=== PATIENT | male | born 1950 | race Caucasian/White ===

== ENCOUNTER 2018-11-05 13:24 | Outpatient (CLI) | payer MEDICARE ==
[~2018-11-05] VITALS: Ht 162.6 cm; Wt 92.0 kg
[~2018-11-05 13:24] MED LIST: /WARF5TA OR; ACET500C OR; ADV100INH INH; ASPI81TA85 PO; COUM2.5T17 PO; DIPH2.5L OR; DIPH2.5T14 PO; GLIM1TAB OR; INSULANT SC; LANTINJ4 SC; MULTCAP PO; PERC5TAB12 PO; PERC7.5T8 OR; PRED5TA PO; PRED5TAB OR; PREG100CA PO; PRO AIR INH; RAMI1CAP26 PO; RAMI25CA OR; SYMB80AE IN; TRAM50TA2 PO; TYLE325T5 PO; VICO5TAB OR; proair
[2018-11-05 13:30] VITALS: BP 158/70
[2018-11-05] MEDS ORDERED: VEDOLIZUMAB 300 MG in NS 250 ML IV ONE (13:45)
[2018-11-05] MEDS ORDERED: diphenhydrAMINE 25 MG CAP PO ONE (13:45)
[2018-11-05] MEDS ORDERED: ACETAMINOPHEN TAB 650MG DOSE (2X325MG) PO ONE (13:45)
[2018-11-05] MEDS ORDERED: LIDO2JELLY TOP (15:41)
[2018-11-05 15:42] VITALS: BP 163/74
[2018-11-05] MEDS ORDERED: SYMB16INH INH (15:42)
[2018-11-05] MEDS ORDERED: AMLO10TA5 PO (15:42)
[2018-11-05] MEDS ORDERED: FLON1SPR NARES (15:43)
[2018-11-05 16:11] VITALS: BP 148/70
== END 2018-11-05 15:50 | disposition home or self-care (01) ==
LOC: M INFU 13:24
PROVIDERS: ATTEND Internal Medicine Gastroenterology
DX: K50.00 Crohn's disease of small intestine without complications (principal)
CPT/HCPCS: 96365; J3380

== ENCOUNTER → 2018-12-06 | Outpatient (CLI) | payer MEDICARE ==
[~2018-12-06] MED LIST changes: +AMLO10TA5 PO; +D31000CA4 PO; +FLON1SPR NARES; +INSUH10VL SC; +LIDO2JELLY TOP; +SYMB16INH INH
--- NOTE | 2018-12-06 11:54 | REP ---
MAXILLOFACIAL CT WITHOUT CONTRAST: HISTORY: Chronic pansinusitis. There is complete opacification of the left maxillary sinus. Calcifications are present. There is expansion of the medial wall of the left maxillary sinus with extension of soft tissue density into the left nasal passage. There is partial erosion of the medial wall of the left maxillary sinus and almost complete erosion of the left uncinate process and left middle nasal turbinate. Mucosal thickening is present in the left ethmoid and sphenoid sinuses. There is complete opacification of the left ethmoid and sphenoid sinuses. Mild mucosal thickening is present in the left frontal sinus. Minimal mucosal thickening is present in the right frontal, ethmoid and maxillary sinuses. The right sphenoid sinus is clear. The right ostiomeatal unit is patent. The inferior and right middle nasal turbinates are partially paradoxical. There is mild deviation of the nasal septum to the right. The cribriform plate, medial godwin of the orbits and optic canals are intact. The carotid canals form a segment of the posterolateral godwin of the sphenoid sinus. The sphenoid sinus septum inserts into the right internal carotid canal wall. IMPRESSION: 1. There is complete opacification of the left maxillary sinus with extension of soft tissue density into the left nasal passage. There is partial erosion of the medial wall of the left maxillary sinus, uncinate process and left middle nasal turbinate. This may represent a mucocele or antral choanal polyp. 2. Sinus mucosal thickening as described above. Electronically Signed by Nolan Zheng MD 12/06/2018 11:58 A
== END ==
LOC: M RAD 11:00
PROVIDERS: ATTEND Otolaryngology
DX: J32.4 Chronic pansinusitis (principal)

== ENCOUNTER 2018-12-07 05:51 | Day surgery (SDC) | payer MEDICARE ==
[~2018-12-07] VITALS: Ht 162.6 cm; Wt 92.5 kg
[2018-12-07] MEDS ORDERED: EPINEPHrine 1MG/ML INJ 30ML MD-VIAL As Ordered ONE (06:56)
[2018-12-07] MEDS ORDERED: LIDOCAINE W/EPINEPHRINE 1% 20ML VIAL As Ordered ONE ×2 (06:56→06:57)
[2018-12-07] MEDS ORDERED: METHYLENE BLUE 0.5% (5MG/ML) 10 ML AMP (PROVAYBLUE)(Q9968 PER 1MG) As Ordered ONE (06:56)
[2018-12-07] MEDS ORDERED: MIDAZOLAM INJ 2 MG/2 ML VIAL (J2250) As Ordered ONE (07:10)
[2018-12-07] MEDS ORDERED: PROPOFOL 200 MG/20 ML VIAL As Ordered ONE (07:10)
[2018-12-07] MEDS ORDERED: ROCURONIUM BROMIDE 50 MG/5 ML VIAL As Ordered ONE ×2 (07:10→08:28)
[2018-12-07] MEDS ORDERED: fentaNYL 250 MCG/5 ML INJECTION (J3010) As Ordered ONE (07:10)
[2018-12-07] MEDS ORDERED: LIDOCAINE 2% INJ 100 MG/5 ML SDV (FOR ANES.) As Ordered ONE (07:10)
[2018-12-07] MEDS ORDERED: ePHEDrine SULFATE 25 MG/5 ML(5MG/ML) SYRINGE As Ordered ONE (07:55)
[2018-12-07] MEDS ORDERED: PHENYLephrine HCL 500 MCG/5 ML (100MCG/ML) SYRINGE (J2370) As Ordered ONE (07:56)
[2018-12-07] MEDS ORDERED: dexameTHASONE 4 MG/ML 1ML VIAL (J1100) As Ordered ONE (07:56)
[2018-12-07] MEDS ORDERED: SUGAMMADEX SODIUM 500 MG/5 ML VIAL (BRIDION) As Ordered ONE (09:13)
[2018-12-07] MEDS ORDERED: ONDANSETRON 4MG/2ML VIAL (J2405) As Ordered ONE (09:13)
[2018-12-07] MEDS ORDERED: LR 1,000 ML IV SCH (09:45)
[2018-12-07] MEDS ORDERED: ACETAMINOPH W/CODEINE #3 TAB UD PO PRN (09:45)
[2018-12-07] MEDS ORDERED: fentaNYL 100 MCG/2 ML INJECTION (J3010) IV PRN (10:00)
[2018-12-07] MEDS ORDERED: ONDANSETRON 4MG/2ML VIAL (J2405) IV PRN (10:00)
[2018-12-07] MEDS ORDERED: PERCOCET 5MG/325MG TAB PO PRN (10:00)
[2018-12-07 12:00] VITALS: BP 150/69
--- NOTE | 2018-12-07 22:43 | RO ---
DATE OF PROCEDURE: 12/07/2018 PREPROCEDURE DIAGNOSIS: Chronic rhinosinusitis. POSTPROCEDURE DIAGNOSIS: Chronic rhinosinusitis. PROCEDURE: Left polypectomy, ethmoidectomy, sphenoidotomy, antrostomy, nasofrontal sinusotomy, and left maxillary sinus lavage. SURGEON: Anselmo Mathew MD YARN SALVAGER: ANESTHESIA: FINDINGS: There was fungus within the left maxillary sinus and ethmoid area. There was mucopus within the ethmoid and sphenoid sinus. There was thickened mucosa and polypoid mucosa. I took cultures from the maxillary sinus. I used the navigation system during the procedure. DESCRIPTION OF PROCEDURE: Under general anesthesia with the patient intubated, the patient was prepped and draped in the usual manner. I did billposting supervisor the navigation system and calibrated prior to initiation of the procedure. I used pledgets of adrenaline 1:1000 and infiltrated with lidocaine with epinephrine. I started first by entering in and removing a portion of the middle turbinate. I then opened up and removed polypoid tissue from the area. The above findings were seen. I opened first into the maxillary sinus and enlarged that opening. Then, I flushed the sinus many times until I was able to get rid of the large fungus ball that was within the sinus. Behind that, there was a little thickened mucosa. So, after this was done, then I opened up the ethmoid air cells and dissected that area and then I opened up into the sphenoid sinus. I enlarged that opening. I then opened up into the nasofrontal area. Navigation system was used during the procedure. The patient tolerated the procedure well. Approximately 50 mL estimated blood loss. I put a Propel implant in the osteomeatal complex area. The patient was extubated and then transferred to the recovery room in excellent condition.
== END 2018-12-07 12:16 | disposition home or self-care (01) ==
LOC: M SDC 05:51
PROVIDERS: ATTEND Otolaryngology
DX: J32.4 Chronic pansinusitis (principal); I10 Essential (primary) hypertension; E11.8 Type 2 diabetes mellitus with unspecified complications; K50.011 Crohn's disease of small intestine with rectal bleeding; K21.9 Gastro-esophageal reflux disease without esophagitis; I49.9 Cardiac arrhythmia, unspecified; M06.9 Rheumatoid arthritis, unspecified; J45.909 Unspecified asthma, uncomplicated; J44.9 Chronic obstructive pulmonary disease, unspecified; R94.31 Abnormal electrocardiogram [ECG] [EKG]; R29.898 Other symptoms and signs involving the musculoskeletal system; R60.0 Localized edema; Z90.49 Acquired absence of other specified parts of digestive tract; Z86.19 Personal history of other infectious and parasitic diseases; Z87.891 Personal history of nicotine dependence; Z96.653 Presence of artificial knee joint, bilateral; Z96.1 Presence of intraocular lens; Z98.41 Cataract extraction status, right eye; Z98.42 Cataract extraction status, left eye; Z79.899 Other long term (current) drug therapy; Z79.4 Long term (current) use of insulin
CPT/HCPCS: 31253; 31256; 31287; 87070; 87075; 87076; 87077; 87186; 88305; C2625; J1100; J2250; J2370; J2405; J3010; Q9968

== ENCOUNTER 2019-01-28 09:37 | Outpatient (CLI) | payer MEDICARE ==
[~2019-01-28] VITALS: Ht 162.6 cm; Wt 92.0 kg
[~2019-01-28 09:37] MED LIST changes: -/WARF5TA OR; +COUM1TAB17 OR
[2019-01-28 09:52] VITALS: BP 166/73
[2019-01-28] MEDS ORDERED: VEDOLIZUMAB 300 MG in NS 250 ML IV ONE (10:00)
[2019-01-28] MEDS ORDERED: ACETAMINOPHEN TAB 650MG DOSE (2X325MG) PO ONE (10:00)
[2019-01-28] MEDS ORDERED: diphenhydrAMINE 25 MG CAP PO ONE (10:00)
[2019-01-28 10:50] VITALS: BP 148/71
[2019-01-28 11:09] VITALS: BP 138/68
== END 2019-01-28 11:10 | disposition home or self-care (01) ==
LOC: M INFU 09:37
PROVIDERS: ATTEND Internal Medicine Gastroenterology
DX: K50.00 Crohn's disease of small intestine without complications (principal)
CPT/HCPCS: 96365; J3380

== ENCOUNTER 2019-02-11 09:50 | Outpatient (CLI) | payer MEDICARE ==
[~2019-02-11] VITALS: Ht 162.6 cm; Wt 94.3 kg
[2019-02-11 10:00] VITALS: BP 157/71
[2019-02-11] MEDS ORDERED: diphenhydrAMINE 25 MG CAP PO ONE (10:30)
[2019-02-11] MEDS ORDERED: ACETAMINOPHEN TAB 650MG DOSE (2X325MG) PO ONE (10:30)
[2019-02-11] MEDS ORDERED: VEDOLIZUMAB 300 MG in NS 250 ML IV ONE (11:00)
[2019-02-11 11:15] VITALS: BP 151/72
== END 2019-02-11 11:15 | disposition home or self-care (01) ==
LOC: M INFU 09:50
PROVIDERS: ATTEND Internal Medicine Gastroenterology
DX: K50.00 Crohn's disease of small intestine without complications (principal)
CPT/HCPCS: 96365; J3380

== ENCOUNTER → 2019-03-11 | Outpatient (CLI) | payer MEDICARE ==
[2019-03-11 13:41] LABS: BLOOD UREA NITROGEN 25 MG/DL (7-18); CREATININE FOR GFR 0.89 MG/DL (0.70-1.30); GLOMERULAR FILTRATION RATE > 60.0 (>49)
== END ==
LOC: M SMT 09:41
PROVIDERS: ATTEND Internal Medicine Pulmonary Disease
DX: J45.40 Moderate persistent asthma, uncomplicated (principal)

== ENCOUNTER → 2019-11-05 | Outpatient (CLI) | payer MEDICARE ==
--- NOTE | 2019-11-05 12:16 | REPPI ---
Clinical: Persistent asthma . Comparison: 10/09/2014 Technique: PA and lateral. Findings: The mediastinum and cardiac silhouette are normal. The lung cox demonstrate stable chronic changes at the bases without acute consolidation, effusion, or pneumothorax. The skeletal structures are intact and normal. Impression: 1. No acute cardiopulmonary process. Electronically Signed by Pardeep Pinto MD 11/05/2019 12:07 P
== END ==
LOC: M PLAIMG 11:47
PROVIDERS: ATTEND Internal Medicine Pulmonary Disease
DX: J45.40 Moderate persistent asthma, uncomplicated (principal)

== ENCOUNTER → 2019-11-27 | Outpatient (CLI) | payer MEDICARE ==
--- NOTE | 2019-11-27 12:51 | REPPI ---
CHEST, TWO VIEWS: COMPARISON: 11/05/2019. Mild scattered pleural thickening is present and there appears to be mild bibasilar fibrotic change. There also appears to be a prominent left cardiophrenic fat pad. No acute infiltrate is seen. The heart is upper limits of normal in size. There is mild calcification of the thoracic aorta. Mediastinal silhouette is unchanged. There are degenerative changes of the spine. IMPRESSION: Stable chronic findings without evidence of acute infiltrate. Electronically Signed by Khalif Gomez MD 11/27/2019 04:09 P
== END ==
LOC: M PLAIMG 10:56
PROVIDERS: ATTEND Internal Medicine Pulmonary Disease
DX: J45.40 Moderate persistent asthma, uncomplicated (principal)
CPT/HCPCS: 71046; G0463

== ENCOUNTER 2020-11-14 11:50 | Inpatient (IN) | payer MEDICARE ==
[~2020-11-14] VITALS: Ht 162.6 cm; Wt 91.4 kg
[2020-11-14] MEDS: METOPROLOL SUCC *XL* 25MG TAB (TopROL *XL*) PO SCH (09:00)
[~2020-11-14 11:50] MED LIST changes: -AMLO10TA5 PO; +AMLO1TAB25 PO; -ASPI81TA85 PO; +ASPI81TA86 PO
[2020-11-14 14:00] VITALS: BP 126/58
[2020-11-14] MEDS ORDERED: ACETAMINOPHEN TAB 650MG DOSE (2X325MG) PO PRN (15:00)
[2020-11-14] MEDS ORDERED: DEXTROSE 50% 50 ML SYRINGE IV PRN (15:00)
[2020-11-14] MEDS ORDERED: GLUCOSE 4GM CHEW TABLET PO PRN (15:00)
[2020-11-14] MEDS ORDERED: GLUCAGON INJ 1MG VIAL SC PRN (15:00)
--- OUTSIDE RECORDS SUMMARY | 2020-11-14 15:07 | CCD | Continuity of Care Document ---
Author Author [facility] Address [address] [place] [address] Phone Support Name Relationship Address Phone Hospital Lab, [facility] [address] [place] [address] [place] [address] Naw[facility] [place] [address] Allergies, Adverse Reactions, Alerts No known allergies. Medications Medication Status Dose Units Route Directions Qty Days Start Date End Date Instructions Ramipril Active 10 MG PO daily March 05, 2019 3:15pm tuberculin PPD Discontinued 0.1 ML ID 1 Time/Once 0.1 April 15, 2019 8:41am April 15, 2019 8:54am Adalimumab (Humira) 40 mg/0.8 mL syringe kit Discontinued 40 MG SQ every 2 weeks September 10, 2019 1:24pm November 21, 2019 10:52am Multivitamin Active 1 TAB PO Every Morning September 10, 2019 1:26pm Polysaccharide Iron Complex (Ferrex 150) 150 mg iron c apsule Discontinued 150 MG PO daily September 10, 2019 2:30pm November 21, 2019 10:54am avoid dairy/calcium-containing products and/or antacids for at least 2 hrs before and after dose Insulin Glargine (Lantus Solostar U-100 Insulin) 100 unit/mL (3 mL) insulin pen Active 18 UNIT SQ 2 Times Per Day November 21, 2019 10:53am Levofloxacin (Levaquin) 500 mg tablet Discontinued 500 MG PO Q24H 14 November 21, 2019 12:58pm December 04, 2019 10:38am Prednisone Discontinued 20 MG PO daily 100 November 21, 2019 12:58pm December 04, 2019 11:54am X7 days then 1 daily 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 Albuterol Sulfate Discontinued 2.5 MG NEB Q4HRS November 21, 2019 12:59pm November 21, 2019 1:00pm Albuterol Sulfate Discontinued 2.5 MG IH Q4HRS November 21, 2019 1:00pm November 21, 2019 1:01pm Albuterol Sulfate Active 2.5 MG IH Q4HRS November 21, 2019 1:00pm Umeclidinium (Incruse Ellipta) 62.5 mcg/ actuation blister with device Active IH Calvin h 2019 10:39am Prednisone Discontinued 5 MG PO every other day December 04, 2019 11:55am May 04, 2020 2:32pm Gabapentin Active 300 MG PO daily May 04, 2020 8:55am Amlodipine Discontinued 5 MG PO daily May 04, 2020 10:12am June 09, 2020 8:22am Triamterene-Hydrochlorothiazid (Dyazide) 37.5-25 mg ca psule Active 1 CAP PO Every Morning May 04, 2020 10:12am Zinc Oxide Active 3.8 % TOP Four Times a Day May 04, 2020 2:28pm apply the barrier cream up to QID to but [facility] area Prednisone Discontinued 5 MG PO daily May 04, 2020 2:31pm June 19, 2020 11:57am Diphenoxylate-Atropine Active 1 TAB PO Four Times a Day May 04, 2020 2:32pm Take up to 4 times daily to control Crohn's flare Metoprolol Succinate (Toprol Xl) 25 mg t ablet extended release 24 hr Discontinued 25 MG PO At Bedtime October 19, 2020 1:58pm October 192020 3:19pm Metoprolol Succinate (Toprol Xl) 25 mg t ablet extended release 24 hr Active 25 MG PO At Bedtime October 19, 2020 3:19pm Ramipril Discontinued 1 TAB PO Once Per Day February 02, 2011 11:04am February 02, 2011 11:09am Glimepiride (Amaryl) 4 mg tablet Dis continued 1 TAB PO 2 Times Per Day 180 February 02, 2011 11:07am February 02, 2011 11:09am Budesonide/Formoterol Fumarate (Symbicort 160/4.5 Inha ler) Discontinued 1 PUFFS IH 2 Times Per Day 3 February 02, 2011 11:07am February 02 1 11:09am Glimepiride (Amaryl) 4 mg tablet Dis continued 1 TAB PO 2 Times Per Day 180 February 02, 2011 11:09am October 14, 2011 4:22pm Ramipril Discontinued 1 TAB PO Once Per Day 90 February 02, 2011 11:09am November 25, 2011 1:55pm Budesonide/Formoterol Fumarate (Symbicort 160/4.5 Inha ler) Discontinued 1 PUFFS IH 2 Times Per Day 3 February 02, 2011 11:09am April 22 11 4:58pm Loperamide Discontinued 1 TAB PO Four Times a Day 120 February 09, 2011 4:49pm April 22, 2011 4:58pm Albuterol Sulfate (Proventil Hfa) 90 mcg /actuation HFA aerosol inhaler Discontinued 2 PUFFS IH Every 6 hours 0 February 09, 2011 4:49pm August 02, 2011 12:57pm Blood Sugar Diagnostic (Freestyle Test) strip Discontinued 1 STRIP IN 100 February 09, 2011 4:50pm March 02, 2012 1:47pm Insulin Glargine,Hum.rec.anlog (Lantus Solostar) Discontinued 37 UNIT SC At Bedtime 3 April 07, 2011 7:28am April 07, 2011 9:11am Insulin Glargine,Hum.rec.anlog (Lantus Solostar) Discontinued 37 UNIT SC At Bedtime 3 April 07, 2011 9:11am April 22, 2011 4:59pm Insulin Glargine,Hum.rec.anlog (Lantus Solostar) Discontinued 40 UNIT SC At Bedtime 3 April 22, 2011 4:59pm July 29, 2011 10:35am Diphenoxylate-Atropine (Lomotil) 2.5-0.025 mg tablet Discontinued 1 TAB PO Four Times a Day 360 April 22, 2011 5:02pm July 29, 2011 10:35am Insulin Syringe-Needle U-100 Discontinued 1 DIS.SYR MC Once Per Day 100 April 22, 2011 5: 02pm November 25, 2011 1:16pm Fluocinonide/Emollient (Lidex-E 0.05% Cream) Discontinued 1 GM TP 2 Times Per Day 60 April 22, 2011 5:03pm October 14, 2011 4:22pm INFLUENZA TV-S 11-12 VACCINE (FLUZONE ) Discontinued 0.5 MILLILITRE IM ONE TIME 1 June 14, 2011 3:55pm June 14, 2011 3:55pm Diphenoxylate-Atropine (Lomotil) 2.5-0.025 mg tablet Discontinued 1 TAB PO Four Times a Day 120 July 29, 2011 10:35am December 2:38pm Insulin Glargine,Hum.rec.anlog (Lantus Solostar) Discontinued 45 UNIT SC At Bedtime 3 July 29, 2011 10:35am October 14, 2011 4:22pm Levofloxacin (Levaquin) 500 mg tablet Discontinued 500 MG PO Once Per Day August 02, 2011 12:57pm October 14, 2011 4:22pm Albuterol Sulfate (Proair Hfa) 90 mcg/ac tuation HFA aerosol inhaler Discontinued 2 PUFFS IH Q4HRS 1 August 02, 2011 12:57pm August 09, 2011 2:34pm Nebulizers (Compact Compressor Nebulizer) misc Discontinued 1 EACH MC Q4HRS 1 August 09, 2011 2:06pm October 14, 2011 4:22pm Albuterol Sulfate Discontinued 2.5 MG NEB Q4HRS 100 August 09, 2011 2:06pm October 22, 2012 3:53pm Albuterol Sulfate (Proair Hfa) 90 mcg/ac tuation HFA aerosol inhaler Discontinued 2 PUFFS IH Q4HRS 3 August 09, 2011 2:34pm June 262011 2:22pm Budesonide-Formoterol (Symbicort) 160-4. 5 mcg/actuation HFA aerosol inhaler Discontinued 2 PUFFS IH 2 Times Per Day 3 August 09, 2011 2:34pm October 22, 2012 3:26pm Prednisone Discontinued 40 MG PO Once Per Day 0 August 09, 2011 2:35pm October 14, 2011 4:22pm Glimepiride (Amaryl) 4 mg tablet Dis continued 1 TAB PO 2 Times Per Day 180 October 14, 2011 4:22pm October 22, 2012 5:21pm Fluocinonide/Emollient (Lidex-E 0.05% Cream) Discontinued 1 GM TP 2 Times Per Day 60 October 14, 2011 4:22pm August 24, 2012 3:49pm Insulin Glargine,Hum.rec.anlog (Lantus Solostar) Discontinued 55 UNIT SC At Bedtime 3 October 14, 2011 4:22pm April 11, 2012 3:55pm Pen Needle, Diabetic (Pen Needle) 31 gauge x 1/4" need le Discontinued 1 DIS.NDL MC Once Per Day 100 November 25, 2011 1:16pm November 24 1:17pm Pen Needle, Diabetic (Pen Needle) 31 gauge x 1/4" need le Discontinued 1 DIS.NDL MC Once Per Day 100 November 25, 2011 1:17pm July 17, 2012 2:16pm Ramipril Discontinued 10 MG PO Once Per Day 90 November 25, 2011 1:55pm January 01, 2013 8:33am Blood Sugar Diagnostic (One Touch Test Strips) Discontinued 1 STRIP IN 2 Times Per Day 200 March 02, 2012 1:47pm March 02, 2012 1:48pm Blood Sugar Diagnostic (One Touch Test Strips) Discontinued 1 STRIP IN 2 Times Per Day 200 March 02, 2012 1:48pm March 11, 2013 3:50pm Loperamide Discontinued 1 CAP PO Four Times a Day 360 March 02, 2012 1:53pm March 02, 2012 2:05pm Loperamide Discontinued 1 CAP PO Four Times a Day 360 March 02, 2012 2:05pm April 26, 2013 9:02am Tiotropium Sharon (Spiriva With Handiha ler) 18 mcg capsule, w/inhalation device Discontinued 18 MCG IH Once Per Day 90 April 11, 2012 3:18pm March 06, 2013 4:57pm Insulin Glargine,Hum.rec.anlog (Lantus Solostar) Discontinued 60 UNIT SC At Bedtime 3 April 11, 2012 3:55pm April 11, 2012 4:05pm Insulin Glargine,Hum.rec.anlog (Lantus Solostar) Discontinued 60 UNIT SC At Bedtime 3 April 11, 2012 4:05pm October 22, 2012 5:21pm Metformin (Glucophage Xr) 500 mg tablet extended release 24 hr Discontinued 500 MG PO 2 Times Per Day 180 June 13, 2012 3:10pm July 11, 2012 9:59am Flu Vaccine (4 Yr+)(Pf) (Fluvirin (Pf)) 45 mcg (15 mcg x 3)/0.5 mL syringe Discontinued 0.5 MILLILITRE IM ONE TIME 1 June 13, 2012 5:25pm June 13, 2012 5:30pm Prednisone Discontinued 40 MG PO Once Per Day June 26, 2012 2:21pm July 12, 2012 11:19am Azithromycin (Zithromax) 250 mg tablet Discontinued 250 MG PO Once Per Day June 26, 2012 2:21pm July 12, 2012 11:58am Albuterol Sulfate (Proair Hfa) 90 mcg/ac tuation HFA aerosol inhaler Discontinued 2 PUFFS IH Q4HRS June 26, 2012 2:22pm June 2:26pm Albuterol Sulfate (Proair Hfa) 90 mcg/ac tuation HFA aerosol inhaler Discontinued 2 PUFFS IH Q4HRS June 26, 2012 2:26pm August 4:15pm Metformin (Glucophage Xr) 500 mg tablet extended release 24 hr Discontinued 500 MG PO 2 Times Per Day July 11, 2012 9:59am March 06, 2013 4:57pm Lancets (Freestyle Lancets) 28 gauge misc Discontinued 1 EACH MC 2 Times Per Day July 11, 2012 10:00am July 11, 2012 10:02am Lancets (Freestyle Lancets) 28 gauge misc Discontinued 1 EACH MC 2 Times Per Day July 11, 2012 10:02am October 22, 2012 5:21pm Prednisone Discontinued 40 MG PO Once Per Day July 12, 2012 9:04pm July 20, 2012 3:42pm Levofloxacin (Levaquin) 500 mg tablet Discontinued 500 MG PO Once Per Day July 12, 2012 9:04pm August 24, 2012 3:48pm Pen Needle, Diabetic (Pen Needle) 31 gauge x 1/4" need le Discontinued 1 DIS.NDL MC Once Per Day July 17, 2012 2:16pm October 222012 5:21pm Montelukast (Singulair) 10 mg tablet Discontinued 10 MG PO O nce Per Day July 20, 2012 4:30pm March 06, 2013 4:57pm Levofloxacin (Levaquin) 500 mg tablet Discontinued 500 MG PO Once Per Day August 24, 2012 4:24pm August 24, 2012 4:26pm Budesonide-Formoterol (Symbicort) 160-4. 5 mcg/actuation HFA aerosol inhaler Discontinued 2 PUFFS IH 2 Times Per Day 1 August 24, 2012 4:24pm October 22, 2012 3:26pm Levofloxacin (Levaquin) 500 mg tablet Discontinued 500 MG PO Once Per Day 10 August 24, 2012 4:26pm October 22, 2012 3:26pm Fluticasone Propion-Salmeterol (Advair H fa) 230-21 mcg/actuation HFA aerosol inhaler Discontinued 2 PUFFS IH 2 Times Per Day 0 October 22, 2012 3:26pm November 05, 2013 11:43am Albuterol Sulfate Discontinued 2.5 MG NEB Q4HRS October 22, 2012 3:53pm July 25, 2016 3:42pm Ciprofloxacin Hcl Discontinued 750 MG PO Every 12 Hours October 22, 2012 3:54pm January 18, 2013 8:40am Prednisone Discontinued 40 MG PO Once Per Day October 22, 2012 3:55pm January 18, 2013 8:40am Pen Needle, Diabetic (Pen Needle) 31 gauge x 1/4" need le Discontinued 1 DIS.NDL MC 2 Times Per Day 200 October 22, 2012 5:21pm October 262013 4:21pm Lancets (Freestyle Lancets) 28 gauge misc Discontinued 1 EACH MC Before Meals & at Bedtime October 22, 2012 5:21pm July 29, 2013 5:21pm Insulin Glargine,Hum.rec.anlog (Lantus Solostar) Discontinued 60 UNIT SC At Bedtime October 22, 2012 5:21pm October 29, 2012 8:56am Insulin Glargine,Hum.rec.anlog (Lantus Solostar) Discontinued 60 UNIT SC At Bedtime October 26, 2012 1:22pm January 18, 2013 8:41am Ramipril Discontinued 10 MG PO Once Per Day January 01, 2013 8:33am January 06, 2014 9:31pm Insulin Glargine,Hum.rec.anlog (Lantus Solostar) Discontinued 60 UNIT SC At Bedtime January 18, 2013 8:41am January 18, 2013 8:42am Insulin Glargine,Hum.rec.anlog (Lantus Solostar) Discontinued 60 UNIT SC At Bedtime 3 January 18, 2013 8:43am March 06, 2013 4:57pm Aspirin (Ecotrin Low Strength) 81 mg tab let,delayed release (DR/EC) Active 1 TAB PO Once Per Day 90 March 06, 2013 4:57pm Metformin (Glucophage Xr) 500 mg tablet extended release 24 hr Discontinued 500 MG PO Once Per Day 180 March 06, 2013 4:57pm March 06 5:08pm Insulin Glargine,Hum.rec.anlog (Lantus Solostar) Discontinued 60 UNIT SC At Bedtime 3 March 06, 2013 4:57pm March 06, 2013 5:08pm Metformin (Glucophage Xr) 500 mg tablet extended release 24 hr Discontinued 500 MG PO Once Per Day 90 March 06, 2013 5:08pm February 26 8:17am Insulin Glargine,Hum.rec.anlog (Lantus Solostar) Discontinued 60 UNIT SC At Bedtime 3 March 06, 2013 5:08pm April 03, 2013 4:58pm Blood Sugar Diagnostic (One Touch Test Strips) Discontinued 1 STRIP IN Three times a day 300 March 11, 2013 3:50pm March 11, 2013 4:46pm Blood Sugar Diagnostic (One Touch Test Strips) Discontinued 1 STRIP IN Three times a day 300 March 11, 2013 4:46pm July 29, 2013 5:21pm Insulin Glargine,Hum.rec.anlog (Lantus Solostar) Discontinued 60 UNIT SC At Bedtime 3 April 03, 2013 4:58pm May 15, 2013 4:43pm Loperamide Discontinued 1 CAP PO Four Times a Day 360 April 26, 2013 9:02am November 05, 2013 12:01pm Insulin Glargine,Hum.rec.anlog (Lantus Solostar) Discontinued 63 UNIT SC At Bedtime May 15, 2013 4:43pm July 29, 2013 5:20pm Pregabalin (Lyrica) 100 mg capsule D iscontinued 100 MG PO At Bedtime May 15, 2013 4 :48pm November 05, 2013 11:43am Insulin Glargine,Hum.rec.anlog (Lantus Solostar) Discontinued 68 UNIT SC At Bedtime July 29, 2013 5:20pm September 11, 2013 2:59pm Lancets (Freestyle Lancets) 28 gauge misc Discontinued 1 EACH MC Before Meals & at Bedtime 100 July 29, 2013 5:21pm September 02, 2014 4:11pm Blood Sugar Diagnostic (One Touch Test Strips) Active 1 STRIP IN Three times a day 300 July 29, 2013 5:21pm Insulin Glargine,Hum.rec.anlog (Lantus Solostar) Discontinued 68 UNIT SC At Bedtime 3 September 11, 2013 2:59pm September 11, 2013 3:20pm Insulin Glargine,Hum.rec.anlog (Lantus Solostar) Discontinued 65 UNIT SC At Bedtime 3 September 11, 2013 3:20pm November 05, 2013 11:43am Levofloxacin (Levaquin) 500 mg tablet Discontinued 500 MG PO Once Per Day 10 September 11, 2013 3:25pm November 05, 2013 11:43am Insulin Glargine,Hum.rec.anlog (Lantus Solostar) Discontinued 66 UNIT SC At Bedtime 3 November 05, 2013 11:43am November 05, 2013 12:05pm Insulin Glargine,Hum.rec.anlog (Lantus Solostar) Discontinued 66 UNIT SC At Bedtime 3 November 05, 2013 12:05pm December 24, 2013 3:29pm Pen Needle, Diabetic (Pen Needle) 31 gauge x 1/4" need le Discontinued 1 DIS.NDL MC 2 Times Per Day 200 November 08, 2013 4:21pm December 4:14pm Pregabalin (Lyrica) 100 mg capsule D iscontinued 100 MG PO At Bedtime 30 November 15, 2013 9:38am June 11, 2014 3:45pm Budesonide-Formoterol (Symbicort) 160-4. 5 mcg/actuation HFA aerosol inhaler Discontinued 2 PUFFS IH 2 Times Per Day 0 November 21, 2013 2:22pm July 23, 2014 1:32pm Insulin Glargine,Hum.rec.anlog (Lantus Solostar) Discontinued 66 UNIT SC At Bedtime 3 December 24, 2013 3:29pm December 24, 2013 4:02pm AND 30 U IN AM Insulin Glargine (Lantus Solostar) 100 UNIT/1 ML insul in pen Discontinued 60 UNIT SQ Once Per Day 10 December 24, 2013 4:05pm February 26 4 8:16am at breakfast and 33 units HS or as direc zandra Loperamide (Imodium A-D) 2 MG tablet Discontinued 2 MG PO Be fore Meals & at Bedtime 120 December 24, 2013 4:08pm April 30, 2014 3:51pm Pen Needle, Diabetic (Pen Needle) 1 EACH needle Discontinued 1 DIS.NDL MC 2 Times Per Day 60 December 24, 2013 4:14pm September 02, 2014 4:11pm Diphenoxylate-Atropine (Lomotil Tablet) 1 EACH tablet Discontinued 1 TAB PO Four Times a Day December 27, 2013 2:38pm May 6:53am TESTER ELECTRONIC SCALE [id number] Amoxicillin-Pot Clavulanate (Augmentin 8 75-125 Tablet) 1 EACH tablet Discontinued 875 MG PO Every 12 Hours December 30, 2013 1:59pm February 26 4 7:43am Ramipril Discontinued 10 MG PO Once Per Day January 06, 2014 9:31pm December 02, 2014 2:52pm Insulin Glargine (Lantus Solostar) 100 UNIT/1 ML insul in pen Discontinued 40 UNIT SQ Once Per Day 10 February 26, 2014 8:16am May 3:05pm at breakfast and 60 units HS or as direc zandra Metformin (Glucophage Xr) 500 MG tablet extended release 24 hr Discontinued 500 MG PO Once Per Day 90 February 26, 2014 8:17am March 10 5 1:17pm Tramadol Discontinued 1 TAB PO Four Times a day PRN February 26, 2014 8:3 1am March 10, 2015 1:17pm Loperamide (Imodium A-D) 2 MG tablet Discontinued 2 MG PO Be fore Meals & at Bedtime April 30, 2014 3:51pm June 11, 2014 3:26pm Amoxicillin-Pot Clavulanate (Augmentin 8 75-125 Tablet) 1 EACH tablet Discontinued 875 MG PO Every 12 Hours 20 April 30, 2014 3:51pm June 112013 3:05pm Nystatin-Triamcinolone Discontinued 1 SM.AMT TP Three times a day 60 April 30, 2014 4: 01pm June 11, 2014 3:05pm Insulin Glargine (Lantus Solostar) 100 UNIT/1 ML insul in pen Discontinued 60 UNIT IJ AM June 11, 2014 3:05pm June 11, 2014 3:30pm and 40 units HS or as directed Loperamide (Imodium A-D) 2 MG tablet Discontinued 2 MG PO Be fore Meals & at Bedtime 120 June 11, 2014 3:26pm July 23, 2014 12:59pm Insulin Glargine (Lantus Solostar) 100 UNIT/1 ML insul in pen Discontinued 65 UNIT SQ Once Per Day June 11, 2014 3:34pm September 02, 2014 4:10pm and 45 units at HS or as directed Flu Vacc [id number](4yr,Up)(Pf) (Fluvirin Syringe) 45 MCG/0.5 ML syringe Discontinued 0.5 ML IM ONE TIME June 11, 2014 3:37pm June 11, 2014 3:40pm Pregabalin (Lyrica) 100 MG capsule D iscontinued 100 MG PO At Bedtime 30 June 11 4 3:45pm September 02, 2014 4:13pm TESTER ELECTRONIC SCALE [id number] Budesonide (Pulmicort Flexhaler) 180 MCG aerosol powdr breath activated Discontinued 180 MCG IH 2 Times Per Day July 23, 2014 1:05pm July 232013 1:21pm Budesonide-Formoterol (Symbicort 160-4.5 Mcg Inhaler) 10.2 GM HFA aerosol inhaler Discontinued 2 PUFFS IH 2 Times Per Day July 23, 2014 1:32pm January 23, 2019 11:15am per Dr Roger after spirometry Budesonide-Formoterol (Symbicort 160-4.5 Mcg Inhaler) 10.2 GM HFA aerosol inhaler Active 2 PUFFS IH 2 Times Per Day July 23, 2014 1:32pm per Dr Roger after spirometry Insulin Glargine (Lantus Solostar) 100 UNIT/1 ML insul in pen Discontinued 70 UNIT SQ Once Per Day September 02, 2014 4:10pm September 022013 4:11pm and 45 units at HS or as directed Pen Needle, Diabetic (Pen Needle) 1 EACH needle Discontinued 1 DIS.NDL MC 2 Times Per Day September 02, 2014 4:11pm December 11, 2014 8:11am Insulin Glargine (Lantus Solostar) 100 UNIT/1 ML insul in pen Discontinued 70 UNIT SQ Once Per Day 10 September 02, 2014 4:11pm November 2:57pm and 45 units at HS or as directed Lancets (Freestyle Lancets) 1 EACH misc Discontinued 1 EACH MC Before Meals & at Bedtime 100 September 02, 2014 4:11pm January 23, 2019 11:18am Lancets (Freestyle Lancets) 1 EACH misc Active 1 EACH MC Before Meals & at Bedtime 100 September 02, 2014 4:11pm Pregabalin (Lyrica) 100 MG capsule D iscontinued 200 MG PO At Bedtime 60 September 02, 2014 4:13pm March 10, 2015 1:29pm TESTER ELECTRONIC SCALE Albuterol Sulfate (Proair Hfa) 8.5 GM HFA aerosol inha ler Discontinued 2 PUFFS IH Q4HRS 3 September 02, 2014 4:15pm October 27, 2014 2:56pm Albuterol Sulfate (Proair Hfa) 8.5 GM HFA aerosol inha ler Discontinued 2 PUFFS IH Q4HRS October 27, 2014 2:56pm December 21, 2015 3:09pm Amlodipine (Norvasc) 2.5 MG tablet D iscontinued 2.5 MG PO Once Per Day November 28, 2014 4:1 6pm December 02, 2014 2:52pm Amlodipine (Norvasc) 2.5 MG tablet D iscontinued 2.5 MG PO Once Per Day December 02, 2014 2:52pm June 22, 2015 6:25pm Ramipril Discontinued 10 MG PO Once Per Day December 02, 2014 2:52pm February 19, 2015 2:45pm Insulin Glargine (Lantus Solostar) 100 UNIT/1 ML insul in pen Discontinued 75 UNIT SQ Once Per Day December 02, 2014 2:57pm December 02, 2014 3:11pm and 45 units at HS or as directed Insulin Glargine (Lantus Solostar) 100 UNIT/1 ML insul in pen Discontinued 75 UNIT SQ Once Per Day December 02, 2014 3:11pm March 10, 015 1:19pm and 45 units at HS or as directed Pen Needle, Diabetic (Pen Needle) 1 EACH needle Discontinued 1 DIS.NDL MC 2 Times Per Day 60 December 11, 2014 8:11am June 22, 2015 8:52am Azithromycin (Zithromax) 250 MG tablet Discontinued 250 MG PO Once Per Day 6 January 07, 2015 5:15pm January 07, 2015 5:17pm TAKE TWO TAB S ON DAY ONE AND 1 TAB DAYS 2 THROUGH 5 Azithromycin (Zithromax) 250 MG tablet Discontinued 250 MG PO Once Per Day 6 January 07, 2015 5:17pm January 07, 2015 5:44pm TAKE TWO TAB S ON DAY ONE AND 1 TAB DAYS 2 THROUGH 5 Ramipril Discontinued 10 MG PO 2 Times Per Day 90 February 19, 2015 2:45pm February 23, 2015 3:15pm Ramipril Discontinued 10 MG PO 2 Times Per Day 90 February 23, 2015 3:15pm December 21, 2015 2:41pm Metformin (Glucophage Xr) 500 MG tablet extended release 24 hr Discontinued 500 MG PO Once Per Day March 10, 2015 1:17pm May 6:24pm Insulin Glargine (Lantus Solostar) 100 UNIT/1 ML insul in pen Discontinued 80 UNIT SQ Once Per Day 10 March 10, 2015 1:19pm December 20, 016 2:41pm and 50 units at HS or as directed Pen Needle, Diabetic (Pen Needle) 1 EACH needle Discontinued 1 DIS.NDL MC 2 Times Per Day 60 June 22, 2015 8:52am January 23, 2019 4:54am 8MM X 31 G DX:250.00 Pen Needle, Diabetic (Pen Needle) 1 EACH needle Active 1 DIS.NDL MC 2 Times Per Day 60 June 22, 2015 8:52am 8MM X 31 G DX:250.00 Amlodipine (Norvasc) 2.5 MG tablet D iscontinued 2.5 MG PO Once Per Day June 22 5 6:24pm March 21, 2016 5:13pm Metformin (Glucophage Xr) 500 MG tablet extended release 24 hr Discontinued 500 MG PO Once Per Day June 22, 2015 6:24pm October 01, 2015 12:37pm Diphenoxylate-Atropine (Lomotil 2.5-0.02 5 Mg Tablet) 1 EACH tablet Discontinued 1 TAB PO Four Times a Day June 23, 2015 6:53am February 2:44pm TESTER ELECTRONIC SCALE [id number] AFLURIA SYRINGE Discontinued 0.5 ML IM .ONCE July 21, 2015 9 :04am July 21, 2015 10:06am Dapagliflozin (Farxiga) 5 MG tablet Discontinued 5 MG PO On ce Per Day July 21, 2015 9:42am August 18, 2015 1:25pm Pneumoc 13-Ruthie Conj-Dip Cr(Pf) (Prevnar 13*) 0.5 ML sy ringe Discontinued 0.5 ML IM ONE TIME July 21, 2015 10:04am June 262014 10:06am Metformin (Glucophage Xr) 500 MG tablet extended release 24 hr Discontinued 500 MG PO Once Per Day October 01, 2015 12:37pm November 3:07pm Ramipril Discontinued 10 MG PO Once Per Day December 21, 2015 2:41pm September 09, 2016 7:13am Insulin Glargine (Lantus Solostar) 100 UNIT/1 ML insul in pen Discontinued 72 UNIT SQ Every Morning December 21, 2015 2:41pm March 21, 016 4:41pm and 50 units at HS or as directed Metformin (Glucophage Xr) 500 MG tablet extended release 24 hr Discontinued 500 MG PO Once Per Day 100 December 21, 2015 3:07pm July 7:50am Albuterol Sulfate (Proair Hfa) 8.5 GM HFA aerosol inha ler Discontinued 2 PUFFS IH Q4HRS 3 December 21, 2015 3:09pm January 23, 2019 5:07am Albuterol Sulfate (Proair Hfa) 8.5 GM HFA aerosol inha ler Active 2 PUFFS IH Q4HRS 3 December 21, 2015 3:09pm Azithromycin Discontinued 250 MG PO As Directed (Daily ) January 01, 2016 8:38 am February 24, 2016 4:44pm TAKE [address] AT AND THEN ONE DAILY Diphenoxylate-Atropine (Lomotil 2.5-0.02 5 Mg Tablet) 1 EACH tablet Discontinued 1 TAB PO Four Times a Day 120 February 24, 2016 2:44pm February 24, 2016 4:45pm Diphenoxylate-Atropine (Lomotil 2.5-0.02 5 Mg Tablet) 1 EACH tablet Discontinued 1 TAB PO Four Times a Day 120 February 24, 2016 4:45pm February 24, 2016 4:55pm Diphenoxylate-Atropine (Lomotil 2.5-0.02 5 Mg Tablet) 1 EACH tablet Discontinued 1 TAB PO Four Times a Day 120 February 24, 2016 4:56pm April 12 9:15am Insulin Glargine (Lantus Solostar) 100 UNIT/1 ML insul in pen Discontinued 66 UNIT SQ Every Morning March 21, 2016 4:41pm July 25, 2016 3:28pm and 54 units at HS or as directed Amlodipine (Norvasc) 2.5 MG tablet D iscontinued 5 MG PO On ce Per Day 180 March 21, 2016 5: 13pm November 15, 2016 5:33pm Diphenoxylate-Atropine (Lomotil 2.5-0.02 5 Mg Tablet) 1 EACH tablet Discontinued 1 TAB PO Four Times a Day 120 April 12, 2016 9:21am May 2:21pm Diphenoxylate-Atropine (Lomotil 2.5-0.02 5 Mg Tablet) 1 EACH tablet Discontinued 1 TAB PO Four Times a Day 120 June 17, 2016 2:22pm January 23, 2019 5:24am TESTER ELECTRONIC SCALE [id number] Diphenoxylate-Atropine (Lomotil 2.5-0.02 5 Mg Tablet) 1 EACH tablet Discontinued 1 TAB PO Four Times a Day 120 June 17, 2016 2:22pm April 252019 2:34pm TESTER ELECTRONIC SCALE [id number] Flu Vaccine [id number](5yrup)Pf (Afluria 2917-3018 Syringe) 45 MCG/0.5 ML syringe Discontinued 45 MCG IM ONE TIME July 07, 2016 10:23am June 252015 10:29am Insulin Glargine (Lantus Solostar) 100 UNIT/1 ML insul in pen Discontinued 60 UNIT SQ Every Morning July 25, 2016 3:28pm November 23, 2016 2:41pm and 60 units at HS or as directed Ipratropium Sharon (Atrovent Hfa) 12.9 GM HFA aerosol inhaler Discontinued 2 SPRAYS IH Once Per Day July 25, 2016 3:40pm July 292015 7:39am Azithromycin Discontinued 250 MG PO As Directed (Daily ) 6 July 25, 2016 3 :41pm July 25, 2016 3:41pm TAKE 2 TAB S STAT AND THEN ONE DAILY Azithromycin Discontinued 250 MG PO As Directed (Daily ) July 25, 2016 3 :41pm September 09, 2016 7:13am TAKE 2 TA BS STAT AND THEN ONE DAILY Albuterol Sulfate Discontinued 2.5 MG NEB Q4HRS 100 July 25, 2016 3:42pm January 08, 2018 3:46pm Metformin (Glucophage Xr) 500 MG tablet extended release 24 hr Discontinued 1000 MG PO Once Per Day 180 July 29, 2016 7:50am October 272016 5:32pm TAKE WITH SUPPER Glyburide Discontinued 5 MG PO 2 Times Per Day 60 July 29, 2016 7:52am November 15, 2016 5:32pm Ramipril Discontinued 10 MG PO Once Per Day 90 September 09, 2016 7:13am November 15, 2016 5:31pm Ramipril Discontinued 10 MG PO Once Per Day November 15, 2016 5:31pm November 06, 2018 9:08am take with small sip of water day of procedure Metformin (Glucophage Xr) 500 MG tablet extended release 24 hr Discontinued 1000 MG PO Once Per Day 180 November 15, 2016 5:32pm February 01, 2017 8:06am do not take the day of procedure Amlodipine (Norvasc) 2.5 MG tablet D iscontinued 5 MG PO On ce Per Day November 15 5:33pm March 30, 2017 10:31am take the am o f the prodecure Diphth,Pertus(Acell),Tetanus (Boostrix T dap) 0.5 ML suspension Discontinued 0.5 ML IM ONE TIME 1 November 15, 2016 5:53pm January 23, 2019 5:37am Diphth,Pertus(Acell),Tetanus (Boostrix T dap) 0.5 ML suspension Discontinued 0.5 ML IM ONE TIME 1 November 15, 2016 5:53pm February 3:13pm Alprazolam (Xanax) 0.25 MG tablet Di scontinued 0.25 MG PO ONE TIME 4 November 15, 2016 7:46pm November 16, 2016 8:56am take 1 30 min before procedure and night before procedure prn may repeat x1 Insulin Glargine (Lantus Solostar) 100 UNIT/1 ML insul in pen Discontinued 60 UNIT SQ Every Morning November 23, 2016 2:41pm February 01 8:06am and 45 units at HS or as directed Methyldopa Discontinued 250 MG PO At Bedtime February 01, 2017 8:06am November 28, 2018 3:49pm Metformin (Glucophage Xr) 500 MG tablet extended release 24 hr Discontinued 1 TAB PO Once Per Day 180 February 01, 2017 8:06am November 06, 2018 9:08am do not take the day of procedure Insulin Aspart U-100 (Novolog Flexpen) 1 00 UNIT/1 ML insulin pen Active 100 UNIT SQ Once Per Day February 01, 2017 8:06am PER SLIDING SCALE Insulin Glargine (Lantus Solostar) 100 UNIT/1 ML insul in pen Discontinued 37 UNIT SQ Every Morning February 01, 2017 8:06am August 21, 2017 11:19am and 37 units at HS or as directed Amlodipine (Norvasc) 2.5 MG tablet D iscontinued 5 MG PO On ce Per Day 180 March 30, 2017 10: 31am April 04, 2017 9:25am Amlodipine (Norvasc) 2.5 MG tablet D iscontinued 5 MG PO On ce Per Day 180 April 04, 2017 9: 25am May 24, 2017 8:40am Prednisone Discontinued 5 MG PO Once Per Day 30 May 24, 2017 8:03am October 25, 2017 11:16am Amlodipine Discontinued 10 MG PO Once Per Day 180 May 24, 2017 8:41am January 23, 2019 5:58am Amlodipine Discontinued 10 MG PO Once Per Day 180 May 24, 2017 8:41am May 04, 2020 10:12am Insulin Glargine (Lantus Solostar) 100 UNIT/1 ML insul in pen Discontinued 35 UNIT SQ Every Morning August 21, 2017 11:19am October 25, 2017 11:17am and 35 units at HS or as directed Azithromycin Discontinued 250 MG PO Once Per Day 6 5 October 16, 2017 2:37pm October 24, 2017 1:31pm Take 2 tablets (500mg) by mouth on day 1 Take 1 tablet(250 mg) days 2-5 Azithromycin Discontinued 250 MG PO Once Per Day 6 5 October 24, 2017 1:44pm December 08, 2017 1:18pm Take 2 tablets (500mg) by mouth on day 1 Take 1 tablet(250 mg) days 2-5 Prednisone Discontinued 20 MG PO Once Per Day October 25, 2017 11:16am January 24, 2018 8:51am Insulin Glargine (Lantus Solostar) 100 UNIT/1 ML insul in pen Discontinued 32 UNIT SQ Every Morning October 25, 2017 11:17am January 24, 2018 8:53am and 32 units at HS or as directed Cyclobenzaprine Discontinued 5 MG PO Three times a day PRN 21 December 08, 2017 1: 37pm January 08, 2018 1:28pm Levofloxacin Discontinued 500 MG PO Once Per Day 10 January 08, 2018 3:35pm January 24, 2018 7:51am Take with food, drink plenty of water. Prednisone Discontinued 10 MG PO Once Per Day 19 January 08, 2018 3:38pm January 24, 2018 7:51am Take 3 tabs days 1,2,3 Take 2 tabs days 4,5,6 Take 1 tab days 7,8,9,10 Albuterol Sulfate Discontinued 2.5 MG NEB Q4HRS 100 January 08, 2018 3:46pm January 23, 2019 6:39am Albuterol Sulfate Discontinued 2.5 MG NEB Q4HRS 100 January 08, 2018 3:46pm November 21, 2019 1:00pm Insulin Glargine (Lantus Solostar) 100 UNIT/1 ML insul in pen Discontinued 18 UNIT SQ Every Morning January 24, 2018 8:53am November 28, 2018 3:48pm and 18 units at HS or as directed Levofloxacin (Levaquin) 500 MG tablet Discontinued 500 MG PO Once Per Day January 24, 2018 9:01am May 02, 2018 8:12am Amoxicillin-Pot Clavulanate Discontinued 1 TAB PO 2 Times Per Day 14 June 14 8 11:59am November 06, 2018 9:08am Ledipasvir-Sofosbuvir (Harvoni 90-400 Mg Tablet) 1 EACH tablet Discontinued 1 EACH PO June 15, 2018 7:46am November 06, 2018 9:08am [facility] Vedolizumab (Entyvio) 300 MG recon soln Discontinued 300 MG IV November 06, 2018 9:08am November 06, 2018 9:42am Ramipril Discontinued 1 CAP PO Once Per Day November 06, 2018 9:08am March 05, 2019 3:14pm Vedolizumab (Entyvio) 300 MG recon soln Discontinued 300 MG IV every 2 weeks 0 November 06, 2018 9:42am January 23, 2019 9:33am first was 11-05-18 with plans to do every 2 weeks-Mary Vedolizumab (Entyvio) 300 MG recon soln Discontinued 300 MG IV every 2 weeks 0 November 06, 2018 9:42am September 10, 2019 1:24pm first was 11-05-18 with plans to do every 2 weeks-Ramóninstein Fluticasone Propionate Discontinued 2 SPRAYS EN Once Per Day November 06, 2018 9:46am January 23, 2019 9:33am Fluticasone Propionate Active 2 SPRAYS EN Once Per Day November 06, 2018 9:46am Amoxicillin-Pot Clavulanate (Augmentin 8 75-125 Tablet) 1 EACH tablet Discontinued 875 MG PO Every 12 Hours November 06, 2018 10:05am November 2:22pm Cholecalciferol (Vitamin D3) (Vitamin D3) 1000 UNIT ca psule Active 1000 UNIT PO Once Per Day November 28, 2018 2:25pm Insulin Glargine (Lantus Solostar) 100 UNIT/1 ML insul in pen Discontinued 15 UNIT SQ Every Morning November 28, 2018 3:48pm January 23, 2019 10:01am and 15 units at HS or as directed Insulin Glargine (Lantus Solostar) 100 UNIT/1 ML insul in pen Discontinued 15 UNIT SQ Every Morning November 28, 2018 3:48pm October 10:54am and 15 units at HS or as directed Metoprolol Tartrate Discontinued 25 MG PO .QHS June 09, 2020 8:26am June 09, 2020 12:35pm Metoprolol Succinate (Toprol Xl) 25 mg t ablet extended release 24 hr Discontinued 25 MG PO daily June 09, 2020 12:47pm Novembe r 2019 3:58pm Prednisone Active 0 .ROUTE .COMPLEX June 19, 2020 11:56am TAKE ONE TABLET BY MOUTH EVERY DAY Metoprolol Succinate (Toprol Xl) 25 mg t ablet extended release 24 hr Discontinued 25 MG PO daily July 29, 2020 3:55pm October 192020 1:58pm Hydrochlorothiazide Active 12.5 MG PO Every Morning July 29, 2020 3:56pm Problems Active Problems Medical Problem Onset Date Status Left ventricular diastolic dysfunction, NYHA class 2 2018 Active Status post bilateral knee replacements Active Mild mitral regurgitation Active Crohn's disease Active Uncontrolled type 2 diabetes mellitus Active Mixed hyperlipidemia A ctive Chronic obstructive asthma with acute exacerbation Active Rheumatoid arthritis involving multiple joints Active Rectal pouchitis Activ e Hypoxia Active Chronic venous insufficiency Active Pedal edema Active Inactive/Resolved Problems Medical Problem Onset Date Status Hepatitis C virus infection cured after antiviral drug therapy Resolved Atypical chest pain 2018 Resolved History of lumbar fusion Resolved Procedures Procedure Date Performed Status Xray Chest 2 view PA/LAT September 172019 10:13am completed Blood Culture November 10, 2019 completed Relevant Diagnostic Tests and/or Laboratory Data Laboratory Results Test Date/Time Result Interpretation Reference Range Result Comment Performing Site Blood Urea Nitrogen May 18 0 8:40am 26 mg/dL 9- [facility], [address] [place] [address] 26147 Sodium Level May 18, 2020 8:40am 143 mmol/L 132-146 [facility], [address] [place] [address] 93092 Potassium Level May 18, 2020 8:40am 3.6 mmol/L 3.5-5.5 [facility], [address] [place] [address] 18227 Chloride Level May 18, 2020 8:40am 113 mmol/l 99-109 [facility], [address] [place] [address] 71712 Carbon Dioxide Level May 18 8:40am 22 mmol/l 20-31 [facility], [address] [place] [address] 24314 Anion Gap May 18, 2020 8:40am 12 mmol/l 8-16 [facility], [address] [place] [address] 08062 Glucose Level May 18, 2020 8:40am 150 mg/dL 74-106 [facility], [address] [place] [address] 71904 Creatinine May 18, 2020 8:40am 1.2 mg/dL 0.5-1.1 [facility], [address] [place] [address] 52120 Glomerular Filtration Rate Calc Augu 2019 8:40am 60 ml/min ABOVE 60 [facility], [address] [place] [address] 69776 Alanine Aminotransferase (ALT/SGPT) May 18, 2020 8:40am 18 U/L 10-49 [facility], [address] [place], [place] [id number] Aspartate Amino Transf (AST/SGOT) Au 2019 8:40am 11 U/L 0-33 [facility], [address] [place], [place] [id number] Alkaline Phosphatase May 18 8:40am 63 U/L 45-129 [facility], [address] [place], [place] [id number] Calcium Level May 18, 2020 8:40am 8.6 mg/dL 8.5-10.1 [facility], [address] [place] [address] Total Bilirubin May 18, 2020 8:40am 0.2 mg/dL 0.3-1.2 [facility], [address] [place] [address] 72712 Albumin May 18, 2020 8:40am 3.0 g/dL 3.2-4.8 [facility], [address] [place], [place] [id number] Serum Total Protein May 18 0 8:40am 6.5 g/dL 5.7-8.2 [facility], [address] [place] [address] 61537 Microbiology Results Procedure Source Result Collection Date/Time Result Date/Time Result Comment Performing Site Blood Culture Venous blood No growth. November 10, 2019 12:54pm November 16, 2019 8:32am [facility], [address] [place] [address] 05796 Diagnostic Imaging Reports Report Dictated Date/Time Dictated By Status Radiology Report September 17, 2020 10:19am Heber Mobley MD completed [address] [place] [address] [phone] NAME SEX PT STATUS ACCOUNT NUMBER MARCIO JOHNSON REG REF [id number] ORDERING PHYSICIAN LOCATION MEDICAL RECORD NO. Nawaf DO [facility] [id number] ATTENDING PHYSICIAN DATE OF DATE OF EXAM/TIME Milena Gaxiola DO 1950 09/17/20 / 3 TYPE / EXAM Xray Chest 2 view PA/LAT REASON FOR EXAM CHRONIC OBSTRUCTIVE PULMONARY DISEASE, UNSPECIFIED COMPARISON: July 15, 2019 FINDINGS: There is been no appreciable change compared to the previous study from June 2019. Again noted is soft tissue density in the lateral left upper lobe. No active parenchymal disease is seen. The cardiac and mediastinal silhouettes are within normal limits. IMPRESSION: No acute cardiopulmonary disease. Reported By Heber Mobley MD on 09/17/20 1019 Signed By Heber Mobley MD on 09/17/20 1022 Date Time CC: Heber Mobley MD; Milena Gaxiola DO Techn: CARRC Trans Dt/Tm: Trans by: DT Prt Dt/Tm: 6042-1792: Total DLP = 0.00 mGy-cm Fluoroscopy Time (in secs): Health Concerns Health Concerns may be documented in an alternate section. Advance Directives Advance Directive Response Recorded Date/Time Advanced Directive No Sagastumeber 2018 2:39pm Does Patient have a DNR? No October 14, 2019 1:48pm Healthcare Proxy No Joe 2019 1:48pm Living Will No September 262019 1:48pm Chief Complaint and Reason for Visit Chief Complaint Hospital Discharge F ollow-up Shortness of breath follow-up COPD follow-up R60.0 J44.9 Telemed Visit Reason for Visit Hypoxia Chronic obstructive asthma with acute exacerbation Crohn's disease Rheumatoid arthritis involving multiple joints Hepatitis C virus infection cured after antiviral drug therapy Hypoxia Chronic obstructive asthma with acute exacerbation Crohn's disease Rheumatoid arthritis involving multiple joints Hepatitis C virus infection cured after antiviral drug therapy Pedal edema Rectal pouchitis Status post bilateral knee replacements Chronic obstructive asthma with acute exacerbation Chronic venous insufficiency Crohn's disease Rheumatoid arthritis involving multiple joints Pedal edema Rectal pouchitis Chronic obstructive asthma with acute exacerbation Left ventricular diastolic dysfunction, NYHA class 2 Mild mitral regurgitation Encounters Encounter Location(s) Ar rival/Admit Date Discharge/Depart Date Provider(s) Registered Referred [facility] November 10, 2019 12:42pm [facility] Departed Physician/Provider Office Visit [facility] November 21, 2019 10:44am November 21, 2019 12:05pm Milena Gaxiola Departed Physician/Provider Office Visit [facility] December 04, 2019 10:14am December 04, 2019 12:06pm Milena [place] Departed Physician/Provider Office Visit [facility] May 04, 2020 8:35am May 04, 2020 10:22am Milena Duran Registered Referred [facility] May 18, 2020 8:37am Milena Gaxiola Registered Referred [facility] September 17, 2020 10:01am Nawaf Roger DO Departed Physician/Provider Office Visit [facility] October 19, 2020 12:37pm October 19, 2020 4:23pm Milena Gaxiola Recent Diagnosis Onset Date Hypoxia Chronic obstructive asthma with acute exacerbation Crohn's disease Rheumatoid arthritis involving multiple joints Hepatitis C virus infection cured after antiviral drug therapy Hypoxia Chronic obstructive asthma with acute exacerbation Crohn's disease Rheumatoid arthritis involving multiple joints Hepatitis C virus infection cured after antiviral drug therapy Pedal edema Rectal pouchitis Status post bilateral knee replacements Chronic obstructive asthma with acute exacerbation Chronic venous insufficiency Crohn's disease Rheumatoid arthritis involving multiple joints Pedal edema Rectal pouchitis Chronic obstructive asthma with acute exacerbation Left ventricular diastolic dysfunction, NYHA class 2 2019 Mild mitral regurgitation Assessments Diagnosis Onset Date Res olution Status Hypoxia acute Chronic obstructive asthma with acute exacerbation chronic Crohn's disease chronic Rheumatoid arthritis involving multiple joints chronic Hepatitis C virus infection cured after antiviral drug therapy resolved Hypoxia acute Chronic obstructive asthma with acute exacerbation chronic Crohn's disease chronic Rheumatoid arthritis involving multiple joints chronic Hepatitis C virus infection cured after antiviral drug therapy resolved Pedal edema acute Rectal pouchitis acute Status post bilateral knee replacements acute Chronic obstructive asthma with acute exacerbation chronic Chronic venous insufficiency chronic Crohn's disease chronic Rheumatoid arthritis involving multiple joints chronic Pedal edema acute Rectal pouchitis acute Chronic obstructive asthma with acute exacerbation chronic Left ventricular diastolic dysfunction, NYHA class 2 2019 chronic Mild mitral regurgitation chronic Family History Relationship Condition A ge at Onset Recorded Date/Time Not Specified Rheumatoid arthritis Unknown Pancreatitis Unknown Hypertension Unknown Not Specified Dementia U nknown Functional Status No Functional Status information available Goals Goals may be documented in an alternate section. Immunizations Immunization Event Date Not Given Reason Dose Number Cotton Ball Machine Tender Lot Number Vaccine Information Statement (VIS) Deta il Boostrix Tdap 10-64y July 23, 2004 pneumococcal conjugate PCV 13 Octobe r 2014 pneumococcal conjugate PCV 13 Octobe r 2014 [id number] COVID-19 Moderna October 07, 2020 influenza vaccine, inactivated Septe mber 2010 influenza vaccine, inactivated Septe mber 2010 influenza vaccine, inactivated Septe mber , 2011 influenza vaccine, inactivated Septe mber 2011 influenza vaccine, inactivated Octob er 2012 influenza vaccine, inactivated Septe mber 2013 [id number] influenza vaccine, inactivated Octob er , 2014 [id number] influenza vaccine, inactivated Octob er 2015 [id number] pneumococcal polysaccharide PPV23 vaccine June 17, 2009 Mental Status No Mental Status Information Available Medical Equipment No Medical Equipment Information available Insurance Providers Guarantor MARCIO JOHNSON Address [address] [place] [address] Contact Info. Home Phone: Payer Policy Id Coverage Id Subscriber's Name Subscriber Id Effective Date Expiration Date [facility] [id number] MARCIO JOHNSON [id number] BC/BS [facility] [id number] MARCIO JOHNSON [id number] BC/BS [facility] [id number] MARCIO JOHNSON [id number] 2016 MEDICARE [employer] [id number] MARCIO JOHNSON [id number] 2015 MEDICARE [id number] MARCIO JOHNSON [id number] Self Pay Self N/A Plan of Treatment Resolved as soon as he had initial revision surgery last fall at [facility]. He still has colostomy but the pouchitis resolved almost immediately within days of his rever yohannes. He will have final J-pouch resection December 16. He is not sure if he needs preop or not so is going to try to clarify that. Otherwise he would like to make in person visit after his surgery sometime in December. He says he did just have diabetes care with Dr. Swift earlier this month at [facility]. He was taken off amlodipine due to pedal edema and switched to metoprolol. Osito a has resolved. My concern was if it might exacerbate his asthma. Even though it is cardioselectiv e it could exacerbate his moderately severe obstructive asthma. He has not had any nightti me symptoms. Using his baseline inhalers daily not needing his albuterol much at all infection is t he main thing that causes him to decompensate quickly. His spirometry in July was slightly low er. His sats have been fine. His oxygen was discontinued. [facility] Prior CTs of the chest have shown no aneurysm. Discussed his recent echo results encouraged him to monitor blood pressure readings at home. Discussed echo results mild mitral regurgitation is the same but his aortic usama urements are upper normal question whether to just repeat echo in 1 year which I did order as he do es not have a cardiology follow-up arranged or whether we should do CT of chest. He follows ana laura adair with Dr. Nawaf Roger but has not had any recent CT of chest last one I have on record w as 2015. No aneurysm at that time. Will discuss with Ana Laura PATTERSON when I come from [facility] tomorrow. He had stress test February 2020. PFTs continue to worsen. Dyspnea on exertion is stable. 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 But echo this past month does show upper borderline aortic measurements. Will mikie jaimes CT of chest with cardiology Patient's exacerbation has resolved no further acute symptoms ambulating sats aldrich ve returned to normal he is off home oxygen he is using his Symbicort daily rarely has to use h is albuterol. He got a Covid shot earlier this month. He is up-to-date on Prevnar and Pneumovax. He got a flu shot early in the fall. He is not sure if he is going to need clearance from pulmona ry cardiology or myself prior to his J-pouch resection. Symptoms are markedly improved he is isai herbert to touch base with the [facility] he will give me a call. Dr. Swift was managing his diabetes at this point. Had labs [facility] about 3 weeks ago Post knee replacement really having no joint complaints hands shoulders ankles n othing else is bothering him nonetheless he will follow-up with data integrity analyst this fall montrell sanchez getting his diabetes care at the [facility] also had his Medicare wellness at the [facility] back in November He has had colectomy for what was felt to be ulcerative colitis Dr. Watkins aldrich s the spring told him he feels all along he probably has had Crohn's having a very horrible flare of pouchitis on exam Patient is had no further acute exacerbations and no further hospitalizations. He has been off any immunosuppression for his Crohn's and unfortunately has a severe flare of rectal pouchitis extending out onto his buttocks. He has not been back to rheumatology or GI. He did have repeat PFTs with pulmonology last month and mid flows are back up to 50% which is about his basel ine. He uses nebulizer occasionally he is yazidism with his baseline Inhalers. He flushes mouth after use and has no thrush on exam respiratory status off immunosuppression has been stable w ith improvement in PFTs however without immunosuppression Crohn's is definitely flaring. Tentative plan is to see Dr. Nawaf Roger again in August. Rheumatoid has been stable with just Plaquenil his hepatitis C is in remission p ost Raul as far as his hepatitis C itself no contraindication to take immunologic the issue has been recurrent pneumonia severe hypoxia and more his severe asthma need to try to find somethin g that is tolerable in terms of his lung disease he really has no joint complaints today I did do re cently do a letter summarizing his very extensive past medical history to the data integrity analyst he rosy arently does not have an appointment to later this fall Respiratory status as discussed is stable but with no treatment for his Crohn's he is definitely having severe flare he has taken 10 mg of prednisone occasionally but is definit wicho having major flare he has not been back to Dr. Watkins he does not particularly want to go back there he prefers to reconsult his colorectal surgeon he feels she did a good job coming d own pouchitis in the past I have a call out to her if I recall right she had a barrier type cream michael t he used to the buttocks and then used steroid enema but will consult her and see what she advis es ultimately he is probably going to have to get back on something in terms of prevention Admits he is eating quite a bit of salt weather has been in the upper 80s sittin g with feet down all day all of these in addition to high-dose amlodipine likely factor of his leg ed lakisha getting worse He has chronic venous insufficiency but has marked edema today 2+ pitting which is new for him he has no calf tenderness says because of COVID he is not getting out and abou t he is staying home and sits with his feet down watching TV all day in a recliner. He is not wearin g his support hose he is going to decrease amlodipine which may be making it worse from 10-5 start wearing support hose elevate feet when he is in the recliner try mild dose of Dyazide 1 tablet daily see him back next month [facility] follow-up lab work nonfasting in 2 weeks to make sure renal and potass ium are stable His restaurant hospitality manager saw him back recheck his chest xray as well as ambulating oxim etry and gave him okay to come off the antibiotic as well as discontinued his home oxygen he has f ollow-up next month as planned he will continue prednisone 5 mg and he feels he can discontinue from a pulmonary point of view after a week or 2 ought to be able to. . I offered to do viral load testing as I typically used to do it once a year for him before he was in close follow-up with GI and has not seen his corporate tax manager in a couple madina hs but he tells me that the restaurant hospitality manager and data integrity analyst have ordered it and if his hepatitis C is still in remission be data integrity analyst is considering treating him with azathioprine or met hotrexate for his rheumatoid if his current Plaquenil does not seem to be giving him relief. Chris moses we had conversation that he does not seem to be making it clear to them that his main c oncern is not his rheumatoid his symptoms are minimal his main concern is actually his residual Cr ohn's so it does not seem that any of these medicines have helped his Crohn's he is been on fairly st [place] biologic agents without any improvement so it seems unlikely that these other immune suppressant s are going to help it has been proposed he consider revision of his J-pouch. He was only on Entyvio briefly and developed bilateral pneumonia and parainfluen za but became profoundly hypoxic and ended up in ICU February 2019 the Entyvio was discontinued he had gotten a few doses of Humira and similar illness developed with influenza B where he became p rofoundly ill with PO2 down to 29 severe hypoxia Humira has been discontinued it does not seem that he tolerates biologic agents but the bigger thing is he does not really think either 1 of the m helped his data integrity analyst is trying him on Plaquenil he is considering azathioprine or meth otrexate but I think it is unlikely these are going to help his Crohn's when the stronger agents did not he has a J-pouch as they previously thought he had ulcerative colitis when more likely the real d iagnosis so long has been Crohn's disease 1 option would be to reverse the J-pouch and have an ileost brent he is not sure if he wants to go back to that but it would relieve the incontinence it might im prove his quality of life some he is not sure about it. He will decide I think it is worth talking t o his colorectal surgeon if he ultimately decides to go that route even though she is no longer a ctively doing surgery she is followed him for the past 20 years and I think it would be worthw hile to go and talk to her .. 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 Swift in t he next month. We talked about [place] virus in the [place] and if there is a outbreak locally I woul d suggest just he self quarantine as best he can as he will be extremely high risk self He has history of hepatitis C I used to do annual viral loads but he tells me no w Dr. Watkins is taking care of this and as far as he knows it remains in remission status post H arvoni He has had difficulty tolerating biologic agents. Recommend since his colorecta l surgeon feels 1 option is reversing his J-pouch even though she herself feels it would be a big surgery and probably best done at the [facility] if this is an option he is willing to consider recommend he discuss with Dr. Koo if Dr. Nawaf Roger feels from a pulmonary point of vi ew it is reasonable then this is probably safer overall for him then to continue on these biologic a gents which she does not seem to be tolerating he is going to dialogue with his restaurant hospitality manager his col orectal surgeon and GI do not restart Humira unless cleared to do so by pulmonary. Restart prednisone 20 for a week-as long as improving taper to 10 next week-rest art Levaquin-restart nebulizer albuterol every 4 hours as needed-use oxygen as wuzqhq-bmrvic-ns with Dr. Nawaf Roger in the next 7 to 10 days. Patient reports he is monitoring blood sugars and has fo llow-up with his [facility] clerk analyst in the next month He has recently had extensive work-up with Dr. Zhu at [facility] rheumatology. We will forward this note to him along with Dr. Nawaf Roger and Dr. Watkins again would not recom mend any biologic or disease modifying agent until we get his pulmonary status situated. He was crit ically ill from the flu and community-acquired pneumonia. His situation was to the point he nearly was mechanically ventilated so until he has follow-up CAT scan and recheck with his restaurant hospitality manager do not recommend any new medications as far as rheumatoid or Crohn's disease he and his unde rsshirad Ambulating sat is 90%-borderline satisfactory-if he does much more than walk 100 feet he certainly should be wearing his oxygen-this brief walk here in the office he maintains a m inimal saturation of 90% but for instance when he goes to [facility] and is walking several minutes arou nd the store he should be wearing his oxygen. His hypoxia in the hospital was profound. He nee ds to follow-up with Dr. Nawaf Roger. He needs to have follow-up CT scan to make sure his influenz a based pneumonia is clear. He does feel he is some worse since stopping Levaquin so I am going to g payton him another 10-day supply. We will fax this note and his hospital records to Dr. Roger if for some reason he is away then he will need to follow-up with me instead in the next 7 to 10 days to ensure he is improving. Patient and his voiced understanding. I explained that influen za B which was not well covered by the flu shot was probably the initial offending agent. But his baseline lung disease is not good mid flows just the week he got ill at baseline are only in t he 40s then on top of it he is immune compromised with Humira. Big question is whether he should b e back on it when once again he has had severe illness this time with PO2 down to 29 and CO2 of 50 . I personally do not advise he restart Humira unless he gets the okay from his restaurant hospitality manager he balbir garg understanding he will stay off Humira unless Dr. Nawaf Roger feels it safe for him to resume he will need some imaging and follow-up with pulmonary before restarting Humira if at all.. Future Tests Future scheduled test information is unavailable Pending Tests Pending diagnostic test information is unavailable Future Visits Future appointment information is unavailable Referrals to Other Providers Referral information is unavailable Future Procedures Future procedure information is unavailable Future Medications Future medication information is unavailable Patient Instructions Patient instructions are unavailable Social History Smoking Status Status Date of Observation Former smoker September 11, 2019 5: 33pm Observation Status Observation Response Enrique e of Response Smoking Status Former smoker September 11, 2019 5:33pm When did patient quit smoking? 20 YRS AGO September 10, 2019 2:39pm Assigned Sex Male Vital Signs Vital Reading Result Ref erence Range Collection Date/Time Height 65 [in_i] November 21, 2019 10:49am Weight 209.00 [lb_av] November 21, 2019 10:49am Body Temperature 98.5 [degF] 97.6-99.5 November 21, 2019 10:49am Heart Rate 74 /min 60-100 November 21, 2019 10:49am Respiratory rate 18 /min 12-24 November 21, 2019 10:49am Oxygen saturation by Pulse oximetry 91 % 95- 100 November 21, 2019 10:49am BP Systolic 138 mm[Hg] November 21, 2019 10:49am BP Diastolic 84 mm[Hg] November 21, 2019 10:49am BMI (Body Mass Index) 34.7 kg/m2 November 21, 2019 10:49am Height 65 [in_i] December 04, 2019 11:36am Weight 213.00 [lb_av] December 04, 2019 11:36am Heart Rate 74 /min 60-100 December 04, 2019 11:36am Respiratory rate 16 /min 12-24 December 04, 2019 11:36am Oxygen saturation by Pulse oximetry 94 % 95- 100 December 04, 2019 11:36am BP Systolic 132 mm[Hg] December 04, 2019 11:36am BP Diastolic 78 mm[Hg] December 04, 2019 11:36am BMI (Body Mass Index) 35.4 kg/m2 December 04, 2019 11:36am Height 65 [in_i] May 04, 2020 9:44am Weight 211.00 [lb_av] May 04, 2020 9:44am Body Temperature 98.0 [degF] 97.6-99.5 May 04, 2020 9:44am Heart Rate 75 /min 60-100 May 04, 2020 9:44am Respiratory rate 16 /min 12-24 May 04, 2020 9:44am Oxygen saturation by Pulse oximetry 95 % 95- 100 May 04, 2020 9:44am BP Systolic 138 mm[Hg] May 04, 2020 9:44am BP Diastolic 68 mm[Hg] May 04, 2020 9:44am BMI (Body Mass Index) 35.1 kg/m2 May 04, 2020 9:44am
--- OUTSIDE RECORDS SUMMARY | 2020-11-14 15:08 | CCD | Continuity of Care Document ---
Author Cleveland Hardy DO Organization Unknown Address [address] [place] [address] Phone [phone] Care Team Providers Care Orthopedic Specialist Name Role Phone Milena Stevenson D.O. AUTM [phone] Problems Active Problems Provider Date Essential hypertension Anselmo Mathew MD Onset: 11/15/2018 Chronic pansinusitis Anselmo Mathew MD Onset: 12/21/2018 Abnormal findings on diagnostic imaging of lung Nawaf fong DO Onset: 03/11/2020 Uncomplicated moderate persistent asthma Koby Rangel Onset: 03/11/2020 Chronic obstructive lung disease Nawaf Roger DO Onset: 03/11/2020 Social History Type Date Description Comments Sex Unknown ETOH Use Denies alcohol use Recreational Drug Use Denies Drug Use Tobacco Use Start: 09/25/64 End: 09/25/79 Patient is a forme r smoker hx: 1-1.5 ppd x's 15 years Smoking Status Reviewed: 09/24/20 Patient is a former smoker hx : 1-1.5 ppd x's 15 years Allergies, Adverse Reactions, Alerts Description No Known Drug Allergies Medications Active Medications SIG Qnty Indications Ordering Provide r Date Incruse Ellipta 62.5mcg/Inh Aeroso l 1 puff every day 30units Nawaf Roger DO 11/18/2019 Tylenol With Codeine #3 300-30mg T ablets 1 tab by mouth every 4h as needed 30tabs Anselmo Mathew MD 12/07/2018 Proair HFA 108(90Base) mcg/Act Aer osol 2 puffs 4 times a day as needed 25.5units TRACEY Limon Symbicort 160-4.5mcg/Act Aerosol 2 puff twice a day 30.6units Nawaf Roger, DO 11/07/2013 Amlodipine Besylate 10mg Tablets 1 by mouth every day Unknown Ramipril 10mg Capsules 1 by mouth every day Unknown Multivitamin Adult Tablets 1 by mouth every day Unknown Aspirin Adult Low Dose 81mg Tablet s DR 1 by mouth every day Unknown Novolog 100Unit/ML Solution use as directed sliding scale Unknown 0 Lomotil 2.5-0.025mg Tablets 2 by mouth every day Unknown Albuterol Sulfate (2 .5mg/3ML) 0.083% Nebulizer 1 vial twice a day and as needed 360units J45.40 Nawaf Roger, DO Lantus Solostar 100Unit/ML Solutio n 12 units twice a day Unknown Metoprolol Succinate ER 25mg Tablets ER 24HR 1 tab by mouth every day Jessica Stevenson D.O. Hydrochlorothiazide 12.5mg Capsule s 1 cap by mouth every day Unknown Immunizations CPT Code Status Date Vaccine Lot # 61116 Given 06/05/2019 Afluria, Quadrivalent, 0.5ml , [facility][NOTE 3]# [id number] Given 06/11/2014 Influenza Virus Split 3 Yrs And Above For Intramuscular Use 64212 Given 08/01/2012 Influenza Virus Split 3 Yrs And Above For Intramuscular Use 59673 Given 06/30/2011 Influenza Virus Split 3 Yrs And Above For Intramuscular Use 06288 Given 07/04/2010 Pneumococcal PPSV23 09205 Given 07/04/2010 Influenza Virus Split 3 Yrs And Above For Intramuscular Use Vital Signs Date Vital Result Comment 09/24/2020 9:55am BP Systolic 142 mmHg BP Diastolic 78 mmHg Heart Rate 75 /min O2 % BldC Oximetry 98 % Body Temperature 97.9 F Height 64 inches 5'4" Weight 208.00 lb BMI (Body Mass Index) 35.7 kg/m2 [place] Body Weight 130 lb Weight 94.349 kg BSA (Body Surface Area) 1.99 m2 03/11/2020 8:36am BP Systolic 118 mmHg BP Diastolic 62 mmHg Heart Rate 76 /min O2 % BldC Oximetry 96 % Body Temperature 98.0 F Height 64 inches 5'4" Weight 211.00 lb BMI (Body Mass Index) 36.2 kg/m2 [facility] Body Weight 130 lb Weight 95.710 kg BSA (Body Surface Area) 2.00 m2 Results Test Acquired Date Facility Test Result H/L Range Note FVL/Gera 09/24/2020 [facility] SEE IMAGE FVC-Pred 3.42 L FVC-Pre 2.31 L FVC-%Pred-Pre 67 L FVC-LLN 2.64 L Fev1-Pred 2.49 L Fev1-Pre 1.41 L Fev1-%Pred-Pre 56 L Fev1-LLN 1.83 L Fev6-Pred 3.19 L Fev6-Pre 2.31 L Fev6-%Pred-Pre 72 L Fev6-LLN 2.44 L Vkv7oca-Ybfk 73 % Oxg3dtl-Owz 61 % Vra9kwc-%Pred-Pre 83 % Gls5kfo-YHA 64 % Ito4utv-Uhsi 93 % Xzm3kqg-Dzv 100 % Mjg7rxs-%Pred-Pre 107 % FEFMax-Pred 6.96 L/E/sec FEFMax-Pre 4.13 L/E/sec FEFMax-%Pred-Pre 59 L/E/sec FEFMax-LLN 5.02 L/E/sec Odo9789-Vfii 1.89 L/E/sec Gqo8699-Xtw 0.79 L/E/sec Jqa1349-%Pred-Pre 41 L/E/sec Whg9033-UXN 0.55 L/E/sec ExpTime-Pre 5.75 sec Ive9qky7-Varx 78 % Woe1ipz9-Kfu 61 % Fxq4pwe0-%Pred-Pre 79 % Fps5yyl8-QAC 69 % Procedures Description No Information Available Medical Devices Description No Information Available Encounters Description No Information Available Assessments Description No Information Available Plan of Treatment 03/11/2020 - Nawaf Roger DO* J44.9 Chronic obstructive pulmonary disease, unspecified * J45.40 Moderate persistent asthma, uncomplicated * R91.8 Other nonspecific abnormal finding of lung field * * Comments:* ~ Having reviewed the history, physical, and diagnostic findings with the patient, I have recommended continuing his current inhaled medication regimen. It appears to be optimally palliating his respiratory symptoms. ~ He is engaged for follow-up with both gastroenterology for his Crohn's disease and rheumatology, though the appointments have been delayed due to the pandemic. I have encouraged him to re-establish appointments with these specialties. I suspect that were he able to find an optimal anti-inflammatory regimen, his sputum production would likewise be affected favorably. ~ We will arrange for a follow-up visit in six months with spirometry flow volume loop testing, and update a chest x-ray at that visit as well. * Follow up:* Six months with spirometry/FVL and chest x-ray please. Functional Status Description No Information Available Mental Status Description No Information Available Referrals Description No Information Available
--- OUTSIDE RECORDS SUMMARY | 2020-11-14 15:08 | CCD | Continuity of Care Document ---
Author Author Cleveland PETERSON MD Organization Unknown Address [address] [place] [address] Phone [phone] Care Team Providers Care Twist Tester Name Role Phone Milena Stevenson DO AUTM Problems Active Problems Provider Date Essential hypertension Onset: 09/25/2019 Type 2 diabetes mellitus Onset: 00 Diabetic neuropathy Onset: Hyperlipidemia Onset: Obesity Onset: Asthma Onset: Carpal tunnel syndrome Onset: Chronic hepatitis C Onset: Chronic obstructive bronchitis Onset: Crohn's disease Onset: Nephrolithiasis Onset: Left bundle branch block Siva Cruz MD Onset: 03/29 Cardiomegaly Siva Cruz MD Onset: 03/29/2019 Type 2 diabetes mellitus with diabetic polyneuropathy Siva Cruz MD Onset: 03/29/2019 Mitral valve disorder Cleveland Caal MD Onset: 020 Electrocardiogram abnormal Cleveland Caal MD Onset: Dyspnea Cleveland Caal MD Onset: 0 Social History Type Date Description Comments Sex Unknown Tobacco Use Start: Unknown End: Unknown Quit Smoking Status Reviewed: 03/26/19 Quit ETOH Use Occasionally consumes alcohol Tobacco Use Start: Unknown End: Unknown Patient is a former smoker Quit 20 years ago Recreational Drug Use Former Drug User Experimen zandra w/ IV drugs in the 60's but has not used in decades Allergies, Adverse Reactions, Alerts Description No Known Drug Allergies Medications Active Medications SIG Qnty Indications Ordering Provide r Date Amlodipine Besylate 10mg Tablets 1 by mouth every day Unknown Aspirin 81mg Tablets DR 1 by mouth every day Unknown Symbicort 160-4.5mcg/Act Aerosol 2 puff twice a day Unknown Novolog 100Unit/ML Solution as directed Unknown Lantus 100Unit/ML Solution 15 unit every morning & every evening as directed Unknown Lomotil 2.5-0.025mg Tablets 2 tabs by mouth four times a day as needed Unknown Prednisone 10mg Tablets as di rected Unknown Proair HFA 108(90Base) mcg/Act Aer osol 1 inhalation every 4 hours as needed Unknown Ramipril 10mg Capsules 1 by mouth every day Unknown Vitamin D 1000Unit Tablets 1 by mouth before meals every morning Unknown Multi Vitamin And Minerals Tablet s 1 by mouth 2x day Unknown Ferrous Sulfate 324(65Fe) mg Table ts DR take 1 tablet by mouth twice daily. Unknown Immunizations Description No Information Available Vital Signs Date Vital Result Comment 02/27/2020 2:42pm BP Systolic 124 mmHg BP Diastolic 58 mmHg Heart Rate 80 /min Height 64 inches 5'4" Weight 215.00 lb BMI (Body Mass Index) 36.9 kg/m2 03/29/2019 3:38pm BP Systolic 138 mmHg BP Diastolic 60 mmHg Heart Rate 80 /min Height 64 inches 5'4" Weight 209.00 lb BMI (Body Mass Index) 35.9 kg/m2 Respiratory Rate 12 /min Results Test Acquired Date Facility Test Result H/L Range Note Order 10/08/2020 [facility] Echocardiogram <pending> Procedures Date Code Description Status 10/08/2020 37066 Echocardiography, Tranthoracic C omplete Image Documentation Completed Medical Devices Description No Information Available Encounters Description No Information Available Assessments Date Code Description Provider 10/08/2020 I34.0 Nonrheumatic mitral (valve) insu fficiency Cleveland Peterson MD 10/08/2020 I10 Essential (primary) hypertension Cleveland Peterson MD 10/08/2020 I51.7 Cardiomegaly Cleveland martinez MD Plan of Treatment Future Appointment(s):* 03/02/2021 2:45 pm - Omar ESPINOZA ([id number]) at [facility] 02/27/2020 - Cleveland Caal MD* I34.0 Nonrheumatic mitral (valve) insufficiency * I10 Essential (primary) hypertension * E11.42 Type 2 diabetes mellitus with diabetic polyneuropathy * I51.7 Cardiomegaly * R94.31 Abnormal electrocardiogram [ECG] [EKG] * R06.02 Shortness of breath * I44.7 Left bundle-branch block, unspecified * J44.9 Chronic obstructive pulmonary disease, unspecified* Recommendations:* The patient remains clinically stable. His last echocardiogram completed in August of 2019 shows good LV systolic function. We made no changes to his medication. He will return in one year for further clinical review, with an echo to be done prior to that visit. Functional Status Description No Information Available Mental Status Description No Information Available Referrals Description No Information Available
--- OUTSIDE RECORDS SUMMARY | 2020-11-14 15:09 | CCD ---
Author Author [facility] Organization [facility] Address Unknown Phone Unavailable Care Team Providers Care Acrobatic Dancer Name Role Phone Kirsten De La Torre MD Unavailable Unavailable Kirsten De La Torre MD Unavailable Unavailable Kirsten De La Torre MD Unavailable Unavailable Kirsten De La Torre MD Unavailable Unavailable Kirsten De La Torre MD Unavailable Unavailable Kirsten De La Torre MD Unavailable Unavailable Kirsten De La Torre MD Unavailable Unavailable Kirsten De La Torre MD Unavailable Unavailable Kirsten De La Torre MD Unavailable Unavailable Kirsten De La Torre MD Unavailable Unavailable Kirsten De La Torre MD Unavailable Unavailable Kirsten De La Torre MD Unavailable Unavailable Kirsten De La Torre MD Unavailable Unavailable Kirsten De La Torre MD Unavailable Unavailable Kirsten De La Torre MD Unavailable Unavailable Kirsten De La Torre MD Unavailable Unavailable Kirsten De La Torre MD Unavailable Unavailable Kirsten De La Torre MD Unavailable Unavailable Kirsten De La Torre MD Unavailable Unavailable Kirsten De La Torre MD Unavailable Unavailable Kirsten De La Torre MD Unavailable Unavailable Kirsten De La Torre MD Unavailable Unavailable Kirsten De La Torre MD Unavailable Unavailable PlKirsten lawler MD Unavailable Unavailable PlKirsten lawler MD Unavailable Unavailable PlKirsten lawler MD Unavailable Unavailable PlKirsten lawler MD Unavailable Unavailable PlKirsten lawler MD Unavailable Unavailable PlKirsten lawler MD Unavailable Unavailable PlKirsten lawler MD Unavailable Unavailable PlKirsten lawler MD Unavailable Unavailable PlKirsten lawler MD Unavailable Unavailable PlKirsten lawler MD Unavailable Unavailable PlKirsten lawler MD Unavailable Unavailable PlKirsten lawler MD Unavailable Unavailable Kirsten De La Torre MD Unavailable Unavailable PlKirsten lawler MD Unavailable Unavailable PlKirsten lawler MD Unavailable Unavailable Kirsten De La Torre MD Unavailable Unavailable Kirsten De La Torre MD Unavailable Unavailable Kirsten De La Torre MD Unavailable Unavailable Kirsten De La Torre MD Unavailable Unavailable Kirsten De La Torre MD Unavailable Unavailable Kirsten De La Torre MD Unavailable Unavailable Kirsten De La Torre MD Unavailable Unavailable Kirsten De La Torre MD Unavailable Unavailable Kirsten De La Torre MD Unavailable Unavailable Kirsten De La Torre MD Unavailable Unavailable Kirsten De La Torre MD Unavailable Unavailable Kirsten De La Torre MD Unavailable Unavailable Kirsten De La Torre MD Unavailable Unavailable Kirsten De La Torre MD Unavailable Unavailable Kirsten De La Torre MD Unavailable Unavailable Kirsten De La Torre MD Unavailable Unavailable Kirsten De La Torre MD Unavailable Unavailable Kirsten De La Torre MD Unavailable Unavailable Kirsten De La Torre MD Unavailable Unavailable Kirsten De La Torre MD Unavailable Unavailable Kirsten De La Torre MD Unavailable Unavailable Kirsten De La Torre MD Unavailable Unavailable Kirsten De La Torre MD Unavailable Unavailable Kirsten De La Torre MD Unavailable Unavailable Kirsten De La Torre MD Unavailable Unavailable Kirsten De La Torre MD Unavailable Unavailable Kirsten De La Torre MD Unavailable Unavailable Kirsten De La Torre MD Unavailable Unavailable Kirsten De La Torre MD Unavailable Unavailable Kirsten De La Torre MD Unavailable Unavailable Kirsten De La Torre MD Unavailable Unavailable Kirsten De La Torre MD Unavailable Unavailable Kirsten De La Torre MD Unavailable Unavailable Amara-Duran, Milena DO Unavailable Unavailable [place], Milena DO Unavailable Unavailable Amara-Duran, Milena DO Unavailable Unavailable Amara-Duran, Milena DO Unavailable Unavailable Amara-Duran, Milena DO Unavailable Unavailable [place], Milena DO Unavailable Unavailable Amara-Duran, Milena DO Unavailable Unavailable Amara-Duran, Milena DO Unavailable Unavailable Amara-Duran, Milena DO Unavailable Unavailable [place], Milena DO Unavailable Unavailable [place], Milena DO Unavailable Unavailable [place], Milena DO Unavailable Unavailable [place], Milena DO Unavailable Unavailable [place], Milena DO Unavailable Unavailable Amara-Duran, Milena DO Unavailable Unavailable [place], Milena DO Unavailable Unavailable Amara-Duran, Milena DO Unavailable Unavailable Amara-Duran, Milena DO Unavailable Unavailable Amara-Duran, Milena DO Unavailable Unavailable Am[place]uran, Milena DO Unavailable Unavailable [place], Milena DO Unavailable Unavailable [place], Milena DO Unavailable Unavailable Am[place]uran, Milena DO Unavailable Unavailable [place], Milena DO Unavailable Unavailable [place], Milena DO Unavailable Unavailable Am[place], Milena DO Unavailable Unavailable [place], Milena DO Unavailable Unavailable [place], Milena DO Unavailable Unavailable [place], Milena DO Unavailable Unavailable Amara-[place]uran, Milena DO Unavailable Unavailable Amara-[place]uran, Milena DO Unavailable Unavailable Amara-[place]uran, Milena DO Unavailable Unavailable Amara-[place]uran, Milena DO Unavailable Unavailable Amara-Duran, Milena DO Unavailable Unavailable Am[place]uran, Milena DO Unavailable Unavailable [place], Milena DO Unavailable Unavailable Amara-[place]uran, Milena DO Unavailable Unavailable [place], Milena DO Unavailable Unavailable [place], Milena DO Unavailable Unavailable [place], Milena DO Unavailable Unavailable Am[place]uran, Milena DO Unavailable Unavailable [place], Milena DO Unavailable Unavailable Amara-Duran, Milena DO Unavailable Unavailable Amara[place]uran, Milena DO Unavailable Unavailable [place], Milena DO Unavailable Unavailable Amara[place]uran, Milena DO Unavailable Unavailable [place], Milena DO Unavailable Unavailable [place]uran, Milena DO Unavailable Unavailable [place], Milena DO Unavailable Unavailable [place], Milena DO Unavailable Unavailable [place], Milena DO Unavailable Unavailable Amara-Duran, Milena DO Unavailable Unavailable [place]uran, Milena DO Unavailable Unavailable [place], Milena DO Unavailable Unavailable [place], Milena DO Unavailable Unavailable [place], Milena DO Unavailable Unavailable Amara-Duran, Milena DO Unavailable Unavailable [place]uran, Milena DO Unavailable Unavailable [place], Milena DO Unavailable Unavailable Am[place]uran, Milena DO Unavailable Unavailable [place], Milena DO Unavailable Unavailable Amara-Duran, Milena DO Unavailable Unavailable Am[place]uran, Milena DO Unavailable Unavailable [place], Milena DO Unavailable Unavailable [place], Milena DO Unavailable Unavailable Am[place]uran, Milena DO Unavailable Unavailable Am[place]uran, Milena DO Unavailable Unavailable [place], Milena DO Unavailable Unavailable Am[place]uran, Milena DO Unavailable Unavailable [place], Milena DO Unavailable Unavailable Sommer BARRERA MD Unavailable Unavailable Sommer BARRERA MD Unavailable Unavailable Sommer BARRERA MD Unavailable Unavailable Sommer BARRERA MD Unavailable Unavailable Sommer BARRERA MD Unavailable Unavailable Sommer BARRERA MD Unavailable Unavailable Sommer BARRERA MD Unavailable Unavailable Sommer BARRERA MD Unavailable Unavailable Sommer BARRERA MD Unavailable Unavailable Sommer BARRERA MD Unavailable Unavailable Sommer BARRERA MD Unavailable Unavailable Sommer BARRERA MD Unavailable Unavailable Sommer BARRERA MD Unavailable Unavailable Rechlin, P Nawaf DO Unavailable Unavailable Rechlin, P Nawaf DO Unavailable Unavailable Rechlin, P Nawaf DO Unavailable Unavailable Rechlin, P Nawaf DO Unavailable Unavailable Rechlin, P Nawaf DO Unavailable Unavailable Rechlin, P Nawaf DO Unavailable Unavailable Rechlin, P Nawaf DO Unavailable Unavailable Rechlin, P Nawaf DO Unavailable Unavailable Rechlin, P Nawaf DO Unavailable Unavailable Rechlin, P Nawaf DO Unavailable Unavailable Rechlin, P Nawaf DO Unavailable Unavailable Rechlin, P Nawaf DO Unavailable Unavailable Rechlin, P Nawaf DO Unavailable Unavailable Rechlin, P Nawaf DO Unavailable Unavailable Rechlin, P Nawaf DO Unavailable Unavailable Rechlin, P Nawaf DO Unavailable Unavailable Rechlin, P Nawaf DO Unavailable Unavailable Rechlin, P Nawaf DO Unavailable Unavailable Rechlin, P Nawaf DO Unavailable Unavailable Rechlin, P Nawaf DO Unavailable Unavailable Rechlin, P Nawaf DO Unavailable Unavailable Rechlin, P Nawaf DO Unavailable Unavailable Rechlin, P Nawaf DO Unavailable Unavailable Rechlin, P Nawaf DO Unavailable Unavailable Rechlin, P Nawaf DO Unavailable Unavailable Rechlin, P Nawaf DO Unavailable Unavailable Rechlin, P Nawaf DO Unavailable Unavailable Rechlin, P Nawaf DO Unavailable Unavailable Rechlin, P Nawaf DO Unavailable Unavailable Rechlin, P Nawaf DO Unavailable Unavailable Rechlin, P Nawaf DO Unavailable Unavailable Rechlin, P Nawaf DO Unavailable Unavailable Rechlin, P Nawaf DO Unavailable Unavailable Rechlin, P Nawaf DO Unavailable Unavailable Rechlin, P Nawaf DO Unavailable Unavailable Rechlin, P Nawaf DO Unavailable Unavailable Rechlin, P Nawaf DO Unavailable Unavailable Rechlin, P Nawaf DO Unavailable Unavailable Rechlin, P Nawaf DO Unavailable Unavailable Rechlin, P Nawaf DO Unavailable Unavailable Rechlin, P Nawaf DO Unavailable Unavailable Rechlin, P Nawaf DO Unavailable Unavailable Rechlin, P Nawaf DO Unavailable Unavailable Rechlin, P Nawaf DO Unavailable Unavailable Rechlin, P Nawaf DO Unavailable Unavailable Rechlin, P Nawaf DO Unavailable Unavailable Rechlin, P Nawaf DO Unavailable Unavailable Rechlin, P Nawaf DO Unavailable Unavailable Rechlin, P Nawaf DO Unavailable Unavailable Rechlin, P Nawaf DO Unavailable Unavailable Rechlin, P Nawaf DO Unavailable Unavailable Rechlin, P Nawaf DO Unavailable Unavailable Rechlin, P Nawaf DO Unavailable Unavailable Rechlin, P Nawaf DO Unavailable Unavailable Rechlin, P Nawaf DO Unavailable Unavailable Rechlin, P Nawaf DO Unavailable Unavailable Rechlin, P Nawaf DO Unavailable Unavailable Rechlin, P Nawaf DO Unavailable Unavailable Rechlin, P Nawaf DO Unavailable Unavailable Rechlin, P Nawaf DO Unavailable Unavailable Rechlin, P Nawaf DO Unavailable Unavailable Rechlin, P Nawaf DO Unavailable Unavailable Rechlin, P Nawaf DO Unavailable Unavailable Rechlin, P Nawaf DO Unavailable Unavailable Rechlin, P Nawaf DO Unavailable Unavailable Rechlin, P Nawaf DO Unavailable Unavailable Rechlin, P Nawaf DO Unavailable Unavailable Rechlin, P Nawaf DO Unavailable Unavailable Rechlin, P Nawaf DO Unavailable Unavailable Rechlin, P Nawaf DO Unavailable Unavailable Rechlin, P Nawaf DO Unavailable Unavailable Rechlin, P Nawaf DO Unavailable Unavailable Rechlin, P Nawaf DO Unavailable Unavailable Rechlin, P Nawaf DO Unavailable Unavailable Rechlin, P Nawaf DO Unavailable Unavailable Rechlin, P Nawaf DO Unavailable Unavailable Rechlin, P Nawaf DO Unavailable Unavailable Rechlin, P Nawaf DO Unavailable Unavailable Rechlin, P Nawaf DO Unavailable Unavailable Rechlin, P Nawaf DO Unavailable Unavailable Rechlin, P Nawaf DO Unavailable Unavailable Rechlin, P Nawaf DO Unavailable Unavailable Rechlin, P Nawaf DO Unavailable Unavailable Rechlin, P Nawaf DO Unavailable Unavailable Rechlin, P Nawaf DO Unavailable Unavailable Rechlin, P Nawaf DO Unavailable Unavailable Rechlin, P Nawaf DO Unavailable Unavailable Rechlin, P Nawaf DO Unavailable Unavailable Rechlin, P Nawaf DO Unavailable Unavailable Rechlin, P Nawaf DO Unavailable Unavailable Rechlin, P Nawaf DO Unavailable Unavailable Rechlin, P Nawaf DO Unavailable Unavailable Rechlin, P Nawaf DO Unavailable Unavailable Rechlin, P Nawaf DO Unavailable Unavailable Rechlin, P Nawaf DO Unavailable Unavailable Rechlin, P Nawaf DO Unavailable Unavailable KELBERMAN, Edson BUCKLEY MD Unavailable Unavailable KELBERMAN, Edson BUCKLEY MD Unavailable Unavailable KELBERMAN, Edson BUCKLEY MD Unavailable Unavailable KELBERMAN, Edson BUCKLEY MD Unavailable Unavailable KELBERMAN, Edson BUCKLEY MD Unavailable Unavailable KELBERMAN, Esdon BUCKLEY MD Unavailable Unavailable KELBERMAN, Edson BUCKLEY MD Unavailable Unavailable KELBERMAN, Edson BUCKLEY MD Unavailable Unavailable KELBERMAN, Edson BUCKLEY MD Unavailable Unavailable KELBERMAN, Edson BUCKLEY MD Unavailable Unavailable KELBERMAN, Edson BUCKLEY MD Unavailable Unavailable KELBERMAN, Edson BUCKLEY MD Unavailable Unavailable KELBERMAN, Edson BUCKLEY MD Unavailable Unavailable KELBERMAN, Edson BUCKLEY MD Unavailable Unavailable KELBERMAN, Edson BUCKLEY MD Unavailable Unavailable KELBERMAN, Edson BUCKLEY MD Unavailable Unavailable KELBERMAN, Edson BUCKLEY MD Unavailable Unavailable KELBERMAN, Edson BUCKLEY MD Unavailable Unavailable KELBERMAN, Edson BUCKLEY MD Unavailable Unavailable KELBERMAN, Edson BUCKLEY MD Unavailable Unavailable KELBERMAN, Edson BUCKLEY MD Unavailable Unavailable KELBERMAN, Edson BUCKLEY MD Unavailable Unavailable KELBERMAN, Edson BUCKLEY MD Unavailable Unavailable KELBERMAN, Edson BUCKLEY MD Unavailable Unavailable KELBERMAN, Edson BUCKLEY MD Unavailable Unavailable KELBERMAN, Edson BUCKLEY MD Unavailable Unavailable KELBERMAN, Edson BUCKLEY MD Unavailable Unavailable KELBERMAN, Edson BUCKLEY MD Unavailable Unavailable KELBERMAN, Edson BUCKLEY MD Unavailable Unavailable KELBERMAN, Edson BUCKLEY MD Unavailable Unavailable KELBERMAN, Edson BUCKLEY MD Unavailable Unavailable KELBERMAN, Edson BUCKLEY MD Unavailable Unavailable KELBERMAN, Edson BUCKLEY MD Unavailable Unavailable KELBERMAN, Edson BUCKLEY MD Unavailable Unavailable KELBERMAN, Edson BUCKLEY MD Unavailable Unavailable KELBERMAN, Edson BUCKLEY MD Unavailable Unavailable KELBERMAN, Edson BUCKLEY MD Unavailable Unavailable KELBERMAN, Edson BUCKLEY MD Unavailable Unavailable KELBERMAN, Edson BUCKLEY MD Unavailable Unavailable KELBERMAN, Edson BUCKLEY MD Unavailable Unavailable KELBERMAN, Edson BUCKLEY MD Unavailable Unavailable KELBERMAN, Edson BUCKLEY MD Unavailable Unavailable KELBERMAN, Edson BUCKLEY MD Unavailable Unavailable KELBERMAN, Edson BUCKLEY MD Unavailable Unavailable KELBERMAN, Edson BUCKLEY MD Unavailable Unavailable KELBERMAN, Edson BUCKLEY MD Unavailable Unavailable KELBERMAN, Edson BUCKLEY MD Unavailable Unavailable KELBERMAN, Edson BUCKLEY MD Unavailable Unavailable KELBERMAN, Edson BUCKLEY MD Unavailable Unavailable [place], Milena DO Unavailable Unavailable [place], Milena DO Unavailable Unavailable [place], Milena DO Unavailable Unavailable [place], Milena DO Unavailable Unavailable Amara-Duran, Milena DO Unavailable Unavailable Amara-Duran, Milena DO Unavailable Unavailable [place], Milena DO Unavailable Unavailable Amara-Duran, Milena DO Unavailable Unavailable Amara-Duran, Milena DO Unavailable Unavailable Amara-Duran, Milena DO Unavailable Unavailable Am[place]-Duran, Milena DO Unavailable Unavailable [place], Milena DO Unavailable Unavailable Am[place]uran, Milena DO Unavailable Unavailable Amara-Duran, Milena DO Unavailable Unavailable Amara-Duran, Milena DO Unavailable Unavailable Amara-Duran, Milena DO Unavailable Unavailable [place], Milena DO Unavailable Unavailable [place], Milena DO Unavailable Unavailable Amara-Duran, Milena DO Unavailable Unavailable Amara-[place], Milena DO Unavailable Unavailable [place], Milena DO Unavailable Unavailable [place], Milena DO Unavailable Unavailable [place], Milena DO Unavailable Unavailable [place], Milena DO Unavailable Unavailable [place], Milena DO Unavailable Unavailable [place], Milena DO Unavailable Unavailable [place], Milena DO Unavailable Unavailable [place], Milena DO Unavailable Unavailable Amara-[place]uran, Milena DO Unavailable Unavailable [place], Milena DO Unavailable Unavailable [place]uran, Milena DO Unavailable Unavailable [place], Milena DO Unavailable Unavailable Am[place], Milena DO Unavailable Unavailable [place], Milena DO Unavailable Unavailable Am[place], Milena DO Unavailable Unavailable [place], Milena DO Unavailable Unavailable [place], Milena DO Unavailable Unavailable [place], Milena DO Unavailable Unavailable [place], Milena DO Unavailable Unavailable [place], Milena DO Unavailable Unavailable Am[place], Milena DO Unavailable Unavailable [place], Milena DO Unavailable Unavailable Amara-Duran, Milena DO Unavailable Unavailable Amara-Duran, Milena DO Unavailable Unavailable [place], Milena DO Unavailable Unavailable [place], Milena DO Unavailable Unavailable Am[place], Milena DO Unavailable Unavailable Amara-Duran, Milena DO Unavailable Unavailable Amara-Duran, Milena DO Unavailable Unavailable [place], Milena DO Unavailable Unavailable [place], Milena DO Unavailable Unavailable Amara-[place], Milena DO Unavailable Unavailable Am[place]uran, Milena DO Unavailable Unavailable [place], Milena DO Unavailable Unavailable [place], Milena DO Unavailable Unavailable [place], Milena DO Unavailable Unavailable [place], Milena DO Unavailable Unavailable [place], Milena DO Unavailable Unavailable [place], Milena DO Unavailable Unavailable [place], Milena DO Unavailable Unavailable [place], Milena DO Unavailable Unavailable Amara-Duran, Milena DO Unavailable Unavailable Amara-Duran, Milena DO Unavailable Unavailable Amara-[place], Milena DO Unavailable Unavailable [place], Milena DO Unavailable Unavailable [place], Milena DO Unavailable Unavailable [place], Milena DO Unavailable Unavailable [place], Milena DO Unavailable Unavailable [place], Milena DO Unavailable Unavailable [place], Milena DO Unavailable Unavailable Law Ramírez MD Unavailable Unavailable Law Ramírez MD Unavailable Unavailable Law Ramírez MD Unavailable Unavailable Law Ramírez MD Unavailable Unavailable Law Ramírez MD Unavailable Unavailable Law Ramírez MD Unavailable Unavailable Law Ramírez MD Unavailable Unavailable Law Ramírez MD Unavailable Unavailable Law Ramírez MD Unavailable Unavailable Law Ramírez MD Unavailable Unavailable Law Ramírez MD Unavailable Unavailable Law Ramírez MD Unavailable Unavailable Law Ramírez MD Unavailable Unavailable Law Ramírez MD Unavailable Unavailable Law Ramírez MD Unavailable Unavailable Law Ramírez MD Unavailable Unavailable Law Ramírez MD Unavailable Unavailable Law Ramírez MD Unavailable Unavailable Law Ramírez MD Unavailable Unavailable Law Ramírez MD Unavailable Unavailable Law Ramírez MD Unavailable Unavailable Law Ramírez MD Unavailable Unavailable Law Ramírez MD Unavailable Unavailable Law Ramírez MD Unavailable Unavailable Law Ramírez MD Unavailable Unavailable [place] Falanga, A Angie HATCHERY SUPERVISOR Unavailable Unavailable Timothy Falanga, A Angie HATCHERY SUPERVISOR Unavailable Unavailable [place], A Angie HATCHERY SUPERVISOR Unavailable Unavailable [place], A Angie HATCHERY SUPERVISOR Unavailable Unavailable Timothy Falanga, A Angie HATCHERY SUPERVISOR Unavailable Unavailable [place], A Angie HATCHERY SUPERVISOR Unavailable Unavailable [place], A Angie HATCHERY SUPERVISOR Unavailable Unavailable [place], A Angie HATCHERY SUPERVISOR Unavailable Unavailable Timothy Falanga, A Angie HATCHERY SUPERVISOR Unavailable Unavailable [place], A Angie HATCHERY SUPERVISOR Unavailable Unavailable [place], A Angie HATCHERY SUPERVISOR Unavailable Unavailable Timothy Falanga, A Angie HATCHERY SUPERVISOR Unavailable Unavailable Timothy Falanga, A Angie HATCHERY SUPERVISOR Unavailable Unavailable [place], A Angie HATCHERY SUPERVISOR Unavailable Unavailable [place], A Angie HATCHERY SUPERVISOR Unavailable Unavailable [place], A Angie HATCHERY SUPERVISOR Unavailable Unavailable [place], A Angie HATCHERY SUPERVISOR Unavailable Unavailable [place], A Angie HATCHERY SUPERVISOR Unavailable Unavailable [place], A Angie HATCHERY SUPERVISOR Unavailable Unavailable [place], A Angie HATCHERY SUPERVISOR Unavailable Unavailable [place], A Angie HATCHERY SUPERVISOR Unavailable Unavailable [place], A Angie HATCHERY SUPERVISOR Unavailable Unavailable [place], A Angie HATCHERY SUPERVISOR Unavailable Unavailable Timothy Falanga, A Angie HATCHERY SUPERVISOR Unavailable Unavailable Timothy Falanga, A Angie HATCHERY SUPERVISOR Unavailable Unavailable Timothy Falanga, A Angie HATCHERY SUPERVISOR Unavailable Unavailable Timothy Falanga, A Angie HATCHERY SUPERVISOR Unavailable Unavailable Timothy Falanga, A Angie HATCHERY SUPERVISOR Unavailable Unavailable [place], A Angie HATCHERY SUPERVISOR Unavailable Unavailable Timothy Falanga, A Angie HATCHERY SUPERVISOR Unavailable Unavailable Sommer BARRERA MD Unavailable Unavailable Sommer BARRERA MD Unavailable Unavailable Sommer BARRERA MD Unavailable Unavailable Sommer BARRERA MD Unavailable Unavailable Sommer BARRERA MD Unavailable Unavailable Sommer BARRERA MD Unavailable Unavailable Sommer BARRERA MD Unavailable Unavailable Sommer BARRERA MD Unavailable Unavailable Sommer BARRERA MD Unavailable Unavailable Sommer BARRERA MD Unavailable Unavailable Sommer BARRERA MD Unavailable Unavailable Sommer BARRERA MD Unavailable Unavailable Sommer BARRERA MD Unavailable Unavailable Aditya, J Ethan PA-C Unavailable Unavailable Aditya, J Ethan PA-C Unavailable Unavailable Aditya, J Ethan PA-C Unavailable Unavailable Aditya, J Ethan PA-C Unavailable Unavailable Aditya, J Ethan PA-C Unavailable Unavailable Aditya, [place] Ethan PA-C Unavailable Unavailable Aditya, J Ethan PA-C Unavailable Unavailable Aditya, J Ethan PA-C Unavailable Unavailable Aditya, J Ethan PA-C Unavailable Unavailable Aditya, J Ethan PA-C Unavailable Unavailable Aditya, J Ethan PA-C Unavailable Unavailable Davon IBARRA MD Unavailable Unavailable Davon IBARRA MD Unavailable Unavailable Davon IBARRA MD Unavailable Unavailable Davon IBARRA MD Unavailable Unavailable Davon IBARRA MD Unavailable Unavailable Davon IBARRA MD Unavailable Unavailable Davon IBARRA MD Unavailable Unavailable Davon IBARRA MD Unavailable Unavailable Davon IBARRA MD Unavailable Unavailable Davon IBARRA MD Unavailable Unavailable Davon IBARRA MD Unavailable Unavailable Phoenix JOHNSON MD Unavailable Unavailable Phoenix JOHNSON MD Unavailable Unavailable Phoenix JOHNSON MD Unavailable Unavailable Phoenix JOHNSON MD Unavailable Unavailable Phoenix JOHNSON MD Unavailable Unavailable Phoenix JOHNSON MD Unavailable Unavailable Phoenix JOHNSON MD Unavailable Unavailable Phoenix JOHNSON MD Unavailable Unavailable Phoenix JOHNSON MD Unavailable Unavailable Phoenix JOHNSON MD Unavailable Unavailable Phoenix JOHNSON MD Unavailable Unavailable Phoenix JOHNSON MD Unavailable Unavailable Phoenix JOHNSON MD Unavailable Unavailable Phoenix JOHNSON MD Unavailable Unavailable Phoenix JOHNSON MD Unavailable Unavailable ALEX, L FITO MD Unavailable Unavailable ALEX, L FITO MD Unavailable Unavailable ALEX, L FITO MD Unavailable Unavailable ALEX, L FITO MD Unavailable Unavailable ALEX, L FITO MD Unavailable Unavailable ALEX, L FITO MD Unavailable Unavailable ALEX, L FITO MD Unavailable Unavailable ALEX, L FITO MD Unavailable Unavailable Re-disclosure Warning The records that you are about to access may contain information from federally-assisted alcohol or drug abuse programs. If such information is present, then the following federally mandated warning applies: This information has been disclosed to you from records protected by federal confidentiality rules (42 CFR part 2). The federal rules prohibit you from making any further disclosure of this information unless further disclosure is expressly permitted by the written consent of the person to whom it pertains or as otherwise permitted by 42 CFR part 2. A general authorization for the release of medical or other information is NOT sufficient for this purpose. The Federal rules restrict any use of the information to criminally investigate or prosecute any alcohol or drug abuse patient.The records that you are about to access may contain highly sensitive health information, the redisclosure of which is protected by Article 27-F of the [facility] Public Health law. If you continue you may have access to information: Regarding HIV / AIDS; Provided by facilities licensed or operated by the [facility] Office of Mental Health; or Provided by the [facility] Office for People With Developmental Disabilities. If such information is present, then the following [facility] mandated warning applies: This information has been disclosed to you from confidential records which are protected by state law. State law prohibits you from making any further disclosure of this information without the specific written consent of the person to whom it pertains, or as otherwise permitted by law. Any unauthorized further disclosure in violation of state law may result in a fine or care home sentence or both. A general authorization for the release of medical or other information is NOT sufficient authorization for further disc losure. Allergies and Adverse Reactions Type Description Substance Reaction Status Data Source(s ) No Known Drug Allergies No Known Drug Allergies [facility] Drug allergy No Known Drug Allergies No Known Drug Allergies [facility] Drug allergy Entyvio vedolizumab Breathing Problems Active eC W1 (Formerly [facility]) Drug allergy Humira adalimumab Breathing Problem Active eCW1 (Formerly [facility]) Family History Family Member Name Family Member Gender Family Member Status Date o f Status Description Data Source(s) Unknown Condition [facility] Unknown Condition [facility] Unknown Condition [facility] Unknown Condition [facility] Unknown Condition [facility] Unknown Condition [facility] Unknown Condition [facility] Unknown Condition [facility] Unknown Condition [facility] Unknown Condition [facility] Unknown Condition [facility] Unknown Condition [facility] Unknown Condition [facility] Unknown Condition [facility] Unknown Condition [facility] Unknown Male Problem [facility]) Unknown Unknown Problem [facility] ([facility], ) Unknown Male Problem [facility] ([facility]) Unknown Female Problem [facility] Unknown Female Problem [facility] Encounters Encounter Providers Location Date Indications Data Source(s ) Emergency Attender: FITO JOHNSON MDConsultant: Milena Houston DO 11/14/2020 09:13:00 AM EST - 11/14/2020 01:16:00 PM [facility] Patient discharged. Outpatient Attender: Milena Graves er: Milena Gaxiola DO 10/19/2020 12:37:00 PM [facility] Outpatient Attender: Nawaf Roger DO 09/17/2020 10:01:00 AM EST J44.9 [facility] J44.9 Office Visit, Est Pt., Level 2 [address] [place] [address] 08/05/2020 12:00:00 AM EST eCW1 ([facility]) (WND NP120) New Patient 120 Min [address] [place] [address] 07/15/2020 12:00:00 AM EDT eCW1 (Critical access hospital) Outpatient Attender: Kirsten De La Torre MD [place] 06/22/2020 04:00:0 0 PM EDT [facility] ([facility]) Outpatient Attender: CYRUS BARRERA MD Family Practice 06/17/2020 1 1:00:00 AM EDT MED[facility] ([facility]) Outpatient Attender: CYRUS BARRERA MDConsultant: Milena Houston DO 06/17/2020 10:52:00 AM EDT - 06/17/2020 10:52:00 AM EDT [facility] Office Visit Attender: Kirsten De La Torre MD [place] 05/25/2020 01:45 :00 PM EDT [facility] ([facility]) Outpatient Attender: Milena Gaxiola DO 2019 09:37:00 AM EDT R60.0 [facility] R60.0 Outpatient Attender: Milena Graves er: Milena Gaxiola DO 05/04/2020 09:35:00 AM EDT - 05/04/2020 11:22:00 AM EDT [facility] Outpatient Attender: MRACIO LOZANO MD [facility] 02/27/2020 02:45:00 PM EDT [facility] ([facility]) Outpatient Attender: CYRUS BARRERA MDConsultant: Milena Houston DO 02/26/2020 09:13:00 AM EDT - 02/26/2020 09:13:00 AM EDT [facility] Office Visit Attender: CYRUS BARRERA MD Family Practice 2019 09:00:00 AM EDT [facility] ([facility] [address] [place] [phone] 01/23/2020 12:00:00 AM EDT eCW1 (Critical access hospital) Outpatient Attender: Milena Graves er: Milena Gaxiola DO 12/04/2019 11:14:00 AM EDT - 12/04/2019 01:06:00 PM EDT [facility] Outpatient 12/02/2019 12:14:00 PM EDT [facility] Outpatient Attender: Nawaf Roger DO Main Office 12/02/2019 10:00:00 AM EDT [facility] ([facility] [address] [place] [phone] 11/28/2019 12:00:00 AM EST eCW1 (Critical access hospital) [facility] [address] [place] [phone] 11/27/2019 12:00:00 AM EST eCW1 (Critical access hospital) [facility] [address] [place] [phone] 11/27/2019 12:00:00 AM EST eCW1 (Critical access hospital) Outpatient Attender: Milena Graves er: Milena Gaxiola DO 11/21/2019 10:44:00 AM EST - 11/21/2019 12:05:00 PM [facility] Outpatient Attender: CYRUS BARRERA MDConsultant: Milena Houston DO 11/20/2019 10:04:00 AM EST - 11/20/2019 10:04:00 AM [facility] Outpatient 11/18/2019 04:28:00 PM EST [facility] Inpatient Attender: Angie fink FNPAttender: STARLA IBARRA MDAttender: Ethan BOB-CConsultant: iMlena Gaxiola DO 11/12/2019 08:43:00 AM EST - 11/13/2019 02:20:00 PM [facility] Patient discharged. Outpatient 11/10/2019 12:42:00 PM [facility] Outpatient Attender: STARLA IBARRA MD 10/26 11:16:00 AM EST - 11/12/2019 08:43:00 AM [facility] Outpatient Attender: Nawaf Roger DO Main Office 11/07/2019 08:30:00 AM EST [facility] ([facility] Rhe[facility] [address] [place] [phone] 11/04/2019 12:00:00 AM EST eCW1 (Critical access hospital) Outpatient Attender: CYRUS BARRERA MDConsultant: Milena Houston DO 11/01/2019 07:37:40 AM EST - 11/04/2019 12:52:00 PM [facility] Patient discharged. Outpatient Attender: CYRUS BARRERA MDConsultant: Milena Houston DO 10/18/2019 08:18:00 AM EST - 10/18/2019 08:18:00 AM EST [facility] Outpatient Attender: Balta Ramírez MD 10/14/2019 07:36:00 A M EST M06.9,K50.919 [facility] M06.9,K50.919 Outpatient Attender: Milena Gaxiola DO 2018 09:49:00 AM EST NEW HEART MURMUR [facility] NEW HEART MURMUR Immunizations Vaccine Date Status Description Data Source(s) COVID-19 Moderna 10/07/2020 12:00:00 AM EST completed COVID-19 oderna [facility] Medications Medication Brand Name Start Date Product Form Dose Route Admi nistrative Instructions Pharmacy Instructions Status Indications Reaction Description Data Source(s) 24 HR metoprolol succinate 25 MG Extende d Release Oral Tablet Metoprolol Succinate (Toprol Xl) 25 mg tablet extended release 24 hr Metoprolol Succinate (Toprol Xl) 25 mg tablet extended release 24 hr 10/19/2020 03:19:03 PM EST 25 MG active [facility] 24 HR metoprolol succinate 25 MG Extende d Release Oral Tablet Metoprolol Succinate (Toprol Xl) 25 mg tablet extended release 24 hr Metoprolol Succinate (Toprol Xl) 25 mg tablet extended release 24 hr 10/19/2020 01:58:14 PM EST 25 MG completed [facility] 25 mg 10/19/2020 12:00:00 AM EST tablet extended release 24 hr 90 TAKE ONE TABLET BY MOUTH EVERY DAY AT BEDTIME TAKE ONE TABLET BY MOUTH EVERY DAY AT BEDTIME SOLD: 10/19/2020 [facility] 250 mg 09/24/2020 12:00:00 AM EST tablet 14 TAKE ONE TABLET BY MOUTH TWICE A DAY FOR 7 DAYS TAKE ONE TABLET BY MOUTH TWICE A DAY FOR 7 DAYS SOLD: 2019 [facility] 25 mg 07/30/2020 12:00:00 AM EST tablet extended release 24 hr 30 TAKE ONE TABLET BY MOUTH EVERY DAY TAKE ONE TABLET BY MOUTH EVERY DAY SOLD: 09/02/2020 [facility] Hydrochlorothiazide 12.5 MG Oral Capsule Hydrochlorothiazide 07/29/2020 03:56:41 PM EST 12.5 MG active [facility] 24 HR metoprolol succinate 25 MG Extende d Release Oral Tablet Metoprolol Succinate (Toprol Xl) 25 mg tablet extended release 24 hr Metoprolol Succinate (Toprol Xl) 25 mg tablet extended release 24 hr 07/29/2020 03:55:05 PM EST 25 MG completed [facility] Prednisone 5 MG Oral Tablet Prednisone 06/19/2020 12:56:58 PM EDT 0 active [facility] 24 HR metoprolol succinate 25 MG Extende d Release Oral Tablet Metoprolol Succinate (Toprol Xl) 25 mg tablet extended release 24 hr Metoprolol Succinate (Toprol Xl) 25 mg tablet extended release 24 hr 06/09/2020 01:47:31 PM EDT 25 MG completed [facility] Metoprolol Tartrate 25 MG Oral Tablet Metoprolol Tartrate 09:26:57 AM EDT 25 MG completed [facility] 12.5 mg 06/03/2020 12:00:00 AM EDT capsule 30 TAKE ONE CAPSULE BY MOUTH EVERY DAY TAKE ONE CAPSULE BY MOUTH EVERY DAY SOLD: 07/01/2020 [facility] 25 mg 06/03/2020 12:00:00 AM EDT tablet extended release 24 hr 30 TAKE ONE TABLET BY MOUTH EVERY DAY TAKE ONE TABLET BY MOUTH EVERY DAY SOLD: 06/29/2020 [facility] 12.5 mg 06/03/2020 12:00:00 AM EDT capsule 30 TAKE ONE CAPSULE BY MOUTH EVERY DAY TAKE ONE CAPSULE BY MOUTH EVERY DAY SOLD: 06/03/2020 [facility] 25 mg 06/03/2020 12:00:00 AM EDT tablet extended release 24 hr 30 TAKE ONE TABLET BY MOUTH EVERY DAY TAKE ONE TABLET BY MOUTH EVERY DAY SOLD: 06/03/2020 [facility] Atropine Sulfate 0.025 MG / Diphenoxylat e Hydrochloride 2.5 MG Oral Tablet Diphenoxylate-Atropine Diphenoxylate-Atropine 05/04/2020 03:32:33 PM EDT 1 TAB active [facility] Prednisone 5 MG Oral Tablet Prednisone 05/04/2020 03:31:43 PM EDT 5 MG completed [facility] Zinc Oxide 0.038 MG/MG Topical Ointment Zinc Oxide 05/04/2020 03: 28:14 PM EDT 3.8 % active [facility] Hydrochlorothiazide 25 MG / Triamterene 37.5 MG Oral Capsule Triamterene- Hydrochlorothiazid (Dyazide) 37.5-25 mg capsule Triamterene-Hydrochlorothiazid (Dyazide) 37.5-25 mg capsule 05/04/2020 11:12:49 AM EDT [address] [facility] Hydrochlorothiazide 25 MG / Triamterene 37.5 MG Oral Capsule Triamterene- Hydrochlorothiazid (Dyazide) 37.5-25 mg capsule Triamterene-Hydrochlorothiazid (Dyazide) 37.5-25 mg capsule 05/04/2020 11:12:49 AM EDT [address] [facility] Amlodipine 5 MG Oral Tablet Amlodipine 05/04/2020 11:12:05 AM EDT 5 MG completed [facility] Amlodipine 5 MG Oral Tablet Amlodipine 05/04/2020 11:12:05 AM EDT 5 MG active [facility] gabapentin 300 MG Oral Capsule Gabapentin Gabapentin 2019 09:55:29 AM EDT 300 MG active [facility] gabapentin 300 MG Oral Capsule Gabapentin Gabapentin 2019 09:55:29 AM EDT 300 MG active [facility] 5 mg 05/04/2020 12:00:00 AM EDT tablet 30 TAKE ONE TABLET BY MOUTH EVERY DAY TAKE ONE TABLET BY MOUTH EVERY DAY SOLD: 06/03/2020 [facility] 5 mg 05/04/2020 12:00:00 AM EDT tablet 90 TAKE ONE TABLET BY MOUTH EVERY DAY TAKE ONE TABLET BY MOUTH EVERY DAY SOLD: 05/04/2020 [facility] 5 mg 05/04/2020 12:00:00 AM EDT tablet 30 TAKE ONE TABLET BY MOUTH EVERY DAY TAKE ONE TABLET BY MOUTH EVERY DAY SOLD: 05/04/2020 [facility] 37.5-25 mg 05/04/2020 12:00:00 AM EDT capsule 90 TAKE ONE CAPSULE BY MOUTH EVERY MORNING TAKE ONE CAPSULE BY MOUTH EVERY MORNING SOLD: 05/04/2020 [facility] Prednisone 5 MG Oral Tablet Prednisone 12/04/2019 12:55:04 PM EDT 5 MG active [facility] Prednisone 5 MG Oral Tablet Prednisone 12/04/2019 12:55:04 PM EDT 5 MG active [facility] Prednisone 5 MG Oral Tablet Prednisone 12/04/2019 12:55:04 PM EDT 5 MG completed [facility] 30 ACTUAT umeclidinium 0.0625 MG/ACTUAT Dry Powder Inhaler Umeclidinium (Incruse Ellipta) 62.5 mcg/actuation blister with device Umeclidinium (Incruse Ellipta) 62.5 mcg/actuation blister with device 12/04/2019 11:39:17 AM EDT active [facility] 30 ACTUAT umeclidinium 0.0625 MG/ACTUAT Dry Powder Inhaler Umeclidinium (Incruse Ellipta) 62.5 mcg/actuation blister with device Umeclidinium (Incruse Ellipta) 62.5 mcg/actuation blister with device 12/04/2019 11:39:17 AM EDT active [facility] 30 ACTUAT umeclidinium 0.0625 MG/ACTUAT Dry Powder Inh aler Umeclidinium Umeclidinium 12/04/2019 11:39:17 AM EDT completed [facility] Hydroxychloroquine Sulfate 200 MG Oral Tablet Hydroxychloroq uine 12/04/2019 11:37:40 AM EDT completed [facility] 5 mg 12/04/2019 12:00:00 AM EDT tablet 15 TAKE 1 TABLET BY MOUTH EVERY OTHER DAY TAKE 1 TABLET BY MOUTH EVERY OTHER DAY SOLD: 12/05/2019 [facility] 5 mg 12/04/2019 12:00:00 AM EDT tablet 15 TAKE 1 TABLET BY MOUTH EVERY OTHER DAY TAKE 1 TABLET BY MOUTH EVERY OTHER DAY SOLD: 12/30/2019 [facility] 5 mg 12/04/2019 12:00:00 AM EDT tablet 15 TAKE 1 TABLET BY MOUTH EVERY OTHER DAY TAKE 1 TABLET BY MOUTH EVERY OTHER DAY SOLD: 02/17/2020 [facility] 200 mg 11/28/2019 12:00:00 AM EST tablet 60 TAKE ONE TABLET BY MOUTH TWICE A DAY TAKE ONE TABLET BY MOUTH TWICE A DAY SOLD: 12/24/2019 [facility] 62.5 mcg/actuation 11/28/2019 12:00:00 AM EST blister with d evice 30 INHALE ONE PUFF BY MOUTH EVERY DAY INHALE ONE PUFF BY MOUTH EVERY DAY SOLD: 01/06/2020 [facility] 200 mg 11/28/2019 12:00:00 AM EST tablet 60 TAKE ONE TABLET BY MOUTH TWICE A DAY TAKE ONE TABLET BY MOUTH TWICE A DAY SOLD: 11/28/2019 [facility] 62.5 mcg/actuation 11/28/2019 12:00:00 AM EST blister with d evice 30 INHALE ONE PUFF BY MOUTH EVERY DAY INHALE ONE PUFF BY MOUTH EVERY DAY SOLD: 11/28/2019 [facility] Hydroxychloroquine Sulfate 200 MG Oral Tablet [Plaquen il] Plaquenil 200 MG Plaquenil 200 MG 11/27/2019 12:00:00 AM EST a ctive Plaquenil 200 MG eCW1 ([facility]) Hydroxychloroquine Sulfate 200 MG Oral Tablet [Plaquen il] Plaquenil 200 MG Plaquenil 200 MG 11/27/2019 12:00:00 AM EST a ctive Plaquenil 200 MG eCW1 ([facility]ly [facility]) Hydroxychloroquine Sulfate 200 MG Oral Tablet [Plaquen il] Plaquenil 200 MG Plaquenil 200 MG 11/27/2019 12:00:00 AM EST active 1 tab eCW1 ([facility]) Albuterol 1 MG/ML Inhalant Solution Albuterol Sulfate Albute rol Sulfate 11/21/2019 01:00:55 PM EST 2.5 MG active [facility] Albuterol 1 MG/ML Inhalant Solution Albuterol Sulfate Albute rol Sulfate 11/21/2019 01:00:55 PM EST 2.5 MG active [facility] Albuterol 1 MG/ML Inhalant Solution Albuterol Sulfate Albute rol Sulfate 11/21/2019 01:00:55 PM EST 2.5 MG active [facility] Albuterol 1 MG/ML Inhalant Solution Albuterol Sulfate Albute rol Sulfate 11/21/2019 01:00:29 PM EST 2.5 MG completed [facility] Albuterol 1 MG/ML Inhalant Solution Albuterol Sulfate Albute rol Sulfate 11/21/2019 01:00:29 PM EST 2.5 MG completed [facility] Albuterol 1 MG/ML Inhalant Solution Albuterol Sulfate Albute rol Sulfate 11/21/2019 01:00:29 PM EST 2.5 MG completed [facility] Albuterol 1 MG/ML Inhalant Solution Albuterol Sulfate Albute rol Sulfate 11/21/2019 12:59:48 PM EST 2.5 MG completed [facility] Albuterol 1 MG/ML Inhalant Solution Albuterol Sulfate Albute rol Sulfate 11/21/2019 12:59:48 PM EST 2.5 MG completed [facility] Albuterol 1 MG/ML Inhalant Solution Albuterol Sulfate Albute rol Sulfate 11/21/2019 12:59:48 PM EST 2.5 MG completed [facility] Prednisone 10 MG Oral Tablet Prednisone 11/21/2019 12:58:45 PM EST 20 MG completed [facility] Prednisone 10 MG Oral Tablet Prednisone 11/21/2019 12:58:45 PM EST 20 MG completed [facility] Prednisone 10 MG Oral Tablet Prednisone 11/21/2019 12:58:45 PM EST 20 MG completed [facility] Levofloxacin 500 MG Oral Tablet Levofloxacin 11/21/2019 12:58:08 PM EST 500 MG completed [facility] Levofloxacin 500 MG Oral Tablet Levofloxacin (Levaquin ) 500 mg tablet Levofloxacin (Levaquin) 500 mg tablet 11/21/2019 12:58:08 PM EST 500 M G completed [facility] Levofloxacin 500 MG Oral Tablet Levofloxacin (Levaquin ) 500 mg tablet Levofloxacin (Levaquin) 500 mg tablet 11/21/2019 12:58:08 PM EST 500 M G completed [facility] 3 ML Insulin Glargine 100 UNT/ML Pen Injector Insulin Glargi ne 11/21/2019 10:53:21 AM EST 18 UNIT active [facility] 3 ML Insulin Glargine 100 UNT/ML Pen Injector Insulin Glargi ne 11/21/2019 10:53:21 AM EST 18 UNIT active [facility] 3 ML Insulin Glargine 100 UNT/ML Pen Inj enedelia Insulin Glargine (Lantus Solostar U-100 Insulin) 100 unit/mL (3 mL) insulin pen Insulin Glargine (Lantus Solostar U-100 Insulin) 100 unit/mL (3 mL) insulin pen 11/21/2019 10:53:21 AM EST 18 UNIT active [facility] 3 ML Insulin Glargine 100 UNT/ML Pen Inj enedelia Insulin Glargine (Lantus Solostar U-100 Insulin) 100 unit/mL (3 mL) insulin pen Insulin Glargine (Lantus Solostar U-100 Insulin) 100 unit/mL (3 mL) insulin pen 11/21/2019 10:53:21 AM EST 18 UNIT active [facility] 500 mg 11/21/2019 12:00:00 AM EST tablet 14 TAKE ONE TABLET BY MOUTH EVERY DAY TAKE ONE TABLET BY MOUTH EVERY DAY SOLD: 11/21/2019 [facility] 10 mg 11/21/2019 12:00:00 AM EST tablet 97 TAKE TWO TABLETS BY MOUTH EVERY DAY FOR 7 DAYS THEN TAKE ONE TABLET BY MOUTH EVERY DAY TAKE TWO TABLETS BY MOUTH EVERY DAY FOR 7 DAYS THEN TAKE ONE TABLET BY MOUTH EVERY DAY SOLD: 11/21/2019 [facility] 7 ACTUAT umeclidinium 0.0625 MG/ACTUAT Dry Powder Inha ler [Incruse] Incruse Ellipta 11/18/2019 12:00:00 AM EST RESPIRATORY active [facility]ENT ([facility] ) 7 ACTUAT umeclidinium 0.0625 MG/ACTUAT Dry Powder Inha ler [Incruse] Incruse Ellipta 11/18/2019 12:00:00 AM EST RESPIRATORY active [facility] ([facility] 750 mg 11/13/2019 12:00:00 AM EST tablet 4 TAKE ONE TABLET BY MOUTH EVERY DAY TAKE ONE TABLET BY MOUTH EVERY DAY SOLD: 11/13/2019 [facility] 20 mg 11/13/2019 12:00:00 AM EST tablet 6 TAKE ONE TABLET BY MOUTH TWICE A DAY TAKE ONE TABLET BY MOUTH TWICE A DAY SOLD: 11/13/2019 [facility] Oseltamivir 75 MG Oral Capsule OSELTAMIVIR PHOSPHATE 11/13/2019 12:00:00 AM EST capsule 6 TAKE ONE CAPSULE BY MOUTH TWICE A DAY TAKE ONE CAPSULE BY MOUTH TWICE A DAY SOLD: 11/13/2019 [facility] 10 mg 11/07/2019 12:00:00 AM EST tablet 20 TAKE 2 TABLETS BY MOUTH ONCE DAILY FOR 5 DAYS, THEN 1 TABLET FOR 5 DAYS, THEN 1/2 TABLET FOR 5 DAYS, THEN STOP TAKE 2 TABLETS BY MOUTH ONCE DAILY FOR 5 DAYS, THEN 1 TABLET FOR 5 DAYS, THEN 1/2 TABLET FOR 5 DAYS, THEN STOP SOLD: 11/07/2019 [facility] 30 ACTUAT aclidinium bromide 0.4 MG/ACTUAT Dry Powder Inhaler [Tudorza] Katerinaraida Pressair 11/07/2019 12:00:00 AM EST RESPIRATORY complete d [facility] ([facility] Prednisone 10 MG Oral Tablet Prednisone 11/07/2019 12:00:00 AM EST ORAL completed [facility] Prednisone 10 MG Oral Tablet Prednisone 11/07/2019 12:00:00 AM EST ORAL completed [facility] ([facility], ) 2.5 mg /3 mL (0.083 %) 11/05/2019 12:00:00 AM EST solu tion for nebulization 150 INHALE THE CONTENTS OF ONE VIAL VIA NEBU LIZER TWICE A DAY NEEDED INHALE THE CONTENTS OF ONE VIAL VIA NEBULIZER TWICE A DAY NEEDED SOLD: 11/05/2019 [facility] Adalimumab 40 MG/0.4 ML 10/18/2019 12:00:00 AM EST active [facility] ([facility]) HCTZ 25/Triamterene 37.5 MG 10/18/2019 12:00:00 AM EST completed [facility] Polysaccharide iron complex 150 MG Oral Capsule Polysaccharide Iron Complex (Ferrex 150) 150 mg iron capsule Polysaccharide Iron Complex (Ferrex 150) 150 mg iron capsule 09/10/2019 02:30:38 PM EST 150 MG complete d [facility] Polysaccharide iron complex 150 MG Oral Capsule Polysa ccharide Iron Complex Polysaccharide Iron Complex 09/10/2019 02:30:38 PM EST 150 MG completed [facility] Polysaccharide iron complex 150 MG Oral Capsule Polysaccharide Iron Complex (Ferrex 150) 150 mg iron capsule Polysaccharide Iron Complex (Ferrex 150) 150 mg iron capsule 09/10/2019 02:30:38 PM EST 150 MG complete d [facility] Polysaccharide iron complex 150 MG Oral Capsule Polysa ccharide Iron Complex Polysaccharide Iron Complex 09/10/2019 02:30:38 PM EST 150 MG completed [facility] 0.8 ML adalimumab 50 MG/ML Prefilled Syringe Adalimumab Hansel imumab 09/10/2019 01:24:21 PM EST 40 MG completed [facility] 0.8 ML adalimumab 50 MG/ML Prefilled Syringe Adalimumab Hansel imumab 09/10/2019 01:24:21 PM EST 40 MG completed [facility] 0.8 ML adalimumab 50 MG/ML Prefilled Syr lee Adalimumab (Humira) 40 mg/0.8 mL syringe kit Adalimumab (Humira) 40 mg/0.8 mL syringe kit 9 01:24:21 PM EST 40 MG completed [facility] 0.8 ML adalimumab 50 MG/ML Prefilled Syr lee Adalimumab (Humira) 40 mg/0.8 mL syringe kit Adalimumab (Humira) 40 mg/0.8 mL syringe kit 9 01:24:21 PM EST 40 MG completed [facility] 2.5 mg /3 mL (0.083 %) 03/25/2019 12:00:00 AM EDT solu tion for nebulization 150 INHALE THE CONTENTS OF ONE VIAL VIA NEBU LIZER TWICE A DAY NEEDED INHALE THE CONTENTS OF ONE VIAL VIA NEBULIZER TWICE A DAY NEEDED SOLD: 12/17/2019 [facility] pantoprazole 40 MG Delayed Release Oral Tablet pantoprazole (PROTONIX) 40 MG tablet pantoprazole (PROTONIX) 40 MG tablet 03/05/2019 12:00:00 AM EDT 40 mg Oral active Take 1 tablet by jeannie th daily [facility] Furosemide 20 MG Oral Tablet furosemide (LASIX) 20 MG tablet furosemide (LASIX) 20 MG tablet 03/04/2019 12:00:00 AM EDT 20 mg Oral activ e Take 1 tablet by mouth daily [facility] 12 HR Guaifenesin 600 MG Extended Releas e Oral Tablet guaifenesin (MUCINEX) 600 MG 12 hr tablet guaifenesin (MUCINEX) 600 MG 12 hr tablet 03/04/2019 1 2:00:00 AM EDT 600 mg Oral active Take 1 tablet by mouth Two Times Daily [facility] 3 ML Insulin Glargine 100 UNT/ML Pen Inj enedelia Insulin Glargine (Lantus Solostar) 100 UNIT/1 ML insulin pen Insulin Glargine (Lantus Solostar) 100 U NIT/1 ML insulin pen 11/28/2018 03:48:00 PM EST 15 UNIT completed [facility] 3 ML Insulin Glargine 100 UNT/ML Pen Injector Insulin Glargi ne 11/28/2018 03:48:00 PM EST 15 UNIT completed [facility] 3 ML Insulin Glargine 100 UNT/ML Pen Inj enedelia Insulin Glargine (Lantus Solostar) 100 UNIT/1 ML insulin pen Insulin Glargine (Lantus Solostar) 100 U NIT/1 ML insulin pen 11/28/2018 03:48:00 PM EST 15 UNIT completed [facility] 3 ML Insulin Glargine 100 UNT/ML Pen Injector Insulin Glargi ne 11/28/2018 03:48:00 PM EST 15 UNIT completed [facility] Albuterol 1 MG/ML Inhalant Solution Albuterol Sulfate Albute rol Sulfate 01/08/2018 04:46:00 PM EDT 2.5 MG completed [facility] Albuterol 1 MG/ML Inhalant Solution Albuterol Sulfate Albute rol Sulfate 01/08/2018 04:46:00 PM EDT 2.5 MG completed [facility] Albuterol 1 MG/ML Inhalant Solution Albuterol Sulfate Albute rol Sulfate 01/08/2018 04:46:00 PM EDT 2.5 MG completed [facility] Amlodipine 5 MG Oral Tablet Amlodipine 05/24/2017 09:41:00 AM EDT 10 MG completed [facility] Amlodipine 5 MG Oral Tablet Amlodipine 05/24/2017 09:41:00 AM EDT 10 MG completed [facility] Atropine Sulfate 0.025 MG / Diphenoxylat e Hydrochloride 2.5 MG Oral Tablet Diphenoxylate-Atropine (Lomotil 2.5-0.025 Mg Tablet) 1 EACH tablet Diphenoxylate-Atropine (Lomotil 2.5-0.025 Mg Tablet) 1 EACH tablet 06/17/2016 03:22:00 PM EDT 1 TAB completed [facility] Insurance Providers Payer name Policy type / Coverage type Policy ID Covered alliance party ID Covered alliance party's relationship to cervantes Policy Cervantes Plan Information [facility] OPTIONS [id number] SP [id number] MEDICARE [id number] [facility] [place] [id number] 18 [id number] MEDICARE PART A -O/P [id number] 18 [id number] MEDICARE PART A [facility] [id number] 18 [id number] [facility] C[facility] OPTIONS -CLINIC [id number] 18 [id number] [employer] [id number] 18 [id number] AARP HE[facility] CARE OPTIONS [id number] SP [id number] AARP O [id number] S [id number] MEDICARE C [id number] S [id number] U89 [facility] OPTUM - CLINIC [id number] 18 [id number] [facility] OPTUM - FAC [id number] 18 [id number] MEDICARE PART A -O [id number] 18 [id number] AARP HEALTH CARE OPTIONS -O [id number] 18 [id number] MEDICARE PART A -I/P [id number] 18 [id number] AARP HEALTH CARE OPTIONS -O/P [id number] 18 [id number] Aarp Medigap Part B [id number] Self [id number] [place] Medicare Primary [id number] Self [id number] Aarp Health Care Options Medigap Part B [id number] Self [id number] [place] Primary [id number] Self [id number] Excellus [place] Commercial [id number] Self [id number] Aarp Commercial [id number] Self [id number] [place] Primary [id number] Self [id number] AARP U [id number] Self [id number] MEDICARE A [id number] Self [id number] Medicare Blue Ppo Commercial [id number] Self [id number] [place] Medigap Part B [id number] Self [id number] Excellus BCBS Medigap Part B [id number] Self [id number] BCBS Ppo Commercial [id number] Self [id number] Aarp/ Health Care Options Medigap Part B [id number] Self [id number] Medicare - [place] Medicare Primary [id number] Self [id number] MEDICARE PART A -O/P [id number] 18 [id number] Aarp Medigap Part B [id number] Self [id number] [place] Medicare Primary [id number] Self [id number] Aar Medigap Part B [id number] Self [id number] [place] Medicare Primary [id number] Self [id number] Aar Medigap Part B [id number] Self [id number] [place] Medicare Primary [id number] Self [id number] [place] Medicare Primary [id number] Self [id number] BCBS [place] PPO [id number] SP [id number] [facility] Options Medigap Part B [id number] Self [id number] [place] Primary [id number] Self [id number] Medicare Blue Ppo Commercial [id number] Self [id number] [place] Medigap Part B [id number] Self [id number] Excellus BCBS Medigap Part B [id number] Self [id number] BCBS Ppo Commercial [id number] Self [id number] Aarp/ Health Care Options Medigap Part B [id number] Self [id number] Medicare - [facility] Medicare Primary [id number] Self [id number] MEDICARE -RECURRING [id number] 18 [id number] Medicare Blue Ppo Commercial [id number] Self [id number] [place] Medigap Part B [id number] Self [id number] Excellus BCBS Medigap Part B [id number] Self [id number] BCBS Ppo Commercial [id number] Self [id number] Aarp/ Health Care Options Medigap Part B [id number] Self [id number] Medicare - NGS Medicare Primary [id number] Self [id number] [facility] [employer] Medigap Part B [id number] Self [id number] Medicare Medicare Primary [id number] Self [id number] A[place]/[facility] Claim Division Medigap Part B [id number] Self [id number] Medicare Medicare Primary [id number] Self [id number] Medicare Blue Ppo Commercial [id number] Self [id number] BC/[place] Medigap Part B [id number] Self [id number] Excellus BCBS Medigap Part B [id number] Self [id number] BCBS Ppo Commercial [id number] Self [id number] Aarp/ Health Care Options Medigap Part B [id number] Self [id number] Medicare - [place] Medicare Primary [id number] Self [id number] MEDICARE PI PI [facility] PI PI MEDICARE [id number] Sanna [id number] A [facility] [id number] Sanna [id number] EXCELLUS MEDICARE BLUE PPO G [id number] Self [id number] EXCELLUS MEDICARE BLUE PPO G [id number] Self [id number] Medicare Blue Ppo Commercial Self BC/[place] Medigap Part B Self Excellus BCBS Medigap Part B Self BCBS Ppo Commercial Self BLUE CROSS BLUE SHIELD -RECURRING [id number] 18 [id number] MEDICARE [id number] SP [id number] A BLUE CROSS BLUE SHIELD FEDERAL-RECURRING [id number] 18 [id number] BLUE CROSS BLUE SHIELD -O/P [id number] 18 [id number] BLUE CROSS -O/P UNAVAILABLE UNAVAILABLE EXCELLUS BCBS P [id number] S [id number] Problems, Conditions, and Diagnoses Code Display Name Description Problem Type Effective Dates Data Source(s) L30.9 543159598 Stoma dermatitis Problem 07/23/2020 12:00:00 AM EDT eCW1 ([facility]) 45268281 Chronic obstructive lung disease Chronic obstruc tive lung disease Problem 03/11/2020 12:00:00 AM EDT MEDENT ([facility], ) [id number] Uncomplicated moderate persistent asthma Uncomplicated moderate persistent asthma Problem 03/11/2020 12:00:00 AM EDT MED[facility] ([facility], ) [id number] Abnormal findings on diagnostic imaging of lung Abnormal findings on diagnostic imaging of lung Problem 03/11/2020 12:00:00 AM EDT [facility] ([facility], ) 710238241 Dyspnea Dyspnea Problem 02/27/2020 12:00:00 AM ED T MEDENT ([facility]) [id number] Electrocardiogram abnormal Electrocardiogram abnormal Problem 02/27/2020 12:00:00 AM EDT MED[facility] ([facility]) 16734525 Mitral valve disorder Mitral valve disorder Problem 02/27/2020 12:00:00 AM EDT MED[facility] ([facility]) M05.79 [id number] Rheumatoid arthritis involving multiple sites with positive rheumatoid factor Problem 11/27/2019 12:00:00 AM EST eCW1 ([facility]) J45.909 255965702 Persistent asthma wi thout complication, unspecified asthma severity Problem 11/27/2019 12:00:00 AM EST eCW1 ([facility]) M05.79 556281914 Rheumatoid arthritis involving multiple sites with positive rheumatoid factor Problem 11/27/2019 12:00:00 AM EST eCW1 ([facility]) J45.909 [id number] Persistent asthma wi thout complication, unspecified asthma severity Problem 11/27/2019 12:00:00 AM EST eCW1 ([facility]) 26999668 Essential hypertension Essential hypertension Problem 10/08/2019 12:00:00 AM EST MEDENT ([facility]) 12089666 Essential hypertension Essential hypertension Problem 09/25/2019 12:00:00 AM EST MED[facility] ([facility]) Y93338 Personal history of other malignant neop lasm of skin Personal history of other malignant neoplasm of skin Diagnosis 06/17/2020 10:52:00 AM EDT [facility] [id number] Encounter for surgical after care following surgery on the skin and subcutaneous tissue Encounter for surgical aftercare followi ng surgery on the skin and subcutaneous tissue Diagnosis 11/20/2019 10:04:00 AM [facility] K00015 Personal history of nicotine dependence Personal history of nicotine dependence Diagnosis 11/10/2019 11:16:00 AM [facility] K921 Melena Melena Diagnosis 11/10/2019 11:16:00 AM [facility] I10 Essential (primary) hypertension Essential (primary) h ypertension Diagnosis 11/10/2019 11:16:00 AM [facility] I447 Left bundle-branch block, unspecified Le ft bundle-branch block, unspecified Diagnosis 11/10/2019 11:16:00 AM [facility] K5090 Crohn's disease, unspecified, without co mplications Crohn's disease, unspecified, without complications Diagnosis 11/10/2019 11:16:00 AM [facility] M069 Rheumatoid arthritis, unspecified Rheumatoid art hritis, unspecified Diagnosis 11/10/2019 11:16:00 AM [facility] Z794 shelter (current) use of insulin shelter (cu rrent) use of insulin Diagnosis 11/10/2019 11:16:00 AM [facility] E119 Type 2 diabetes mellitus without complic ations Type 2 diabetes mellitus without complications Diagnosis 11/10/2019 11:16:[address] [facility] J9600 Acute respiratory failure, u nspecified whether with hypoxia or hypercapnia Acute respiratory failure, unspecified whether with hy poxia or hypercapnia Diagnosis 11/10/2019 11:16:00 AM [facility] J111 Influenza due to unidentifie d influenza virus with other respiratory manifestations Influenza due to unidentified influenza virus with other respiratory manifestations Diagnosis 11/10/2019 11:16:00 AM [facility] J441 Chronic obstructive pulmonary disease wi th (acute) exacerbation Chronic obstructive pulmonary disease with (acute) exacerbation Diagnosis 11/10/2019 11:16:00 AM [facility] D75781 Basal cell carcinoma of skin of other pa rt of trunk Basal cell carcinoma of skin of other part of trunk Diagnosis 10/18/2019 08:18:00 AM [facility] Surgeries/Procedures Procedure Description Date Indications Data Source(s) Echocardiography, Tranthoracic Complete Image Documentation 10/08/2020 12:00:00 AM [facility] ([facility]) Plain chest X-ray (procedure) 09/17/2020 10:13:00 AM [facility] FINE NEEDLE ASPIRATION W/O IMAGING GUIDANCE 08/05/2020 12:00:00 AM EST eCW1 ([facility]) FINE NEEDLE ASPIRATION W/O IMAGING GUIDANCE 07/15/2020 12:00:00 AM EDT eCW1 ([facility]) Office Visit, Est Pt., Level 5 PC 11/27/2019 12:00:00 AM EST eCW1 ([facility]) Office Visit, Est Pt., Level 2 FC 11/27/2019 12:00:00 AM EST eCW1 ([facility]) Introduction of Vasopressor into Peripheral Vein, Perc utaneous Approach Introduction of Vasopressor into Peripheral Vein, Percutaneous Approach 11/12/2019 12:00:00 AM [facility] Introduction of Electrolytic and Water B alance Substance into Peripheral Vein, Percutaneous Approach Introduction of Electrolytic and Water B alance Substance into Peripheral Vein, Percutaneous Approach 11/12/2019 12:00:00 AM [facility] Introduction of Anesthetic Agent into Re spiratory Tract, Via Natural or Artificial Opening Introduction of Anesthetic Agent into Re spiratory Tract, Via Natural or Artificial Openin 11/12/2019 12:00:00 AM [facility] Blood culture for bacteria, including anaerobic screen (proc edure) 11/10/2019 12:00:00 AM [facility] Blood culture for bacteria, including anaerobic screen (proc edure) 11/10/2019 12:00:00 AM [facility] Blood culture for bacteria, including anaerobic screen (proc edure) 11/10/2019 12:00:00 AM [facility] l Blood culture for bacteria, including anaerobic screen (proc edure) 11/10/2019 12:00:00 AM [facility] l Blood culture for bacteria, including anaerobic screen (proc edure) 11/10/2019 12:00:00 AM EST [facility] Blood culture for bacteria, including anaerobic screen (proc edure) 11/10/2019 12:00:00 AM [facility] Blood culture for bacteria, including anaerobic screen (proc edure) 11/10/2019 12:00:00 AM [facility] l DEMO&/EVAL OF PT UTILIZ AERSL GEN/NEB/INHLR/IPPB 11/07 12:00:00 AM EST [facility] ([facility] BRNCDILAT RSPSE SPMTRY PRE&POST-BRNCDILAT ADMN 020 12:00:00 AM EST [facility] ([facility] PLETHYSMOGRAPHY LUNG VOLUMES W/WO AIRWAY RESIST 2019 12:00:00 AM EST [facility] ([facility] DIFFUSING CAPACITY 11/05/2019 12:00:00 AM EST [facility] ([facility] Results ID Date Data Source [id number] 11/14/2020 12:18:00 PM [facility] NOT DETECTEDNOT DETECTED{ PROC EDURAL CONTROL VALID KIT LOT # _[id number] 11/14/20.8.MD . KIT EXP DATE _12.11.20 11/14/20.8. . NORMAL RANGE IS NOT DETECTEDNEGATIVE RESULTS SHOULD BE TREATED PRESUMPTIVE AND, IF INCONSISTENT WITHCLINICAL SIGNS AND SYMPTOMS OR NECESSARY FOR PATIENT MANAGEMENT, SHOULD BETESTED WITH DIFFERENT AUTHORIZED OR CLEARED MOLECULAR TESTS. NEGATIVE RESULTSDO NOT PRECLUDE SARS-CoV-2 INFECTION AND SHOULD NOT BE USED THE SOLE BASISFOR PATIENT MANAGEMENT DECISIONS. Name Value Range Interpretation Code Description Data Khalida rce(s) Supporting Document(s) ID Date Data Source [id number] 11/14/2020 01:11:00 PM [facility] Name Value Range Interpretation Code Description Data Khalida rce(s) Supporting Document(s) URINALYSIS [facility] URINALYSIS SOURCE R [facility] COLOR yellow NORMAL: Yellow [facility] CLARITY clear NORMAL: Clear [facility] Specific gravity of Urine by Test strip 1.025 1.001 - 1.030 [facility] pH 5 5 - 9 [facility] Glucose [Mass/volume] in Urine by Test strip NORM NORMAL: Negat payton [facility] Bilirubin.total [Presence] in Urine by Test strip NEG NORMAL: Negative [facility] Ketones [Presence] in Urine by Test strip NEG NORMAL: Negative [facility] Protein [Mass/volume] in Urine by Test strip 100 NORMAL: Negat payton [facility] Nitrite [Presence] in Urine by Test strip NEG NORMAL: Negative [facility] BLOOD 25 NORMAL: Negative [facility] Leukocyte esterase [Presence] in Urine by Test strip 500 FITO L: Negative [facility] Urobilinogen [Mass/volume] in Urine by Test strip NOR less michael n 1.0 mg/dL [facility] MICROSCOPIC See Below [facility] ital WBC TNTC NORMAL: NONE SEEN A [facility] Erythrocytes [#/volume] in Urine by Test strip 10 - 15 NORMAL: NON E SEEN A [facility] EPITHELIAL MODERATE NORMAL: NONE SEEN A [facility] Bacteria [Presence] in Urine sediment by Light microscopy 1+ SMALL NORMAL: NONE SEEN [facility] ID Date Data Source [id number] 11/14/2020 10:48:00 AM EST [facility] Name Value Range Interpretation Code Description Data Khalida rce(s) Supporting Document(s) COMPREHENSIVE METABOLIC PANEL [facility] COMPREHENSIVE METABOLIC PANEL Sodium [Moles/volume] in Serum or Plasma 127 mEq/L 134 - 153 L [facility] Potassium [Moles/volume] in Serum or Plasma 6.8 mEq/L 3.6 - 5.0 [facility] CALLED TO JoinTVAMCD2.20.21 @ 1050 Chloride [Moles/volume] in Serum or Plasma 97 mEq/L 98 - 107 L [facility] Carbon dioxide, total [Moles/volume] in Serum or Plasma 11 MEQ/L 22 - 30 L [facility] Glucose [Mass/volume] in Serum or Plasma 312 MG/DL 70 - 99 H [facility] BUN 109 MG/DL 7 - [facility] LISAMCD2.20.21 @ 1050 Creatinine [Mass/volume] in Serum or Plasma 3.9 MG/DL 0.7 - 1.5 H [facility] BUN/CREAT 28 8 - 27 H [facility] al Protein [Mass/volume] in Serum or Plasma 8.5 G/DL 6.3 - 8.2 H [facility] Albumin [Mass/volume] in Serum or Plasma 4.3 G/DL 3.9 - 5.0 [facility] Globulin [Mass/volume] in Serum by calculation 4.2 GM/DL 2.4 - 3.2 H [facility] A/G RATIO 1.0 0.8 - 2.0 [facility] Calcium [Mass/volume] in Serum or Plasma 9.3 MG/DL 8.4 - 10.2 [facility] Bilirubin.total [Mass/volume] in Serum or Plasma <0.7 MG/DL 0.2 - 1.3 [facility] Alkaline phosphatase [Enzymatic activity/volume] in Serum or Plasma 95 U/L 38 - 126 [facility] Aspartate aminotransferase [Enzymatic activity/volume] in Serum or Plasma 17 U/L 5 - 40 [facility] Alanine aminotransferase [Enzymatic activity/volume] in Seru m or Plasma 21 U/L 7 - 56 [facility] Anion gap 3 in Serum or Plasma 19.0 mmol/L 8.0 - 16.0 H [facility] AGE 70 yrs [facility] al NON-AA GFR 16 mL/min [facility] AFR AMER GFR 20 mL/min [facility] Male GFR In terprentation 20-49 yrs >60 mL/min Normal 50-59 yrs >56 mL/min Normal 60-69 yrs >49 mL/min Normal 70-79yrs >42 mL/min Normal 80 and above >35 mL/min Normal Female GFR Interpretation 20-39 yrs >60 mL/min Normal 40-49 yrs >58 mL/min Normal 50-59 yrs >51 mL/min Normal 60-69 yrs >45 mL/min Normal 70-79 yrs >39 mL/min Normal 80 and above >32 mL/min Normal ID Date Data Source [id number] 11/14/2020 10:39:00 AM EST [facility] Name Value Range Interpretation Code Description Data Khalida rce(s) Supporting Document(s) Magnesium [Mass/volume] in Serum or Plasma 2.4 MG/DL 1.7 - 2.2 H [facility] ID Date Data Source [id number] 11/14/2020 10:33:00 AM [facility] Name Value Range Interpretation Code Description Data Khalida rce(s) Supporting Document(s) Creatine kinase [Enzymatic activity/volume] in Serum or Plasma 1 10 U/L 30 - 170 [facility] ID Date Data Source [id number] 11/14/2020 10:29:00 AM [facility] Name Value Range Interpretation Code Description Data Khalida rce(s) Supporting Document(s) TROPONIN T 0.10 NG/ML 0.00 - 0.10 [facility] spital TROPONIN T0.1 ng/ml Recommended as the c linical threshold value forTroponin T. ID Date Data Source [id number] 11/14/2020 10:14:00 AM [facility] Name Value Range Interpretation Code Description [facility] Document(s) CBC W/AUTOMATED DIFF [facility] COMPLETE BLOOD COUNT Leukocytes [#/volume] in Blood by Automated count 15.7 10^3/uL 4.2 - 11.0 H [facility] Erythrocytes [#/volume] in Blood by Automated count 4.35 10^6/uL 4. 50 - 6.30 L [facility] Hemoglobin [Mass/volume] in Blood 12.7 g/dL 14.0 - 16.0 L [facility] Hematocrit [Volume Fraction] of Blood by Automated count 38.8 % 4 1.0 - 51.0 L [facility] Erythrocyte mean corpuscular volume [Entitic volume] by Auto mated count 89.2 fL 80.0 - 94.0 [facility] Erythrocyte mean corpuscular hemoglobin [Entitic mass] by Automated count 29.2 pg 27.0 - 34.0 [facility] Erythrocyte mean corpuscular hemoglobin concentration [Mass/volume] by Automated count 32.7 g/dL 31.0 - 36.0 [facility] Erythrocyte distribution width [Ratio] by Automated count 15.2 % 11.5 - 14.8 H [facility] Platelets [#/volume] in Blood by Automated count 408 10^3/uL 150 - 45 0 [facility] Platelet mean volume [Entitic volume] in Blood by Automated count 10.6 fL 7.4 - 10.4 H [facility] Neutrophils/100 leukocytes in Blood by Automated count 83.1 % 37. 0 - 80.0 H [facility] Lymphocytes/100 leukocytes in Blood by Manual count 9.3 % 25.0 - 40.0 L [facility] Monocytes/100 leukocytes in Blood by Automated count 5.9 % 3.0 - 8.0 [facility] Eosinophils/100 leukocytes in Blood by Automated count 0.4 % 0.0 - 7.0 [facility] Basophils/100 leukocytes in Blood by Automated count 0.6 % 0.0 - 2.0 [facility] %IG 0.7 % 0.0 - 0.0 H [facility] Hospit al %NRBC 0.0 % 0.0 - [facility] [#/volume] in Blood by Automated count 13.02 10^3/uL 2. 00 - 6.90 H [facility] Lymphocytes [#/volume] in Blood by Automated count 1.45 10^3/uL 0.60 - 3.40 [facility] Monocytes [#/volume] in Blood by Automated count 0.93 10^3/uL 0.00 - 0.90 H [facility] Eosinophils [#/volume] in Blood by Automated count 0.07 10^3/uL 0.00 - 0.70 [facility] Basophils [#/volume] in Blood by Automated count 0.09 10^3/uL 0.00 - 0.20 [facility] #IG 0.11 10^3/uL 0.00 - 0.10 H [facility] ospital #NRBC 0.00 10^3/uL 0.00 - 0.00 [facility] ospital MANUAL DIFF NOT INDICATED [facility] RBC MORPH NOT INDICATED [facility] spital ID Date Data Source [id number] 11/14/2020 10:14:00 AM EST [facility] Name Value Range Interpretation Code Description Data Khalida rce(s) Supporting Document(s) pH of Serum or Plasma 7.13 7.32 - 7.43 L [facility] pCO2 V 34.1 mm/HG 38.0 - 51.0 L [facility] pO2 V 34.2 mm/HG 30.0 - 55.0 [facility] Bicarbonate [Moles/volume] in Venous blood 11.0 meq/L 22.0 - 29.0 L [facility] TCO2 V 12.1 meq/L 22.0 - 29.0 L [facility] Base excess in Blood by calculation -17.1 -2.0 - 2.0 L [facility] O2 SAT V 42.1 % 40.0 - 85.0 [facility] Hosp ital ID Date Data Source [id number] 10/19/2020 01:47:00 PM [facility] Patient Name: MARCIO BUENROSTRO DO B: 1950 Sex: M Pt Unit #: [id number] Location:[facility] Provider: Visit Date/Time: 10/19/20 Primary Insurance: MEDICARE [place] Secondary Insurance: AARP Intake Intake Visit Reasons: Telemed Visit Nurse Note: patient doing a tele med visit today for COPD. patient has no concerns. patient had a 1st Covid shot 10/07/2020 [facility] at [facility] Clinic. Director Private Required: No Accompanied by: self Is patient in pain?: Yes (bliateral legs,feet, ankles) Pain scale (1-10): 4 Allergies No Known Drug Allergies Allergy (Unverified 05/04/20 11:11) Medications - Last Reconciled 10/19/20 by Milena Gaxiola DO albuterol sulfate 2.5 mg (0.5 mL) inhalation Q4HRS PRN MDD 6x albuterol sulfate 90 mcg/actuation (ProAir HFA) 2 puffs inhalation Q4HRS PRN aspirin (Ecotrin Low Strength) 1 tab PO DAILY [Blood Sugar Diagnostic (One Touch Test Strips) 1 strip IN TID] budesonide-formoterol 160-4.5 mcg/actuation (Symbicort) 2 puffs inhalation BID cholecalciferol (vitamin D3) (Vitamin D3) 1,000 units PO DAILY diphenoxylate- atropine 2.5-0.025 mg 1 tab PO QID MDD 4 fluticasone propionate 50 mcg/actuation 2 spry EN DAILY gabapentin 300 mg PO QDAY hydrochlorothiazide 12.5 mg PO QAM insulin aspart U-100 (Novolog Flexpen U-100 Insulin aspart) 100 units subcut DAILY insulin glargine (Lantus Solostar U-100 Insulin) 18 units subcut BID lancets (FreeStyle Lancets) metoprolol succinate ER (Toprol XL) 25 mg PO HS multivitamin 1 tab PO QAM pen needle, diabetic (Pen Needle) 8MM X 31 G DX:250.00 prednisone TAKE ONE TABLET BY MOUTH EVERY DAY ramipril 10 mg PO QDAY triamterene-hydrochlorothiazid 37.5-25 mg (Dyazide) 1 cap PO QAM umeclidinium 62.5 mcg/actuation inhalation zinc oxide 3.8% 3.8 % topical QID PHQ-2/9 Over the last 2 weeks, how often have you been bothered by any of the following problems? 1. Little interest or pleasure in doing things: not at all 2. Feeling down, depressed, or hopeless: not at all Total score: 0 HIV Testing Offer - ages 13-64 Requirement for HIV testing offer been met?: Declines today. Pretest education received and acknowledged SBIRT Annual Questionnaire Are you currently in recovery for alcohol or substance use?: No How many times in the past year have you had 5 or more drinks in a day?: None How many times in the past year have you used a recreational drug or used a prescription medication for nonmedical reasons?: None Do you need a note to return Do you need a note to return to daycare/school/sports/work: No Telephone visit Telephone/Virtual Visit Patient consented to consult via telephone or video: Yes Real-time synchronous services were performed via: Audio only (Phone) Names of people present:: pt and his Elzbieta 310pm -335pm Location of provider: Provider office Location of the Patient: Home Total time spent on medical discussion: 25 minutes Coronavirus Screening Screening Have you traveled outside of [facility] or [facility] in the last 14 days.: No Has patient experienced coronavirus symptoms: No [facility] Medical History Acute meniscal tear, medial Arthritis of knee Atypical chest pain ( 02/2019) Benign essential hypertension Carpal tunnel syndrome Chronic hepatitis C Chronic obstructive bronchitis Crohns disease Diabetic neuropathy Hypertension Hypoxia Microalbuminuria (01/24/18) Mixed hyperlipidemia 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) Nephrolithiasis Obesity Pedal edema Rectal pouchitis Renal cyst Rheumatoid arthritis Ulcerative colitis Ulnar nerve entrapment at elbow Surgical History History of - artificial joint History of - surgery (11/25/16) History of - surgery History of - surgery (10/22/14) History of colonoscopy History of lumbar fusion Incisional hernia Status post bilateral knee replacements Status post colectomy Status post ileostomy Umbilical hernia Family History Mother Rheumatoid arthritis Pancreatitis Hypertension Father Dementia Social History Does the Patient have a Healthcare Proxy: No Does Patient have a DNR?: No Does Patient have a Living Will?: No household members: spouse housing: house marital status: lives independently: Yes number of children: 2 highest education level completed: some college, no degree current occupational [employer]: retired pets and animals: Yes leisure activities: sports and hunting Hx Recent Travel (where): No current diet type/program: low carbohydrate well-balanced diet: other details: Salts everything including pizza caffeine: Yes high-fat food intake: 2 times daily daily servings fruits/ve-4 daily servings of milk/calcium: 2-4 eating out: 1-3 times/week reads food labels: sometimes during the past year weight has: increased > 10 lbs Smoking Status: Former smoker passive smoking exposure: No Smoking risk assessment performed?: Yes (Quit over 20 years ago) alcohol intake: current alcohol intake frequency: a few times a month substance use type: IV drugs counseling given: No (No IV drug use since back in the 1960s) counseling provided: other details: Experimented with IV drugs back in the 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 but has not used IV drugs in decades did get hepatitis Review of Systems Const All systems reviewed are unremarkable except as noted in HPI and below Reports as per HPI, Denies chills, Reports difficulty sleeping, Reports fatigue, Denies fever(s), Denies headache(s) and Denies poor appetite Eyes Reports as per HPI, Denies blurry vision, Denies change in vision, Denies irritation, Denies itchy eyes, Denies loss of vision and Reports requires corrective lenses Details: does eye exam at [facility] Reports as per HPI, Denies dysphagia, Denies vertigo, Denies dizziness, Reports dry mouth, Denies headache(s), Denies hoarseness, Denies epistaxis, Reports nasal congestion, Reports nasal discharge,Denies neck pain, Reports post nasal drip, Denies sinus pain, Denies sinus pressure and Denies sore throat Card Reports as per HPI, Denies chest pain, Denies chest pain at rest, Denies chest pain with activity, Denies pedal edema, Denies irregular heart rhythm, Denies claudication, Denies leg ulcers, Denies leg edema, Denies lightheadedness, Denies palpitations, Denies dyspnea, Reports dyspnea on exertion,Denies orthopnea and Denies paroxysmal nocturnal dyspnea Resp Reports as per HPI, Denies change in phlegm color, Denies chest congestion, Denies cough, Denies hemoptysis, Denies excessive phlegm production, Denies dyspnea, Reports dyspnea on exertion and Denies wheezing GI Reports as per HPI, Denies abdominal pain, Denies melena, Denies hematochezia, Reports change in bowel habits, Denies cramping, Denies dysphagia, Denies heartburn, Denies diarrhea, Denies loose stools, Denies nausea and Denies vomiting Reports as per HPI, Denies hematuria, Denies oliguria, Denies difficulty urinating, Reports nocturia, Reports urinary frequency, Denies urinary hesitancy, Denies urinary incontinence and Denies urinary urgency Musc Reports as per HPI, Denies neck pain, Reports numbness, Reports stiffness and Reports tingling Details: [facility] started on gabapentin and allopurinol 100mg BID Skin/Breast Reports as per HPI, Reports dry skin, Denies pruritus, Denies rash, Denies skin ulcer, Denies sores and Denies wounds Neuro Reports as per HPI, Denies vertigo, Denies dizziness, Denies headache(s), Denies loss of vision, Reports numbness, Denies radicular pain, Reports tingling, Reports paresthesias and Denies tremor(s) Psych Reports as per HPI, Reports abnormal sleep pattern, Reports anxiety, Denies depression, Denies difficulty concentrating, Denies mood swings, Denies panic attacks, Denies homicidal ideation and Denies suicidal ideation Endo Reports as per HPI, Denies cold intolerance, Reports fatigue, Reports heat intolerance, Denies polyphagia, Denies polydipsia, Denies polyuria and Denies palpitations Jordan/Lymph Reports as per HPI, Denies easy bleeding and Denies easy bruising Aller/Immun Reports as per HPI, Reports GI upset with certain foods, Denies itchy eyes, Reports seasonal rhinorrhea and Denies wheezing Assessment Plan Assessment Plan (1) Rectal pouchitis: Status: Acute Comment: [address] Kirsten Mantilla at [facility] in [place] Code(s): K62.89 - Other specified diseases of anus and rectum SNOMED Code(s): 5611357 Category: Medical Plan - Milena Gaxiola, DO: Resolved as soon as he had initial revision surgery last fall at [facility]. He still has colostomy but the pouchitis resolved almost immediately within days of his reversal. He will have final J- pouch resection December 16. He is not sure if he needs preop or not so is going to try to clarify that. Otherwise he would like to make in person visit after his surgery sometime in December. He says he did just have diabetes care with Dr. Swift earlier this month at the [facility]. (2) Pedal edema: Status: Acute Code(s): R60.0 - Localized edema SNOMED Code(s): 110714678 Category: Medical Plan - Milena Gaxiola, DO: He was taken off amlodipine due to pedal edema and switched to metoprolol. Edema has resolved. My concern was if it might exacerbate his asthma. Even though it is card ioselective it could exacerbate his moderately severe obstructive asthma. He has not had any nighttime symptoms. Using his baseline inhalers daily not needing his albuterol much at all infection is the main thing that causes him to decompensate quickly. His spirometry in July was slightly lower. His sats have been fine. His oxygen was discontinued. He will see Dr. Koo again in the spring. Prior CTs ofthe chest have shown no aneurysm. Discussed his recent echo results encouraged him to monitor bloodpressure readings at home. (3) Mild mitral regurgitation: Status: Chronic Code(s): I34.0 - Nonrheumatic mitral (valve) insufficiency SNOMED Code(s): 205187988 Category: Medical Plan - Milena Gaxiola, DO: Discussed echo results mild mitral regurgitation is the same but his aortic measurements are upper normal question whether to just repeat echo in 1 year which I did order as he does not have a cardiology follow-up arranged or whether we should do CT of chest. He follows closely with Dr. Nawaf Roger but has not had any recent CT of chest last one I have on record was 2015. No aneurysm at that time. Will discuss with Sommer PATTERSON when I come from [place] tomorrow. (4) Left ventricular diastolic dysfunction, NYHA class 2: Status: Chronic Onset Date: 02/2019 Comment: Patient denies chest pain. admitted to ICU with exacer bation of asthma-echo shows mild diastolic dysfunction with ejection fraction 50-55%-baseline left bundle branch block which was worked up with negative nuclear stress test 2016, [facility] felt reduced ejection fraction likely left bundle branch block related.Mild MR on echo stable.Repeat echo . He attributes his dyspnea on exertion due to his asthma-PFTs have worsened at recheck with Zoe illness in February ultimately ended up being due to parainfluenza 3 bacteria cultures negative. Patient had prolonged ICU admission and ultimately was likely due to immunosuppression from Entyvio for his Crohn's disease Code(s): I51.9 - Heart disease, unspecified SNOMED Code(s): 250003093 Category: Medical Plan - Milena Gaxiola, DO: He had stress test February 2020. PFTs continue to worsen. Dyspnea on exertion is stable. 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 But echo this past month does show upper borderline aortic measurements. Will discuss CT of chest with cardiology Orders: Orders: US Echo complete 11 Months (5) Chronic obstructive asthma with acute exacerbation: Status: Chronic Comment: Managed by Dr. Nawaf Roger-hospitalized in ICU February 2019 with hypoxia and sat down to is 62 CO2 35-ambulating discharge oxygen level of 90 continue Symbicort-PFTs 02-22-19 Dr. Nawaf Roger degsrzsfw-jwccgp-tcznjrkgb pneumonia bacterial sputum negative-ultimately positive for parainfluenza - October 2019 rehospitalized with exacerbation due to influenza B-PO2 down to 29 CO2 retention 50 O2sat 48% on Humira -hold Humira until cleared by pulmonary to restart Code(s): J44.1 - Chronic obstructive pulmonary disease with (acute) exacerbation; J45.901 - Unspecified asthma with (acute) exacerbation SNOMED Code(s): 1183511798522 Category: Medical Plan - Milena Gaxiola, DO: Patient's exacerbation has resolved no further acute symptoms ambulating sats have returned to normal he is off home oxygen he is using his Symbicort daily rarely has to use his albuterol. He got a Covid shot earlier this month. He is up-to-date on Prevnar and Pneumovax. He got a flu shot early in the fall. He is not sure if he is going to need clearance from pulmonary cardiology or myself prior to his J-pouch resection. Symptoms are markedly improved he is going to touch base with the [facility] he will give me a call. Dr. Swift was managing his diabetes at this point. Had labs at the [facility] about 3 weeks ago Orders Other Medications: New: metoprolol succinate ER (Toprol XL) 25 mg PO HS 90 tabs 1RF Time spent Total time spent on medical discussion: 25 minutes Coding Level of Care Code Telemed Visit (21-30 min) Diagnoses Rectal pouchitis K62.89 Pedal edema R60.0 Mild mitral regurgitation I34.0 Left ventricular diastolic dysfunction, NYHA class 2 I51.9 Chronic obstructive asthma with acute exacerbation J44.1; J45.901 <Electronically signed by Milena Gaxiola DO> 10/19/20 1546 Name Value Range Interpretation Code Description Data Khalida rce(s) Supporting Document(s) ID Date Data Source [id number] 10/08/2020 10:39:00 AM EST [facility] ([facility]) Name Value Range Interpretation Code Description Data Khalida rce(s) Supporting Document(s) Echocardiogram Laboratory test result [facility] ([facility]) ID Date Data Source [id number] 09/24/2020 09:55:00 AM EST [facility] ([facility], ) Name Value Range Interpretation Code Description Data Khalida rce(s) Supporting Document(s) PDFReport Laboratory test result [facility] ([facility], ) FVC-Pre 2.31 L [facility] ([facility], ) FVC-Pred 3.42 L [facility] ([facility], ) FVC-%Pred-Pre 67 L [facility] ([facility]) FVC-LLN 2.64 L [facility] ([facility], ) Fev1-Pred 2.49 L [facility] ([facility], ) Fev1-Pre 1.41 L [facility] ([facility]) Fev1-LLN 1.83 L [facility] ([facility]) Fev1-%Pred-Pre 56 L [facility] ([facility]) Fev6-Pred 3.19 L [facility] ([facility]) Fev6-Pre 2.31 L [facility] ([facility], ) Fev6-LLN 2.44 L [facility] ([facility]) Fev6-%Pred-Pre 72 L [facility] ([facility], ) Ntm3grr-%Pred-Pre 83 % [facility] ([facility]) Ddz8jdi-Abxk 73 % [facility] ([facility]) Yms4ifw-Ude 61 % [facility] ([facility]) Zqh1xid-Pdu 100 % [facility] ([facility]) Jkt1jad-Deww 93 % [facility] ([facility]) Amc4ydb-SKK 64 % [facility] ([facility]) FEFMax-Pred 6.96 L/E/sec [facility] ([facility], ) FEFMax-Pre 4.13 L/E/sec [facility] ([facility]) Apw9nsy-%Pred-Pre 107 % [facility] ([facility]) Mvb4528-Nide 1.89 L/E/sec [facility] ([facility]) FEFMax-%Pred-Pre 59 L/E/sec [facility] ([facility]) FEFMax-LLN 5.02 L/E/sec [facility] ([facility]) Hbl8113-Oyp 0.79 L/E/sec [facility] ([facility]) Hzk6896-%Pred-Pre 41 L/E/sec [facility] ([facility]) Fcy3796-EOI 0.55 L/E/sec [facility] ([facility], ) ExpTime-Pre 5.75 sec [facility] ([facility]) Koa7tas2-Osds 78 % [facility] ([facility], ) Uds1vsy2-Hfp 61 % [facility] ([facility]) Vuy4dtd8-WTU 69 % [facility] ([facility]) Cra0snx7-%Pred-Pre 79 % [facility] ([facility]) ID Date Data Source [id number] 09/17/2020 10:19:00 AM [facility] [address] [id number] [phone] NAME SEX PT STATUS ACCOUNT NUMBER MARCIO BUENROSTRO REG REF [id number] ORDERING PHYSICIAN LOCATION MEDICAL RECORD NO. Nawaf Roger DO [facility] [id number] ATTENDING PHYSICIAN DATE OF DATE OF EXAM/TIME MinorMilena DO 1950 09/17/20 / 1013 TYPE / EXAM Xray Chest 2 view [...] Trans Dt/Tm: Trans by: DT Prt Dt/Tm: [phone]: Total DLP = 0.00 mGy-cm Fluoroscopy Time (in secs): Name Value Range Interpretation Code Description Data Khalida rce(s) Supporting Document(s) ID Date Data Source [id number] 05/18/2020 10:58:00 AM EDT [facility] Name Value Range Interpretation Code Description Data Khalida rce(s) Supporting Document(s) Urea nitrogen [Mass/volume] in Serum or Plasma 26 mg/dL 9-23 Above high normal [facility] Sodium [Moles/volume] in Serum or Plasma 143 mmol/L 132-146 N [facility] Potassium [Moles/volume] in Serum or Plasma 3.6 mmol/L 3.5-5.5 N [facility] Chloride [Moles/volume] in Serum or Plasma 113 mmol/L 99-109 Above [facility] Carbon dioxide, total [Moles/volume] in Serum or Plasma 22 mmol/L 20 -31 N [facility] Anion gap in Serum or Plasma 12 mmol/L 8-16 N [facility] Glucose [Mass/volume] in Serum or Plasma 150 mg/dL 74-106 Above high normal [facility] Creatinine 1.2 mg/dL 0.5-1.1 Above high normal [facility] Glomerular filtration rate/1.73 sq M.pre dicted [Volume Rate/Area] in Serum or Plasma 60 ml/min ABOVE 60 [facility] ital Alanine aminotransferase [Enzymatic acti vity/volume] in Serum or Plasma by With P-5'-P 18 U/L 10-49 N [facility] ital Aspartate aminotransferase [Enzymatic ac tivity/volume] in Serum or Plasma by With P-5'-P 11 U/L 0-33 N [facility] pital Alkaline phosphatase [Enzymatic activity/volume] in Serum or Plasma 63 U/L 45-129 [facility] Calcium [Mass/volume] in Serum or Plasma 8.6 mg/dL 8.5-10.1 [facility] Bilirubin.total [Mass/volume] in Serum or Plasma 0.2 mg/dL 0.3-1.2 Below low normal [facility] Albumin [Mass/volume] in Serum or Plasma by Bromocresol purple (BCP) dye binding method 3.0 g/dL 3.2-4.8 Below low normal [facility] Protein [Mass/volume] in Serum or Plasma 6.5 g/dL 5.7-8.2 N [facility] ID Date Data Source [id number] 05/03/2020 07:11:00 PM EDT [facility] Patient Name: Marcio Buenrostro : 1950 Sex: M Pt Unit #: [id number] Location:[facility] Provider: Visit Date/Time: 05/04/20 Primary Insurance: MEDICARE [employer] Secondary Insurance: [facility] Colorectal surgeon who is cared for him for years called back and is going to call and talk to him. She feels it would be a wasted trip for him to come to [place] and talk to her. She feels his onlyoption is to have pouch reversed. It is a huge surgery she does not do them anymore. She recommends he go to the [facility]. She does not think he really has any other option. Acutely she would put him on 5 to 10 mg prednisone. Due to his suboptimal diabetes control we will start with 5 mg daily rather than just as needed. I sent him #30 and 1 refill. She will call me back but she will do the referral herself as she regularly refers people to the [facility] andknows the surgeon she would prefer as this is complicated surgery. She recommends a zinc oxide cream and there is a 3.8% barrier cream he can apply up to 4 times a day just to try to keep the area more dry. She also wants him to go back on Lomotil on a more regular basis at least 4 times a day to slow the diarrhea down once she has a chance to call and discuss things with him she will letme know whether he will take the referral out to [facility] or not but she really does not think he has much choice if he does not reverse pouch she does not think things will get any better. <Electronically signed by Milena Gaxiola DO> Addendum Signed By: Date/Time: 05/04/20 1537 Intake Vital Signs 05/04/20 09:44 Current Height 5 ft 5 in Current Weight 211 lb Weight Measurement Method Standing Scale BMI 35.1 BP 138/68 Blood Pressure Location Lt brachial Position Sitting Respiration 16 Pulse 75 Pulse Strength Normal Pulse Source Pulse Oximeter Temp 98.0 F Temp Source Oral Pulse Oximetry (%) 95 Oxygen Delivery Method room air Intake Visit Reasons: Asthma follow-up Nurse Note: patient is here today to follow up on asthma and history of recurrent pneumonia due to biologic agents prescribed by Dr. Watkins for his Crohn's disease; called for reports from rheumatology and Dr. Watkins about [facility] medical records had mall where attack and no records available patient gets his annual physical with Dr. Swift at the [facility]. patient did blood work at [facility] months ago. patient states that he has a a flare up on his buttock area due to his pouchitis from his Crohn's. Director Private Required: No Accompanied by: Is patient in pain?: Yes (buttock ) Pain scale (1-10): 4 Allergies No Known Drug Allergies Allergy (Unverified 05/04/20 11:11) Medications albuterol sulfate 2.5 mg (0.5 mL) inhalation Q4HRS PRN MDD 6x albuterol sulfate 90 mcg/actuation (ProAir HFA) 2 puffs inhalation Q4HRS PRN amlodipine 5 mg PO QDAY aspirin (Ecotrin Low Strength) 1 tab PO DAILY [Blood Sugar Diagnostic (One Touch Test Strips) 1 strip IN TID] budesonide-formoterol 160-4.5 mcg/actuation (Symbicort) 2 puffs inhalation BID cholecalciferol (vitamin D3) (Vitamin D3) 1,000 units PO DAILY diphenoxylate-atropine 2.5-0.025 mg (Lomotil) 1 tab PO QID PRN fluticasone propionate 50 mcg/actuation 2 spry EN DAILY gabapentin 300 mg PO QDAY insulin aspart U-100 (Novolog Flexpen U-100 Insulin aspart) 100 units subcut DAILY insulin glargine (Lantus Solostar U-100 Insulin) 18 units subcut BID lancets (FreeStyle Lancets) ACHS multivitamin 1 tab PO QAM pen needle, diabetic (Pen Needle) 8MM X 31 G DX:250.00 prednisone 5 mg PO Q OTHER DAY ramipril 10 mg PO QDAY triamterene-hydrochlorothiazid 37.5-25 mg (Dyazide) 1 cap PO QAM umeclidinium 62.5 mcg/actuation inhalation Fall Risk History of falls: No Ambulatory Aid:: None Gait/Transferring:: Normal PHQ-2/9 Over the last 2 weeks, how often have you been bothered by any of the following problems? 1. Little interest or pleasure in doing things: not at all 2. Feeling down, depressed, or hopeless: not at all Total score: 0 HIV Testing Offer - ages 13- 64 Requirement for HIV testing offer been met?: Declines today. Pretest education received and acknowledged SBIRT Annual Questionnaire Are you currently in recovery for alcohol or substance use?: No How many times in the past year have you had 5 or more drinks in a day?: None How many times in the p ast year have you used a recreational drug or used a prescription medication for nonmedical reasons?: None Do you need a note to return Do you need a note to return to daycare/school/sports/work: No Coronavirus Screening Screening Have you traveled outside of [facility] or [facility] in the last 14 days.: No Has patient experienced coronavirus symptoms: No [facility] Medical History (Updated 05/04/20 @ 11:36 by Milena Gaxiola DO) Acute meniscal tear, medial Arthritis of knee Atypical chest pain ( 02/2019) Benign essential hypertension Carpal tunnel syndrome Chronic hepatitis C Chronic obstructive bronchitis Crohns disease Diabetic neuropathy Hypertension Hypoxia Microalbuminuria (01/24/18) Mixed hyperlipidemia 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) Nephrolithiasis Obesity Pedal edema Rectal pouchitis Renal cyst Rheumatoid arthritis Ulcerative colitis Ulnar nerve entrapment at elbow Surgical History (Updated 05/04/20 @ 11:36 by Milena Hernadez DO) History of - artificial joint History of - surgery (11/25/16) History of - surgery History of - surgery (10/22/14) History of colonoscopy History of lumbar fusion Incisional hernia Status post bilateral knee replacements Status post colectomy Umbilical hernia Family History Mother Rheumatoid arthritis Pancreatitis Hypertension Father Dementia Social History Does the Patient have a Healthcare Proxy: No Does Patient have a DNR?: No Does Patient have a Living Will?: No household members: spouse housing: house lives independently: Yes number of children: 2 highest education level completed: some college, no degree current occupational status: retired pets and animals: Yes leisure activities: sports and hunting Hx Recent Travel (where): No current diet type/program: low carb ohydrate well-balanced diet: other details: Salts everything including pizza caffeine: Yes high-fat food intake: 2 times daily daily servings fruits/ve-4 daily servings of milk/calcium: 2-4 eating out: 1-3 times/week reads food labels: sometimes during the past year weight has: increased > 10 lbs passive smoking exposure: No Smoking risk assessment performed?: Yes (Quit over 20 years ago) alcohol intake: current alcohol intake frequency: a few times a month substance use type: IV drugs counseling given: No (No IV drug use since back in the 1960s) counseling provided: other details: Experimented with IV drugs back in the 60s but has not used IV drugs in decades did get hepatitis HPI Additional HPI HPI Details: Patient here for recheck of his obstructive asthma and new complaint of rash on his buttocks. He says he has never had quite this extensive bumpy rash on his buttocks before he has had some rash in the crease of his buttocks but never this extensive when he has had pouchitis in the past. He had severe flare of pouchitis back in 2013 he does not remember what colorectal surgeon in [place] gave him but it did calm things down he then started seeing Dr. Watkins [facility] and has been on and off various immunologic drugs for his Crohn's ever since however over the past year he has been hospitalized 3 times with very severe pneumonia hypoxic down to the 40s and because of that he is currently only on Plaquenil more for just his rheumatoid arthritis he has not been back to Dr. Watkins since shortly after his hospitalization in October. He has occasional cramping and diarrhea but he says this rash on his buttocks just sanchez like fire he has not been putting anything on it because he is not sure what to use he chronically has cough with clear to yellow sputum production but nothing more than usual at baseline he has to go up about flight and a half of stairs before any dyspnea never wakes up at night short winded never is short of breath at rest had PFTs last month and mid flows were up from 40% to 51% which is about his baseline Dr. Nawaf Roger had seen him several times since his pneumonia back in October but now that things are back to baseline he is going to space visit usual6 months. He had [facility] he had diabetes care and labs in February he [facility] not [facility] at [facility] 2 more months says he has been sitting with legs down and she thinks he has more swelling than usual he has been on a lot amlodipine for at least 3 years not sure how long it is been at the 10 mg dose not wearing his support hose long history of venous insufficiency. Had some LV dysfunction when he was in the hospital but follow-up echo did not confirm any LV dysfunction ejection fraction is normal patient does not feel he is having any joint issues he has had knee replacements not having any problems with his hands or back blood sugars havebeen up and down he does check them most days not having any indigestion or heartburn usually gets up once or twice at night to urinate Review of Systems Const All systems reviewed are unremarkable except as noted in HPI and below Denies chills, Denies daytime sleepiness, Denies difficulty sleeping, Reports fatigue, Denies fever(s), Denies frequent falls, Denies headache(s), Denies increased appetite, Reports lethargy, Denies night sweats and Denies weight gain Eyes Denies blurry vision, Denies diplopia, Denies dry eyes, Denies itchy eyes, Reports requires corrective lenses and Denies seeing flashes Details: Has his diabetic eye exam at the [facility] Denies dysphagia, Denies vertigo, Denies dizziness, Reports dry mouth, Denies ear discharge, Denies otalgia, Denies headache(s), Denies hoarseness, Denies mouth lesions, Denies mouth pain, Reports nasal congestion, Reports nasal discharge, Denies neck pain, Denies odynophagia, Reports post nasal drip, Denies sinus pain, Denies sinus pressure, Denies sore throat and Denies throat swelling Card Reports as per HPI, Denies chest pain, Denies chest pain at rest, Denies chest pain with activity, Denies syncope, Reports pedal edema, Denies irregular heart rhythm, Denies claudication, Denies leg ulcers, Reports leg edema, Denies lightheadedness, Denies palpitations, Denies dyspnea, Reports dyspnea on exertion, Denies orthopnea and Denies paroxysmal nocturnal dyspnea Resp Repor ts as per HPI, Denies change in phlegm color, Reports chest congestion, Reports cough, Denies hemoptysis, Denies excessive phlegm production, Denies pain on inspiration, Denies pain with cough, Denies dyspnea, Reports dyspnea on exertion and Denies wheezing GI Reports as per HPI, Denies abdominal pain, Denies belching, Denies melena, Denies hematochezia, Denies change in bowel habits, Denies change in stool character, Denies constipation, Reports cramping, Denies dysphagia, Denies heartburn, Reports fecal incontinence, Reports diarrhea, Reports loose stools, Denies nausea, Denies odynophagia, Denies vomiting and Denies hematemesis Details: Perirectal and buttock irritation getting worse since last visit Denies hematuria, Denies oliguria, Denies difficulty urinating, Denies dysuria, Reports nocturia, Denies scrotal swelling, Reports urinary frequency, Denies urinary hesitancy, Denies urinary incontinence and Denies urinary urgency Musc Reports as per HPI, Denies back pain, Denies myalgias, Denies arthralgias, Denies joint swelling, Denies neck pain, Denies numbness, Denies radiating pain into limb, Denies stiffness and Denies tingling Skin/Breast Reports as per HPI, Reports dry skin, Reports pruritus, Reports erythema, Reports rash, Reports skinpain and Reports sores Neuro Reports as per HPI, Denies vertigo, Denies dizziness, Denies syncope, Denies frequent falls, Denies headache(s), Denies numbness, Denies tingling and Denies paresthesias Psych Reports as per HPI, Reports abnormal sleep pattern, Reports anxiety, Denies depression, Denies difficulty concentrating, Denies irrit ability, Reports anhedonia, Denies mood swings, Denies panic attacks, Denies homicidal ideation and Denies suicidal ideation Endo Reports as per HPI, Reports fatigue, Denies flushing, Reports heat intolerance, Denies polyphagia, Denies polydipsia, Denies polyuria and Denies palpitations Jordan/Lymph Denies easy bleeding and Denies easy bruising Aller/Immun Denies GI upset with certain foods, Denies itchy eyes, Reports seasonal rhinorrhea, Denies throat swelling and Denies wheezing Exam Const General: cooperative, comfortable, no acute distress and well groomed Nutritional Appearance: obese Orientation: alert, awake and oriented x3 [facility] General nose exam: external nose normal, nares normal and no nasal polyps; no epistaxis Face and sinus: normal facial exam, sinuses nontender and face symmetric Mouth: tongue normal (With geographic tongue variant) and moist mucous membranes Throat: posterior oropharynx normal Neck Neck: no lymphadenopathy, trachea midline, supple, nontender and no JVD present Neck mass: No Thyroid: thyroid normal Carotids: normal carotid upstroke and no bruits Lymphatic: no lymphadenopathy noted Resp Effort Inspection: normal respiratory effort, able to speak in complete sentences, no audible wheezes, no cough, no use of accessory muscles, prolonged expiratory phase and symmetric chest movement Auscultation: clear to auscultation bilaterally (Anterior cox are clear posterior upper cox are clear posterior lower cox has some scattered rhonchi but no wheezing), no rales, rhonchi, no wheezes and no rubs Tactile Fremitus: tactile fremitus ab sent Cardio Rate: regular rate Rhythm: regular rhythm Heart Sounds: S1 normal, S2 normal and murmur Pulses: posterior tibial pulses present GI Inspection: Yes obesity Palpation: hernia and nontender Auscultation: normal bowel sounds Musc Thoracic/Lumbar Spine: kyphosis, no paraspinal tenderness, no thoraco-lumbar spasm, no thoracic spinal tenderness and no lumbar spinal tenderness Pelvis: no sciatic notch tenderness Skin Rashes: rashes noted (Pouchitis extending at least 4 inches onto each buttock cheek with nodular irritated appearance) Neuro General: tone normal, moves all extremities and no focal motor deficits Extrem General: no clubbing and no cyanosis Other: Bilateral knee replacement scars 2+ pitting edema bilaterally Psych Appearance: well kempt Mental Status: mental status grossly normal Speech and Movement: speech and movement normal Mood: anxious mood Affect: anxious affect Attitude: cooperative Thought Process: normal Thought Content: normal Insight: insight good Judgment: judgment good Assessment Plan Assessment Plan (1) Chronic obstructive asthma with acute exacerbation: Status: Chronic Comment: Managed by Dr. Nawaf Roger-hospitalized in ICU February 2019 with hypoxia and sat down to is 62 CO2 35-ambulating discharge oxygen level of 90 continue Symbicort-PFTs 02-22-19 Dr. Nawaf Roger [id number]-[id number] pneumonia bacterial sputum negative-ultimately positive for parainfluenza -October 2019 rehospitalized with exacerbation due to influenza B-PO2 down to 29 CO2 retention 50 O2sat 48% on Humira -hold Humira until cleared by pulmonary to restart Code(s): J44.1 - Chronic obstructive pulmonary disease with (acute) exacerbation; J45.901 - Unspecified asthma with (acute) exacerbation SNOMED Code(s): 3179969884124 Category: Medical Plan - Milena Gaxiola, DO: Patient is had no further acute exacerbations and no further hospitalizations. He has been off any immunosuppression for his Crohn's and unfortunately has a severe flare of rectal pouchitis extendingout onto his buttocks. He has not been back to rheumatology or GI. He did have repeat PFTs with pulmonology last month and mid flows are back up to 50% which is about his baseline. He uses nebulizer occasionally he is confucianism with his baseline Inhalers. He flushes mouth after use and has no thrush on exam respiratory status off immunosuppression has been stable with improvement in PFTs however without immunosuppression Crohn's is definitely flaring. Tentative plan is to see Dr. Nawaf Roger again in August. (2) Rectal pouchitis: Status: Acute Comment: [address] Kirsten Mantilla at [facility] in [place] Code(s): K62.89 - Other specified diseases of anus and rectum SNOMED Code(s): 1403080 Category: Medical Plan - Milena Gaxiola, DO: Respiratory status as discussed is stable but with no treatment for his Crohn's he is definitely having severe flare he has taken 10 mg of prednisone occasionally but is definitely having major flare he has not been back to Dr. Watkins he does not particularly want to go back there he prefers to reconsult his colorectal surgeon he feels she did a good job coming down pouchitis in thepast I have a call out to her if I recall right she had a barrier type cream that he used to the buttocks and then used steroid enema but will consult her and see what she advises ultimately he is probably going to have to get back on something in terms of prevention Orders: Referrals: 2 General Surgery Referral (3) Pedal edema: Status: Acute Code(s): R60.0 - Localized edema SNOMED Code(s): 932970121 Category: Medical Plan - Milena Gaxiola, DO: He has chronic venous insufficiency but has marked edema today 2+ pitting which is new for him he has no calf tenderness says because of COVID he is not getting out and about he is staying homeand sits with his feet down watching TV all day in a recliner. He is not wearing his support hose he is going to decrease amlodipine which may be making it worse from 10-5 start wearing support hoseelevate feet when he is in the recliner try mild dose of Dyazide 1 tablet daily see him back next month CMP follow-up lab work nonfasting in 2 weeks to make sure renal and potassium are stable Orders: Orders: CMP 2 Weeks (4) Chronic venous insufficiency: Status: Chronic Code(s): I87.2 - Venous insufficiency (chronic) (peripheral) SNOMED Code(s): 87168966 Category: Medical Plan - Milena Gaxiola, DO: Admits he is eating quite a bit of salt weather has been in the upper 80s sitting with feet down roxy all of these in addition to high-dose amlodipine likely factor of his leg edema getting worse (5) Rheumatoid arthritis involving multiple joints: Status: Chronic Comment: Originally treated with methotrexate developed increased liver function test back in the s-hepatitis C was diagnosed methotrexate was abandoned-generally symptoms were mild and treated with occasional week course of prednisone rarely needed more than 1 week at a time couple times a year, not treated with biologic agent because of chronic hepatitis C Code(s): M06.9 - Rheumatoid arthritis, unspecified SNOMED Code(s): 449223065 Category: Medical Plan - Milena Duran, DO: Rheumatoid has been stable with just Plaquenil his hepatitis C is in remission post Harvoni as far as his hepatitis C itself no contraindication to take immunologic the issue has been recurrent pneumonia severe hypoxia and more his severe asthma need to try to find something that is tolerable in terms of his lung disease he really has no joint complaints today I did do recently do a letter summarizing his very extensive past medical history to the child protective investigator he apparently does not have an appointment to later this fall (6) Crohn's disease: Status: Chronic Comment: Had history "ulcerative colitis "with high-grade dysplasia of the colon and had proctocolectomy 2002with colorectal specialist of [place] Dr. Annalee deluna eveloped pouchitis 2016 and ultimately biopsy showed "Crohn's disease"-Dr. Watkins managing-horrible bout of parainfluenza 3 requiring ICUhospitalization February 2019 after treatment with Entyvio now on Humira Code(s): K50.90 - Crohn's disease, unspecified, without complications SNOMED Code(s): 32599802 Category: Medical Plan - Milena Gaxiola, DO: He has had colectomy for what was felt to be ulcerative colitis Dr. Watkins has the spring told him he feels all along he probably has had Crohn's having a very horrible flare of pouchitis on exam Orders: Referrals: General Surgery Referral (7) Status post bilateral knee replacements: Status: Acute Code(s): Z96.653 - Presence of artificial knee joint, bilateral SNOMED Code(s): 850461799 Category: Surgical Plan - Milena Gaxiola, DO: Post knee replacement really having no joint complaints hands shoulders ankles nothing else is bothering him nonetheless he will follow-up with child protective investigator this fall currently [facility] also had [facility] the [facility] back in November Orders Other Medications: New: amlodipine 5 mg PO QDAY 90 tabs 3RF triamterene-hydrochlorothiazid 37.5-25 mg (Dyazide) 1 cap PO QAM 90 caps 0RF Discontinued: amlodipine Discontinued Reason: None 10 mg PO DAILY 180 tabs 0RF Electronically Signed By: <Electronically signed by Milena Gaxiola DO> Date/Time Signed: 05/04/20 1355 Name Value Range Interpretation Code Description Data Khalida rce(s) Supporting Document(s) ID Date Data Source [id number] 03/11/2020 08:36:00 AM EDT [facility] ([facility], ) Name Value Range Interpretation Code Description Data Khalida rce(s) Supporting Document(s) PDFReport Laboratory test result [facility] ([facility], ) FVC-Pre 2.60 L [facility] ([facility], ) FVC-Pred 3.46 L [facility] ([facility], ) FVC-%Pred-Pre 75 L [facility] ([facility], ) Fev1-Pre 1.71 L [facility] ([facility]) Fev1-%Pred-Pre 67 L [facility] ([facility], ) Fev1-Pred 2.52 L [facility] ([facility], ) FVC-LLN 2.68 L [facility] ([facility], ) Fev6-Pred 3.23 L [facility] ([facility], ) Fev6-Pre 2.60 L [facility] ([facility]) Fev1-LLN 1.86 L [facility] ([facility]) Fev6-LLN 2.48 L [facility] ([facility]) Fev6-%Pred-Pre 80 L [facility] ([facility], ) Bch7imq-Adks 74 % [facility] ([facility]) Miy3rgs-Ppt 66 % [facility] ([facility]) Tyv7npo-RYK 64 % [facility] ([facility]) Ytx4bup-%Pred-Pre 89 % [facility] ([facility]) Cav4rdc-%Pred-Pre 106 % [facility] ([facility]) Zng8jqn-Ozz 100 % [facility] ([facility]) Kvh5ytz-Joqc 93 % [facility] ([facility]) FEFMax-Pred 7.06 L/E/sec [facility] ([facility], ) FEFMax-Pre 5.10 L/E/sec [facility] ([facility]) FEFMax-%Pred-Pre 72 L/E/sec [facility] ([facility]) [id number]-Dhf 1.01 L/E/sec [facility] ([facility]) Kmg8594-Haoc 1.94 L/E/sec [facility] ([facility]) FEFMax-LLN 5.12 L/E/sec [facility] ([facility]) Ywi6492-%Pred-Pre 51 L/E/sec [facility] ([facility]) ExpTime-Pre 5.90 sec [facility] ([facility]) Foo5977-XTC 0.60 L/E/sec [facility] ([facility]) Njt3ity4-Dstk 78 % [facility] ([facility]) Eai9zvp0-%Pred-Pre 84 % [facility] ([facility]) Ckr4wre5-Psn 66 % [facility] ([facility]) Pwg2ons4-TZC 69 % [facility] ([facility]) ID Date Data Source [id number] 12/04/2019 11:33:00 AM EDT [facility] Patient Name: Marcio Buenrostro : 1950 Sex: M Pt Unit #: [id number] Location:[facility] Provider: Visit Date/Time: 12/04/19 Primary Insurance: MEDICARE [employer] Secondary Insurance: [employer] Intake Vital Signs 12/04/19 11:36 Current Height 5 ft 5 in Current Weight 213 lb Weight Measurement Method Standing Scale BMI 35.4 BP 132/78 Blood Pressure Location Lt brachial Position Sitting Respiration 16 Pulse 74 Pulse Strength Normal Pulse Source Palpation Pulse Oximetry (%) 94 L Oxygen Delivery Method room air Intake Visit Reasons: Shortness of breath follow-up Nurse Note: Patient presents for shortness of breath follow up. he saw Dr Roger on Monday, startedspiriva-d/c oxygen. He saw [facility] Rheum also and was started on plaquenil. He still has productive cough-has completed levaquin, on 10mg prednisone currently, 3 days left then?taper to 5mg daily. Director Private Required: No Accompanied by: Is patient in pain?: Yes (chronic joint pain) Pain scale (1-10): 3 Allergies No Known Drug Allergies Allergy (Unverified 05/02/18 08:25) Fall Risk History of falls: No Ambulatory Aid:: None Gait/Transferring:: Normal HIV Testing Offer - ages 13-64 HIV testing Offer: No Requirement for HIV testing offer been met?: Declines today. Pretest education received and acknowledged Hep C Testing Offered: No Hep C Requirement met: Patient reports testing done at PCP Office [facility] Social History Does the Patient have a Healthcare Proxy: No Does Patient have a DNR?: No Does Patient have a Living Will?: No rogers sehold members: spouse housing: house lives independently: Yes number of children: 2 highest education level completed: some college, no degree current occupational status: retired pets and animals: Yes leisure activities: sports and hunting Hx Recent Travel (where): No current diet type/program: low carbohydrate well-balanced diet: other details: Salts everything including pizza caffeine: Yes high-fat food intake: 2 times daily daily servings fruits/ve-4 daily servings of milk/calcium: 2-4 eating out: 1-3 times/week reads food labels: sometimes during the past year weight has: increased > 10 lbs passive smoking exposure: No Smoking risk assessment performed?: Yes (Quit over 20 years ago) alcohol intake: current alcohol intake frequency: a few times a month substance use type: IV drugs counseling given: No (No IV drug use since back in the 1960s) counseling provided: other details: Experimented with IV drugs back in the 60s but has not used IV drugs in decades did get hepatitis HPI Additional HPI HPI Details: Patient here for recheck of his recent severe pneumonia where her oxygen dropped down to PO2 of 29%. He finished his Levaquin I gave him last visit. He has tapered down to prednisone 10. He saw Dr. Koo and he did PFTs mid flows were back up in the 40s. He also did a chest x-ray Hayley do not have a copy but patient reports it did show clearing of his infiltrates. He tells me Dr. Nawaf Roger agreed with staying off Humira he has another recheck in about 2 months he did not geta follow-up visit with Dr. Watkins he really does not want to reverse his J-pouch some days his diarrhea is very bothersome and he is incontinent and is quite bit embarrassing. Other days he doesnot have diarrhea at all. He is wondering since his lungs are doing better if it is okay to go downto 5 mg he also saw a new child protective investigator I did get the report from the new child protective investigator they apparently did not have any of his old records even though they were forwarded and I did a letter toDr. Zhu. So I did another letter to this new physician summarizing his history he says he has scant yellow sputum but it is back to baseline Shortness of Breath F/U (pulm) Shortness of breath continues: Yes (But much better and back to baseline) Duration: 3-4 weeks Since last visit, condition: improved Patient was given: medications Patient found medications helped: Yes Nocturnal symptoms: none Exacerbated by: physical activity Improved by: inhalers, steroid use and antibiotics Associated symptoms: Reports dyspnea, chest congestion and other (Feeling back to baseline) Pulmonary Results: No Data to Display Review of Systems Card Reports dyspnea Resp Reports chest congestion and Reports dyspnea Exam Const General: well groomed, anxious and ill appearing chronically Nutritional Appearance: obese Orientation: alert, awake and orien zandra x3 Other: We discussed rheumatology consult in detail please refer to that and scanned images as well as pulmonary consult see scanned images HENMT Head: normocephalic and atraumatic Ears: TM's normal bilaterally General nose exam: external nose normal and nares normal Face and sinus: sinuses nontender and face symmetric Mouth: oral mucosae normal Throat: postnasal drainage (Clear geographic tongue noted) Neck Neck: supple, no lymphadenopathy noted and nontender Thyroid: thyroid normal Carotids: normal carotid upstroke Resp Effort Inspection: normal respiratory effort Auscultation: clear to auscultation bilaterally Cardio Rate: regular rate Rhythm: regular rhythm Heart Sounds: S1 normal and murmur systolic II/ and at the apex Bruits: no carotid bruits Pulses: posterior tibial pulses present GI Auscultation: normal bowel sounds Other: chronic hernia and scar from prior surgery but soft bowel sounds are present there is not anytenderness obese abdomen Musc Cervica l Spine: no cervical muscular tenderness Thoracic/Lumbar Spine: no paraspinal tenderness, no thoracic spinal tenderness and no lumbar spinal tenderness Skin Rashes: no rashes Trauma: no lacerations or abrasions Wounds: no wounds Neuro General: tone normal and moves all extremities Cognition: normal cognition Speech: speech normal Gait: normal gait Motor: muscle tone normal throughout Extrem General: no clubbing, cyanosis or edema Psych Appearance: grossly normal and well kempt Mental Status: mental status grossly normal Speech and Movement: speech and movement normal Mood: anxious mood Affect: anxious affect Attitude: cooperative Thought Process: normal Thought Content: normal Insight: insight good Judgment: judgment good Assessment Plan Assessment Plan (1) Hypoxia: Status: Acute Comment: Po2 23lts78% and Co2 50 Flu B positive-ambulating O2 sat 90% Code(s): R09.02 - Hypoxemia SNOMED Code(s): 755090795 Category: Medical Plan - Milena Gaxiola, DO: His tram operator saw him back recheck his chest xray as well as ambulating oximetry and gave him okay to come off the antibiotic as well as discontinued his home oxygen he has follow-up next month as planned he will continue prednisone 5 mg and he feels he can discontinue from a pulmonary point of view after a week or 2 ought to be able to. (2) Hepatitis C virus infection cured after antiviral drug therapy: Status: Resolved Code(s): Z86.19 - Personal history of other infectious and parasitic diseases SNOMED Code(s): 865239141 Category: Medical Plan - Milena Gaxiola, DO: . (3) Rheumatoid arthritis involving multiple joints: Status: Chronic Comment: Originally treated with methotrexate developed increased liver function test back in the -hepatitis C was diagnosed methotrexate was abandoned-generally symptoms were mild and treated with occasional week course of prednisone rarely needed more than 1 week at a time couple times a year, not treated with biologic agent because of chronic hepatitis C Code(s): M06.9 - Rheumatoid arthritis, unspecified SNOMED Code(s): 327318096 Category: Medical Plan - Milena Gaxiola, DO: I offered to do viral load testing as I typically used to do it once a year for him before he was inclose follow-up with GI and has not seen his chief information officer in a couple months but he tells me that the tram operator and child protective investigator have ordered it and if his hepatitis C is still in remission be child protective investigator is considering treating him with azathioprine or methotrexate for his rheumatoid if his current Plaquenil does not seem to be giving him relief. However we had conversation that he does not seem to be making it clear to them that his main concern is not his rheumatoid his symptoms are minimal his main concern is actually his residual Crohn's so it does notseem that any of these medicines have helped his Crohn's he is been on fairly strong biologic agentswithout any improvement so it seems unlikely that these other immune suppressants are going to help it has been proposed he consider revision of his J-pouch. (4) Crohn's disease: Status: Chronic Comment: Had history "ulcerative colitis "with high-grade dysplasia of the colon and had proctocolectomy 2002with colorectal specialist of [place] Dr. Mantilla but developed pouchitis 2016 and ultimately biopsy showed "Crohn's disease"-Dr. Watkins managing-horrible bout of parainfluenza 3 requiring ICU hospitalization February 2019 after treatment with Entyvio now on Humira Code(s): K50.90 - Crohn's disease, unspecified, without complications SNOMED Code(s): 38768523 Category: Medical Plan - Milena Maloney- Roger, DO: He was only on Entyvio briefly and developed bilateral pneumonia and parainfluenza but became profoundly hypoxic and ended up in ICU February 2019 the Entyvio was discontinued he had gotten a few doses of Humira and similar illness developed with influenza B where he became profoundly ill with PO2 down to 29 severe hypoxia Humira has been discontinued it does not seem that he tolerates biologic agents but the bigger thing is he does not really think either 1 of them helped his child protective investigator is trying him on Plaquenil he is considering azathioprine or methotrexate but I thinkit is unlikely these are going to help his Crohn's when the stronger agents did not he has a J-pouchas they previously thought he had ulcerative colitis when more likely the real diagnosis so long hasbeen Crohn's disease 1 option would be to reverse the J- pouch and have an ileostomy he is not sure if he wants to go back to that but it would relieve the incontinence it might improve his quality oflife some he is not sure about it. He will decide I think it is worth talking to his colorectal surgeon if he ultimately decides to go that route even though she is no longer actively doing surgery she is followed him for the past 20 years and I think it would be worthwhile to go and talk to her (5) Chronic obstructive asthma with acute exacerbation: Status: Chronic Comment: Managed by Dr. Thda Roger-hospitalized in ICU February 2019 with hypoxia and sat down to is 62 CO2 35-ambulating discharge oxygen level of 90 continue Symbicort-PFTs 5-31-19 Dr. Nawaf Roger ocquariam-htsomh-baogslazq pneumonia bacterial sputum negative- ultimately positive for parainfluenza October 2019 rehospitalized with exacerbation due to influenza B-PO2 down to 29 CO2 retention 50 O2sat 48% on Humira -hold Humira until cleared by pulmonary to restart Code(s): J44.1 - Chronic obstructive pulmonary disease with (acute) exacerbation; J45.901 - Unspecified asthma with (acute) exacerbation SNOMED Code(s): 8671370577097 Category: Medical Plan - Milena Gaxiola, DO: .. Continue baseline inhalers Taper off prednisone tram operator is okay tapering off but child protective investigator prefers he stays on 5 every other day I have diabetic blood work ordered but he says he has health maintenance physical and diabetic follow-up with Dr. Swift in the next month. We talked about [place] in the state and if there is a outbreak locally I would suggest just he self quarantine as best he can as he will be extremely high risk self Orders Other Medications: New: prednisone 5 mg PO Q OTHER DAY 15 tabs 2RF Discontinued: prednisone X7 days then 1 daily as directed by tram operator Discontinued Reason: Clinically Indicated 20 mg (2 x 10 mg) PO QDAY 100 tabs 0RF Electronically Signed By: <Electronically signed by Milena Gaxiola DO> Date/Time Signed: 12/07/191937 Name Value Range Interpretation Code Description Data Khalida rce(s) Supporting Document(s) ID Date Data Source [id number] 11/21/2019 10:49:00 AM [facility] Patient Name: Marcio Buenrostro : 1950 Sex: M Pt Unit #: [id number] Location:[facility] Provider: Visit Date/Time: 11/21/19 Primary Insurance: MEDICARE [employer] Secondary Insurance: [employer] Intake Vital Signs 11/21/19 10:49 Current Height 5 ft 5 in Current Weight 209 lb Weight Measurement Method Standing Scale BMI 34.7 BP 138/84 Blood Pressure Location Lt brachial Position Sitting Respiration 18 Pulse 74 Pulse Strength Normal Pulse Source Palpation Temp 98.5 F Temp Source Tympanic Pulse Oximetry (%) 91 L Oxygen Delivery Method room air Intake Visit Reasons: Hospital Discharge Follow- up Nurse Note: Patient presents for hospital discharge follow up. He is NOT wearing his oxygen continuosly, only when he feels he needs it. Medications reviewed with patient. He completed steroid taper. He last took humira 4 weeks ago. He complains of increased fatigue, still has a cough-productive of white sputum. No fevers, chills recently. Says the ferrex he was on gave him diarrhea so he stopped taking it. Does not have any follow up with Dr Watkins at this time. Director Private Required: No Accompanied by: Is lisbeth singh in pain?: Yes (knee pain) Pain scale (1-10): 4 Allergies No Known Drug Allergies Allergy (Unverified 05/02/18 08:25) Medications albuterol sulfate 2.5 mg (0.5 mL) inhalation Q4HRS PRN MDD 6x albuterol sulfate 90 mcg/actuation (ProAir HFA) 2 puffs inhalation Q4HRS PRN amlodipine 10 mg PO DAILY aspirin (Ecotrin Low Strength) 1 tab PO DAILY [Blood Sugar Diagnostic (One Touch Test Strips) 1 strip IN TID] budesonide-formoterol 160-4.5 mcg/actuation (Symbicort) 2 puffs inhalation BID cholecalciferol (vitamin D3) (Vitamin D3) 1,000 units PO DAILY diphenoxylate- atropine 2.5-0.025 mg (Lomotil) 1 tab PO QID PRN fluticasone propionate 50 mcg/actuation 2 spry EN DAILY insulin aspart U-100 (Novolog Flexpen U-100 Insulin aspart) 100 units subcut DAILY insulin glargine (Lantus Solostar U-100 Insulin) 18 units subcut BID lancets (FreeStyle Lancets) ACHS levofloxacin (Levaquin) 500 mg PO Q24H multivitamin 1 tab PO QAM pen needle, diabetic (Pen Needle) 8MM X 31 G DX:250.00 prednisone 20 mg (2 x 10 mg) PO QDAY ramipril 10 mg PO QDAY Fall Risk History of falls: No Ambulatory Aid:: None Gait/Transferring:: Normal Medications:: Antihypertensives HIV Testing Offer - ages 13-64 HIV testing Offer: No Requirement for HIV testing offer been met?: Declines today. Pretest education received and acknowledged Hep C Testing Offered: No Hep C Requirement met: Patient reports past refusal SBIRT Annual Questionnaire Are you currently in recovery for alcohol or substance use?: No How many times in the past year have you had 5 or more drinks in a day?: None How many times in the past year have you used a recreational drug or used a prescription medication for nonmedical reasons?: None Do you need a note to return Do you need a note to return to daycare/school/sports/work: No PFSH Medical History chronic obstructive asthma influenza knee replacement status on the right left upper lobe pleural fat deposit lingular infiltrate (01/24/18) negative workup for hepatitis C acute treatment pouchitis status post colectomy uncontrolled diabetes . 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) Nephrolithiasis Obesity Renal cyst Rheumatoid arthritis Ulcerative colitis Ulnar nerve entrapment at elbow Surgical History History of - artificial joint History of - surgery History of - surgery (11/25/16) History of - surgery History of - surgery (10/22/14) History of colonoscopy Incisional hernia Status post colectomy Umbilical hernia Family History Mother Rheumatoid arthritis Pancreatitis Hypertension Father Dementia Social History Does the Patient have a Heal thcare Proxy: No Does Patient have a DNR?: No Does Patient have a Living Will?: No household members: spouse housing: house lives independently: Yes number of children: 2 highest education level completed: some college, no degree current occupational status: retired pets and animals: Yes leisure activities: sports and hunting Hx Recent Travel (where): No current diet type/program: low carbohydrate well-balanced diet: other details: Salts everything including pizza caffeine: Yes high-fat food intake: 2 times daily daily servings fruits/ve-4 daily servings of milk/calcium: 2-4 eating out: 1-3 times/week reads food labels: sometimes during the past year weight has: increased > 10 lbs passive smoking exposure: No Smoking risk assessment performed?: Yes (Quit over 20 years ago) alcohol intake: current alcohol intake frequency: a few times a month substance use type: IV drugs counseling given: No (No IV drug use since back in the 1960s) counseling provided: other details: Experimented with IV drugs back in the 60s but has not used IV drugs in decades did get hepatitis HPI Additional HPI HPI Details: Patient is here for hospital follow-up with h is . 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 He had spirometry and baseline mid flows are 40%. He had started 20 of prednisone more for exacerbation of his Crohn's disease which continues to be problematic despite starting Humira. He abandoned prior biologic agent back in February after being hospitalized with acute respiratory failure and severe hypoxia due [facility] He was off any biologic for a while and then after consulting with Dr. aNwaf Watkins did start him on Humira. He took his last dose on October 30. He was due to his takeit on the but was starting to have some cough and did not take it. He had flu vaccine. He wasstarting to have some respiratory difficulties and wanted him to go to urgent care or the ER byFebruary 16 he was in acute distress blood gas showed PO2 of 29 and O2 sat of 48% he admits he was extremely short of breath. He was given nonrebreather. He did not end up ventilated. He was givenTamiflu and broad-spectrum antibiotic. He was given IV steroids. He improved. He reports difficulty even getting from bed to commode he was so short of breath he had to call the nurses and have nebulizer while sitting on the commode he is still bringing up sputum. He was flu be positive. He did not grow anything from sputum or blood cultures. He was empirically sent home on Le vaquin as well as prednisone he finished prednisone Levaquin and Tamiflu past 2 or 3 days since finishing prednisone and Levaquin he feels some worse he does not have any colored sputum but he does not feelas well as when he was on the antibiotic and prednisone. He is concerned about going back on Humira. Both he and his have concerns about being back on biologic because of getting so ill back in February and again this month. He does not have a scheduled appointment with Dr. Watkins who is who prescribes the Humira. Dr. Villavicencio has offered referral to [facility] to have his J-pouch reversed to colostomy. They are wondering if this is an better option than staying on a biologic agent like Humira. He was supposed to have a recheck with Dr. Nawaf Roger after CT scan sometime in November. CAT scan still has not been scheduled. We are going to contact Dr. Nawaf Roger and try to get that set up rather than a follow-up chest x-ray for his recent pneumonia. He was discharged home on oxygen. He did go to [facility] yesterday without it he did not feel particularly winded aslong as he was pushing a cart. I had him walk down to the end of the hallway here at the office about 50 feet and back down to the last exam room so about 100 feet in all and sats stayed 90%. He did not feel winded and saturation did not drop below 90. I was concerned that he came today without his oxygen. He says if he feels winded he uses it but did not come with it today [facility]. He is bringing up white sputum but nothing colored no fever chills he says he has some general malaise appetite is okay he feels tired his joints are not particularly achy he always has some diarrhea but does not think it is any worse than his baseline no nausea or vomiting no abdominal pain or cramping usually up once or twice at night to urinate but that is his baseline he has not had fever chills says that is what was thought about the flu he had no fever but I reminded her on immunosuppressant he really cannot mount much of an immune response Review of Systems Const Reports as per HPI, Denies chills, Denies difficulty sleeping, Reports fatigue, Denies fever(s), Reports headache(s), Reports lethargy, Reports malaise and Denies poor appetite Eyes Denies blurry vision, Denies irritation and Reports requires corrective lenses ENT Denies dysphagia, Denies dizziness, Reports dry mouth, Denies otalgia, Denies facial pain, Reports headache(s), Denies epistaxis, Reports nasal congestion, Reports nasal discharge, Reports post nasaldrip, Denies sinus pain, Denies sinus pressure and Denies sore throat Card Denies chest pain, Denies chest pain at rest, Denies chest pain with activity, Denies diaphoresis, Denies syncope, Denies irregular heart rhythm, Reports leg edema, Denies lighthe adedness, Denies palpitations, Reports dyspnea, Reports dyspnea on exertion, Reports orthopnea and Denies paroxysmal nocturnal dyspnea Resp Reports change in phlegm color, Reports chest congestion, Reports cough, Denies hemoptysis, Denies excessive phlegm production, Denies pain with cough, Reports dyspnea, Reports dyspnea on exertion and Reports wheezing GI Reports as per HPI, Denies abdominal pain, Denies melena, Denies hematochezia, Denies coffee ground emesis, Denies constipation, Denies cramping, Denies dysphagia, Denies heartburn, Reports diarrhea, Reports loose stools, Denies nausea, Denies vomiting and Denies hematemesis Denies hematuria, Denies dysuria, Denies flank pain, Reports nocturia, Reports urinary frequency, Denies urinary hesitancy, Denies urinary incontinence and Denies urinary urgency Musc Reports as per HPI, Reports abnormal gait, Reports back pain, Denies myalgias, Reports arthralgias, Reports numbness, Denies radiating pain into limb, Reports stiffness and Reports tingling Skin/Breast Reports dry skin, Denies pruritus, Denies rash, Denies skin ulcer and Denies sores Neuro Reports abnormal gait, Denies dizziness, Denies syncope, Reports headache(s), Reports numbness, Denies restless legs, Reports tingling and Reports paresthesias Psych Reports anxiety, Denies difficulty concentrating, Reports irritability, Reports anhedonia and Reports mood swings Details: feels Crohn's disease is making quality of life poor because of some incontinence and urgency of bowel patient admits that is true Endo Reports fatigue, Denies polyphagia, Denies polydipsia, Denies polyuria and Denies palpitations Details: [facility] his last A1c was blood sugars since discharge have been as low as 65 and over 200 he is checking several times a day Jordan/Lymph Denies easy bleeding, Reports easy bruising and Denies lymphadenopathy Aller/Immun Reports GI upset with certain foods, Denies urticaria, Reports seasonal rhinorrhea and Reports wheezing Details: Not using his nebulizer since discharge Exam Const General: comfortable, no acute distress and well groomed Nutritional Appearance: obese Orientation: alert, awake and oriented x3 HENMT Ears: TM's normal bilaterally General nose exam: external nose normal and nares normal; no nasal discharge noted Face and sinus: normal facial exam, sinuses nontender and face symmetric Mouth: oral mucosae normal Throat: posterior oropharynx normal Neck Neck: supple and nontender Thyroid: thyroid normal Carotids: normal carotid upstroke and no bruits Lymphatic: no lymphadenopathy noted Resp Effort Inspection: normal respiratory effort, no audible wheezes, no cough, no grunting, not labored, no nasal flaring, not tachypneic, prolonged expiratory phase and symmetric chest movement Auscultation: clear to auscultation bilaterally (anterior clear), rhonchi (posterior rhonchi at bases not using neb or o2 at home), no wheezes and no rubs Tactile Fremitus: tactile fremitus absent Cardio Rate: regular rate Rhythm: regular rhythm Heart Sounds: S1 normal, S2 normal and murmur systolic holo, II/ and at the apex GI Inspection: Yes obesity and Yes scar Palpation: soft, hernia and nontender Auscultation: normal bowel sounds Musc Other: b/l knee replacement Skin Rashes: no rashes Wounds: no wounds Neuro General: decrease sensation to monofilament Cranial Nerves: facial strength normal, tongue midline, able to rotate head bilaterally and able to elevate shoulders bilaterally Speech: speech normal Motor: muscle tone normal throughout Extrem General: no clubbing, no cyanosis and edema Laterality: bilateral Severity: pitting and 1+ Psych Appearance: well kempt Mental Status: mental status grossly normal Speech and Movement: speech clear Mood: anxious mood Affect: anxious affect Attitude: cooperative Thought Process: normal Thought Content: normal Insight: insight good Judgment: judgment good Assessment Plan Assess ment Plan (1) Hospital discharge follow-up: Code(s): Z09 - Encounter for follow-up examination after completed treatment for conditions other than malignant neoplasm (2) Hypoxia: Status: Acute Comment: Po2 25xgw40% and Co2 50 Flu B positive-ambulating O2 sat 90% Code(s): R09.02 - Hypoxemia SNOMED Code(s): 478877449 Category: Medical Plan - Milena Maloney-Duran, DO: Ambulating sat is 90%-borderline satisfactory-if he does much more than walk 100 feet he certainly should be wearing his oxygen-this brief walk here in the office he maintains a minimal saturation of90% but for instance when he goes to [facility] and is walking several minutes around the store he should be wearing his oxygen. His hypoxia in the hospital was profound. He needs to follow-up withDr. Nawaf Roger. He needs to have follow-up CT scan to make sure his influenza based pneumonia isclear. He does feel he is some worse since stopping Levaquin so I am going to give him another 10-day supply. We will fax this note and his hospital records to Dr. Roger if for some reason he is away then he will need to follow-up with me instead in the next 7 to 10 days to ensure he is improving. Patient and his voiced understanding. I explained that influenza B which was not well covered by the flu shot was probably the initial offending agent. But his baseline lung disease is not good mid flows just the week he got ill at baseline are only in the 40s then on top of it he is immune compromised with Humira. Big question is whether he should be back on it when once again he has had severe illness this time with PO2 down to 29 and CO2 of 50. I personally do not advisehe restart Humira unless he gets the okay from his tram operator he voices understanding he will stay off Humira unless Dr. Nawaf Roger feels it safe for him to resume he will need some imaging andfollow-up with pulmonary before restarting Humira if at all.. (3) Crohn's disease: Status: Chronic Comment: Had history "ulcerative colitis "with high-grade dysplasia of the colon and had proctocolectomy 2002with colorectal specialist of [place] Dr. Mantilla but developed pouchitis 2016 and ultimately biopsy showed "Crohn's disease"-Dr. Watkins managing-horrible bout of parainfluenza 3 requiring ICU hospitalization February 2019 after treatment with Entyvio now on Humira Code(s): K50.90 - Crohn's disease, unspecified, without complications SNOMED Code(s): 31170606 Category: Medical Plan - Milena Duran, DO: He has had difficulty tolerating biologic agents. Recommend since his colorectal surgeon feels 1 option is reversing his J-pouch even though she herself feels it would be a big surgery and probablybest done at the [facility] if this is an option he is willing to consider recommend he discuss with Dr. Koo if Dr. Nawaf Roger feels from a pulmonary point of view it is reasonable then this is probably safer overall for him then to continue on these biologic agents which she doesnot seem to be tolerating he is going to dialogue with his tram operator his colorectal surgeon and GI do not restart Humira unles s cleared to do so by pulmonary. (4) Hepatitis C virus infection cured after antiviral drug therapy: Status: Resolved Code(s): Z86.19 - Personal history of other infectious and parasitic diseases SNOMED Code(s): 901190756 Category: Medical Plan - Milena Gaxiola, DO: He has history of hepatitis C I used to do annual viral loads but he tells me now Dr. Watkins is taking care of this and as far as he knows it remains in remission status post Harvoni (5) Rheumatoid arthritis involving multiple joints: Status: Chronic Comment: Originally treated with methotrexate developed increased liver function test back in the s-hepatitis C was diagnosed methotrexate was abandoned-generally symptoms were mild and treated with occasional week course of prednisone rarely needed more than 1 week at a time couple times a year, not treated with biologic agent because of chronic hepatitis C Code(s): M06.9 - Rheumatoid arthritis, unspecified SNOMED Code(s): 512055816 Category: Medical Plan - Milena Gaxiola, DO: He has recently had extensive work-up with Dr. Zhu at [facility] rheumatology. We will forward thisnote to him along with Dr. Nawaf Roger and Dr. Watkins again would not recommend any biologic ordisease modifying agent until we get his pulmonary status situated. He was critically ill from the flu and community-acquired pneumonia. His situation was to the point he nearly was mechanically ventilated so until he has follow-up CAT scan and recheck with his tram operator do not recommend any new medications as far as rheumatoid or Crohn's disease he and his understand (6) Chronic obstructive asthma with acute exacerbation: Status: Chronic Comment: Managed by Dr. Nawaf Roger-hospitalized in ICU February 2019 with hypoxia and sat down to is 62 CO2 35-ambulating discharge oxygen level of 90 continue Symbicort-PFTs 02-22-19 Dr. Nawaf Roger zvezkuoxe-buspfg-qdqayqapr pneumonia bacterial sputum negative-ultimately positive for parainfluenza October 2019 rehospitalized with exacerbation due to influenza B-PO2 down to 29 CO2 retention 50 O2sat 48% on Humira -hold Humira until cleared by pulmonary to restart Code(s): J44.1 - Chronic obstructive pulmonary disease with (acute) exacerbation; J45.901 - Unspecified asthma with (acute) exacerbation SNOMED Code(s): 0749763837178 Category: Medical Plan - Milena Gaxiola, DO: Restart prednisone 20 for a week-as long as improving taper to 10 next week-restart Levaquin-restartnebulizer albuterol every 4 hours as needed-use oxygen as mkaiui-jgvudp-il with Dr. Nawaf Roger inthe next 7 to 10 days. Patient reports he is monitoring blood sugars and [facility] Orders Other Medications: New: levofloxacin (Levaquin) 500 mg PO Q24H 14 tabs 0RF prednisone X7 days then 1 daily as directed by tram operator 20 mg (2 x 10 mg) PO QDAY 100 tabs 0RF albuterol sulfate 2.5 mg (0.5 mL) inhalation Q4HRS PRN 100 vials 1RF shortness of breath or wheezing MDD 6x J44.9 Changed: From: insulin glargine (Lantus Solostar U-100 Insulin) and 15 units at HS or as directed 15 units (0.15 mL) subcut QAM 10 Box 5RF To: insulin glargine (Lantus Solostar U-100 Insulin) 18 units subcut BID Electron ically Signed By: <Electronically signed by Milena Gaxiola DO> Date/Time Signed: 11/21/19 1301 Name Value Range Interpretation Code Description Data Khalida rce(s) Supporting Document(s) ID Date Data Source [id number] 11/13/2019 06:59:00 AM EST [facility] Name Value Range Interpretation Code Description Data Khalida rce(s) Supporting Document(s) COMPREHENSIVE METABOLIC PANEL [facility] COMPREHENSIVE METABOLIC PANEL Sodium [Moles/volume] in Serum or Plasma 141 mEq/L 134 - 153 [facility] Potassium [Moles/volume] in Serum or Plasma 4.9 mEq/L 3.6 - 5.0 [facility] Chloride [Moles/volume] in Serum or Plasma 105 mEq/L 98 - 107 [facility] Carbon dioxide, total [Moles/volume] in Serum or Plasma 24 MEQ/L 22 - 30 [facility] Glucose [Mass/volume] in Serum or Plasma 211 MG/DL 65 - 110 H [facility] BUN 32 MG/DL 7 - 21 H [facility] Creatinine [Mass/volume] in Serum or Plasma 1.0 MG/DL 0.7 - 1.5 [facility] BUN/CREAT 32 8 - 27 H [facility] Protein [Mass/volume] in Serum or Plasma 6.8 G/DL 6.3 - 8.2 [facility] Albumin [Mass/volume] in Serum or Plasma 3.6 G/DL 3.9 - 5.0 L [facility] Globulin [Mass/volume] in Serum by calculation 3.2 GM/DL 2.4 - 3.2 [facility] A/G RATIO 1.1 0.8 - 2.0 [facility] Calcium [Mass/volume] in Serum or Plasma 9.1 MG/DL 8.4 - 10.2 [facility] Bilirubin.total [Mass/volume] in Serum or Plasma <0.7 MG/DL 0.2 - 1.3 [facility] Alkaline phosphatase [Enzymatic activity/volume] in Serum or Plasma 50 U/L 38 - 126 [facility] Aspartate aminotransferase [Enzymatic activity/volume] in Serum or Plasma 17 U/L 5 - 40 [facility] Alanine aminotransferase [Enzymatic activity/volume] in Seru m or Plasma 17 U/L 7 - 56 [facility] Anion gap 3 in Serum or Plasma 12.0 mmol/L 8.0 - 16.0 [facility] AGE 69 yrs [facility] NON-AA GFR >60 mL/min [facility] Hosp ital AFR AMER GFR >60 mL/min [facility] Ho spital Male GFR In terprentation 20-49 yrs >60 mL/min Normal 50-59 yrs >56 mL/min Normal 60-69 yrs >49 mL/min Normal 70-79yrs >42 mL/min Normal 80 and above >35 mL/min Normal Female GFR Interpretation 20-39 yrs >60 mL/min Normal 40-49 yrs >58 mL/min Normal 50-59 yrs >51 mL/min Normal 60-69 yrs >45 mL/min Normal 70-79 yrs >39 mL/min Normal 80 and above >32 mL/min Normal ID Date Data Source [id number] 11/13/2019 06:44:00 AM EST [facility] Name Value Range Interpretation Code Description Data Khalida rce(s) Supporting Document(s) CBC W/AUTOMATED DIFF [facility] COMPLETE BLOOD COUNT Leukocytes [#/volume] in Blood by Automated count 17.1 10^3/uL 4.2 - 11.0 H [facility] Erythrocytes [#/volume] in Blood by Automated count 4.68 10^6/uL 4. 50 - 6.30 [facility] Hemoglobin [Mass/volume] in Blood 11.3 g/dL 14.0 - 16.0 L [facility] Hematocrit [Volume Fraction] of Blood by Automated count 37.4 % 4 1.0 - 51.0 L [facility] Erythrocyte mean corpuscular volume [Entitic volume] by Auto mated count 79.9 fL 80.0 - 94.0 L [facility] Erythrocyte mean corpuscular hemoglobin [Entitic mass] by Automated count 24.1 pg 27.0 - 34.0 L [facility] Erythrocyte mean corpuscular hemoglobin concentration [Mass/volume] by Automated count 30.2 g/dL 31.0 - 36.0 L [facility] Erythrocyte distribution width [Ratio] by Automated count 16.3 % 11.5 - 14.8 H [facility] Platelets [#/volume] in Blood by Automated count 354 10^3/uL 150 - 45 0 [facility] Platelet mean volume [Entitic volume] in Blood by Automated count 11.3 fL 7.4 - 10.4 H [facility] Neutrophils/100 leukocytes in Blood by Automated count 88.1 % 37. 0 - 80.0 H [facility] Lymphocytes/100 leukocytes in Blood by Manual count 4.1 % 25.0 - 40.0 L [facility] Monocytes/100 leukocytes in Blood by Automated count 4.6 % 3.0 - 8.0 [facility] Eosinophils/100 leukocytes in Blood by Automated count 0.5 % 0.0 - 7.0 [facility] Basophils/100 leukocytes in Blood by Automated count 0.2 % 0.0 - 2.0 [facility] %IG 2.5 % 0.0 - 0.0 H [facility] Hospit al %NRBC 0.0 % 0.0 - 0.0 [facility] al Neutrophils [#/volume] in Blood by Automated count 15.04 10^3/uL 2. 00 - 6.90 H [facility] Lymphocytes [#/volume] in Blood by Automated count 0.70 10^3/uL 0.60 - 3.40 [facility] Monocytes [#/volume] in Blood by Automated count 0.78 10^3/uL 0.00 - 0.90 [facility] Eosinophils [#/volume] in Blood by Automated count 0.09 10^3/uL 0.00 - 0.70 [facility] Basophils [#/volume] in Blood by Automated count 0.04 10^3/uL 0.00 - 0.20 [facility] #IG 0.43 10^3/uL 0.00 - 0.10 H [facility] H ospital #NRBC 0.00 10^3/uL 0.00 - 0.00 [facility] ospital MANUAL DIFF NOT INDICATED [facility] RBC MORPH NOT INDICATED [facility] Ho spital ID Date Data Source [id number] 11/12/2019 08:01:00 AM EST [facility] Name Value Range Interpretation Code Description Data Khalida rce(s) Supporting Document(s) COMPREHENSIVE METABOLIC PANEL [facility] COMPREHENSIVE METABOLIC PANEL Sodium [Moles/volume] in Serum or Plasma 144 mEq/L 134 - 153 [facility] Potassium [Moles/volume] in Serum or Plasma 4.7 mEq/L 3.6 - 5.0 [facility] Chloride [Moles/volume] in Serum or Plasma 108 mEq/L 98 - 107 H [facility] Carbon dioxide, total [Moles/volume] in Serum or Plasma 23 MEQ/L 22 - 30 [facility] Glucose [Mass/volume] in Serum or Plasma 188 MG/DL 65 - 110 H [facility] BUN 27 MG/DL 7 - 21 H [facility] Creatinine [Mass/volume] in Serum or Plasma 1.0 MG/DL 0.7 - 1.5 [facility] BUN/CREAT 27 8 - 27 [facility] al Protein [Mass/volume] in Serum or Plasma 6.7 G/DL 6.3 - 8.2 [facility] Albumin [Mass/volume] in Serum or Plasma 3.5 G/DL 3.9 - 5.0 L [facility] Globulin [Mass/volume] in Serum by calculation 3.2 GM/DL 2.4 - 3.2 [facility] A/G RATIO 1.1 0.8 - 2.0 [facility] Calcium [Mass/volume] in Serum or Plasma 9.0 MG/DL 8.4 - 10.2 [facility] Bilirubin.total [Mass/volume] in Serum or Plasma <0.7 MG/DL 0.2 - 1.3 [facility] Alkaline phosphatase [Enzymatic activity/volume] in Serum or Plasma 48 U/L 38 - 126 [facility] Aspartate aminotransferase [Enzymatic activity/volume] in Serum or Plasma 16 U/L 5 - 40 [facility] Alanine aminotransferase [Enzymatic activity/volume] in Seru m or Plasma 15 U/L 7 - 56 [facility] Anion gap 3 in Serum or Plasma 13.0 mmol/L 8.0 - 16.0 [facility] AGE 69 yrs [facility] al NON-AA GFR >60 mL/min [facility] ital AFR AMER GFR >60 mL/min [facility] Ho spital Male GFR In terprentation 20-49 yrs >60 mL/min Normal 50-59 yrs >56 mL/min Normal 60-69 yrs >49 mL/min Normal 70-79yrs >42 mL/min Normal 80 and above >35 mL/min Normal Female GFR Interpretation 20-39 yrs >60 mL/min Normal 40-49 yrs >58 mL/min Normal 50-59 yrs >51 mL/min Normal 60-69 yrs >45 mL/min Normal 70-79 yrs >39 mL/min Normal 80 and above >32 mL/min Normal ID Date Data Source [id number] 11/12/2019 07:30:00 AM EST [facility] Name Value Range Interpretation Code Description Data Khalida rce(s) Supporting Document(s) CBC W/AUTOMATED DIFF [facility] COMPLETE BLOOD COUNT Leukocytes [#/volume] in Blood by Automated count 12.9 10^3/uL 4.2 - 11.0 H [facility] Erythrocytes [#/volume] in Blood by Automated count 4.38 10^6/uL 4. 50 - 6.30 L [facility] Hemoglobin [Mass/volume] in Blood 10.9 g/dL 14.0 - 16.0 L [facility] Hematocrit [Volume Fraction] of Blood by Automated count 34.9 % 4 1.0 - 51.0 L [facility] Erythrocyte mean corpuscular volume [Entitic volume] by Auto mated count 79.7 fL 80.0 - 94.0 L [facility] Erythrocyte mean corpuscular hemoglobin [Entitic mass] by Automated count 24.9 pg 27.0 - 34.0 L [facility] Erythrocyte mean corpuscular hemoglobin concentration [Mass/volume] by Automated count 31.2 g/dL 31.0 - 36.0 [facility] Erythrocyte distribution width [Ratio] by Automated count 16.1 % 11.5 - 14.8 H [facility] Platelets [#/volume] in Blood by Automated count 284 10^3/uL 150 - 45 0 [facility] Platelet mean volume [Entitic volume] in Blood by Automated count 11.2 fL 7.4 - 10.4 H [facility] Neutrophils/100 leukocytes in Blood by Automated count 90.1 % 37. 0 - 80.0 H [facility] Lymphocytes/100 leukocytes in Blood by Manual count 4.9 % 25.0 - 40.0 L [facility] Monocytes/100 leukocytes in Blood by Automated count 3.7 % 3.0 - 8.0 [facility] Eosinophils/100 leukocytes in Blood by Automated count 0.0 % 0.0 - 7.0 [facility] Basophils/100 leukocytes in Blood by Automated count 0.2 % 0.0 - 2.0 [facility] %IG 1.1 % 0.0 - 0.0 H [facility] Hospit al %NRBC 0.0 % 0.0 - 0.0 [facility] al Neutrophils [#/volume] in Blood by Automated count 11.61 10^3/uL 2. 00 - 6.90 H [facility] Lymphocytes [#/volume] in Blood by Automated count 0.63 10^3/uL 0.60 - 3.40 [facility] Monocytes [#/volume] in Blood by Automated count 0.48 10^3/uL 0.00 - 0.90 [facility] Eosinophils [#/volume] in Blood by Automated count 0.00 10^3/uL 0.00 - 0.70 [facility] Basophils [#/volume] in Blood by Automated count 0.02 10^3/uL 0.00 - 0.20 [facility] #IG 0.14 10^3/uL 0.00 - 0.10 H [facility] H ospital #NRBC 0.00 10^3/uL 0.00 - 0.00 [facility] H ospital MANUAL DIFF NOT INDICATED [facility] RBC MORPH NOT INDICATED [facility] spital ID Date Data Source [id number] 11/11/2019 02:34:00 [place] [address] RESPIRATORY CARE REPORT ==== ---------NAME------- NUMBER SEX AGE ADMIT DISC. XRAY# F/C TYPEBRAULIOWN MARCIO Nicola [id number] M 69 11/10/19 [id number] MB4 O/P DATE OF : 1950 M/R# [id number] #: [id number] LOCATION: EMERGENCY DEPT [facility] [address] COMP LETE:11/11/19 08:12 [facility] [id number] PHYSICIAN: NITHIN BURGESS CHRISTINE Name Value Range Interpretation Code Description Data Khalida rce(s) Supporting Document(s) ID Date Data Source [id number] 11/11/2019 12:45:00 PM EST [facility] [address] [place] [address] PHONE: [phone] FAX: [phone] Name .................. : ALEX Petersen Acct Number.................. : [id number] ROOM. ................. : TR-07 Number ................... : [id number] Stay type ............. : E/R Discharge Date......... ... : Admit Date ......... : 11/10/19 Admit Phys .................... : ADITYA CHRISTINE Date of ....... : 1950 Family Phys ................... : OLESYA Phone ..... ............. : [phone] Age ................................ : 69 Film# .................. .:[id number] Sex ................................. : M Unsigned t ranscriptions are preliminary reports and do not represent a medical or legal document CHEST PORTABLE [id number] COMPLETE:11/10/19 11:31 84359 Reason(s): Shortness of Breath PORTABLE CHEST X-RAY: INDICATION: Shortness of breath. COMPARISON: 02/28/19 FINDINGS: The cardiac and mediastinal silhouettes appear normal and the lungs are clear. The bones and soft tissues are normal. The upper abdomen is unremarkable. IMPRESSION: No acute disease identifiable. Electronically Reviewed and Signed By Montrell Lopes MD , 11/11/19 12:45, ED Transcribe Initials: DZ , Transcribe Date: 11/10/19 12:20, Dictation Date: Copy for: ADITYA Mccormack via fax Copy for: EMERGENCY DEPT via modem Copy for: [address] [place] [address] REC Page 1 of 1 Name Value Range Interpretation Code Description Data Khalida rce(s) Supporting Document(s) ID Date Data Source [id number] 11/11/2019 01:02:00 PM EST [facility] Name Value Range Interpretation Code Description Data Khalida rce(s) Supporting Document(s) CVE PANEL [facility] al LIPID PANEL Cholesterol [Mass/volume] in Serum or Plasma 130 MG/DL 131 - 200 L [facility] Deprecated Triglyceride [Mass/volume] in Serum or Plasma 68 MG/DL 3 5 - 160 [facility] HDL 56 MG/DL 29 - [facility] Cholesterol in LDL/Cholesterol in HDL [Mass Ratio] in Serum or Plasma 71 mg/dL 65 - 175 [facility] Cholesterol.total/Cholesterol in HDL [Mass Ratio] in Serum o r Plasma 2.3 3.4 - 4.9 L [facility] LDL/HDL 1.27 1.00 - 3.55 [facility] ital CVE RISK CHOL/HDL LDL/HDLMEN: 1/2 AVERAGE 3.43 1.00 AVERAGE 4.97 3.55 2X AVERAGE 9.55 6.25 3X AVERAGE 23.99 7.99WOMEN: 1/2 AVERAGE 3.27 1.47 AVERAGE 4.44 3.22 2X AVERAGE 7.05 5.03 3X AVERAGE 11.04 6.14 ID Date Data Source [id number] 11/11/2019 12:55:00 PM [facility] Name Value Range Interpretation Code Description Data Khalida rce(s) Supporting Document(s) Hemoglobin A1c/Hemoglobin.total in Blood 8.3 % 4.4 - 6.1 H [facility] {A1]{HB] ID Date Data Source [id number] 11/11/2019 07:54:00 AM [facility] Name Value Range Interpretation Code Description Data Khalida rce(s) Supporting Document(s) CBC W/AUTOMATED DIFF [facility] COMPLETE BLOOD COUNT Leukocytes [#/volume] in Blood by Automated count 7.5 10^3/uL 4.2 - 1 1.0 [facility] Erythrocytes [#/volume] in Blood by Automated count 4.44 10^6/uL 4. 50 - 6.30 L [facility] Hemoglobin [Mass/volume] in Blood 10.8 g/dL 14.0 - 16.0 L [facility] Hematocrit [Volume Fraction] of Blood by Automated count 35.6 % 4 1.0 - 51.0 L [facility] Erythrocyte mean corpuscular volume [Entitic volume] by Auto mated count 80.2 fL 80.0 - 94.0 [facility] Erythrocyte mean corpuscular hemoglobin [Entitic mass] by Automated count 24.3 pg 27.0 - 34.0 L [facility] Erythrocyte mean corpuscular hemoglobin concentration [Mass/volume] by Automated count 30.3 g/dL 31.0 - 36.0 L [facility] Erythrocyte distribution width [Ratio] by Automated count 15.9 % 11.5 - 14.8 H [facility] Platelets [#/volume] in Blood by Automated count 262 10^3/uL 150 - 45 0 [facility] Platelet mean volume [Entitic volume] in Blood by Automated count 11.1 fL 7.4 - 10.4 H [facility] Neutrophils/100 leukocytes in Blood by Automated count 85.3 % 37. 0 - 80.0 H [facility] Lymphocytes/100 leukocytes in Blood by Manual count 9.3 % 25.0 - 40.0 L [facility] Monocytes/100 leukocytes in Blood by Automated count 4.0 % 3.0 - 8.0 [facility] Eosinophils/100 leukocytes in Blood by Automated count 0.0 % 0.0 - 7.0 [facility] Basophils/100 leukocytes in Blood by Automated count 0.1 % 0.0 - 2.0 [facility] %IG 1.3 % 0.0 - 0.0 H [facility] Hospit al %NRBC 0.0 % 0.0 - 0.0 [facility] al Neutrophils [#/volume] in Blood by Automated count 6.39 10^3/uL 2.00 - 6.90 [facility] Lymphocytes [#/volume] in Blood by Automated count 0.70 10^3/uL 0.60 - 3.40 [facility] Monocytes [#/volume] in Blood by Automated count 0.30 10^3/uL 0.00 - 0.90 [facility] Eosinophils [#/volume] in Blood by Automated count 0.00 10^3/uL 0.00 - 0.70 [facility] Basophils [#/volume] in Blood by Automated count 0.01 10^3/uL 0.00 - 0.20 [facility] #IG 0.10 10^3/uL 0.00 - 0.10 [facility] H ospital #NRBC 0.00 10^3/uL 0.00 - 0.00 [facility] H ospital MANUAL DIFF SEE BELOW [facility] ital Segmented neutrophils/100 leukocytes in Blood by Manual count 91 % 37 - 80 H [facility] BAND 1 % 0 - 5 [facility] Hospit al %LYMPH 6 % 25 - [address] [facility] %MONO 2 % 3 - [address] [facility] RBC MORPH NOT INDICATED [facility] Ho spital ID Date Data Source [id number] 11/11/2019 07:36:00 AM EST [facility] Name Value Range Interpretation Code Description Data Khalida rce(s) Supporting Document(s) COMPREHENSIVE METABOLIC PANEL [facility] COMPREHENSIVE METABOLIC PANEL Sodium [Moles/volume] in Serum or Plasma 141 mEq/L 134 - 153 [facility] Potassium [Moles/volume] in Serum or Plasma 4.9 mEq/L 3.6 - 5.0 [facility] Chloride [Moles/volume] in Serum or Plasma 108 mEq/L 98 - 107 H [facility] Carbon dioxide, total [Moles/volume] in Serum or Plasma 23 MEQ/L 22 - 30 [facility] Glucose [Mass/volume] in Serum or Plasma 223 MG/DL 65 - 110 H [facility] BUN 25 MG/DL 7 - 21 H [facility] al Creatinine [Mass/volume] in Serum or Plasma 0.9 MG/DL 0.7 - 1.5 [facility] BUN/CREAT 28 8 - 27 H [facility] Protein [Mass/volume] in Serum or Plasma 6.7 G/DL 6.3 - 8.2 [facility] Albumin [Mass/volume] in Serum or Plasma 3.5 G/DL 3.9 - 5.0 L [facility] Globulin [Mass/volume] in Serum by calculation 3.2 GM/DL 2.4 - 3.2 [facility] A/G RATIO 1.1 0.8 - 2.0 [facility] Calcium [Mass/volume] in Serum or Plasma 8.8 MG/DL 8.4 - 10.2 [facility] Bilirubin.total [Mass/volume] in Serum or Plasma <0.7 MG/DL 0.2 - 1.3 [facility] Alkaline phosphatase [Enzymatic activity/volume] in Serum or Plasma 48 U/L 38 - 126 [facility] Aspartate aminotransferase [Enzymatic activity/volume] in Serum or Plasma 13 U/L 5 - 40 [facility] Alanine aminotransferase [Enzymatic activity/volume] in Seru m or Plasma 13 U/L 7 - 56 [facility] Anion gap 3 in Serum or Plasma 10.0 mmol/L 8.0 - 16.0 [facility] AGE 69 yrs [facility] al NON-AA GFR >60 mL/min [facility] ital AFR AMER GFR >60 mL/min [facility] Ho spital Male GFR In terprentation 20-49 yrs >60 mL/min Normal 50-59 yrs >56 mL/min Normal 60-69 yrs >49 mL/min Normal 70-79yrs >42 mL/min Normal 80 and above >35 mL/min Normal Female GFR Interpretation 20-39 yrs >60 mL/min Normal 40-49 yrs >58 mL/min Normal 50-59 yrs >51 mL/min Normal 60-69 yrs >45 mL/min Normal 70-79 yrs >39 mL/min Normal 80 and above >32 mL/min Normal ID Date Data Source [id number] 11/11/2019 10:12:00 AM [facility] Name Value Range Interpretation Code Description Data Khalida rce(s) Supporting Document(s) OCCULT BLOOD POSITIVE NORMAL: NEGATIVE A [facility] OCCULT BLOOD REENTER POSITIVE NORMAL: NEGATIVE A [facility] { HEMOCCULT LOT # [id number] ){ LOT EXP DATE 06/24/21 ){ PROCEDURAL CONTROL POS/NEG VALID ) ID Date Data Source [id number] 11/10/2019 09:20:00 PM [facility] Name Value Range Interpretation Code Description Data Khalida rce(s) Supporting Document(s) Glucose [Mass/volume] in Serum or Plasma 460 MG/DL 65 - 110 [facility] CALL/ READ BACK [facility] BY: NELI [facility] Hospit al DATE/TIME 11/10/19 2121 [facility] H ospital ID Date Data Source [id number] 11/10/2019 06:23:00 PM [facility] Value Range Interpretation Code Description Data Khalida rce(s) Supporting Document(s) Lactate [Moles/volume] in Serum or Plasma 1.8 MMOL/L 0.2 - 2.2 [facility] ID Date Data Source [id number] 11/10/2019 11:16:00 AM [facility] 1 OrderSheet [facility] Emergency Department [address] [place] [address] Phone #: ext- [phone] 11/10/2019 11:14 Patient: MARCIO BUENROSTRO Sex: M : 1950 Age: 69yWEIGHT:97.0 kg (S) HEIGHT:64 inches (S) BMI:36.7ALLERGIES: No Known Drug AllergyCHIEF COMPLAINT: dyspnea, asthma, COPDDIAGNOSIS: Chronic obstructive lung disease, Hypoxemia, InfluenzaLAB ORDERSOrder Description Priority Entered Acknowledged InitialedBNP STAT 11:11/10/2019 11:34 Lavon BOB; Jesu RNCBC w Diff STAT 11:11/10/2019 11:34 Lavon BOB; Jesu RNCMP STAT 11:11/10/2019 11:34 Lavon BOB; Jesu RNInfluenza Nasal A B STAT 11:11/10/2019 11:36 Lavon BOB; Jesu RNLactic Acid STAT 11:11/10/2019 11:34 Lavon BOB; Jesu RNPT/PTT STAT 11:11/10/2019 11:34 Lavon BOB; Jesu RNTroponin- T STAT 11:11/10/2019 11:34 Lavon BOB; Jesu RNUrinalysis (Clean STAT 11:31 11/10/2019 15:20 LavonCatch) Ethan BOB; Jesu RNVenous Blood Gas STAT 11:31 11/10/2019 11:34 Lavon BOB; Jesu RNBlood Culture STAT 12:35 11/10/2019 13:26 Cfmsjhft85l X2 (Selena BOB; foreman or supervisor and operatorM[facility]ich[facility] ER12:35 11/10/2019) Uvli5Uxbxa Culture STAT 12:35 11/10/2019 13:26 Votttcgc10j X2 (Selena BOB; foreman or supervisor and operatorDannemora [facility] ER12:45 11/10/2019) [id number] STUDY ORDERSOrder Description Priority Entered Acknowledged Initi aledChest Portable 1 STAT 11:11/10/2019 11:34 Khanh (Oxygen? Ethan BOB; Jesu RN(Yes)) Reason for Study: Shortness of Breath 2 OrderSheet [facility] Emergency Department [address] [place] [address] Phone #: ext- [phone] 11/10/2019 11:14 Patient: MARCIO BUENROSTRO Sex: M : 1950 Age: 69yMEDICATION/IV/DRIP/FLUID ORDERSOrder Description Priority Entered Acknowledged InitialedNS IV : 75 mL/hr 11:31 11/10/2019 11:42 Lavon(NOW x1) Ethan BOB; Jesu RNAlbuterol Neb Tx 11:36 11/10/2019 11:46 Peter2.5 mg (NOW x1) Ethan BOB; Jesu RNDuoNeb 3 mL X2 11:36 11/10/2019 11:47 PeterDoses: 6 mL (3 mL Ethan BOB; Jesu RNX2 Doses)Magnesium Sulfate 11:36 11/10/2019 11:51 Peter2 g IVPB X1 dose: 2 Ethan BOB; Jesu RNgm (HIGH ALERTMEDICATION, X1)SOLU-Medrol IVP 11:36 11/10/2019 11:48 [id number] mg Ethan BOB; Jesu RNTamiflu PO 75 mg 12:14 11/10/2019 12:18 Lavon BOB; Jesu RNRocephin 12:35 11/10/2019 12:50 Peter(1gm/50mL) IVPB Ethan BBO; Jesu [id number] mg withDextrose 50 mlspike bag (D5W)Azithromycin IVPB 12:35 11/10/2019 13:28 Gmtzz982 mg with Ethan BOB; Jesu RNDextroseIntravenous 250 mL(D5W)GENERAL ORDERSOrder Description Priority Entered Acknowledged InitialedCardiac Monitor 11:31 11/10/2019 11:34 Lavon(continuous) Ethan BOB; Jesu ALVABlood Pressure 11:31 11/10/2019 11:34 LavonMonitor Ethan BOB; Jesu RNEKG 11:31 11/10/2019 11:34 Lavon BOB; Jesu RNOxygen via NC 2-4 11:31 11/10/2019 11:34 Peterliters/min titrate Ethan BOB; Jesu RN>92%Pulse Oximetry 11:31 11/10/2019 11:34 PeterContinuous Ethan BOB; Jesu ALVAObtain Old EKG 11:31 11/10/2019 11:34 Lavon 3 OrderSheet [facility] Emergency Department [address] [place] [address] Phone #: ext- [phone] 11/10/2019 11:14 Patient: MARCIO BUENROSTRO Sex: M : 1950 Age: 69y Ethan BOB; Jesu RNVisual Acuity 11:31 11/10/2019 Cancelled: Other 11:31 Ethan BOB; NIAitals every 15 11:31 11/10/2019 11:34 Maria E BOB; Jesu RNWarm blanket 11:31 11/10/2019 11:34 Lavon BOB; Jesu RNConsult - 13:25 11/10/2019 13:26 BurnhamHospitalist Ethan BOB; foreman or supervisor and operatorRich ER Tech1[Electronically signed by Lavon Nails RN (15:44 11/10/2019)][Electronically signed by Ethan Burgess (16:17 11/10/2019)][Electronically locked by Lavon Nails RN (15:44 11/10/2019)] Name Value Range Interpretation Code Description Data Khalida rce(s) Supporting Document(s) ID Date Data Source [id number] 11/10/2019 11:16:00 AM EST [facility] 1 Medication Reconciliation Report [facility] Emergency Department [address] [place] [address] Phone #: ext- [phone] 11/10/2019 11:14 Patient: MARCIO BUENROSTRO Sex: M : 1950 Age: 69yWeight: 97.0 kgHeight/Length: 64 in.BMI: 36.7ALLERGIES: No Known Drug AllergyThe patient's Home Medications are listed below:THE FOLLOWING MEDICATIONS NEED TO BE RECONCILED: Albuterol Sulfate Inhalation ((2.5 MG/3ML) 0.083%) 1 unit dose, 2x a day, last dose: 11/10/2019 0430, prn amLODIPine Besylate Oral 10 mg, daily, last dose: 11/09/2019 Aspirin 81 Oral, daily, last dose: 11/09/2019, every AM ATROPINE DIPHENOXYLATE 1-2 tabs , 4x a day, prn Lantus SoloStar Subcutaneous 18 UNITS, 2x a day, last dose: 11/10/2019 THIS am Lomotil Oral (2.5-0.025 mg) 2 tablets, daily, last dose: 11/09/2019 Loperamide HCl Oral, prn Multi-Day Oral, daily NovoLOG Trejo bcutaneous (100 unit/mL) SLIDING SCALE, 2x a day, last dose: 11/09/2019 predniSONE Oral Tapered dose, last dose: 20 mg 11/10/2019 0530 ProAir HFA Inhalation 2 puffs, 4x a day, last dose: 0530 11/10/2019, prn Ramipril Oral 10 mg, daily, last dose: 11/09/2019, every AM Symbicort Inhalation (160-4.5 mcg/act) 2 puffs, 2x a day, last dose: 11/09/2019 HS Tudorza Pressair Inhalation (400 mcg/act) 1 puff, 2x a day, last dose: 11/10/2019 1100The source(s) of the original Home Medication information: 2 Medication Reconciliation Report [facility] Emergency Department [address] [place] [address] Phone #: ext- [phone] 11/10/2019 11:14 Patient: MARCIO BUENROSTRO Sex: M : 1950 Age: 69ypatientThe following Medications were given to the patient in the Emergency Department:NS [IV] IV Fluids bolus 0, then 75 mL/hr, administered: 11/10/2019 11:42:00 AMAlbuterol [Neb Tx] Neb TX 2.5 mg, administered: 11/10/2019 11:46:00 AMDuoneb [Neb Tx] Neb TX 2 unit dose, administered: 11/10/2019 11:46:00 AMSolu-Medrol [IVP] IVP 125 mg, administered: 11/10/2019 11:48:00 AMMagnesium Sulfate [IVPB] IVPB bolus 0, then 2 gm 50 mL/hr, administered: 11/10/2019 11:51:00 AMTamiflu [PO] PO 75 mg, administered: 11/10/2019 12:18:00 PMROCEPHIN (1GM/50ML) [IVPB] IVPB bolus 0, then 1 gm 100 mL/hr, administered: 11/10/2019 12:50:00 PMAzithromycin [IVPB] IVPB bolus 0, then 500 mg 250 mL/hr, administered: 11/10/2019 1:28:00 PMThe following Medications were prescribed to the patient:None. Name Value Range Interpretation Code Description Data Khalida rce(s) Supporting Document(s) ID Date Data Source [id number] 11/10/2019 11:16:00 AM EST [facility] 1 Medication Administration Record [facility] Emergency Department [address] [place] [address] Phone #: ext- [phone] 11/10/2019 11:14 Patient: MARCIO BUENROSTRO Sex: M : 1950 Age: 69yWeight: 97.0 kgHeight/Length: 64 inBMI: 36.7ALLERGIES: No Known Drug Allergy Date/Time Medication Administered Medication OrderedStart NS [IV] NS IV : 75 mL/hr (NOW x1)11:42 11/10/2019 Dose: IV FluidsLavon Nails RN Rate: 75 mL/hr over 8 hour(s)---- Dispensed: 500 mL bagStop Site: #1 left upper arm15:20 11/10/2019Davonte Vazquez ALBUTEROL [NEB TX] Albuterol Neb Tx 2.5 mg (NOW x1)11:46 11/10/2019 Dose: 2.5 mg Neb TXDavonte Vazquez DUONEB [NEB TX] DuoNeb 3 mL X2 Doses: 6 mL (311:46 11/10/2019 Dose: 2 unit dose Nebulizer Neb TX mL X2 Doses)Shirley Vazquez MAGNESIUM SULFATE [IVPB] Magnesium Sulfate 2 g IVPB X111:51 11/10/2019 Dose: 2 gm IVPB dose: 2 gm (HIGH ALERTLavon Nails RN Rate: 50 mL/hr over 1 hour(s) MEDICATION, X1)---- Dispensed: 50 mL bagStop Site: #1 left upper arm12:55 11/10/2019Davonte Vazquez SOLU-MEDROL [IVP] SOLU-Medrol IVP 125 mg11:48 11/10/2019 (METHYLPREDNISOLONE SODIUMLavon Nails RN SUCC) Dose: 125 mg IVP Site: #1 left upper armGiven TAMIFLU [PO] (OSELTAMIVIR Tamiflu PO 75 mg12:18 11/10/2019 PHOSPHATE)Lavon Nails RN Dose: 75 mg Capsules POStart ROCEPHIN (1GM/50ML) [IVPB] Rocephin (1gm/50mL) IVPB 345901:50 11/10/2019 (CEFTRIAXONE SODIUM) mg with Dextrose 50 ml spike Juan Carlos Nails RN Dose: 1 gm IVPB (D5W)---- Rate: 100 mL/hr over 30 minute(s)Stop Dispensed: 50 mL bag13:28 11/10/2019 Site: #1 left upper armShirley Vazquez AZITHROM YCIN [IVPB] Azithromycin IVPB 500 mg with13:28 11/10/2019 Dose: 500 mg IVPB Dextrose Intravenous 250 Raffaele Nails RN Rate: 250 mL/hr over 1 hour(s) (D5W)---- Dispensed: 250 mL bagStop Site: #1 left upper arm14:30 11/10/2019Lavon Nails RN Name Value Range Interpretation Code Description Data Khalida rce(s) Supporting Document(s) ID Date Data Source [id number] 11/10/2019 11:16:00 AM [facility] 1 General Instructions [facility] Emergency Department [address] [place] [address] Phone #: ext- [phone] 11/10/2019 11:14 Patient: MARCIO BUENROSTRO Sex: M : 1950 Age: 69yAcute exacerbation of COPD (emphysematous, asthmatic).Influenza type B with bronchitis.Hypoxia.(Electronically signed by LISBETH Marvin 11/10/2019 16:17) Name Value Range Interpretation Code Description Data [facility](s) Supporting Document(s) ID Date Data Source [id number] 11/10/2019 11:16:00 AM [facility] 1 Clinical Report - Nurses [facility] Emergency Department [address] [place] [address] Phone #: ext- [phone] 11/10/2019 11:14 Patient: MARCIO BUENROSTRO Sex: M : 1950 Age: 69yTRIAGE Arrived by private vehicle. Historian: patient. Accompanied by spouse. Triage time: 11:15 11/10/2019. Acuity: LEVEL 2. Chief Complaint: SHORTNESS OF BREATH and DIFFICULTY BREATHING. Alert. In distress. Onset. (2 WEEKS AGO). ( Pt spouse states pt has significant PMH of asthma, has had increased SOB over the past 2 weeks, went to Microbiology Director Dr. West in [facility] on Thursday who placed pt on Prednisone. Pt states SOB much worse since yesterday and today.). He has had a cough productive of green sputum. SEPSIS SCREEN: NEGATIVE heart rate greater than 90 (11:27 11/10/2019). --11:27 11/10/19 Sharmila Andres R.N. 11:15 11/10/19. BP: 221/85. MAP: 130. HR: 92. RR: 24. O2 saturation: 88%. Temp: 97.1 F (oral). Pain level now: 0/10. --11:27 11/10/19 Sharmila Andres R.N. Weight: 97 kg stated. Height/Length: 64 inches Per Patient. BMI: 36.7. --11:11/10/19 Sharmila Andres R.N. Medications Tudorza Pressair Inhalation (Aerosol Powder Breath Activated 400 mcg/act) 1 puff, 2x a day, last dose 11/10/2019 1100. --11:17 11/10/19 Sharmila Andres R.N. predniSONE Oral Tapered dose, last dose 20 mg 11/10/2019 0530. --11:18 11/10/19 Sharmila Andres R.N. Symbicort Inhalation (Aerosol 160-4.5 mcg/act) 2 puffs, 2x a day, last dose 11/09/2019 HS. --11:18 11/10/19 Sharmila Andres R.N. Albuterol Sulfate Inhalation (Nebulization Solution (2.5 MG/3ML) 0.083%) 1 unit dose, 2x a day as needed, last dose 11/10/2019 0430. --11:19 11/10/19 Sharmila Andres R.N. ProAir HFA Inhalation 2 puffs, 4x a day as needed, last dose 0530 11/10/2019. --11:19 11/10/19 Sharmila Andres R.N. Lantus SoloStar Subcutaneous 18 UNITS, 2x a day, last dose 11/10/2019 THIS am. --11:20 11/10/19 Sharmila Andres R.N. Ramipril Oral 10 mg, daily every AM, last dose 11/09/2019. --11:20 11/10/19 Sharmila Andres R.N. Loperamide HCl Oral, as needed. --11:20 11/10/19 Sharmila Andres R.N. Aspirin 81 Oral, daily every AM, last dose 11/09/2019. --11:20 11/10/19 Sharmila Andres R.N. amLODIPine Besylate Oral 10 mg, daily, last dose 11/09/2019. --11:21 11/10/19 Sharmila Andres R.N. Lomotil Oral (Tablet 2.5-0.025 mg) 2 tablets, daily, last dose 11/09/2019. --11:11/10/19 Sharmila Andres R.N. 2 Clinical Report - Nurses [facility] Emergency Department [address] [place] [address] Phone #: ext- [phone] 11/10/2019 11:14 Patient: MARCIO BUENROSTRO Sex: M : 1950 Age: 69yMulti -Day Oral, daily. --11:11/10/19 Sharmila Andres R.N.NovoLOG Subcutaneous (Solution 100 unit/mL) SLIDING SCALE, 2x a day, last dose 11/09/2019.--11:11/10/19 Sharmila Andres R.N.ATROPINE DIPHENOXYLATE 1-2 tabs , 4x a day as needed. --11:23 11/10/19 Sharmila Andres R.N.AllergiesNo Known Drug Allergy. --11:22 11/10/19 Sharmila Andres R.N.PROBLEMS:No colon, inside J pouch.Hypertension.Diabetes Mellitus Type 2.Rheumatoid Arthritis.Crohn's Disease.Asthma. --11:25 11/10/19 Sharmila Andres R.N.Medication/allergy information source: the patient. --11:27 11/10/19 Sharmila Andres R.N.ADDITIONAL SURGERIES:Back Surgery.Cataract Surgery (Bilateral).Colectomy (Total).Hernia Repair (Mulitple ).Inside j pouch.Knee Surgery (Bilateral).Skin biopsy . --11:25 11/10/19 Sharmila Andres R.N.HistoryPAST MEDICAL HX: Immunizations: up-to-date and has received seasonal influenza.SOCIAL HX: Former smoker. No alcohol use or drug use. He was offered HIV testing but declined.Patient education was provided. He was offered hepatitis C testing but declined. Patient education wasprovided. He has not traveled outside the [place]Infectious disease exposure: No infectious disease exposure. Patient is a known carrier of hepatitis. (Pthas a PMH of Hep C and finished treatment for this). Patient is not a known carrier of tuberculosis, HIV,MRSA, VRE or CRE.SELF HARM ASSESSMENT: Self harm assessment was performed. The patient answered "no" to thequestion(s) "Do you have thoughts of harming or killing yourself?" and "Do you have a plan for harming orkilling yourself?".ABUSE ASSESSMENT: Abuse ass essment. The patient had positive responses to the question(s) "Do youfeel safe in your home?". Abuse denied. No suspicion of abuse. No report of abuse.NUTRITIONAL RISK ASSESSMENT: The nutritional risk assessment revealed no deficiencies. 3 Clinical Report - Nurses [facility] Emergency Department [address] [place] [address] Phone #: ext- [phone] 11/10/2019 11:14 Patient: MARCIO BUENROSTRO [facility]#: [id number] Sex: M : 1950 Age: 69y FUNCTIONAL ASSESSMENT: Functional assessment: no impairments noted. LEARNING NEEDS ASSESSMENT: The learning needs assessment revealed no barriers. FALL RISK ASSESSMENT: Fall risk assessment completed. No risk factors identified. SKIN INTEGRITY ASSESSMENT: Skin integrity risk assessment completed. No skin integrity risk identified. --:11/10/19 Sharmila Andres R.N. Interventions Identification band on patient. --11/10/19 Sharmila Andres R.N.PHYSICAL ASSESSMENT Ambulatory to room. GENERAL / NEURO / PSYCH: Alert. Oriented X 4. Appears in distress. HEENT: Mucous membranes are pink. RESPIRATORY: Mild respiratory distress. The patient can speak in full sentences. Crackles present in the lower two-thirds of both lung cox; crackles in the right lung base anteriorly and mid-lung anteriorly; crackles in the left lung base anteriorly and mid-lung anteriorly. CVS: Normal sinus rhythm noted. Capillary refill less than 2 seconds. GI / : Abdomen soft and nontender. Bowel sounds within normal limits. SKIN: Skin is warm and dry. Normal skin turgor. --11:32 11/10/19 Lavon Nails RN.NURSING PROGRESS NOTES 11:11/10/19. BP: 156/75. MAP: 102. HR: 86. RR: 24. O2 saturation: 96% on nasal cannula at 2 liters/minute. --11:11/10/19 Sharmila Andres R.N. Oxygen increased to 2 liters by nasal cannula. vehicle monitor technician, pulse oximeter and NIBP monitor placed on patient; vehicle monitor technician- Lead II; monitor alarms on; monitor strip added to paper chart. Patient gowned. Head of bed elevated 75 degrees. Reassurance given. Three patient identifiers checked. Call light placed in reach. Side ra ils up x 2. Bed placed in lowest position. Brakes of bed on. --:11/10/19 Sharmila Andres R.N. 11:23 11/10/2019 Site #1 started via IV in the left upper arm with an 18g angiocath, with aseptic technique and good blood return; one attempt. Blood drawn: rainbow set and green tube(s). Labeled in the presence of the patient and sent to the lab. Saline lock flushed with 10 mL saline. --11:33 11/10/19 Lavon Nails RN EKG time: (11:30 11/10/2019). EKG was performed by a nurse and shown to the ED physician. --11:33 11/10/19 Lavon Nails RN Warming measures: blanket applied. Patient ID band checked for patient name and birthdate: patient confirmed. Flu swab obtained by RN via nasal swab. Labeled in the presence of the patient and sent to lab. 4 Clinical Report - Nurses [facility] Emergency Department [address] [place] [address] Phone #: ext- [phone] 11/10/2019 11:14 Patient: MARCIO BUENROSTRO Sex: M : 1950 Age: 69y--11:38 11/10/19 Lavon Nails RN11:42 11/10/2019 Started bag #1 500 mL IV Fluids NS; at 75 mL/hr over 8 hour(s) via site #1 via IV pump.Allergies verified and confirmed 5 rights. IV patency established. IV site checked: no pain, redness, orswelling. IV flushed thoroughly pre- and post-medication administration. Information reviewed with patientincluding reason for taking this medication. Verbalizes understanding. --11:42 11/10/19 Lavon Nails RN11:46 11/10/2019 Albuterol Neb TX 2.5 mg given. Given by the nurse. Allergies verified and confirmed 5rights. Information reviewed with patient including reason for taking this medication. Verbalizesunderstanding. --11:46 11/10/19 Lavon Nails RN11:46 11/10/2019 Duoneb Neb TX Nebulizer 2 unit dose given. Given by the nurse. Allergies verified andconfirmed 5 rights. Information reviewed with patient including reason for taking this medication. Verbalizesunderstanding. --11:47 11/10/19 Lavon Nails RN11:48 11/10/2019 Solu-Medrol (methylPREDNISolone Sodium Succ) IVP 125 mg given over 2 minute(s)via site #1. Allergies verified and confirmed 5 rights. IV patency established. IV site checked: no pain,red ness, or swelling. IV flushed thoroughly pre- and post-medication administration. IVP given by RN.Information reviewed with patient including reason for taking this medication. Verbalizes understanding.--11:48 11/10/19 Lavon Nails RN11:51 11/10/2019 Started 2 gm of Magnesium Sulfate IVPB in bag #1 50 mL; at 50 mL/hr over 1 hour(s) viasite #1. via IV pump. Allergies verified and confirmed 5 rights. IV patency established. IV site checked: nopain, redness, or swelling. IV flushed thoroughly pre- and post-medication administration. Informationreviewed with patient including reason for taking this medication. Verbalizes understanding. --11:512 Lavon Nails RN12:11 11/10/19. BP: 133/67. MAP: 89. HR: 83. RR: 20. O2 saturation: 99%. Pain level now: 0/10.--12:11 11/10/19 Lavon Nails RN( pt states his breathing is much better with oxygen, denies any pain). --12:11 11/10/19 Lavon Nails RN12:18 11/10/2019 Tamiflu (Oseltamivir Phosphate) PO Capsules 75 mg given. Allergies verified andconfirmed 5 rights. Information reviewed with patient including reason for taking this medication. Verbalizesunderstanding. --12:18 11/10/19 Lavon Nails RN12:50 11/10/2019 Started 1 gm of ROCEPHIN (1GM/50ML) (cefTRIAXone Sodium) IVPB in bag #1 50 mL;at 100 mL/hr over 30 minute(s) via site #1. via IV pump. Allergies verified and confirmed 5 rights. IVpatency established. IV site checked: no pain, redness, or swelling. IV flushed thoroughly pre- andpost- medication administration. Information reviewed with patient including reason for taking thismedication. Verbalizes understanding. --12:50 11/10/19 Lavon Nails RN12:55 11/10/2019 Magnesium Sulfate IVPB via IV site #1 Discontinued: infused. Total amount infused: 50mL. IV patency established. IV site checked: no pain, redness, or swelling. IV flushed thoroughly. --12:55 5 Clinical Report - Nurses [facility] Emergency Department [address] [place] [address] Phone #: [phone]- [phone] 11/10/2019 11:14 Patient: MARCIO BUENROSTRO Sex: M : 1950 Age: 69y 11/10/19 Lavon Nails RN 12:55 11/10/19. BP: 131/61. MAP: 84. HR: 84. RR: 20. O2 saturation: 96% on nasal cannula at 2 liters/minute. Pain level now: 0/10. --12:55 11/10/19 Lavon Nails RN 13:28 11/10/2019 Started 500 mg of Azithromycin IVPB in bag #1 250 mL; at 250 mL/hr over 1 hour(s) via site #1. via IV pump. Allergies verified and confirmed 5 rights. IV patency established. IV site checked: no pain, redness, or swelling. IV flushed thoroughly pre- and post-medication administration. Information reviewed with patient including reason for taking this medication. Verbalizes understanding. --13:28 11/10/19 Lavon Nails RN 13:28 11/10/2019 ROCEPHIN (1GM/50ML) IVPB via IV site #1 Discontinued: infused. Total amount infused: 50 mL. IV patency established. IV site checked: no pain, redness, or swelling. IV flushed thoroughly. --13:28 11/10/19 Lavon Nails RN 14:05 11/10/19. BP: 148/70. MAP: 96. HR: 83. RR: 20. O2 saturation: 96% on nasal cannula at 2 liters/minute. Pain level now: 0/10. --14:06 11/10/19 Lavon Nails RN ( Dr Ibarra in writing admission orders, pt continues to deny pain or distress). --14:11/10/19 Lavon Nails RN 14:30 11/10/2019 Azithromycin IVPB via IV site #1 Discontinued: infused. Total amount infused: 250 mL. IV patency established. IV site checked: no pain, redness, or swelling. IV flushed thoroughly. --14:30 11/10/19 Lavon Nails RN 14:35 11/10/19. BP: 136/67. MAP: 90. HR: 81. RR: 18. O2 saturation: 96% on nasal cannula at 2 liters/minute. Temp: 97.9 F (oral). Pain level now: 0/10. --14:36 11/10/19 Lavon Nails RN ( pt remains awake and alert, continues to deny discomfort, waiting to be admitted to [facility]U). --14:36 11/10/19 Lavon Nails RN 14:40 11/10/19. ( Bed assignment by [facility]U Charge Nurse Lila Hall RN 119). --14:44 11/10/19 Dolly Rubio RN 15:20 11/10/2019 IV Fluids NS via IV site #1 Discontinued: STOPPED upon admission. Total amount infused: 250 mL. IV patency established. IV site checked: no pain, redness, or swelling. IV flushed thoroughly. --15:20 11/10/19 Lavon Nails RN.DISPOSITION / DISCHARGE Disposition: observation for further evaluation, cardiac monitoring and antibiotics. Transported via stretcher by nurse with monitor and O2. Report was given to a nurse at bedside. Bed obtained and ready (RM 119). --15:21 11/10/19 Lavon Nails RN 15:20 11/10/19. BP: 126/89. MAP: 101. HR: 81. RR: 20. O2 saturation: 96% on nasal cannula at 2 6 Clinical Report - Nurses [facility] Emergency Department [address] [place] [address] Phone #: ext- [phone] 11/10/2019 11:14 Patient: MARCIO BUENROSTRO Sex: M : 1950 Age: 69y liters/minute. Temp: 97.9 F. Pain level now: 0/10. --15:21 11/10/19 Lavon Nails RN Departure time: 15:25 11/10/2019. --15:25 11/10/19 Lavon Nails RN ( registration is not yet done on pt, slight delay). --15:30 11/10/19 Lavon Nails RN Departure time: 15:31 11/10/2019. --15:31 11/10/19 Lavon Nails RN Report w as given to a nurse in person and at bedside. Report included information regarding patient's care, current vital signs and abnormal labs. Report included treatment information regarding medications given or pending; type and amount of IV fluids total volume infused. All questions were answered. Report was acknowledged and care was transferred. (Ceci ALVA). --15:44 11/10/19 Lavon Nails RN.Locked/Released at 11/10/2019 15:44 by Lavon Nails RN Name Value Range Interpretation Code Description Data Khalida rce(s) Supporting Document(s) ID Date Data Source [id number] 11/10/2019 11:16:00 AM EST [facility] 1 Clinical Report - Physicians/Mid Levels [facility] Emergency Department [address] [place] [address] Phone #: ext- [phone] 11/10/2019 11:14 [id number] Sex[facility] M : 1950 Age: 69y Time Seen: 11:29 11/10/2019. Arrived- By private vehicle. Historian- patient. Disposition decision: 12:20 11/10/2019.HISTORY OF PRESENT ILLNESS Chief Complaint: DYSPNEA and HISTORY OF ASTHMA and CHRONIC OBSTRUCTIVE PULMONARY DISEASE. This started about 2 weeks ago; Hx asthma/COPD. Worsening SOB x 2 weeks, increasing over past several days, seen by tram operator in [place] and placed on PO steroids and symptoms worse since. O2 sats 88% on RA upon arrival to ED. Denies chest pain or fever. The dyspnea is severe and is worsened by walking and exertion, is improved by rest and is improved with oxygen. The patient has had a cough, dyspnea on exertion and orthopnea. No sputum production, fever, sweating episodes, wheezing or chills. No chest pain or discomfort, calf pain, foot swelling or paroxysmal nocturnal dyspnea. No anxiety, dizziness, tingling, numbness or palpitations. Similar symptoms previously. Patient has had similar symptoms several times. Recent medical care: The patient was seen recently at another facility in the office.REVIEW OF SYSTEMSThe patient has not had weight loss. No muscle aches, eye irritation, sore throat, nasal discharge or sinusdrainage. No nausea, vomiting, abdominal pain, diarrhea or black stools. No bloody stools, headache,fainting episodes, blurred vision or difficulty with urination. No excessive urination, skin rash, enlargedlymph nodes or joint pain.PAST HISTORYSee nurses notes. Problems: Pneumonia. No colon, inside J pouch. Hypertension. Diabetes Mellitus Type 2. Rheumatoid Arthritis. Asthma. Crohn's Disease. Additional Surgeries: Back Surgery. Cataract Surgery. Colectomy. Hernia Repair. Inside j pouch. 2 Clinical Report - Physicians/Mid Levels [facility] Emergency Department [address] [place] [address] Phone #: [phone] 11/10/2019 11:14 Patient: MARCIO BUENROSTRO [facility]#: [id number] Sex: M : 1950 Age: 69y Knee Surgery. Skin biopsy . Medications: ATROPINE DIPHENOXYLATE 1-2 ta bs , 4x a day as needed. NovoLOG Subcutaneous (Solution 100 unit/mL) SLIDING SCALE, 2x a day, last dose 11/09/2019. Multi-Day Oral, daily. Lomotil Oral (Tablet 2.5-0.025 mg) 2 tablets, daily, last dose 11/09/2019. amLODIPine Besylate Oral 10 mg, daily, last dose 11/09/2019. Aspirin 81 Oral, daily every AM, last dose 11/09/2019. Loperamide HCl Oral, as needed. Ramipril Oral 10 mg, daily every AM, last dose 11/09/2019. Lantus SoloStar Subcutaneous 18 UNITS, 2x a day, last dose 11/10/2019 THIS am. ProAir HFA Inhalation 2 puffs, 4x a day as needed, last dose 0530 11/10/2019. Albuterol Sulfate Inhalation (Nebulization Solution (2.5 MG/3ML) 0.083%) 1 unit dose, 2x a day as needed, last dose 11/10/2019 0430. Symbicort Inhalation (Aerosol 160-4.5 mcg/act) 2 puffs, 2x a day, last dose 11/09/2019 HS. predniSONE Oral Tapered dose, last dose 20 mg 11/10/2019 0530. Tudorza Pressair Inhalation (Aerosol Powder Breath Activated 400 mcg/act) 1 puff, 2x a day, last dose 11/10/2019 1100. Allergies: No Known Drug Allergy.SOCIAL HISTORYFormer smoker. No alcohol use or drug use. No recent travel.ADDITIONAL NOTESThe nursing notes have been reviewed with agreement regarding the chief complaint, HPI, ROS, PMH andpatient medications and allergies.PHYSICAL EXAMVital Signs: 11/10/2019 11:15 BP: 221/85. MAP: 130. HR: 92. RR: 24. O2 saturation: 88%. Temp: 97.1 F.Pain level now: 0/10. Have been reviewed as abnormal and appear to be correct. Hypertensive. Meanarterial pressure- high. Heart rate normal. Tachypneic. Temperature normal. Oxygen saturation low.Appearance: Alert. Anxious. Patient in moderate distress. Distress appears respiratory and due toanxiety.Eyes: Pupils equal, round and reactive to light. Eyes normal inspection.ENT: Ears normal. Nose normal. Pharynx normal. Uvula midline.Neck: Normal inspection. No jugular venous distention. Neck supple.CVS: Normal heart rate and rhythm. Heart sounds normal. Pulses normal.Respiratory: Moderate respiratory distress with anxiety and tachypnea. Speaks short phrases. Severelydecreased air movement diffusely over both lungs. Painless inspiration.Abdomen: Soft and nontender. No organomegaly.Back: Normal inspection. 3 Clinical Report - Physicians/Mid Levels [facility] Emergency Department [address] [place] [address] Phone #: ext- [phone] 11/10/2019 11:14 Patient: MARCIO BUENROSTRO Sex: M : 1950 Age: 69y Skin: Skin warm and dry. Normal skin color. No rash. Normal skin turgor. Extremities: Extremities exhibit normal ROM. No lower extremity edema. Neuro: Oriented X 3. No motor deficit. No sensory deficit. Reflexes normal.LABS, X-RAYS, AND EKGEKG: EKG time: 11:37 11/10/2019. No acute process. No acute ischemia. Normal sinus rhythm.Normal P waves. Normal ALBERTO. LBBB. Normal axis. Normal ST and T waves, QT and QTc. EKGunchanged when compared with prior EKG. (28 February 2019). The study has been interpretedcontemporaneously by me. The study has been independently viewed by me. The EKG appears to be agood tracing. I agree with and confirm the computer reading of the EKG. Interpretation time: 11:.Chest X-ray: No acute disease. Views: AP (portable). Technique: good. The X-rays wereindependently viewed by me and interpreted by the radiologist and contemporaneously by me.Interpretation time: 12:12 11/10/2019.Laboratory Tests: Laboratory tests have been ordered, with results reviewed and considered in themedical decision making process. BNP: (SKYLER: 11/10/2019 11:21) ( MsgRcvd 11/10/2019 12:13) Final results Test Result Flag Units (Reference) BNP 729 H PG/ML (0 - 125) CBC w Diff: (SKYLER: 11/10/2019 11:21) ( MsgRcvd 11/10/2019 12:48) Final results Test Result Flag Units (Reference) CBC W/AUTOMATED DIFF COMPLETE BLOOD COUNT WBC 9.1 10/uL (4.2 - 11.0) RBC 5.14 10/uL (4.50 - 6.30) HEMOGLOBIN 12.6 L g/dL (14.0 - 16.0) HEMATOCRIT 41.9 % (41.0 - 51.0) MCV 81.5 fL (80.0 - 94.0) MCH 24.5 L pg (27.0 - 34.0) MCHC 30.1 L g/dL (31.0 - 36.0) RDW 16.0 H % (11.5 - 14.8) PLATELETS 317 10/uL (150 - 450) MPV 11.4 H fL (7.4 - 10.4) NEUT 81.8 H % (37.0 - 80.0) LYMPH 11.6 L % (25.0 - 40.0) MONO 4.9 % (3.0 - 8.0) EOS 0.0 % (0.0 - 7.0) BASO 0.3 % (0.0 - 2.0) %IG 1.4 H % (0.0 - 0.0) %NRBC 0.0 % (0.0 - 0.0) #NEUT 7.42 H 10/uL (2.00 - 6.90) #LYMPH 1.05 10/uL (0.60 - 3.40) #MONO 0.44 10/uL (0.00 - 0.90) #EOS 0.00 10/uL (0.00 - 0.70) #BASO 0.03 10/uL (0.00 - 0.20) #IG 0.13 H 10/uL (0.00 - 0.10) #NRBC 0.00 10/uL (0.00 - 0.00) MANUAL DIFF NOT INDICATED RBC MORPH NOT INDICATED CMP: (SKYLER: 11/10/2019 11:21) ( MsgRcvd 11/10/2019 12:13) Final results Test Result Flag Units (Reference) COMPREHENSIVE METABOLIC PANEL COMPREHENSIVE METABOLIC PANEL SODIUM 139 mEq/L (134 - 153) 4 Clinical Report - Physicians/Mid Levels [facility] Emergency Department [address] [place] [address] Phone #: ext- [phone] 11/10/2019 11:14 Patient: MARCIO BUENROSTRO Sex: M : 1950 Age: 69y POTASSIUM 4.9 mEq/L (3.6 - 5.0) CHLORIDE 105 mEq/L (98 - 107) CO2 24 MEQ/L (22 - 30) GLUCOSE 244 H MG/DL (65 - 110) BUN 23 H MG/DL (7 - 21) CREATININE 0.9 MG/DL (0.7 - 1.5) BUN/CREAT 26 (8 - 27) TOTAL PROTEIN 7.8 G/DL (6.3 - 8.2) ALBUMIN 4.0 G/DL (3.9 - 5.0) GLOBULIN 3.8 H GM/DL (2.4 - 3.2) A/G RATIO 1.1 (0.8 - 2.0) CALCIUM 9.7 MG/DL (8.4 - 10.2) TOTAL BILI <0.7 MG/DL (0.2 - 1.3) ALKALINE PHOS 59 U/L (38 - 126) SGOT/AST 20 U/L (5 - 40) SGPT/ALT 18 U/L (7 - 56) ANION GAP 10.0 mmol/L (8.0 - 16.0) AGE 69 yrs NON-AA GFR >60 mL/min AFR AMER GFR >60 mL/min Male GFR Interprentation 20-49 yrs >60 mL/min Jgajrc78-48 yrs >56 mL/min Normal 60-69 yrs >49 mL/min Normal 70-79yrs>42 mL/min Normal 80 and above >35 mL/min Normal Female GFRInterpretation 20-39 yrs >60 mL/min Normal 40-49 yrs >58 mL/minNormal 50-59 yrs >51 mL/min Normal 60-69 yrs >45 mL/min Ubnbnb97-72 yrs >39 mL/min Normal 80 and above >32 mL/min NormalInfluenza Nasal A B: (SKYLER: 11/10/2019 11:38) ( [facility] 11/10/2019 12:13) Final results Test Result Flag Units (Reference) INFLUENZA A NEGATIVE (NORMAL: NEGAT INFLUENZA B POSITIVE A (NORMAL: NEGAT INFLUENZA A REENTER NEGATIVE (NORMAL: NEGAT INFLUENZA B REENTER POSITIVE A (NORMAL: NEGAT PROCEDURAL CONTROL VALID KIT LOT # _[id number] 11/10/19.1212.DE . . . KIT EXP DATE _10/01/20 11/10/19.1212.DE . . .The Influenza A utilizing an isothermal nucleic acid amplification technologyfor thequalitative detection of influenza A and B viral RNA.Negative results do not preclude influenza virusinfection and should not beused as the sole basis for diagnosis, treatment or other patient managementdecisions.Lactic Acid: (SKYLER: 11/10/2019 11:21) ( [facility] 11/10/2019 11:40) Final results Test Result Flag Units (Reference) LACTIC ACID 2.7 H MMOL/L (0.2 - 2.2)PT/PTT: (SKYLER: 11/10/2019 11:21) ( [facility] 11/10/2019 11:48) Final results Test Result Flag Units (Reference) PROTIME 11.4 SECONDS (11.0 - 15.5) INR 0.82 L (0.93 - 1.23) PTT 29.0 SECONDS (24.8 - 36.7) \\BLDo\\INR INTERPRETATION\\BLDx\\ Therapeutic range for Coumadin andrelated oral anticoagulants. -International Normalized Ratio (INR): 2.0 - 3.0 for VenousThrombosis, Pulmonary Embolus, Tissue heart valves, Acute HI Atrial Fibrillation, Valvular heart diseaseand recurrent Systemic Embolism. -International Normalized Ratio (INR): 2.5 - 3.5 forMechanical Prosthetic valve. \\BLDo\\PTT INTERPRETATION\\BLDx\\Critical results for patients not on therapy: >50 seconds Critical results for patients on therapy:>119 seconds Therapeutic range for patients on therapy: 58 - 90 seconds Coag studies fromline draws may not be accurate due to Heparin and other interferences.Troponin-T: (SKYLER: 11/10/2019 11:21) ( [facility] 11/10/2019 12:10) Final results Test Result Flag Units (Reference) TROPONIN T 0.01 NG/ML (0.00 - 0.10) TROPONIN T0.1 ng/ml Recommended as the clinical threshold value Gail Eugene 5 Clinical Report - Physicians/Mid Levels [facility] Emergency Department [address] [place] [address] Phone #: ext- [phone] 11/10/2019 11:14 Patient: MARCIO BUENROSTRO Sex: M : 1950 Age: 69y Venous Blood Gas: (SKYLER: 11/10/2019 11:21) ( [facility] 11/10/2019 11:40) Final results Test Result Flag Units (Reference) pH V 7.30 L (7.32 - 7.43) pCO2 V 50.1 mm/HG (38.0 - 51.0) pO2 V 29.6 L mm/HG (30.0 - 55.0) HCO3 V 24.1 meq/L (22.0 - 29.0) TCO2 V 25.6 meq/L (22.0 - 29.0) BASE EXCESS -2.7 L (-2.0 - 2.0) O2 SAT V 48.0 % (40.0 - 85.0) Chest Portable 1 View: (SKYLER: 11/10/2019 11:31) ( [facility] 11/10/2019 12:21) In Progress [place] [address] PHONE: [phone] FAX: [phone] Name .................. : ALEX Petersen Acct Number.................. : [id number] ROOM. ................. : [facility] Number ................... : [id number] Stay type ............. : E/R Discharge Date......... ... : Admit Date ......... : 11/10/19 Admit Phys .................... : ADITYA CHRISTINE Date of ....... : 1950 Family Phys ................... : [employer] Phone .................. : [phone] Age ................................ : 69 Film# .................. .:[id number] Sex ................................. : M Unsigned transcriptions are preliminary reports and do not represent a medical or legal document CHEST PORTABLE [id number] COMPLETE:11/10/19 11:31 49960 Reason(s): Shortness of Breath PORTABLE CHEST X-RAY: INDICATION: Shortness of breath. COMPARISON: 02/28/19 FINDINGS: The cardiac and mediastinal silhouettes appear normal and the lungs are clear. The bones and soft tissues are normal. The upper abdomen is unremarkable. IMPRESSION: No acute disease identifiable. Electronically Reviewed and Signed By DCTNAME , SIGNDATE, ED Trans cribe Initials: DZ , Transcribe Date: 11/10/19 12:20, Dictation Date: <<REPDIST>> Page 1 of 1.PROGRESS AND PROCEDURESCourse of Care: 12:19 Nov 10 2019. s/s c/w acute COPD exacerbation secondary to influenza B, failure to 6 Clinical Report - Physici ans/Mid Levels [facility] Emergency Department [address] [place] [address] Phone #: ext- [phone] 11/10/2019 11:14 Patient: MARCIO BUENROSTRO Sex: M : 1950 Age: 69y improve on outpt therapy.will admit to observation to Dr Ibarra for further evaluation and treatment. Critical care performed (less than 30 minutes). Time is exclusive of separately billable procedures. Time includes: direct patient care, patient reassessment, coordination of patient care, interpretation of data (laboratory data, pulse oximetry, chest xrays and prior electrocardiograms), review of patient's medical records, medical consultation and documentation of patient care- see progress notes. Disposition: Observation in the Acute Inpatient Unit, Monitored. UTI (catheter associated) was not present prior to being placed in observation. Pressure ulcer was not present prior to being placed in observation. Vascular infection (catheter associated)n was not present prior to being placed in observation. Surgical site infection was not present prior to being placed in observation. An object left in surgery was not present prior to being placed in observation. Blood incompatibility was not present prior to being placed in observation. Air embolism was not present prior to being placed in observation. Observation decision based on lack of improvement, further evaluation, monitoring, further testing: labs, IV hydration and respiratory treatment.CLINICAL IMPRESSION Acute exacerbation of COPD (emphysematous, asthmatic). Influenza type B with bronchitis. Hypoxia.(Electronically signed by LISBETH Marvin 11/10/2019 16: 17) Name Value Range Interpretation Code Description Data Khalida rce(s) Supporting Document(s) ID Date Data Source [id number] 11/10/2019 03:59:00 PM EST [facility] ([facility]) Name Value Range Interpretation Code Description Data Khalida rce(s) Supporting Document(s) Urinalysis Laboratory test result [facility] ([facility]) SOURCE: Clean Catch Source Laboratory test result [facility] ([facility]) SOURCE: Clean Catch Clarity Laboratory test result [facility] ([facility]) SOURCE: Clean Catch Color Laboratory test result [facility] ([facility]) SOURCE: Clean Catch Spec [place] 1.020 1.001-1.030 [facility] ([facility]) SOURCE: Clean Catch pH 5 5-9 [facility] ([facility]) SOURCE: Clean Catch Bilirubin Laboratory test result [facility] ([facility]) SOURCE: Clean Catch Glucose 1000 Abnormal (applies to non-numeric res ults) [facility] ([facility]) SOURCE: Clean Catch Ketone 5 Abnormal (applies to non-numeric res ults) [facility] ([facility]) SOURCE: Clean Catch Protein 100 Abnormal (applies to non-numeric res ults) [facility] ([facility]) SOURCE: Clean Catch Nitrite Laboratory test result [facility] ([facility]) SOURCE: Clean Catch Leuk Est 25 [facility] ([facility]) SOURCE: Clean Catch Blood 25 Abnormal (applies to non-numeric res ults) [facility] ([facility]) SOURCE: Clean Catch Microscopic Laboratory test result M [facility] ([facility]) SOURCE: Clean Catch WBC Laboratory test result [facility] ([facility]) SOURCE: Clean Catch Urobilinogen Laboratory test result [facility] ([facility]) SOURCE: Clean Catch RBC Laboratory test result [facility] ([facility]) SOURCE: Clean Catch Epithelial Laboratory test result [facility] ([facility]) SOURCE: Clean Catch ID Date Data Source [id number] 11/10/2019 04:43:00 PM EST [facility] Name Value Range Interpretation Code Description Data Khalida rce(s) Supporting Document(s) URINALYSIS [facility] latosha URINALYSIS SOURCE R [facility] COLOR yellow NORMAL: Yellow [facility] CLARITY clear NORMAL: Clear [facility] spital Specific gravity of Urine by Test strip 1.020 1.001 - 1.030 [facility] pH 5 5 - 9 [facility] Glucose [Mass/volume] in Urine by Test strip 1000 NORMAL: Negat [place] [facility] Bilirubin.total [Presence] in Urine by Test strip NEG NORMAL: Negative [facility] Ketones [Presence] in Urine by Test strip 5 NORMAL: Negative [facility] Protein [Mass/volume] in Urine by Test strip 100 NORMAL: Negat [place] [facility] Nitrite [Presence] in Urine by Test strip NEG NORMAL: Negative [facility] BLOOD 25 NORMAL: Negative [facility] Leukocyte esterase [Presence] in Urine by Test strip 25 FITO L: Negative [facility] Urobilinogen [Mass/volume] in Urine by Test strip NOR less michael n 1.0 mg/dL [facility] MICROSCOPIC See Below [facility] ital WBC 3 - 5 NORMAL: NONE SEEN [facility] Erythrocytes [#/volume] in Urine by Test strip 0 - 1 NORMAL: NON E SEEN [facility] EPITHELIAL FEW NORMAL: NONE SEEN [facility] Hospital ID Date Data Source [id number] 11/10/2019 12:54:00 PM EST [facility] ([facility]) Name Value Range Interpretation Code Description Data Khalida rce(s) Supporting Document(s) Culture Blood Laboratory test result [facility] ([facility]) _CULTURE BLOOD_ { PRELIM TEST PERFORMED AT [address] [address] CLIA# [id number] SEE SCANNED REPORT ID Date Data Source [id number] 11/17/2019 09:54:00 PM [facility] Name Value Range Interpretation Code Description Data Khalida rce(s) Supporting Document(s) CULTURE BLOOD [facility] spital _CULTURE BLOOD_{ PRELIM TEST PERFORMED AT [address] [address] CLIA# [id number] SEE SCANNED REPORT ID Date Data Source [id number] 11/16/2019 08:34:00 AM EST [facility] [address] Name Value Range Interpretation Code Description Data Khalida rce(s) Supporting Document(s) Bacteria identified in Blood by Culture [facility] NO GROWTH AFTER 5 DAYS ID Date Data Source [id number] 11/10/2019 12:42:00 PM EST [facility] ([facility]) Name Value Range Interpretation Code Description Data Khalida rce(s) Supporting Document(s) Culture Blood Laboratory test result [facility] ([facility]) _CULTURE BLOOD_ { PRELIM TEST PERFORMED AT [address] [address] CLIA# [id number] SEE SCANNED REPORT ID Date Data Source [id number] 11/17/2019 09:54:00 PM EST [facility] Name Value Range Interpretation Code Description Data Khalida rce(s) Supporting Document(s) CULTURE BLOOD [facility] spital _CULTURE BLOOD_{ PRELIM TEST PERFORMED AT [address] [address] CLIA# [id number] SEE SCANNED REPORT ID Date Data Source [id number] 11/10/2019 11:38:00 AM EST [facility] ([facility]) Name Value Range Interpretation Code Description Data Khalida rce(s) Supporting Document(s) Influenza A Laboratory test result [facility] ([facility]) Influenza B Laboratory test result Abnormal (applies to non-numeric results) [facility] ([facility]) Influenza A Reenter Laboratory test result [facility] ([facility]) Influenza B Reenter Laboratory test result Abnor mal (applies to non-numeric results) [facility] <content>PROCEDURAL CONTROL VALID</con tent>
<content>KIT LOT # _[id number] 11/10/19.[facility].DE . . .</content>
<content>KIT EXP DATE _10/01/20 11/10/19.1212.DE . . .</content>
<content>The Influenza A & B assay is a rapid molecular in vitro diagnostic test </content>
<content>utilizing an isothermal nucleic acid amplification technology for the</content>
<content>qualitative detection of influenza A and B viral RNA.</content>
<content>Negative results do not preclude influenza virus infection and should not be</content>
<content>used as the sole basis for diagnosis, treatment or other patient management</content>
<content>decisions.</content>
<content></content> ID Date Data Source [id number] 11/10/2019 12:12:00 PM EST [facility] Name Value Range Interpretation Code Description Data Khalida rce(s) Supporting Document(s) Influenza virus A Ag [Presence] in Nasopharynx by Immunoassa y NEGATIVE NORMAL: NEGATIVE [facility] Influenza virus B Ag [Presence] in Nasopharynx by Immunoassa y POSITIVE NORMAL: NEGATIVE A [facility] NEGATIVEPOSITIVE PROCEDURAL CO NTROL VALID KIT LOT # _[id number] 11/10/19.[facility].DE . . . KIT EXP DATE _10/01/20 11/10/19.[facility].DE . . .The Influenza A & B assay is a rapid molecular in vitro diagnostic testutilizing an isothermal nucleic acid amplification technology for thequalitative detection of influenza A and B viral RNA.Negative results do not preclude influenza virus infection and should not beused as the sole basis for diagnosis, treatment or other patient managementdecisions. ID Date Data Source [id number] 11/10/2019 11:21:00 AM EST [facility] ([facility]) Name Value Range Interpretation Code Description Data Khalida rce(s) Supporting Document(s) CBC W/Automated Diff Laboratory test result [facility] ([facility]) COMPLETE BLOOD COUNT RBC 5.14 10^6/uL 4.50-6.30 [facility] ([facility]) WBC 9.1 10^3/uL 4.2-11.0 [facility] ([facility]) MCV 81.5 fL 80.0-94.0 [facility] ([facility]) Hemoglobin 12.6 g/dL 14.0-16.0 Below low normal [facility] ( [facility]) Hematocrit 41.9 % 41.0-51.0 [facility] ([facility]) MCH 24.5 pg 27.0-34.0 Below low normal [facility] ( [facility]) RDW 16.0 % 11.5-14.8 Above high normal [facility] ([facility]) MCHC 30.1 g/dL 31.0-36.0 Below low normal [facility] ( [facility]) Neut 81.8 % 37.0-80.0 Above high normal [facility] ([facility]) Platelets 317 10^3/uL 150-450 [facility] ([facility]) MPV 11.4 fL 7.4-10.4 Above high normal [facility] ([facility]) Eos 0.0 % 0.0-7.0 [facility] ([facility]) Lymph 11.6 % 25.0-40.0 Below low normal [facility] ( [facility]) Yo[place]um 4.9 % 3.0-8.0 [facility] ([facility]) %NRBC 0.0 % 0.0-0.0 [facility] ([facility]) %Ig 1.4 % 0.0-0.0 Above high normal [facility] ([facility]) Baso 0.3 % 0.0-2.0 [facility] ([facility]) #Yo[place]um 0.44 10^3/uL 0.00-0.90 [facility] ([facility]) #Neut 7.42 10^3/uL 2.00-6.90 Above high normal [facility] ([facility]) #Lymph 1.05 10^3/uL 0.60-3.40 [facility] ([facility]) #Ig 0.13 10^3/uL 0.00-0.10 Above high normal [facility] ([facility]) #Eos 0.00 10^3/uL 0.00-0.70 [facility] ([facility]) #Baso 0.03 10^3/uL 0.00-0.20 [facility] ([facility]) RBC Morph Laboratory test result [facility] ([facility]) #NRBC 0.00 10^3/uL 0.00-0.00 [facility] ([facility]) Manual Diff Laboratory test result M [facility] ([facility]) ID Date Data Source [id number] 11/10/2019 11:21:00 AM EST [facility] ([facility]) Name Value Range Interpretation Code Description Data Khalida rce(s) Supporting Document(s) Comprehensive Metabo Laboratory test result [facility] ([facility]) COMPREHENSIVE METABOLIC PANEL Sodium 139 meq/L 134-153 [facility] ([facility]) Potassium 4.9 meq/L 3.6-5.0 [facility] ([facility]) Chloride 105 meq/L 98-107 [facility] ([facility]) Co2 24 meq/L 22-30 [facility] ([facility]) Glucose 244 mg/dL 65-110 Above high normal [facility] ([facility]) Creatinine 0.9 mg/dL 0.7-1.5 [facility] ([facility]) BUN 23 mg/dL 7-21 Above high normal [facility] ([facility]) Albumin 4.0 g/dL 3.9-5.0 [facility] ([facility]) BUN/Creat 26 8-27 [facility] ([facility]) Total Protein 7.8 g/dL 6.3-8.2 [facility] ([facility]) Calcium 9.7 mg/dL 8.4-10.2 [facility] ([facility]) A/G Ratio 1.1 0.8-2.0 [facility] ([facility]) Globulin 3.8 GM/DL 2.4-3.2 Above high normal [facility] ([facility]) Sgot/Ast 20 U/L 5-40 [facility] ([facility]) Alkaline Phos 59 U/L 38-126 [facility] ([facility]) Total Bili Laboratory test result 0.2-1.3 ME [facility] ([facility]) SGPT/Alt 18 U/L 7-56 [facility] ([facility]) Anion Gap 10.0 mmol/L 8.0-16.0 [facility] ([facility]) Age 69 yrs [facility] ([facility]) Afr Amer GFR Laboratory test result [facility] ([facility]) Male GFR Interprentation 20-49 yrs >60 mL/min Normal 50-59 yrs >56 mL/min Normal 60-69 yrs >49 mL/min Normal 70-79yrs >42 mL/min Normal 80 and above >35 mL/min Normal Female GFR Interpretation 20-39 yrs >60 mL/min Normal 40-49 yrs >58 mL/min Normal 50-59 yrs >51 mL/min Normal 60-69 yrs >45 mL/min Normal 70-79 yrs >39 mL/min Normal 80 and above >32 mL/min Normal Non-Aa GFR Laboratory test result [facility] ([facility]) ID Date Data Source [id number] 11/10/2019 11:21:00 AM EST [facility] ([facility]) Name Value Range Interpretation Code Description Data Khalida rce(s) Supporting Document(s) Troponin T.cardiac [Mass/volume] in Serum or Plasma 0.01 ng/mL 0.00-0 .10 [facility] ([facility]) TROPONIN T 0.1 ng/ml Recommended as the clinical th reshold value for Troponin T. Natriuretic peptide.B prohormone N-Terminal [Mass/volu me] in Serum or Plasma 729 pg/mL 0-125 Above high normal [facility] ([facility]) ID Date Data Source [id number] 11/10/2019 11:21:00 AM EST [facility] ([facility]) Name Value Range Interpretation Code Description Data Khalida rce(s) Supporting Document(s) Protime 11.4 s 11.0-15.5 [facility] ([facility]) PTT 29.0 s 24.8-36.7 [facility] ([facility]) \\BLDo\\INR INTERPRETATION\\BLDx\\ Therapeutic range for Coumadin and related oral anticoagulants. -International Normalized Ratio (INR): 2 .0 - 3.0 for Venous Thrombosis, Pulmonary Embolus, Tissue heart valves, Acute HI Atrial Fibrillation, Valvular heart disease and recurrent Systemic Embolism. -International Normalized Ratio (INR): 2 .5 - 3.5 for Mechanical Prosthetic valve. \\BLDo\\PTT INTERPRETATION\\BLDx\\ Critical results for patients not on therapy: >50 seconds Critical results for patients on therapy: >119 seconds Therapeutic range for patients on therapy: 58 - 90 seconds Coag studies from line draws may not be accurate due to Heparin and other interferences. Inr 0.82 0.93-1.23 Below low normal [facility] ([facility]) ID Date Data Source [id number] 11/10/2019 11:21:00 AM EST [facility] ([facility]) Name Value Range Interpretation Code Description Data Khalida rce(s) Supporting Document(s) pH V 7.30 7.32-7.43 Below low normal [facility] ([facility]) Hco3 V 24.1 meq/L 22.0-29.0 [facility] ([facility]) pO2 V 29.6 mm/HG 30.0-55.0 Below low normal [facility] ( [facility]) pCO2 V 50.1 mm/HG 38.0-51.0 [facility] ([facility]) Tco2 V 25.6 meq/L 22.0-29.0 [facility] ([facility]) O2 Sat V 48.0 % 40.0-85.0 [facility] ([facility]) Base Excess -2.7 Below low normal [facility] ([facility]) ID Date Data Source [id number] 11/10/2019 11:21:00 AM EST [facility] ([facility]) Name Value Range Interpretation Code Description Data Khalida rce(s) Supporting Document(s) Lactate [Mass/volume] in Serum or Plasma 2.7 mmol/L 0.2-2.2 Above high normal [facility] ([facility]) ID Date Data Source [id number] 11/10/2019 12:48:00 PM [facility] Name Value Range Interpretation Code Description Data Khalida rce(s) Supporting Document(s) CBC W/AUTOMATED DIFF [facility] COMPLETE BLOOD COUNT Leukocytes [#/volume] in Blood by Automated count 9.1 10^3/uL 4.2 - 1 1.0 [facility] Erythrocytes [#/volume] in Blood by Automated count 5.14 10^6/uL 4. 50 - 6.30 [facility] Hemoglobin [Mass/volume] in Blood 12.6 g/dL 14.0 - 16.0 L [facility] Hematocrit [Volume Fraction] of Blood by Automated count 41.9 % 4 1.0 - 51.0 [facility] Erythrocyte mean corpuscular volume [Entitic volume] by Auto mated count 81.5 fL 80.0 - 94.0 [facility] Erythrocyte mean corpuscular hemoglobin [Entitic mass] by Automated count 24.5 pg 27.0 - 34.0 L [facility] Erythrocyte mean corpuscular hemoglobin concentration [Mass/volume] by Automated count 30.1 g/dL 31.0 - 36.0 L [facility] Erythrocyte distribution width [Ratio] by Automated count 16.0 % 11.5 - 14.8 H [facility] Platelets [#/volume] in Blood by Automated count 317 10^3/uL 150 - 45 0 [facility] Platelet mean volume [Entitic volume] in Blood by Automated count 11.4 fL 7.4 - 10.4 H [facility] Neutrophils/100 leukocytes in Blood by Automated count 81.8 % 37. 0 - 80.0 H [facility] Lymphocytes/100 leukocytes in Blood by Manual count 11.6 % 25.0 - 40.0 L [facility] Monocytes/100 leukocytes in Blood by Automated count 4.9 % 3.0 - 8.0 [facility] Eosinophils/100 leukocytes in Blood by Automated count 0.0 % 0.0 - 7.0 [facility] Basophils/100 leukocytes in Blood by Automated count 0.3 % 0.0 - 2.0 [facility] %IG 1.4 % 0.0 - 0.[address] %[facility] 0.0 % 0.0 - 0.0 [facility] al Neutrophils [#/volume] in Blood by Automated count 7.42 10^3/uL 2.00 - 6.90 H [facility] Lymphocytes [#/volume] in Blood by Automated count 1.05 10^3/uL 0.60 - 3.40 [facility] Monocytes [#/volume] in Blood by Automated count 0.44 10^3/uL 0.00 - 0.90 [facility] Eosinophils [#/volume] in Blood by Automated count 0.00 10^3/uL 0.00 - 0.70 [facility] Basophils [#/volume] in Blood by Automated count 0.03 10^3/uL 0.00 - 0.20 [facility] #IG 0.13 10^3/uL 0.00 - 0.10 H [facility] #NRBC 0.00 10^3/uL 0.00 - 0.00 [facility] ospital MANUAL DIFF NOT INDICATED [facility] RBC MORPH NOT INDICATED [facility] spital ID Date Data Source [id number] 11/10/2019 12:12:00 PM EST [facility] Name Value Range Interpretation Code Description Data Khailda rce(s) Supporting Document(s) COMPREHENSIVE METABOLIC PANEL [facility] COMPREHENSIVE METABOLIC PANEL Sodium [Moles/volume] in Serum or Plasma 139 mEq/L 134 - 153 [facility] Potassium [Moles/volume] in Serum or Plasma 4.9 mEq/L 3.6 - 5.0 [facility] Chloride [Moles/volume] in Serum or Plasma 105 mEq/L 98 - 107 [facility] Carbon dioxide, total [Moles/volume] in Serum or Plasma 24 MEQ/L 22 - 30 [facility] Glucose [Mass/volume] in Serum or Plasma 244 MG/DL 65 - 110 H [facility] BUN 23 MG/DL 7 - [address] [facility] Creatinine [Mass/volume] in Serum or Plasma 0.9 MG/DL 0.7 - 1.5 [facility] BUN/CREAT 26 8 - 27 [facility] al Protein [Mass/volume] in Serum or Plasma 7.8 G/DL 6.3 - 8.2 [facility] Albumin [Mass/volume] in Serum or Plasma 4.0 G/DL 3.9 - 5.0 [facility] Globulin [Mass/volume] in Serum by calculation 3.8 GM/DL 2.4 - 3.2 H [facility] A/G RATIO 1.1 0.8 - 2.0 [facility] Calcium [Mass/volume] in Serum or Plasma 9.7 MG/DL 8.4 - 10.2 [facility] Bilirubin.total [Mass/volume] in Serum or Plasma <0.7 MG/DL 0.2 - 1.3 [facility] Alkaline phosphatase [Enzymatic activity/volume] in Serum or Plasma 59 U/L 38 - 126 [facility] Aspartate aminotransferase [Enzymatic activity/volume] in Serum or Plasma 20 U/L 5 - 40 [facility] Alanine aminotransferase [Enzymatic activity/volume] in Seru m or Plasma 18 U/L 7 - 56 [facility] Anion gap 3 in Serum or Plasma 10.0 mmol/L 8.0 - 16.0 [facility] AGE 69 yrs [facility] NON-AA GFR >60 mL/min [facility] ital AFR AMER GFR >60 mL/min [facility] Ho spital Male GFR In terprentation 20-49 yrs >60 mL/min Normal 50-59 yrs >56 mL/min Normal 60-69 yrs >49 mL/min Normal 70-79yrs >42 mL/min Normal 80 and above >35 mL/min Normal Female GFR Interpretation 20-39 yrs >60 mL/min Normal 40-49 yrs >58 mL/min Normal 50-59 yrs >51 mL/min Normal 60-69 yrs >45 mL/min Normal 70-79 yrs >39 mL/min Normal 80 and above >32 mL/min Normal ID Date Data Source [id number] 11/10/2019 12:12:00 PM [facility] Name Value Range Interpretation Code Description Data Khalida rce(s) Supporting Document(s) BNP 729 PG/ML 0 - 125 H [facility] al ID Date Data Source [id number] 11/10/2019 12:10:00 PM [facility] Name Value Range Interpretation Code Description Data Khalida rce(s) Supporting Document(s) TROPONIN T 0.01 NG/ML 0.00 - 0.10 [facility] spital TROPONIN T0.1 ng/ml Recommended as the c linical threshold value forTroponin T. ID Date Data Source [id number] 11/10/2019 11:48:00 AM [facility] Name Value Range Interpretation Code Description Data Khalida rce(s) Supporting Document(s) Prothrombin time (PT) 11.4 SECONDS 11.0 - 15.5 [facility] INR in Platelet poor plasma by Coagulation assay 0.82 0.93 - 1. 23 L [facility] aPTT in Blood by Coagulation assay 29.0 SECONDS 24.8 - 36.7 [facility] \\BLDo\\INR INTERPRETATION\\BLDx\\ Therapeutic range for Coumadin and related oral anticoagulants. - International Normalized Ratio (INR): 2.0 - 3.0 for Venous Thrombosis, Pulmonary Embolus, Tissue heart valves, Acute HI Atrial Fibrillation, Valvular heart disease and recurrent Systemic Embolism. - International Normalized Ratio (INR): 2.5 - 3.5 for Mechanical Prosthetic valve. \\BLDo\\PTT INTERPRETATION\\BLDx\\ Critical results for patients not on therapy: >50 seconds Critical results for patients on therapy: >119 seconds Therapeutic range for patients on therapy: 58 - 90 seconds Coag amauri dies from line draws may not be accurate due to Heparin and other interferences. ID Date Data Source [id number] 11/10/2019 11:40:00 AM [facility] Name Value Range Interpretation Code Description Data Khalida rce(s) Supporting Document(s) pH of Serum or Plasma 7.30 7.32 - 7.43 L [facility] pCO2 V 50.1 mm/HG 38.0 - 51.0 [facility] pO2 V 29.6 mm/HG 30.0 - 55.0 L [facility] Bicarbonate [Moles/volume] in Venous blood 24.1 meq/L 22.0 - 29.0 [facility] TCO2 V 25.6 meq/L 22.0 - 29.0 [facility] Base excess in Blood by calculation -2.7 -2.0 - 2.0 L [facility] O2 SAT V 48.0 % 40.0 - 85.0 [facility] Hosp ital ID Date Data Source [id number] 11/10/2019 11:40:00 AM [facility] Name Value Range Interpretation Code Description Data Khalida rce(s) Supporting Document(s) Lactate [Moles/volume] in Serum or Plasma 2.7 MMOL/L 0.2 - 2.2 H [facility] ID Date Data Source [id number] 10/14/2019 08:32:00 AM EST [facility] Name Value Range Interpretation Code Description Data Khalida rce(s) Supporting Document(s) Urea nitrogen [Mass/volume] in Serum or Plasma 18 mg/dL 9-23 N [facility] Sodium [Moles/volume] in Serum or Plasma 140 mmol/L 132-146 N [facility] Potassium [Moles/volume] in Serum or Plasma 4.5 mmol/L 3.5-5.5 N [facility] Chloride [Moles/volume] in Serum or Plasma 109 mmol/L 99-109 N [facility] Carbon dioxide, total [Moles/volume] in Serum or Plasma 26 mmol/L 20 -31 N [facility] Anion gap in Serum or Plasma 10 mmol/L 8-16 N [facility] Glucose [Mass/volume] in Serum or Plasma 169 mg/dL 74-106 Above high normal [facility] Creatinine 1.1 mg/dL 0.5-1.1 [facility] Glomerular filtration rate/1.73 sq M.pre dicted [Volume Rate/Area] in Serum or Plasma Greater Than 60 ABOVE 60 [facility] Alanine aminotransferase [Enzymatic acti vity/volume] in Serum or Plasma by With P-5'-P 16 U/L 10-49 N [facility] ital Aspartate aminotransferase [Enzymatic ac tivity/volume] in Serum or Plasma by With P-5'-P 15 U/L 0-33 N [facility] pital Alkaline phosphatase [Enzymatic activity/volume] in Serum or Plasma 65 U/L 45-129 N [facility] Calcium [Mass/volume] in Serum or Plasma 8.2 mg/dL 8.5-10.1 Below low normal [facility] Bilirubin.total [Mass/volume] in Serum or Plasma 0.3 mg/dL 0.3-1.2 [facility] Albumin [Mass/volume] in Serum or Plasma by Bromocresol purple (BCP) dye binding method 3.0 g/dL 3.2-4.8 Below low normal [facility] Protein [Mass/volume] in Serum or Plasma 7.1 g/dL 5.7-8.2 N [facility] ID Date Data Source [id number] 10/14/2019 08:43:00 AM EST [facility] Name Value Range Interpretation Code Description Data Khalida rce(s) Supporting Document(s) Leukocytes [#/volume] in Blood by Automated count 11.0 10*3/uL 4.45-10.71 Above high normal [facility] Erythrocytes [#/volume] in Blood by Automated count 4.45 10*6/uL 4.3- 6.1 N [facility] Hemoglobin [Moles/volume] in Blood 11.3 g/dL 13-18 Below low no rmal [facility] Hematocrit [Volume Fraction] of Blood by Automated count 36.8 % 42-52 Below low normal [facility] Erythrocyte mean corpuscular volume [Ent itic volume] in Cord blood by Automated count 82.7 fL 80-96 N [facility] ital Erythrocyte mean corpuscular hemoglobin [Entitic mass] by Automated count 25.4 pg 27-31 Below low normal [facility] pital Erythrocyte mean corpuscular hemoglobin concentration [Mass/volume] in Cord blood 30.7 g/dL 33-37 Below low normal [facility] Erythrocyte distribution width [Entitic volume] by Automated cou nt 16 % 11-15 Above high normal [facility] Platelets [#/volume] in Blood by Automated count 335 10*3/uL 130-472 N [facility] Platelet mean volume [Entitic volume] in Blood 10.6 fL 9.1-13.1 N [facility] Neutrophils/100 leukocytes in Blood by Automated count 70.4 % 41- 77 N [facility] Neutrophils [#/volume] in Blood by Automated count 7.8 U 1.7-7.6 Above high normal [facility] Lymphocytes/100 leukocytes in Blood by Automated count 13.2 % 14-46 Below low normal [facility] Lymphocytes [#/volume] in Blood by Automated count 1.5 U 0.6-4.6 [facility] Monocytes/100 leukocytes in Blood by Automated count 10.7 % 4-12 N [facility] Monocytes [#/volume] in Blood by Automated count 1.2 U 0.2-1.2 [facility] Eosinophils/100 leukocytes in Blood by Automated count 4.7 % 0-7 N [facility] Eosinophils [#/volume] in Blood by Automated count 0.5 U 0.0-0.5 N [facility] Basophils/100 leukocytes in Blood by Automated count 0.5 % 0.4-1 .3 N [facility] Basophils [#/volume] in Blood by Automated count 0.1 U 0.0-0.2 N [facility] NUCLEATED RED BLOOD CELL 0 % [facility] NUCLEATED RED BLOOD CELL# 0 [facility] Immature granulocytes [Presence] in Blood by Automated count 0-2 N [facility] Immature granulocytes [#/volume] in Blood by Automated count 0.1 U 0-0.1 N [facility] Manual Differential panel - Blood NO [facility] ID Date Data Source [id number] 10/15/2019 10:06:00 PM [facility] Name Value Range Interpretation Code Description Data Khalida rce(s) Supporting Document(s) Cyclic citrullinated peptide IgA+IgG Ab [Units/volume] in Serum or Plasma by Immunoassay >250 units 0-19 Above high normal [facility] Negative <20 Weak positive 20 - 39 Moderate positive 40 - 59 Strong positive >59Performed at: [address] [id number] Director: Fish Perez MD, Phone: [phone] ID Date Data Source [id number] 10/14/2019 08:32:00 AM [facility] Name Value Range Interpretation Code Description Data Khalida rce(s) Supporting Document(s) C reactive protein [Mass/volume] in Serum or Plasma 23.3 mg/L 0.0-5.0 Above high normal [facility] ID Date Data Source [id number] 10/14/2019 08:43:00 AM [facility] Name Value Range Interpretation Code Description Data Khalida rce(s) Supporting Document(s) Erythrocyte sedimentation rate by Westergren method 44 mm/hr 0-20 Above high normal [facility] @Reenter manual test result: 44@by Brianna Walton at 10/14/19 0843. ID Date Data Source [id number] 10/15/2019 10:06:00 PM EST [facility] Name Value Range Interpretation Code Description Data Khalida rce(s) Supporting Document(s) DNA double strand Ab [Units/volume] in Serum <1 [IU]/mL 0-9 [facility] Negat payton <5 Equivocal 5 - 9 Positive >9 Ribonucleoprotein extractable nuclear Ab [Units/volume] in S keegan <0.2 AI 0.0-0.9 [facility] Aguirre extractable nuclear Ab [Units/volume] in Serum <0.2 AI 0.0-0 .9 [facility] SCL-70 extractable nuclear Ab [Units/volume] in Serum <0.2 AI 0.0- 0.9 [facility] Sjogrens syndrome-A extractable nuclear Ab [Units/volume] in Serum 1.4 AI 0.0-0.9 Above high normal [facility] Sjogrens syndrome-B extractable nuclear Ab [Units/volume] in Serum <0.2 AI 0.0-0.9 [facility] Chromatin Ab [Units/volume] in Serum or Plasma <0.2 AI 0.0-0.9 [facility] Karyna-1 extractable nuclear Ab [Units/volume] in Serum <0.2 AI 0.0-0. 9 [facility] Centromere protein B Ab [Units/volume] in Serum <0.2 AI 0.0-0.9 [facility] Chart section Set Comment . [facility] Autoantibody Disea se Association Condition Frequency ---- ---------Antinuclear Antibody, SLE, mixed connectiveDirect (ONEAL-D) tissue diseases ---------dsDNA SLE 40 - 60% ---------Chromatin Drug induced SLE 90% SLE 48 - 97% ---------SSA (Ro) SLE 25 - 35% Sjogren's Syndrome 40 - 70% Lupus 100% ---------SSB (La) SLE 10% Sjogren's Syndrome 30% ---------Sm (anti-Aguirre) SLE 15 - 30% ---------PIGMENT SUPPLIER Mixed Connective Tissue Disease 95%(U1 nRNP, SLE 30 - 50%anti-ribonucleoprotein) P olymyositis and/or Dermatomyositis 20% ---------Scl-70 (antiDNA Scleroderma (diffuse) 20 - 35%topoisomerase) Crest 13% ---------Karyna-1 Polymyositis and/or Dermatomyositis 20 - 40% ---------Centromere B Scleroderma - Crest variant 80%Performed at: RN - [facility] [address] [id number] Director: Alexia Callaway MD, Phone: [phone] ID Date Data Source [id number] 10/14/2019 08:32:00 AM EST [facility] Name Value Range Interpretation Code Description Data Khalida rce(s) Supporting Document(s) Rheumatoid factor [Units/volume] in Serum by Nephelometry 13 8.0 [IU]/mL 0.0-14.0 Above high normal [facility] Procedure Social History Code Duration Value Status Description Data Source(s ) Smoking 09/24/2020 12:00:00 AM EST Patient is a former smoker completed Patient is a former smoker [facility] ([facility]) Smoking 08/05/2020 12:00:00 AM EST Former Smoker completed Former Smoker eCW1 (Formerly [facility]) Smoking 07/15/2020 12:00:00 AM EDT Former Smoker completed Former Smoker eCW1 (Formerly [facility]) Vital Signs ID Date Data Source UNK Name Value Range Interpretation Code Description Data Source(s) Body surface area Derived from formula 1.99 m2 1.99 m2 [facility] ([facility]) Body weight 94.349 kg 94.349 kg [facility] ([facility]) [place] body weight 130 [lb_av] 130 [lb_av] [facility] ([facility]) Body mass index (BMI) [Ratio] 35.7 kg/m2 35.7 k g/m2 [facility] ([facility]) Body weight 208.00 [lb_av] 208.00 [lb_av] [facility] ([facility]) Body height 64 [in_i] 64 [in_i] [facility] ([facility]) 5'4" Body temperature 97.9 [degF] 97.9 [degF] [facility] ([facility], ) Oxygen saturation in Arterial blood by Pulse oximetry 98 % 98 % [facility] ([facility], ) Heart rate 75 /min 75 /min [facility] ([facility]) Diastolic blood pressure 78 mm[Hg] 78 mm[Hg] [facility] ([facility]) Systolic blood pressure 142 mm[Hg] 142 mm[Hg] M [facility] ([facility]) Diastolic blood pressure 72 mm[Hg] 72 mm[Hg] eCW1 ([facility]ly [facility]) Systolic blood pressure 171 mm[Hg] 171 mm[Hg] e CW1 ([facility]) Body temperature 98.1 [degF] 98.1 [degF] eCW1 ( [facility]) Respiratory rate 19 /min 19 /min eCW1 ([facility]) Heart rate 59 /min 59 /min eCW1 ([facility]) Body mass index (BMI) [Ratio] 34.84 kg/m2 34.84 kg/m2 W1 ([facility]) Body height 64 [in_i] 64 [in_i] eCW1 ([facility]) Body weight kg eCW1 ([facility]) Body weight 203 [lb_av] 203 [lb_av] eCW1 ([facility]) Diastolic blood pressure 86 mm[Hg] 86 mm[Hg] eCW1 ([facility]) Systolic blood pressure 196 mm[Hg] 196 mm[Hg] e CW1 ([facility]) Body temperature 97.1 [degF] 97.1 [degF] eCW1 ( [facility]) Respiratory rate 17 /min 17 /min eCW1 ([facility]) Heart rate 96 /min 96 /min eCW1 ([facility]) Body mass index (BMI) [Ratio] 34.84 kg/m2 34.84 kg/m2 W1 ([facility]) Body height 64 [in_i] 64 [in_i] eCW1 ([facility]) Body weight kg eCW1 ([facility]) Body weight 203 [lb_av] 203 [lb_av] eCW1 ([facility]) Body mass index (BMI) [Ratio] 34.3 kg/m2 34.3 k g/m2 [facility] ([facility]) Body weight 200.00 [lb_av] 200.00 [lb_av] [facility] ([facility]) Body height 64 [in_i] 64 [in_i] [facility] ([facility]) 5'4" Respiratory rate 18 /min 18 /min [facility] ( [facility]) Body temperature 98.2 [degF] 98.2 [degF] [facility] ([facility]) Heart rate 59 /min 59 /min [facility] ([facility]) Diastolic blood pressure 70 mm[Hg] 70 mm[Hg] [facility] ([facility]) Systolic blood pressure 146 mm[Hg] 146 mm[Hg] M EDENT ([facility]) Body surface area Derived from formula 1.99 m2 1.99 m2 [facility] ([facility]) Body mass index (BMI) [Ratio] 35.9 kg/m2 35.9 k g/m2 [facility] ([facility]) Body height 64 [in_i] 64 [in_i] [facility] ([facility]) 5'4" pt states Body weight 94.802 kg 94.802 kg [facility] ([facility]) Body weight 209.00 [lb_av] 209.00 [lb_av] [facility] T ([facility]) Respiratory rate 16 /min 16 /min [facility] ( [facility]) Body temperature 97.5 [degF] 97.5 [degF] [facility] ([facility]) Heart rate 75 /min 75 /min [facility] ([facility]) Diastolic blood pressure 74 mm[Hg] 74 mm[Hg] [facility] ([facility]) Systolic blood pressure 148 mm[Hg] 148 mm[Hg] M EDENT ([facility]) Body surface area Derived from formula 2.00 m2 2.00 m2 [facility] ([facility]) Body weight 95.710 kg 95.710 kg [facility] ([facility]) [place] body weight 130 [lb_av] 130 [lb_av] [facility] ([facility]) Body mass index (BMI) [Ratio] 36.2 kg/m2 36.2 k g/m2 [facility] ([facility]) Body weight 211.00 [lb_av] 211.00 [lb_av] [facility] ([facility]) Body height 64 [in_i] 64 [in_i] [facility] ([facility]) 5'4" Body temperature 98.0 [degF] 98.0 [degF] [facility] Oxygen saturation in Arterial blood by Pulse oximetry 96 % 96 % [facility] ([facility]) Heart rate 76 /min 76 /min [facility] Diastolic blood pressure 62 mm[Hg] 62 mm[Hg] [facility] ([facility]) Systolic blood pressure 118 mm[Hg] 118 mm[Hg] [facility] Body mass index (BMI) [Ratio] 36.9 kg/m2 36.9 k g/m2 [facility] ([facility]) Body weight 215.00 [lb_av] 215.00 [lb_av] [facility] ([facility]) Body height 64 [in_i] 64 [in_i] [facility] ([facility]) 5'4" Heart rate 80 /min 80 /min [facility] ([facility]) Diastolic blood pressure 58 mm[Hg] 58 mm[Hg] [facility] ([facility]) Systolic blood pressure 124 mm[Hg] 124 mm[Hg] [facility] Body weight 215.00 [lb_av] 215.00 [lb_av] [facility] ([facility] Body height 64 [in_i] 64 [in_i] [facility] ([facility] 5'4" Oxygen saturation in Arterial blood by Pulse oximetry 94 % 94 % [facility] ([facility] Room Air Heart rate 82 /min 82 /min [facility] ([facility] Diastolic blood pressure 74 mm[Hg] 74 mm[Hg] [facility] ([facility] Systolic blood pressure 128 mm[Hg] 128 mm[Hg] M [facility] ([facility] Body mass index (BMI) [Ratio] 36.9 kg/m2 36.9 k g/m2 [facility] ([facility] Diastolic blood pressure 66 mm[Hg] 66 mm[Hg] eCW1 ([facility]) Systolic blood pressure 134 mm[Hg] 134 mm[Hg] e CW1 ([facility]) Body temperature 97.6 [degF] 97.6 [degF] eCW1 ( [facility]) Respiratory rate 18 /min 18 /min eCW1 ([facility]) Heart rate 85 /min 85 /min eCW1 ([facility]) Body mass index (BMI) [Ratio] 36.45 kg/m2 36.45 kg/m2 eCW1 ([facility]) Body height 64 [in_us] 64 [in_us] eCW1 ([facility]) Body weight Measured 212.4 [lb_av] 212.4 [lb_av ] eCW1 ([facility]) Body surface area Derived from formula 1.99 m2 1.99 m2 [facility] ([facility]) Body mass index (BMI) [Ratio] 35.9 kg/m2 35.9 k g/m2 [facility] ([facility]) Body height 64 [in_i] 64 [in_i] [facility] ([facility]) 5'4" pt states Body weight 94.972 kg 94.972 kg [facility] ([facility]) Body weight 209.38 [lb_av] 209.38 [lb_av] [facility] T ([facility]) Oxygen saturation in Arterial blood by Pulse oximetry 96 % 96 % [facility] ([facility]) Respiratory rate 16 /min 16 /min [facility] ( [facility]) Body temperature 97.9 [degF] 97.9 [degF] [facility] ([facility]) Heart rate 81 /min 81 /min [facility] ([facility]) Diastolic blood pressure 69 mm[Hg] 69 mm[Hg] [facility] ([facility]) Systolic blood pressure 136 mm[Hg] 136 mm[Hg] M [facility]ENT ([facility]) Body surface area 1.99 m2 1.99 m2 [facility] ([facility]) Body mass index (BMI) [Ratio] 36.4 kg/m2 36.4 k g/m2 [facility] ([facility] Body weight 212.00 [lb_av] 212.00 [lb_av] [facility] ([facility] Body height 64 [in_i] 64 [in_i] [facility] ([facility] 5'4" Oxygen saturation in Arterial blood by Pulse oximetry 90 % 90 % [facility] ([facility] Heart rate 89 /min 89 /min [facility] ([facility] Diastolic blood pressure 76 mm[Hg] 76 mm[Hg] [facility] ([facility] Systolic blood pressure 130 mm[Hg] 130 mm[Hg] M [facility] ([facility] Body surface area 2.03 m2 2.03 m2 [facility] ([facility]) Body mass index (BMI) [Ratio] 37.4 kg/m2 37.4 k g/m2 [facility] ([facility]) Body height 64 [in_i] 64 [in_i] [facility] ([facility]) 5'4" pt states Body weight 98.885 kg 98.885 kg [facility] ([facility]) Body weight 218.00 [lb_av] 218.00 [lb_av] [facility] T ([facility]) Oxygen saturation in Arterial blood by Pulse oximetry 97 % 97 % [facility] ([facility]) Respiratory rate 18 /min 18 /min [facility] ( [facility]) Body temperature 98.7 [degF] 98.7 [degF] [facility] ([facility]) Heart rate 87 /min 87 /min [facility] ([facility]) Diastolic blood pressure 71 mm[Hg] 71 mm[Hg] [facility] ([facility]) Systolic blood pressure 154 mm[Hg] 154 mm[Hg] M [facility]ENT ([facility]) ID Date Data Source [id number] 11/20/2019 10:05:41 AM EST [facility] Name Value Range Interpretation Code Description Data Source(s) WEIGHT RECORDED 211.40 pounds 211.40 pounds [facility] Height 64 Inches 064 Inches [facility] WEIGHT RECORDED 211.30 pounds 211.30 pounds [facility] Height 64 Inches 064 Inches [facility] ID Date Data Source [id number] 11/20/2019 10:05:40 AM EST [facility] Name Value Range Interpretation Code Description Data Source(s) WEIGHT RECORDED 240.00 pounds 240.00 pounds [facility] Height 65 Inches 065 Inches [facility] Patient Treatment Plan of Care Planned Activity Planned Date Details Description Data Source (s) Hydroxychloroquine Sulfate 200 MG Oral Tablet [[place]] 11/27/2019 12:00:00 AM EST eCW1 ([facility]) pantoprazole 40 MG Delayed Release Oral Tablet 03/05/2019 12:00:00 AM [facility] 12 HR Guaifenesin 600 MG Extended Release Oral Tablet 03/04/2019 12:00:00 AM [facility] ospital Furosemide 20 MG Oral Tablet 03/04/2019 12:00:00 AM [facility]
--- NOTE | 2020-11-14 15:14 | HPEPDOC ---
General Date of Admission 11/14/20 Date of Service: Nov 14, 2020 Chief Complaint The patient is a 70-year-old male admitted with a reason for visit of Dehydration,Hyperkalemia,Kidney Failure. Source: Patient Exam Limitations: No limitations Timing/Duration: Day(s) Severity: Moderate History of Present Illness Patient is 70 years old male with past history of rheumatoid arthritis, diabetes, hypertension, Crohn diseases, hepatitis C was transferred from the [facility] with oliguria. Patient stated that for past 2 days he had been having high output from his colostomy with polydipsia. Patient developed anuria for 2 days, today he had small amount of urine about 20 mL. Also, patient was found to have leukocytosis of 15.7, glucose level of 312, creatinine 3.9, potassium 6.8, anion gap 19, VBG showed pH 7.1 CO2 54, bicarbonate 11. Home Medications Scheduled Alogliptin Benzoate (Alogliptin) 6.25 Mg Tablet, 6.25 MG PO DAILY, (Reported) Aspirin (Aspirin EC) 81 Mg Tablet.dr, 81 MG PO Q2D, (Reported) Budesonide/Formoterol (Symbicort 160-4.5 Mcg Inhaler) 60 Puff/Inhaler Aers, 2 PUFF INH BID, (Reported) Cholecalciferol (Vitamin D3) (Vitamin D3) 1,000 Unit Tablet, 1,000 UNITS PO DAILY, (Reported) Hydrochlorothiazide (Hydrochlorothiazide) 12.5 Mg Tablet, 12.5 MG PO DAILY, (Reported) Insulin Glargine,Hum.rec.anlog (Lantus Solostar) 100 Unit/Ml Inj, 12 UNITS SC BID, (Reported) Insulin Human Lispro (Novolog) 100 U/Ml Inj, 1 DOSE SC WM, (Reported) PER SLIDING SCALE Metoprolol Succinate (Metoprolol Succinate) 25 Mg Tab.er.24h, 25 MG PO DAILY, (Reported) Multivitamins (Thera M Plus Tablet) 1 Each Tablet, 1 TAB PO QHS, (Reported) Ramipril (Ramipril) 10 Mg Cap, 10 MG PO QHS, (Reported) Scheduled PRN Diphenoxylate HCl/Atropine (Diphenoxylate-Atrop 2.5-0.025) 1 Ea Tab, 1 EA PO QID PRN for AFTER EACH LOOSE STOOL, (Reported) Fluticasone Propionate (Flonase Allergy Relief) 50 Mcg/Act Spr, 2 SPRAY NARES DAILY PRN for CONGESTION, (Reported) Prednisone (Prednisone) 5 Mg Tab, 5 MG PO DAILY PRN for RHUEMATOID ARTHRITIS, (Reported) Allergies Coded Allergies: No Known Allergies (Unverified , 12/19/18) Past Medical History Medical History RHEUMATOID ARTHRITIS, asthma DIABETES HIGH BLOOD PRESSURE HYPERLIPIDEMIA CROHNS DISEASE HEPATITIS C Surgical History HERNIAS COLECTOMY J- POUCH-13YRS AGO TOTAL KNEES-BILAT SINUS CATARACT-BILAT BACK COLONSCOPIES ILEOSTOMY 2020 Social History * Smoker: Denies Alcohol: Denies Drugs: denies A-FIB/CHADSVASC A-FIB History Current/History of A-Fib/PAF?: No Current PO Anticoag Therapy: No Review of Systems Constitutional: Reports: Chills; Denies: Fever Eyes: Denies: Pain ENT: Denies: Head Aches Skin: Denies: Rash, Lesions Pulmonary: Denies: Dyspnea Cardiovascular: Denies: Chest Pain Gastrointestinal: Reports: Nausea Genitourinary: Denies: Dysuria, Frequency Hematologic: Denies: Bruising Endocrine: Reports: Polydipsia, Polyphagia Musculoskeletal: Denies: Neck Pain Neurological: Denies: Weakness Psych: Reports: Mood Normal Physical Examination General Exam: Positive: Alert, Cooperative Eye Exam: Positive: PERRLA ENT Exam: Positive: Atraumatic Neck Exam: Positive: Supple; Negative: JVD Telemetry: Positive: No significant arrhythmia Abdomen Exam: Positive: BS Hyperactive Extremity Exam: Negative: Clubbing Skin Exam: Positive: Nl turgor and temperature Neuro Exam: Positive: Strength at 5/5 X4 ext Psych Exam: Positive: Mental status NL Vital Signs hr 87 Assessment/Plan Patient is 70 years old male with past history of rheumatoid arthritis, diabetes, hypertension, Crohn diseases, hepatitis C was transferred from the [facility] with oliguria. Patient stated that for past 2 days he has been having high output from his colostomy with polydipsia. Patient developed anuria for 2 days, today he had small amount of urine about 20 mL. Also, patient was found to have leukocytosis of 15.7, glucose level of 312, creatinine 3.9, potassium 6.8, anion gap 19, VBG showed pH 7.1 CO2 54, bicarbonate 11 Problems (1) Acute kidney injury Status: Acute Problem Text: Most likely secondary to dehydration IV fluids Appreciate/agree with glass cleaner consult Will check CBC, BMP (2) Dehydration Status: Acute Problem Text: Most likely secondary to hyperglycemia Patient had elevated glucose level to 312 with anion gap of 19 (3) Diabetes mellitus Status: Chronic Problem Text: Insulin sliding scale Detemir twice a day Diabetes diet (4) Hypertension Status: Chronic Problem Text: Continue home cardioprotective medications (5) Hyperlipidemia Status: Chronic Problem Text: Continue statin (6) Hyperkalemia Status: Acute Problem Text: EKG Bicarbonate drip D50 and 10 units of insulin IV Albuterol Monitor potassium every 2 hours Plan / VTE VTE Prophylaxis Ordered?: Yes KORINA FLOWERS DO Nov 14, 2020 15:14
[2020-11-14 15:31] LABS: BASO % 0.3 % (0.0-1.0); EOS # 0.1 10^3/uL (0.0-0.5); EOS % 0.3 % (0.0-3.0); HEMATOCRIT 36.8 % (42.0-52.0); HEMOGLOBIN 11.3 g/dl (13.5-17.5); LYMPH # 1.5 10^3/uL (1.5-5.0); LYMPH % 9.8 % (24.0-44.0); MEAN CORPUSCULAR HEMOGLOBIN 28.2 pg (27.0-33.0); MEAN CORPUSCULAR HGB CONC 30.7 g/dl (32.0-36.5); MEAN CORPUSCULAR VOLUME 91.8 fl (80.0-96.0); MONO # 1.2 10^3/uL (0.0-0.8); MONO % 7.6 % (2.0-8.0); NEUTROPHILS # 12.4 10^3/uL (1.5-8.5); NEUTROPHILS % 81.3 % (36.0-66.0); PLATELET COUNT, AUTOMATED 322 10^3/uL (150-450); RED BLOOD COUNT 4.01 10^6/uL (4.30-6.10); WHITE BLOOD COUNT 15.2 10^3/uL (4.0-10.0)
[2020-11-14] MEDS ORDERED: D31000TA2 PO (15:44)
[2020-11-14] MEDS ORDERED: HYDR12.55 PO (15:44)
[2020-11-14] MEDS ORDERED: VITMTA PO (15:44)
[2020-11-14] MEDS ORDERED: METO1TAB32 PO (15:44)
[2020-11-14] MEDS ORDERED: ALOG6.25 PO (15:44)
[2020-11-14] MEDS ORDERED: ASPI81TA26 PO (15:44)
[2020-11-14 15:52] LABS: HEMOGLOBIN A1c 7.6 %
[2020-11-14] MEDS ORDERED: NS 1,000 ML IV SCH (16:00)
[2020-11-14 16:21] LABS: ALBUMIN 3.5 GM/DL (3.2-5.2); BILIRUBIN,TOTAL 0.2 MG/DL (0.2-1.0); CALCIUM LEVEL 8.3 MG/DL (8.8-10.2); CREATININE FOR GFR 3.27 MG/DL (0.70-1.30); MAGNESIUM LEVEL 2.2 MG/DL (1.8-2.4); POTASSIUM SERUM 6.7 MEQ/L (3.5-5.1); TOTAL PROTEIN 7.6 GM/DL (6.4-8.2)
[2020-11-14] MEDS ORDERED: DEXTROSE 50% 50 ML SYRINGE IV STA (16:44)
[2020-11-14] MEDS ORDERED: HumuLIN R (REGULAR) INSULIN (NovoLIN R) **100U/ML** PER UNIT IV STA (16:44)
[2020-11-14] MEDS ORDERED: CALCIUM GLUCONATE 1,000 MG in D5W MINI-BAG PLUS 100 ML IV ONE (17:00)
[2020-11-14] MEDS ORDERED: ALBUTEROL SULFATE 2.5 MG/0.5 ML INH NEB SOLN NEB ONE (17:00)
[2020-11-14] MEDS: SODIUM BICARBONATE 75 MEQ in NS 0.45% 1,000 ML IV SCH (17:54)
[2020-11-14] MEDS: HumaLOG INSULIN (NovoLOG) PER UNIT SC SCH ×2 (17:54→20:17)
[2020-11-14] MEDS ORDERED: FLUTICASONE PROP 0.05% NASAL SPRAY 16 GM (FLONASE) NARES PRN (18:30)
[2020-11-14] MEDS ORDERED: predniSONE 5 MG TAB PO PRN (18:30)
[2020-11-14] MEDS ORDERED: LOMOTIL 2.5MG/0.025MG TABLET PO PRN (18:30)
[2020-11-14] MEDS: SYMBICORT 160/4.5MCG INHALER 6GM INH SCH (19:39)
[2020-11-14] MEDS ORDERED: NS 1,000 ML IV ONE (19:45)
[2020-11-14 20:00] VITALS: BP 143/69
[2020-11-14] MEDS: HEPARIN SOD (PORCINE) 5000UNITS/ML 1ML VIAL/SYRINGE SQ SCH (20:06)
[2020-11-14] MEDS: LEVEMIR (INSULIN DETEMIR) 1 UNITS/0.01ML SC SCH (20:06)
[2020-11-14] MEDS: ASPIRIN 81 MG ENTERIC TAB PO SCH (20:07)
[2020-11-14 20:17] LABS: POTASSIUM SERUM 5.5 MEQ/L (3.5-5.1)
[2020-11-14] MEDS ORDERED: LEVEMIR (INSULIN DETEMIR) 1 UNITS/0.01ML SC SCH (21:00)
[2020-11-14 21:20] LABS: ALBUMIN 3.4 GM/DL (3.2-5.2); CALCIUM LEVEL 8.4 MG/DL (8.8-10.2); CREATININE FOR GFR 3.18 MG/DL (0.70-1.30); GLOMERULAR FILTRATION RATE 20.6 (>42); PHOSPHORUS LEVEL 5.8 MG/DL (2.5-4.9)
[2020-11-15] VITALS: BP 135/66
[2020-11-15 04:00] VITALS: BP 137/63
[2020-11-15 04:25] LABS: HEMATOCRIT 35.1 % (42.0-52.0); HEMOGLOBIN 10.8 g/dl (13.5-17.5); MEAN CORPUSCULAR HEMOGLOBIN 28.3 pg (27.0-33.0); MEAN CORPUSCULAR HGB CONC 30.8 g/dl (32.0-36.5); MEAN CORPUSCULAR VOLUME 91.9 fl (80.0-96.0); PLATELET COUNT, AUTOMATED 293 10^3/uL (150-450); RED BLOOD COUNT 3.82 10^6/uL (4.30-6.10); WHITE BLOOD COUNT 11.6 10^3/uL (4.0-10.0)
[2020-11-15 04:42] LABS: POTASSIUM SERUM 5.7 MEQ/L (3.5-5.1)
[2020-11-15 06:49] LABS: ALBUMIN 3.4 GM/DL (3.2-5.2); BILIRUBIN,TOTAL 0.2 MG/DL (0.2-1.0); CALCIUM LEVEL 8.7 MG/DL (8.8-10.2); CREATININE FOR GFR 2.52 MG/DL (0.70-1.30); MAGNESIUM LEVEL 2.2 MG/DL (1.8-2.4); POTASSIUM SERUM 5.5 MEQ/L (3.5-5.1); TOTAL PROTEIN 7.3 GM/DL (6.4-8.2)
[2020-11-15 07:09] LABS: AMORPHOUS SEDIMENT SMALL (NEGATIVE); APPEARANCE, URINE HAZY (CLEAR); BACTERIA, URINE AUTO 1+ (NEGATIVE); BILIRUBIN, URINE AUTO NEGATIVE (NEGATIVE); BLOOD, URINE BLOOD NEGATIVE (NEGATIVE); COLOR, URINE YELLOW (YELLOW); GLUCOSE, URINE (UA) AUTO NEGATIVE (NEGATIVE); KETONE, URINE AUTO NEGATIVE (NEGATIVE); LEUKOCYTE ESTERASE, URINE AUTO 3+ (NEGATIVE); MUCUS, URINE SMALL (NEGATIVE); NITRITE, URINE AUTO NEGATIVE (NEGATIVE); PROTEIN, URINE AUTO NEGATIVE (NEGATIVE); RBC, URINE AUTO 3 /HPF (0-3); SQUAMOUS EPITHELIAL CELL UR AU 0 /HPF (0-6); UROBILINOGEN, URINE AUTO 0.2 mg/dL (0.0-2.0); WBC, URINE AUTO 40 /HPF (0-3)
[2020-11-15 07:10] VITALS: BP 137/69
[2020-11-15 07:35] LABS: CHLORIDE,RANDOM URINE 23 MEQ/L; SODIUM,RANDOM URINE < 10 MEQ/L
[2020-11-15] MEDS: SYMBICORT 160/4.5MCG INHALER 6GM INH SCH ×2 (07:40→19:35)
[2020-11-15] MEDS: SODIUM BICARBONATE 75 MEQ in NS 0.45% 1,000 ML IV SCH ×2 (07:42→17:28)
[2020-11-15] MEDS: HumaLOG INSULIN (NovoLOG) PER UNIT SC SCH ×4 (08:04→20:04)
[2020-11-15] MEDS: LEVEMIR (INSULIN DETEMIR) 1 UNITS/0.01ML SC SCH ×2 (08:04→20:34)
[2020-11-15] MEDS: VITAMIN D 1,000 INTERNATIONAL UNITS TABLET PO SCH (08:05)
[2020-11-15] MEDS: HEPARIN SOD (PORCINE) 5000UNITS/ML 1ML VIAL/SYRINGE SQ SCH ×2 (08:05→20:34)
[2020-11-15] MEDS: METOPROLOL SUCC *XL* 25MG TAB (TopROL *XL*) PO SCH (08:05)
[2020-11-15] MEDS ORDERED: NS 1,000 ML IV ONE (09:30)
--- NOTE | 2020-11-15 10:04 | IPNPDOC ---
Text Note Date of Service The patient was seen on 11/15/20. NOTE Subjective: No any evidence overnight. Patient stated that he feels better today Objective: GENERAL APPEARANCE: NAD HEENT: no scleral icterus, no JVD, EOMI CARDIOVASCULAR: S1S2 LUNGS: CTA ABDOMEN: soft & not tender w palpitation, colostomy in place MUSCULOSKELETAL: no cyanosis, no swelling INTEGUMENT: no generalized pallor NEUROLOGICAL: cranial nerve function from 2-12 intact intact, follows commands, speech not dysarthric Assessment/Plan Patient is 70 years old male with past history of rheumatoid arthritis, diabetes, hypertension, Crohn diseases, hepatitis C was transferred from the [facility] with oliguria. Patient stated that for past 2 days he has been having high output from his colostomy with polydipsia. Patient developed anuria for 2 days, today he had small amount of urine about 20 mL. Also, patient was found to have leukocytosis of 15.7, glucose level of 312, creatinine 3.9, potassium 6.8, anion gap 19, VBG showed pH 7.1 CO2 54, bicarbonate 11 Problems (1) Acute kidney injury Improved Most likely secondary to dehydration Continue IV fluids (2) Dehydration Most likely secondary to hyperglycemia Patient had elevated glucose level to 312 with anion gap of 19 on admission Today glucose level under control (3) Diabetes mellitus Insulin sliding scale Detemir twice a day Diabetes diet (4) Hypertension Continue home cardioprotective medications (5) Hyperlipidemia Continue statin (6) Hyperkalemia Improved Continue Bicarbonate drip VS,Fishbone, I+O VS, Fishbone, I+O Laboratory Tests 11/14/20 15:21 11/14/20 17:55 11/14/20 19:50 11/14/20 22:02 11/14/20 23:55 11/15/20 02:05 11/15/20 04:16 11/15/20 05:58 Vital Signs Date Time Temp Pulse Resp B/P (MAP) Pulse Ox O2 Delivery O2 Flow Rate FiO2 11/15/20 08:05 88 137/69 11/15/20 07:10 97.2 18 97 Room Air I&O- Last 24 Hours up to 6 AM 11/15/20 06:00 Intake Total 300 ml Output Total 2775 ml Balance -2475 ml KORINA FLOWERS DO Nov 15, 2020 10:04
[2020-11-15 11:23] VITALS: BP 149/67
[2020-11-15] MEDS: cefTRIAXone SOD 1 GM in D5W MINI-BAG PLUS 50 ML IV SCH (12:10)
[2020-11-15 12:47] LABS: PERCENT SATURATION 39.9 % (19.7-50.0)
--- NOTE | 2020-11-15 14:40 | ECGEPIP ---
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
[2020-11-15 15:28] VITALS: BP 128/59
[2020-11-15 20:00] VITALS: BP 150/70
[2020-11-16] VITALS (8 sets, daily range): BP systolic 129–156; BP diastolic 63–82
[2020-11-16] MEDS: SODIUM BICARBONATE 75 MEQ in NS 0.45% 1,000 ML IV SCH ×3 (03:49→22:24)
[2020-11-16] MEDS: SYMBICORT 160/4.5MCG INHALER 6GM INH SCH ×2 (07:21→19:51)
[2020-11-16] MEDS: HumaLOG INSULIN (NovoLOG) PER UNIT SC SCH ×4 (07:30→21:00)
[2020-11-16] MEDS: VITAMIN D 1,000 INTERNATIONAL UNITS TABLET PO SCH (08:25)
[2020-11-16] MEDS: HEPARIN SOD (PORCINE) 5000UNITS/ML 1ML VIAL/SYRINGE SQ SCH ×2 (08:25→21:05)
[2020-11-16] MEDS: METOPROLOL SUCC *XL* 25MG TAB (TopROL *XL*) PO SCH (08:26)
[2020-11-16] MEDS: ASPIRIN 81 MG ENTERIC TAB PO SCH (08:26)
[2020-11-16 08:28] LABS: ALBUMIN 3.7 GM/DL (3.2-5.2); BILIRUBIN,TOTAL 0.2 MG/DL (0.2-1.0); CALCIUM LEVEL 8.6 MG/DL (8.8-10.2); CREATININE FOR GFR 1.72 MG/DL (0.70-1.30); GLOMERULAR FILTRATION RATE 41.9 (>42); MAGNESIUM LEVEL 2.1 MG/DL (1.8-2.4); PHOSPHORUS LEVEL 4.1 MG/DL (2.5-4.9); POTASSIUM SERUM 4.4 MEQ/L (3.5-5.1); TOTAL PROTEIN 7.8 GM/DL (6.4-8.2)
[2020-11-16] MEDS ORDERED: LEVEMIR (INSULIN DETEMIR) 1 UNITS/0.01ML SC ONE (09:00)
--- NOTE | 2020-11-16 09:25 | IPN ---
NEPHROLOGY PROGRESS NOTE DATE: 11/15/2020 SUBJECTIVE: Patient was seen and examined at the bedside today morning. His labs were all reviewed. He continues to be on bicarbonate-containing intravenous (IV) fluid hydration. Renal function is gradually improving. Creatinine has improved to 2.5 today. He still has metabolic acidosis and mild hyperkalemia and patient still complains of mild tremors of bilateral upper extremities. OBJECTIVE: VITAL SIGNS: Temperature 97.5 degrees Fahrenheit, blood pressure 149/67, pulse 80, respiratory rate 80, saturating 99% on room air. INTAKE AND OUTPUT: Urine output recorded as 1 liter so far today since overnight and stool output is 1500 mL. Weight in the bed scale is not available. PHYSICAL EXAMINATION: GENERAL: Patient is awake, alert, oriented times three, laying in bed, no apparent distress. HEAD AND NECK EXAM: Extraocular muscles intact. Pupils equally round and reactive to light. Mucous membranes are moist. Neck is supple. There is no jugular venous distention (JVD). CARDIOVASCULAR: S1, S2. Regular rate. No edema of the bilateral lower extremities. RESPIRATORY: Chest is clear to auscultation bilaterally. Bilateral equal air entry. No rales or rhonchi. ABDOMEN: Soft. He has ventral abdominal hernia. He has left lower quadrant ileostomy and there is greenish liquid stool in the bag. MUSCULOSKELETAL: No clubbing or cyanosis. Pulses are 2+. CENTRAL NERVOUS SYSTEM (RN CORRECTIONS): No focal deficits apart from mild tremor on rest. LABORATORY REVIEW: CBC showed a WBC 11.6, hemoglobin 10.8, platelets 293. Urinalysis done today showed 3+ leukocyte esterase, 1+ bacteria. Urine random creatinine was 121. Random sodium was less than 10 and chloride is 23 CURRENT INPATIENT MEDICATIONS: Patient was given another bolus of normal saline, 1 liter. He continues to be on bicarbonate-containing fluid at 120 mL an hour. No other significant change in the medication today. ASSESSMENT AND PLAN: 1. Acute nonoliguric renal failure. It is secondary to dehydration and volume depletion. He is getting bicarbonate-containing fluid because fractional excretion of sodium is really low, urine random sodium less than 10. Patent is still volume depleted. One liter of normal saline bolus was ordered. He was also encouraged to drink liberally orally as well. 2. Hyperkalemia. It is secondary to renal failure, volume depletion and metabolic acidosis. Potassium is staying stable at 5.5. Continue low potassium diet and continue IV fluid hydration. 3. Normal anion gap metabolic acidosis. It is secondary to renal failure and ileostomy diarrhea. Continue bicarbonate-containing fluids. 4. Anemia. Hemoglobin is 10.8. Patient most likely has iron deficiency. I am going to check his iron levels and give him IV iron if the levels are low. 5. Leukocytosis and elevated white cell count in the urine. There is a possibility that the patient might have a urinary tract infection (UTI) in the urine. Urine culture is being sent. Patient will be given a dose of IV Rocephin as well.
--- NOTE | 2020-11-16 10:39 | IPNPDOC ---
Text Note Date of Service The patient was seen on 11/16/20. NOTE Subjective: No any evidence overnight. Patient denies fever, chills, nausea, vomiting, diarrhea or dysuria. Objective: GENERAL APPEARANCE: NAD HEENT: no scleral icterus, no JVD, EOMI CARDIOVASCULAR: S1S2 LUNGS: CTA ABDOMEN: soft & not tender w palpitation, colostomy in place MUSCULOSKELETAL: no cyanosis, no swelling INTEGUMENT: no generalized pallor NEUROLOGICAL: cranial nerve function from 2-12 intact intact, follows commands, speech not dysarthric Assessment/Plan Patient is 70 years old male with past history of rheumatoid arthritis, diabetes, hypertension, Crohn diseases, hepatitis C was transferred from the [facility] with oliguria. Patient stated that for past 2 days he has been having high output from his colostomy with polydipsia. Patient developed anuria for 2 days, today he had small amount of urine about 20 mL. Also, patient was found to have leukocytosis of 15.7, glucose level of 312, creatinine 3.9, potassium 6.8, anion gap 19, VBG showed pH 7.1 CO2 54, bicarbonate 11 Problems (1) Acute kidney injury Improved Most likely secondary to dehydration Continue IV fluids (2) Dehydration Most likely secondary to hyperglycemia Patient had elevated glucose level to 312 with anion gap of 19 on admission Today glucose level under control (3) Diabetes mellitus Insulin sliding scale Detemir twice a day Diabetes diet (4) Hypertension Continue home cardioprotective medications (5) Hyperlipidemia Continue statin (6) Hyperkalemia Resolved UTI UA showed pyuria Ceftriaxone Iv started VS,Fishbone, I+O VS, Fishbone, I+O Laboratory Tests 11/16/20 07:43 Vital Signs Date Time Temp Pulse Resp B/P (MAP) Pulse Ox O2 Delivery O2 Flow Rate FiO2 11/16/20 08:26 103 156/82 11/16/20 08:00 97.4 18 97 Room Air I&O- Last 24 Hours up to 6 AM 11/16/20 05:59 Intake Total 6592.5 ml Output Total 4925 ml Balance 1667.5 ml KORINA FLOWERS DO Nov 16, 2020 10:39
[2020-11-16 10:58] LABS: CORTISOL AM 13.3 UG/DL (4.3-22.4)
--- NOTE | 2020-11-16 11:45 | CR ---
CONSULTATION DATE: 11/14/2020 REQUESTING PHYSICIAN: Vladislav Van DO CONSULTING PHYSICIAN: Norma Bishop M.D. REASON FOR CONSULTATION: Management of acute renal failure and hyperkalemia. CHIEF COMPLAINT: The patient was transferred from [facility] because of acute renal failure and electrolyte abnormalities. HISTORY OF PRESENT ILLNESS: Mr. Cleveland Buenrostro is a 70-year-old male with past medical history of diabetes mellitus type 2, hypertension, rheumatoid arthritis, multiple other comorbidities as mentioned below. He has history of ulcerative colitis. He has ileostomy status. For the last two days, he was having more output from his ostomy. He was feeling very thirsty and dehydrated and felt like his urine output was decreasing. He presented to the [facility] emergency room. He was found to have leukocytosis and acute renal failure with a creatinine of 3.9 and a potassium of 6.8. He was transferred to [facility] for further help in the management of acute renal failure and metabolic acidosis. Nephrology service was called for further help in the management of this patient. The patient needed my immediate attention. I saw and evaluated the patient at the bedside in the evening today. He was getting bicarb containing IV fluids and he reported that he is feeling slightly better today as compared with yesterday. He still complained of shaking of the bilateral upper extremities. PAST MEDICAL HISTORY: 1. Rheumatoid arthritis. 2. Diabetes mellitus type 2. 3. Hypertension. 4. Hyperlipidemia. 5. Ulcerative colitis. 6. History of hep C in the past. PAST SURGICAL HISTORY: 1. History of hernia. 2. History of total colectomy and J pouch about 13 years ago and later on, ileostomy was placed in 2019. 3. He has history of cataract surgery in the past as well. ALLERGIES: No known drug allergies. FAMILY HISTORY: No significant family history of end-stage renal disease requiring hemodialysis. SOCIAL HISTORY: The patient denies any smoking, illicit drug abuse or alcohol abuse. REVIEW OF SYSTEMS: Constitutional: The patient reports weak and tired. He does report chills. Eyes: He denies any blurry vision, double vision. ENT: He denies any dysphagia, odynophagia. Cardiovascular: He denies any chest pain or palpitation. Respiratory: He denies any shortness of breath. GI: He reports nausea and decreased output from the ileostomy. Genitourinary: He reports decreased urine output. Musculoskeletal: He reports muscle aches. Psych: He denies any depression or anxiety. DIRECTOR INVESTMENT BANKING: He reports tremors of the bilateral upper extremities. Endocrine: He reports feeling very thirsty. He has history of type 2 diabetes as well. Hematological/oncological: He denies any easy bleeding or bruising. All other review of systems is negative. PHYSICAL EXAMINATION: GENERAL: The patient is awake, alert, oriented x3, lying in bed. VITAL SIGNS: Temperature is 98.5 degrees Fahrenheit, blood pressure 126/58, pulse is 101, respiratory rate of 18, saturating 95% on room air. HEAD AND NECK: Extraocular muscles are intact. Pupils are equally round and reactive to light. Mucous membranes are moist. Neck is supple. There is no JVD. CARDIOVASCULAR: S1, S2, regular rate. EXTREMITIES: No edema of the bilateral lower extremities. RESPIRATORY: Chest is clear to auscultation bilaterally. Bilateral equal air entry. No rales or rhonchi. ABDOMEN: Soft. He has ventral hernia. Old surgical scars in the abdomen were noted. He has left lower quadrant ileostomy as well. There are greenish liquid stools in the bag. GENITOURINARY: Bladder is not full. No hernia was noted in the groin. MUSCULOSKELETAL: No clubbing or cyanosis. Pulses are 2+. DIRECTOR INVESTMENT BANKING: No focal deficits. 5/5 strength in all extremities. LABORATORY DATA: CBC showed a WBC of 15.2, hemoglobin 11.3, platelets 322. BMP on arrival showed sodium 132, potassium 6.7, chloride 109, bicarbonate of 12, BUN 118, creatinine of 3.2. A1c of 7.6, calcium 8.3. Urinalysis is not available. HOME MEDICATIONS: The patient's home medications include: 1. Alogliptin 6.25 mg p.o. daily. 2. Aspirin 81 mg daily. 3. Symbicort inhaler two puffs twice a day. 4. Vitamin D 1000 units p.o. daily. 5. Lomotil p.r.n. 6. Fluticasone p.r.n. 7. Hydrochlorothiazide 12.5 mg p.o. daily. 8. Insulin Lantus 12 units subcu twice a day. 9. Insulin Lispro sliding scale. 10. Metoprolol 25 mg p.o. daily. 11. Multivitamin. 12. Prednisone 5 mg daily. 13. Ramipril 10 mg q.h.s. CURRENT INPATIENT MEDICATIONS: The patient's medications were all reviewed by myself. He is gettin. Half normal saline plus sodium bicarbonate at 90 mL an hour. I changed the rate to 120 mL an hour. He was also given a bolus of normal saline one liter in the evening. 2. He was given a dose of IV calcium gluconate. 3. The patient is on albuterol p.r.n. 4. Aspirin 81 mg p.o. daily. 5. Insulin Levemir 20 units subcu twice a day. 6. Insulin lispro sliding scale. 7. Metoprolol 25 mg p.o. daily. 8. Prednisone 5 mg p.o. daily. 9. Vitamin D 1000 units p.o. daily. ASSESSMENT AND PLAN: 1. Acute renal disease. The patient has acute renal failure secondary to dehydration. Use of thiazide and JESSICA inhibitors at home. The patient is volume depleted. He was already given normal saline bolus. He has been started on bicarb containing fluids. Continue the bicarb drip overnight. No urgent need of hemodialysis at this time. 2. Hyperkalemia. It is secondary to use of JESSICA inhibitors, dehydration and metabolic acidosis. Potassium level is stable and improving and it should get better once the patient's urine output starts improving. 3. Normal anion gap metabolic acidosis. It is secondary to a combination of ileostomy, diarrhea and acute renal failure. Continue bicarb containing fluids at this time. 4. Hyperphosphatemia. It is secondary to acute renal failure. Phosphorus level should improve with improvement in the renal function. 5. Diabetes mellitus type 2. Okay to continue insulin at this time. Avoid use of metformin in this patient with acute renal failure. 6. Hyponatremia. The patient has hypovolemic hyponatremia. Sodium level is improving with IV fluid hydration. Thank you for involving me in the care of this patient. I shall be happy to follow the patient along with you tomorrow morning.
[2020-11-16] MEDS ORDERED: NS 500 ML IV ONE (12:00)
[2020-11-16] MEDS: LOMOTIL 2.5MG/0.025MG TABLET PO SCH ×3 (12:07→21:04)
[2020-11-16 12:58] LABS: BASO # 0.1 10^3/uL (0.0-0.2); EOS # 0.4 10^3/uL (0.0-0.5); HEMATOCRIT 32.6 % (42.0-52.0); HEMOGLOBIN 10.6 g/dl (13.5-17.5); LYMPH # 1.4 10^3/uL (1.5-5.0); LYMPH % 13.7 % (24.0-44.0); MEAN CORPUSCULAR HGB CONC 32.5 g/dl (32.0-36.5); MEAN CORPUSCULAR VOLUME 89.3 fl (80.0-96.0); MONO % 9.6 % (2.0-8.0); NEUTROPHILS # 7.2 10^3/uL (1.5-8.5); NEUTROPHILS % 71.4 % (36.0-66.0); PLATELET COUNT, AUTOMATED 287 10^3/uL (150-450); RED BLOOD COUNT 3.65 10^6/uL (4.30-6.10)
[2020-11-16 13:19] LABS: CLOSTRIDIUM DIFFICILE PCR NEGATIVE (NEGATIVE)
[2020-11-16] MEDS: cefTRIAXone SOD 1 GM in D5W MINI-BAG PLUS 50 ML IV SCH (13:22)
--- NOTE | 2020-11-16 14:54 | IPN ---
NEPHROLOGY PROGRESS NOTE DATE: 11/16/2020 SUBJECTIVE: The patient was seen and examined at the bedside today morning. His renal function continues to improve. He continues to be on IV bicarbonate containing fluid. He still reports that his stools in the ileostomy are very liquidy. The patient has a p.r.n. Imodium order but it is not being given to him. He also reports that he takes Metamucil at home to make his stools thick. OBJECTIVE: VITAL SIGNS: Temperature is 97.4 degrees Fahrenheit, blood pressure 156/82, pulse is 103, respiratory rate of 18, saturating 97% on room air. INTAKE AND OUTPUT: Urine output recorded as 2.1 liters yesterday, 500 mL so far today since overnight. Stool output is 1.1 liters since overnight. Weight in the bed scale is 90.6 kg. PHYSICAL EXAMINATION: GENERAL APPEARANCE: The patient is awake, alert, oriented x3, laying in bed in no apparent distress. HEAD AND NECK: Extraocular muscles intact. Pupils are equally round and reactive to light. Mucous membranes are moist. Neck is supple. There is no jugular venous distention. CARDIOVASCULAR: S1, S2, regular rate. EXTREMITIES: No edema of the bilateral lower extremities. RESPIRATORY: Chest is clear to auscultation bilaterally. Bilaterally currently no rales or rhonchi. ABDOMEN: Soft, positive bowel sounds. Left lower quadrant ileostomy was noted. All liquid stools in the bag were noted. MUSCULOSKELETAL: No clubbing, no cyanosis. Pulses are 2+. MOTION PICTURE NARRATOR: No focal deficits. Power is 5/5 in all extremities. LAB REVIEW: BMP showed sodium 139, potassium 4.4, chloride 109, bicarbonate 20, BUN 79, creatinine is 1.7; it was 2.5 yesterday. Calcium 8.7, phosphorous 4.1, magnesium is 2.1. Microbiology: Urine culture is pending. CURRENT INPATIENT MEDICATIONS: The patient's medications were all reviewed by myself. The patient was given another dose of normal saline 500 mL bolus. He continues to be on bicarbonate containing IV fluids. He continues to be on IV Rocephin as well. I have started the patient on a Metamucil packet, one packet twice a day, and I have started the patient on Imodium three times daily instead of p.r.n. orders. ASSESSMENT AND PLAN: 1. Acute renal failure the patient's acute renal failure is resolving. Continue the IV fluid hydration at this time. 2. Metabolic acidosis - bicarbonate level is improving. Continue bicarbonate fluids at this time. 3. Hyperkalemia it has resolved now with improvement in the renal function and his metabolic acidosis. 4. Anemia and chronic kidney disease - hemoglobin level is stable. There is no evidence of iron deficiency. 5. Leukocytosis and elevated white cell count urine culture is pending. He is currently on IV antibiotics. 6. Ileostomy and diarrhea I have started the patient on Metamucil and Imodium. The Medical Team has also ordered C-diff toxin.
[2020-11-16] MEDS: METAMUCIL (PSYLLIUM) PACKET PO SCH ×2 (15:37→21:04)
[2020-11-16 17:43] LABS: CHLORIDE,RANDOM URINE 24 MEQ/L; CREATININE,RANDOM URINE 85.2 MG/DL; SODIUM,RANDOM URINE < 10 MEQ/L
[2020-11-16] MEDS: LEVEMIR (INSULIN DETEMIR) 1 UNITS/0.01ML SC SCH (21:05)
[2020-11-17] VITALS: BP 140/75
[2020-11-17] MEDS: SODIUM BICARBONATE 75 MEQ in NS 0.45% 1,000 ML IV SCH (02:56)
[2020-11-17 04:00] VITALS: BP 147/70
[2020-11-17 08:00] VITALS: BP 148/76
[2020-11-17 08:11] LABS: HEMATOCRIT 31.4 % (42.0-52.0); HEMOGLOBIN 9.9 g/dl (13.5-17.5); MEAN CORPUSCULAR HEMOGLOBIN 28.3 pg (27.0-33.0); MEAN CORPUSCULAR HGB CONC 31.5 g/dl (32.0-36.5); MEAN CORPUSCULAR VOLUME 89.7 fl (80.0-96.0); PLATELET COUNT, AUTOMATED 267 10^3/uL (150-450)
[2020-11-17] MEDS: SYMBICORT 160/4.5MCG INHALER 6GM INH SCH (08:17)
[2020-11-17 08:34] LABS: CALCIUM LEVEL 8.6 MG/DL (8.8-10.2); CREATININE FOR GFR 1.37 MG/DL (0.70-1.30); GLOMERULAR FILTRATION RATE 54.5 (>42); POTASSIUM SERUM 4.3 MEQ/L (3.5-5.1)
[2020-11-17] MEDS: VITAMIN D 1,000 INTERNATIONAL UNITS TABLET PO SCH (08:46)
[2020-11-17] MEDS: METOPROLOL SUCC *XL* 25MG TAB (TopROL *XL*) PO SCH (08:46)
[2020-11-17] MEDS: LOMOTIL 2.5MG/0.025MG TABLET PO SCH ×2 (08:46→16:38)
[2020-11-17] MEDS: HumaLOG INSULIN (NovoLOG) PER UNIT SC SCH ×3 (08:47→16:34)
[2020-11-17] MEDS: LEVEMIR (INSULIN DETEMIR) 1 UNITS/0.01ML SC SCH (08:47)
[2020-11-17] MEDS: METAMUCIL (PSYLLIUM) PACKET PO SCH (08:47)
[2020-11-17] MEDS: HEPARIN SOD (PORCINE) 5000UNITS/ML 1ML VIAL/SYRINGE SQ SCH (08:47)
[2020-11-17] MEDS ORDERED: NS 500 ML IV ONE (09:30)
[2020-11-17 12:00] VITALS: BP 150/82
[2020-11-17] MEDS: cefTRIAXone SOD 1 GM in D5W MINI-BAG PLUS 50 ML IV SCH (12:16)
--- NOTE | 2020-11-17 14:19 | IPN ---
NEPHROLOGY PROGRESS NOTE DATE: 11/17/2020 SUBJECTIVE: Patient was seen and examined at the bedside today morning. He states hand tremor was significantly better. His renal function is improving with bicarbonate containing fluid and his acidosis is also getting better. Bicarbonate fluids have been stopped and I have given him a bolus of normal saline, 500 mL. He was also started on Metamucil yesterday and he reports his stool in the ileostomy bag is 4 pounds now. OBJECTIVE: VITAL SIGNS: Temperature 98.3 degrees Fahrenheit, blood pressure 148/76, pulse 84, respiratory rate 17, saturating 96% on room air. INTAKE AND OUTPUT: Urine output recorded as 1.6 liters yesterday, 75 mL so far today since overnight. Stool output is 1700 mL. Weight in the bed scale is 91.4 kg. PHYSICAL EXAMINATION: GENERAL: Patient is awake, alert, oriented times three, laying in bed, no apparent distress. HEAD AND NECK EXAM: Extraocular muscles intact. Pupils equally round and reactive to light. Mucous membranes are moist. Neck is supple. There is no jugular venous distention (JVD). CARDIOVASCULAR: S1, S2. Regular rate. No edema on the bilateral lower extremities. RESPIRATORY: Chest is clear to auscultation bilaterally. Bilateral equal air entry. No rales or rhonchi. ABDOMEN: Soft. Periumbilical hernia was noted. Left lower quadrant ileostomy was noted. He has LLQ Ileostomy, which are semi-formed now in the bag. MUSCULOSKELETAL: No clubbing or cyanosis. Pulses are 2+ CENTRAL NERVOUS SYSTEM (INSPECTOR AND HAND PACKAGER): No focal deficits. Power is 5/5 in all extremities. LABORATORY REVIEW: CBC showed a WBC of 10, hemoglobin 9.9, platelets 267. BMP showed sodium 140, potassium 4.3, chloride 106, bicarbonate 26, BUN 54, creatinine 1.37 (it was 1.7 yesterday), calcium 8.6. MICROBIOLOGY: Urine culture is growing Pseudomonas fluorescens. Sensitivity is not available. CURRENT INPATIENT MEDICATIONS: Patient's medications were reviewed by myself. He continues to be on intravenous (IV) ceftriaxone. IV bicarbonate containing fluids have been stopped and 500 mL of normal saline bolus was ordered. No other significant change in the medications. ASSESSMENT AND PLAN: 1. Acute renal failure secondary to dehydration and high ileostomy output. Renal function is improving now. IV fluids have been stopped. Repeat BMP will be done in the afternoon. If renal function stays stable, he can be discharged. Otherwise, he will have to be started on IV fluid boluses. 2. Metabolic acidosis. It has resolved now. IV bicarbonate has been stopped. 3. Anemia of chronic kidney disease. Hemoglobin level is stable. No need of Aranesp administration. Iron levels are okay. 4. Urinary tract infection. Patient is currently on IV ceftriaxone for Pseudomonas fluorescens. Sensitivity is not available. 5. Ileostomy diarrhea. Continue Metamucil and Imodium. MTDD
[2020-11-17 14:56] LABS: ALBUMIN 3.3 GM/DL (3.2-5.2); CALCIUM LEVEL 8.3 MG/DL (8.8-10.2); CREATININE FOR GFR 1.4 MG/DL (0.70-1.30); GLOMERULAR FILTRATION RATE 53.2 (>42); PHOSPHORUS LEVEL 2.8 MG/DL (2.5-4.9); POTASSIUM SERUM 4.6 MEQ/L (3.5-5.1)
[2020-11-17] MEDS ORDERED: META1POW PO (15:24)
[2020-11-17] MEDS ORDERED: CIPR500T39 PO (15:24)
[2020-11-17] MEDS ORDERED: DIPH2.5T14 PO ×3 (15:24→16:12)
[2020-11-17 16:00] VITALS: BP 144/67
[2020-11-17] MEDS ORDERED: AMLO1TAB24 PO (16:10)
--- NOTE | 2020-11-17 23:07 | DS.PDOC ---
Discharge Summary General Date of Admission Nov 14, 2020 at 13:50 Date of Discharge Nov 17, 2020 Discharge Summary PROCEDURES PERFORMED DURING STAY: None ADMITTING DIAGNOSES: 1. Acute kidney injury 2. Dehydration 3. Diabetes mellitus 4. Hypertension 5. Hyperlipidemia 6. Hyperkalemia DISCHARGE DIAGNOSES: 1. Acute kidney injury 2. Dehydration 3. Diabetes mellitus 4. Hypertension 5. Hyperlipidemia 6. Hyperkalemia 7. Metabolic acidosis 8. Pseudomonas fluorescens UTI COMPLICATIONS/CHIEF COMPLAINT: Dehydration,Hyperkalemia,Kidney Failure. HISTORY OF PRESENT ILLNESS: Mr. Buenrostro is a 70-year-old male with rheumatoid arthritis, diabetes mellitus, Crohn's disease, and ileostomy who [facility]. Prior to admission, patient had high ostomy outputs for 2 days. During this time he had an area for 2 days. His lab work was significant for leukocytosis of 15.7, creatinine of 3.9, and bicarbonate of 11 with an anion gap of 19. HOSPITAL COURSE: During patient's hospitalization, nephrology was consulted. Patient's acute renal failure is most likely secondary to dehydration and volume depletion from high ostomy output. Nephrology has started patient on bicarbonate containing fluid. Patient was tested for C. difficile which was negative. Patient's urine was tested which time showed pyuria and bacteria. Patient was empirically on ceftriaxone. When urine culture resulted, it demonstrated Pseudomonas fluorescens. Patient was switched to ciprofloxacin. Otherwise patient was put on Imodium and Metamucil to slow down his ostomy output. Today patient felt well. He denied any fever or chills, chest pain, or dyspnea. Patient was subsequently sent home with instructions to continue Imodium 3 times a day and Metamucil 2 times a day. He is also drinking 3 L of fluid and a day and follow-up with nephrology early next week. DISCHARGE MEDICATIONS: Please see below. ALLERGIES: Please see below. PHYSICAL EXAMINATION ON DISCHARGE: VITAL SIGNS: Please see below. GENERAL: Comfortable, in no apparent distress. HEENT: Head normocephalic/atraumatic, EOMI, sclera clear. NECK: Supple RESPIRATORY: Lungs clear to auscultation bilaterally, no rales, wheeze or rho nchi. CARDIOVASCULAR: Regular rate and rhythm. ABDOMEN: Ostomy present on left abdomen. Had liquid green bile MUSCLE SKELETAL: Muscle strength 5/5 in all extremities. NEUROLOGICAL: CN 312 grossly intact, no focal deficits noted. PSYCHOLOGICAL: Normal mood and affect LABORATORY DATA: Please see below. IMAGING: None PROGNOSIS: Good ACTIVITY: As tolerated. DIET: As tolerated DISCHARGE PLAN: Home DISPOSITION: 01 Home, Self-Care. DISCHARGE INSTRUCTIONS: 1. Follow with PCP in a week 2. Follow with nephrology early next week 3. Take Imodium 3 times a day and Metamucil 2 times a day 4. Drink at least 3 L of fluid a day DISCHARGE CONDITION: Stable Total time spent on discharge planning, discharge summary, and medication reconciliation: 55 minutes Vital Signs/I&Os Vital Signs Date Time Temp Pulse Resp B/P (MAP) Pulse Ox O2 Delivery O2 Flow Rate FiO2 11/17/20 16:00 97.6 84 18 144/67 (92) 97 Room Air I&O- Last 24 Hours up to 6 AM 11/17/20 06:00 Intake Total 6190 ml Output Total 4650 ml Balance 1540 ml Laboratory Data Labs 24H Laboratory Tests 2 11/17/20 06:33: Bedside Glucose (Misc Panel) 119H 11/17/20 07:46: Nucleated Red Blood Cells % (auto) 0.0, Anion Gap 8, Glomerular Filtration Rate 54.5, Calcium Level 8.6L 11/17/20 12:02: Bedside Glucose (Misc Panel) 140H 11/17/20 13:48: Anion Gap 7L, Glomerular Filtration Rate 53.2, Calcium Level 8.3L, Phosphorus Level 2.8#, Albumin 3.3 11/17/20 16:19: Bedside Glucose (Misc Panel) 95 CBC/BMP Laboratory Tests 11/17/20 07:46 11/17/20 13:48 FSBS Laboratory Tests Test 11/17/20 06:33 11/17/20 12:02 11/17/20 16:19 Range/Units Bedside Glucose (Misc Panel) 119 140 95 83-110 MG/DL Microbiology Microbiology 11/15/20 Urine Culture - Final, Complete Pseudomonas Fluorescens 11/14/20 Blood Culture - Preliminary, Resulted No Growth after 72 hours. All specime... 11/14/20 Blood Culture - Preliminary, Resulted No Growth after 72 hours. All specime... Discharge Medications Scheduled Alogliptin Benzoate (Alogliptin) 6.25 Mg Tablet, 6.25 MG PO DAILY, (Reported) Amlodipine Besylate (Amlodipine Besylate) 5 Mg Tablet, 5 MG PO DAILY Aspirin (Aspirin EC) 81 Mg Tablet.dr, 81 MG PO Q2D, (Reported) Budesonide/Formoterol (Symbicort 160-4.5 Mcg Inhaler) 60 Puff/Inhaler Aers, 2 PUFF INH BID, (Reported) Cholecalciferol (Vitamin D3) (Vitamin D3) 1,000 Unit Tablet, 1,000 UNITS PO DAILY, (Reported) Ciprofloxacin HCl (Ciprofloxacin HCl) 500 Mg Tablet, 500 MG PO BID Diphenoxylate HCl/Atropine (Diphenoxylate-Atrop 2.5-0.025) 1 Ea Tab, 1 EA PO TID Insulin Glargine,Hum.rec.anlog (Lantus Solostar) 100 Unit/Ml Inj, 12 UNITS SC BID, (Reported) Insulin Human Lispro (Novolog) 100 U/Ml Inj, 1 DOSE SC WM, (Reported) PER SLIDING SCALE Metoprolol Succinate (Metoprolol Succinate) 25 Mg Tab.er.24h, 25 MG PO DAILY, (R eported) Multivitamins (Thera M Plus Tablet) 1 Each Tablet, 1 TAB PO QHS, (Reported) Psyllium Husk/Aspartame (Metamucil Fiber Singles Packet) 3.4 Gm Powd.pack, 1 PKT PO BID Scheduled PRN Fluticasone Propionate (Flonase Allergy Relief) 50 Mcg/Act Spr, 2 SPRAY NARES DAILY PRN for CONGESTION, (Reported) Prednisone (Prednisone) 5 Mg Tab, 5 MG PO DAILY PRN for RHUEMATOID ARTHRITIS, (Reported) Allergies Coded Allergies: No Known Allergies (Unverified , 12/19/18) YAKELIN CHAN DO Nov 17, 2020 23:07
== END 2020-11-17 16:17 | disposition home or self-care (01) | DRG 683 ==
LOC: M PCU 13:50
PROVIDERS: ADMIT Internal Medicine; ATTEND Internal Medicine
DX: N17.9 Acute kidney failure, unspecified (principal); E87.1 Hypo-osmolality and hyponatremia; E87.2 Acidosis; K51.90 Ulcerative colitis, unspecified, without complications; N39.0 Urinary tract infection, site not specified; E11.65 Type 2 diabetes mellitus with hyperglycemia; E86.0 Dehydration; I10 Essential (primary) hypertension; E87.5 Hyperkalemia; E78.5 Hyperlipidemia, unspecified; B96.5 Pseudomonas (aeruginosa) (mallei) (pseudomallei) as the cause of diseases classified elsewhere; M06.9 Rheumatoid arthritis, unspecified; Z93.2 Ileostomy status; Z79.899 Other long term (current) drug therapy; Z79.82 Long term (current) use of aspirin; B18.2 Chronic viral hepatitis C; Z96.653 Presence of artificial knee joint, bilateral; Z98.41 Cataract extraction status, right eye; Z98.42 Cataract extraction status, left eye; K52.9 Noninfective gastroenteritis and colitis, unspecified; D63.1 Anemia in chronic kidney disease; E83.39 Other disorders of phosphorus metabolism

== ENCOUNTER → 2020-11-24 | Outpatient (REF) | payer MEDICARE ==
[~2020-11-24] MED LIST changes: +ALOG6.25 PO; +AMLO1TAB24 PO; +ASPI81TA26 PO; +CIPR500T39 PO; +D31000TA2 PO; +HYDR12.55 PO; +META1POW PO; +METO1TAB32 PO; +VITMTA PO
[2020-11-24 17:50] LABS: PERCENT SATURATION 20.8 % (19.7-50.0)
== END ==
LOC: M LAB REF 16:43
PROVIDERS: ATTEND Internal Medicine Nephrology
DX: D50.9 Iron deficiency anemia, unspecified (principal)

== ENCOUNTER → 2021-03-26 | Outpatient (CLI) | payer MEDICARE ==
--- NOTE | 2021-03-26 12:14 | REP ---
INDICATION: PLEURAL EFFUSION, NOT ELSEWHERE CLASSIFIED COMPARISON: Multiple examinations dating through 10/09/2014 TECHNIQUE: PA and lateral. FINDINGS: The mediastinum and cardiac silhouette are stable. The lung cox are relatively well aerated and clear/stable. There is an ovoid subpleural density along the lateral aspect of the left apex currently measuring roughly 4.5 cm in maximal length which is similar to 2015. There also appears to be a somewhat ovoid area of density overlying the left lower lung zone which was noted on prior examinations and may be artifactual and related to overlying breast tissue. No new acute process identified. Clinical correlation is recommended as no prior CTs are available for comparison and correlation. IMPRESSION: No obvious acute process. Above-mentioned findings date back to 2014 but are of uncertain etiology or significance. No prior chest CTs are available for correlation/confirmation. <Electronically signed by Pardeep Pinto > 03/26/21 0232
== END ==
LOC: M PLAIMG 11:30
PROVIDERS: ATTEND Internal Medicine Pulmonary Disease
DX: J90 Pleural effusion, not elsewhere classified (principal)

== ENCOUNTER → 2021-04-27 | Outpatient (CLI) | payer MEDICARE, OTHER ==
[2021-04-27 09:51] LABS: BLOOD UREA NITROGEN 24 MG/DL (7-18); CREATININE FOR GFR 1.12 MG/DL (0.70-1.30); GLOMERULAR FILTRATION RATE > 60.0 (>42)
== END ==
LOC: M LAB 08:25
PROVIDERS: ATTEND Surgery
DX: K43.3 Parastomal hernia with obstruction, without gangrene (principal)

== ENCOUNTER 2022-10-30 13:28 | Inpatient (IN) | payer MEDICARE, OTHER ==
[~2022-10-30] VITALS: Ht 162.6 cm; Wt 90.1 kg
[~2022-10-30 13:28] MED LIST changes: -D31000TA2 PO; +VITA100093 PO
[2022-10-30 15:20] VITALS: BP 153/68
[2022-10-30] MEDS: SODIUM BICARBONATE 150 MEQ in STERILE WATER LITER BAG 1,000 ML IV SCH (15:25)
[2022-10-30 16:02] LABS: HEMATOCRIT 41.3 % (42.0-52.0); HEMOGLOBIN 13.5 g/dl (13.5-17.5); MEAN CORPUSCULAR HEMOGLOBIN 30.3 pg (27.0-33.0); MEAN CORPUSCULAR HGB CONC 32.7 g/dl (32.0-36.5); MEAN CORPUSCULAR VOLUME 92.6 fl (80.0-96.0); PLATELET COUNT, AUTOMATED 275 10^3/uL (150-450); RED BLOOD COUNT 4.46 10^6/uL (4.30-6.10); WHITE BLOOD COUNT 11.7 10^3/uL (4.0-10.0)
[2022-10-30] MEDS ORDERED: IPRATROPIUM 0.5MG/ALBUTEROL 2.5MG INH SOL UD 3ML (DUONEB) NEB PRN (16:10)
[2022-10-30] MEDS ORDERED: DEXTROSE 50% 50ML SYRINGE IV PRN (16:10)
[2022-10-30] MEDS ORDERED: GLUCAGON INJ 1MG VIAL SC PRN (16:10)
[2022-10-30] MEDS ORDERED: GLUCOSE 4GM CHEW TABLET PO PRN (16:10)
[2022-10-30 16:26] LABS: ALBUMIN 3.6 G/DL (3.2-5.2); BILIRUBIN,TOTAL 0.3 MG/DL (0.3-1.2); CREATININE FOR GFR 2.5 MG/DL (0.70-1.30); GLOMERULAR FILTRATION RATE 27.1 (>42); POTASSIUM SERUM 5.6 MMOL/L (3.5-5.1); TOTAL PROTEIN 7.7 G/DL (5.7-8.2)
[2022-10-30] MEDS ORDERED: ALBUTEROL SULFATE 2.5MG/0.5ML INH NEB SOLN NEB ONE (16:30)
[2022-10-30] MEDS ORDERED: CALCIUM GLUCONATE 1,000 MG in D5W MINI-BAG PLUS 100 ML IV ONE (17:00)
[2022-10-30] MEDS: INSULIN LISPRO (NovoLOG) PER UNIT SC SCH (17:21)
[2022-10-30] MEDS ORDERED: AMLO1TAB25 PO (17:56)
[2022-10-30] MEDS ORDERED: FURO20TA2 PO (17:56)
[2022-10-30] MEDS ORDERED: ALOG12.5 PO (17:56)
[2022-10-30] MEDS ORDERED: FERR32TA PO (17:56)
[2022-10-30] MEDS ORDERED: JARD1TAB3 PO (17:56)
[2022-10-30] MEDS ORDERED: ATOR1TAB21 PO (17:56)
[2022-10-30] MEDS ORDERED: RAMI1CAP24 PO (17:56)
[2022-10-30] MEDS ORDERED: FLUT1BLS3 INH (17:56)
[2022-10-30] MEDS ORDERED: METO1TAB7 PO (17:56)
[2022-10-30] MEDS ORDERED: INSU100V13 SQ (17:56)
[2022-10-30] MEDS ORDERED: POTA-149 PO (17:56)
[2022-10-30] MEDS ORDERED: VENTAER INH (18:16)
[2022-10-30] MEDS ORDERED: HOME MED LIST COMPLETE! XX SCH (18:20)
[2022-10-30 18:47] LABS: OSMOLALITY URINE 416 MOSM/KG (50-1400)
[2022-10-30 18:55] LABS: UREA NITROGEN RANDOM URINE 653 MG/DL
[2022-10-30 18:57] LABS: CREATININE,RANDOM URINE 141.3 MG/DL
[2022-10-30 18:59] LABS: SODIUM,RANDOM URINE < 10 MMOL/L
[2022-10-30] MEDS: IPRATROPIUM 0.5MG/ALBUTEROL 2.5MG INH SOL UD 3ML (DUONEB) NEB SCH (19:10)
[2022-10-30 20:00] VITALS: BP 134/61
[2022-10-30] MEDS ORDERED: ALBUTEROL 90 MCG/ACT 8GM HFA INHALER INH PRN (20:00)
[2022-10-30] MEDS: ADVAIR HFA 45/21MCG INHALER INH SCH (20:00)
[2022-10-30] MEDS ORDERED: FLUTICASONE PROP 0.05% NASAL SPRAY 16 GM (FLONASE) NARES PRN (20:00)
[2022-10-30] MEDS ORDERED: INSULIN LISPRO (NovoLOG) PER UNIT SC SCH (21:00)
[2022-10-30] MEDS: LEVEMIR (INSULIN DETEMIR) 1 UNITS/0.01ML SC SCH (21:14)
[2022-10-30] MEDS: HEPARIN SOD (PORCINE) 5000UNITS/ML 1ML VIAL/SYRINGE SC SCH (21:14)
[2022-10-30] MEDS: METOPROLOL SUCC (TopROL XL) 50MG **XL** TAB PO SCH (21:20)
[2022-10-30 23:30] LABS: CALCIUM LEVEL 8.5 MG/DL (8.3-10.6); CREATININE FOR GFR 2.36 MG/DL (0.70-1.30); GLOMERULAR FILTRATION RATE 28.9 (>42); POTASSIUM SERUM 5.1 MMOL/L (3.5-5.1)
[2022-10-31] VITALS: BP 120/60
[2022-10-31] MEDS: IPRATROPIUM 0.5MG/ALBUTEROL 2.5MG INH SOL UD 3ML (DUONEB) NEB SCH ×4 (01:07→19:40)
[2022-10-31] MEDS: SODIUM BICARBONATE 150 MEQ in STERILE WATER LITER BAG 1,000 ML IV SCH (02:54)
[2022-10-31 04:03] VITALS: BP 118/65
[2022-10-31 05:28] LABS: HEMOGLOBIN 12.3 g/dl (13.5-17.5); MEAN CORPUSCULAR HEMOGLOBIN 30.3 pg (27.0-33.0); MEAN CORPUSCULAR HGB CONC 33.2 g/dl (32.0-36.5); MEAN CORPUSCULAR VOLUME 91.1 fl (80.0-96.0); PLATELET COUNT, AUTOMATED 243 10^3/uL (150-450); RED BLOOD COUNT 4.06 10^6/uL (4.30-6.10)
[2022-10-31 05:55] LABS: CALCIUM LEVEL 9.1 MG/DL (8.3-10.6); CREATININE FOR GFR 2.22 MG/DL (0.70-1.30); GLOMERULAR FILTRATION RATE 31.1 (>42); POTASSIUM SERUM 4.9 MMOL/L (3.5-5.1)
[2022-10-31] MEDS: HEPARIN SOD (PORCINE) 5000UNITS/ML 1ML VIAL/SYRINGE SC SCH ×3 (06:26→21:44)
[2022-10-31] MEDS ORDERED: D5W 1,000 ML IV SCH (06:35)
[2022-10-31] MEDS: INSULIN LISPRO (NovoLOG) PER UNIT SC SCH ×3 (07:30→21:00)
[2022-10-31 07:34] VITALS: BP 134/65
[2022-10-31] MEDS: ADVAIR HFA 45/21MCG INHALER INH SCH ×2 (08:17→19:40)
[2022-10-31] MEDS: ASPIRIN 81MG ENTERIC TABLET PO SCH (08:41)
[2022-10-31] MEDS: ATORVASTATIN 20 MG TAB PO SCH (08:42)
[2022-10-31 11:45] LABS: CALCIUM LEVEL 8.6 MG/DL (8.3-10.6); CREATININE FOR GFR 1.95 MG/DL (0.70-1.30); GLOMERULAR FILTRATION RATE 36.1 (>42); POTASSIUM SERUM 4.4 MMOL/L (3.5-5.1)
[2022-10-31 11:47] VITALS: BP 132/64
[2022-10-31] MEDS ORDERED: INSULIN LISPRO (NovoLOG) PER UNIT SC SCH (12:00)
[2022-10-31] MEDS: NS 0.45% 1,000 ML IV SCH (13:18)
[2022-10-31 16:29] LABS: PERCENT SATURATION 20.8 % (19.7-50.0)
[2022-10-31 16:31] LABS: FERRITIN 139.2 NG/ML (10.5-307.3)
[2022-10-31 18:41] LABS: CALCIUM LEVEL 8.6 MG/DL (8.3-10.6); CREATININE FOR GFR 2.05 MG/DL (0.70-1.30); GLOMERULAR FILTRATION RATE 34.1 (>42); POTASSIUM SERUM 5.1 MMOL/L (3.5-5.1)
[2022-10-31 20:00] VITALS: BP 119/55
[2022-10-31] MEDS: METOPROLOL SUCC (TopROL XL) 50MG **XL** TAB PO SCH (21:44)
[2022-10-31] MEDS: LEVEMIR (INSULIN DETEMIR) 1 UNITS/0.01ML SC SCH (21:44)
[2022-11-01] MEDS: IPRATROPIUM 0.5MG/ALBUTEROL 2.5MG INH SOL UD 3ML (DUONEB) NEB SCH ×4 (01:22→19:42)
[2022-11-01] MEDS: NS 0.45% 1,000 ML IV SCH (02:25)
[2022-11-01 04:00] VITALS: BP 130/60
[2022-11-01] MEDS: HEPARIN SOD (PORCINE) 5000UNITS/ML 1ML VIAL/SYRINGE SC SCH ×3 (05:04→21:17)
[2022-11-01] MEDS: ADVAIR HFA 45/21MCG INHALER INH SCH ×2 (07:35→19:42)
[2022-11-01 08:00] LABS: BASO # 0.1 10^3/uL (0.0-0.2); BASO % 0.5 % (0.0-1.0); EOS # 0.4 10^3/uL (0.0-0.5); EOS % 3.6 % (0.0-3.0); HEMATOCRIT 37.3 % (42.0-52.0); HEMOGLOBIN 12.4 g/dl (13.5-17.5); LYMPH # 1.5 10^3/uL (1.5-5.0); LYMPH % 15.2 % (24.0-44.0); MEAN CORPUSCULAR HEMOGLOBIN 30.5 pg (27.0-33.0); MEAN CORPUSCULAR HGB CONC 33.2 g/dl (32.0-36.5); MEAN CORPUSCULAR VOLUME 91.6 fl (80.0-96.0); MONO # 1.3 10^3/uL (0.0-0.8); NEUTROPHILS # 6.5 10^3/uL (1.5-8.5); NEUTROPHILS % 67.3 % (36.0-66.0); PLATELET COUNT, AUTOMATED 215 10^3/uL (150-450); RED BLOOD COUNT 4.07 10^6/uL (4.30-6.10); WHITE BLOOD COUNT 9.6 10^3/uL (4.0-10.0)
[2022-11-01 08:05] LABS: CALCIUM LEVEL 8.7 MG/DL (8.3-10.6); CREATININE FOR GFR 1.88 MG/DL (0.70-1.30); GLOMERULAR FILTRATION RATE 37.6 (>42); MAGNESIUM LEVEL 2.3 MG/DL (1.8-2.4); POTASSIUM SERUM 4.8 MMOL/L (3.5-5.1)
[2022-11-01 08:11] VITALS: BP 116/56
[2022-11-01] MEDS: INSULIN LISPRO (NovoLOG) PER UNIT SC SCH ×4 (08:49→21:00)
[2022-11-01] MEDS: ATORVASTATIN 20 MG TAB PO SCH (08:49)
[2022-11-01] MEDS: ASPIRIN 81MG ENTERIC TABLET PO SCH (08:49)
[2022-11-01] MEDS: NS 1,000 ML IV SCH ×2 (09:48→21:00)
[2022-11-01] MEDS ORDERED: ALLO100T PO (09:56)
[2022-11-01 14:00] LABS: CALCIUM LEVEL 8.9 MG/DL (8.3-10.6); CREATININE FOR GFR 1.84 MG/DL (0.70-1.30); GLOMERULAR FILTRATION RATE 38.6 (>42); POTASSIUM SERUM 5.2 MMOL/L (3.5-5.1)
[2022-11-01] MEDS ORDERED: PATIROMER SORBITEX CALCIUM 8.4 GM POWDER PACKET (VELTASSA) PO ONE (15:00)
[2022-11-01 15:42] VITALS: BP 113/56
[2022-11-01 19:05] LABS: CALCIUM LEVEL 8.6 MG/DL (8.3-10.6); CREATININE FOR GFR 1.7 MG/DL (0.70-1.30); GLOMERULAR FILTRATION RATE 42.3 (>42)
[2022-11-01 21:13] VITALS: BP 119/58
[2022-11-01] MEDS: METOPROLOL SUCC (TopROL XL) 50MG **XL** TAB PO SCH (21:17)
[2022-11-01] MEDS: LEVEMIR (INSULIN DETEMIR) 1 UNITS/0.01ML SC SCH (21:22)
[2022-11-02] MEDS: NS 1,000 ML IV SCH ×2 (01:12→11:36)
[2022-11-02 01:23] LABS: CALCIUM LEVEL 8.5 MG/DL (8.3-10.6); CREATININE FOR GFR 1.66 MG/DL (0.70-1.30); GLOMERULAR FILTRATION RATE 43.4 (>42); POTASSIUM SERUM 4.9 MMOL/L (3.5-5.1)
[2022-11-02] MEDS: IPRATROPIUM 0.5MG/ALBUTEROL 2.5MG INH SOL UD 3ML (DUONEB) NEB SCH ×2 (02:00→08:00)
[2022-11-02 04:38] VITALS: BP 122/59
[2022-11-02 05:21] LABS: BASO # 0.1 10^3/uL (0.0-0.2); BASO % 0.6 % (0.0-1.0); EOS # 0.4 10^3/uL (0.0-0.5); EOS % 3.8 % (0.0-3.0); HEMATOCRIT 34.6 % (42.0-52.0); HEMOGLOBIN 11.4 g/dl (13.5-17.5); LYMPH # 1.2 10^3/uL (1.5-5.0); LYMPH % 11.4 % (24.0-44.0); MEAN CORPUSCULAR HEMOGLOBIN 30.6 pg (27.0-33.0); MEAN CORPUSCULAR HGB CONC 32.9 g/dl (32.0-36.5); MONO # 1.3 10^3/uL (0.0-0.8); MONO % 12.2 % (2.0-8.0); NEUTROPHILS # 7.5 10^3/uL (1.5-8.5); NEUTROPHILS % 71.7 % (36.0-66.0); PLATELET COUNT, AUTOMATED 205 10^3/uL (150-450); RED BLOOD COUNT 3.72 10^6/uL (4.30-6.10); WHITE BLOOD COUNT 10.4 10^3/uL (4.0-10.0)
[2022-11-02] MEDS: HEPARIN SOD (PORCINE) 5000UNITS/ML 1ML VIAL/SYRINGE SC SCH (05:36)
[2022-11-02 05:47] LABS: CALCIUM LEVEL 8.3 MG/DL (8.3-10.6); CREATININE FOR GFR 1.63 MG/DL (0.70-1.30); GLOMERULAR FILTRATION RATE 44.4 (>42); MAGNESIUM LEVEL 2.3 MG/DL (1.8-2.4); POTASSIUM SERUM 4.8 MMOL/L (3.5-5.1)
[2022-11-02 08:00] VITALS: BP 129/60
[2022-11-02] MEDS ORDERED: LOPERAMIDE 2 MG CAPLET PO PRN (08:00)
[2022-11-02] MEDS: ADVAIR HFA 45/21MCG INHALER INH SCH (08:05)
[2022-11-02 08:29] VITALS: BP 129/60
[2022-11-02] MEDS: ASPIRIN 81MG ENTERIC TABLET PO SCH (08:31)
[2022-11-02] MEDS: ATORVASTATIN 20 MG TAB PO SCH (08:31)
[2022-11-02] MEDS: INSULIN LISPRO (NovoLOG) PER UNIT SC SCH ×2 (08:31→11:55)
[2022-11-02] MEDS ORDERED: METAMUCIL (PSYLLIUM) PACKET PO SCH (09:00)
[2022-11-02] MEDS ORDERED: CHOLESTYRAMINE 4GM PWD PKT PO SCH (10:00)
[2022-11-02] MEDS ORDERED: SODI650T PO (10:46)
[2022-11-02] MEDS ORDERED: LOPE2CA PO (10:46)
[2022-11-02] MEDS ORDERED: CHOL4PW PO (10:46)
== END 2022-11-02 13:13 | disposition home or self-care (01) | DRG 683 ==
LOC: M PCU 15:06
PROVIDERS: ADMIT Internal Medicine; ATTEND Internal Medicine
DX: N17.9 Acute kidney failure, unspecified (principal); K50.90 Crohn's disease, unspecified, without complications; E87.1 Hypo-osmolality and hyponatremia; E87.20 Acidosis, unspecified; M06.9 Rheumatoid arthritis, unspecified; I12.9 Hypertensive chronic kidney disease with stage 1 through stage 4 chronic kidney disease, or unspecified chronic kidney disease; J44.9 Chronic obstructive pulmonary disease, unspecified; N18.9 Chronic kidney disease, unspecified; D50.9 Iron deficiency anemia, unspecified; E87.5 Hyperkalemia; Z66 Do not resuscitate; E55.9 Vitamin D deficiency, unspecified; E86.0 Dehydration; E11.22 Type 2 diabetes mellitus with diabetic chronic kidney disease; Z93.2 Ileostomy status; Z79.82 Long term (current) use of aspirin; Z79.4 Long term (current) use of insulin; Z79.899 Other long term (current) drug therapy; Z90.49 Acquired absence of other specified parts of digestive tract; Z87.891 Personal history of nicotine dependence

== ENCOUNTER → 2023-08-29 | Outpatient (CLI) | payer OTHER, MEDICARE ==
[~2023-08-29] MED LIST changes: +ALLO100T PO; +ALOG12.5 PO; +ATOR1TAB21 PO; +CHOL4PW PO; +FERR32TA PO; +FLUT1BLS3 INH; +FURO20TA2 PO; +INSU100V13 SQ; +JARD1TAB3 PO; +LOPE2CA PO; +METO1TAB7 PO; +POTA-149 PO; +RAMI1CAP24 PO; +SODI650T PO; +VENTAER INH
== END ==
LOC: M PLAIMG 08:28
PROVIDERS: ATTEND Internal Medicine Pulmonary Disease
DX: J45.40 Moderate persistent asthma, uncomplicated (principal)

== ENCOUNTER → 2024-09-05 | Outpatient (REF) | payer MEDICARE ==
[~2024-09-05] MED LIST changes: -ADV100INH INH; +ADVA1AER8 INH; +DIPH1TAB80 PO; -DIPH2.5T14 PO; +RAMI10CA64 PO; -RAMI1CAP24 PO; -RAMI1CAP26 PO; +RAMI5CAP60 PO
== END ==
LOC: M LAB REF 13:46
PROVIDERS: ATTEND Nurse Practitioner Family
DX: N39.0 Urinary tract infection, site not specified (principal)

== ENCOUNTER 2024-09-11 09:09 | Outpatient (CLI) | payer MEDICARE ==
[~2024-09-11] VITALS: Ht 167.6 cm; Wt 95.5 kg
[~2024-09-11 09:09] MED LIST changes: -SODIUM CHLORIDE 0.9% INJ 10 ML SYR IV PRN; -SODIUM CHLORIDE 0.9% INJ 10 ML SYR IV SCH
[2024-09-11 11:10] VITALS: BP 173/72; O2SAT 95
[2024-09-11] MEDS: MEROPENEM INJ 500 MG in IV 1 EA IV ONE (11:10)
[2024-09-11 12:05] VITALS: BP 146/67; O2SAT 96
== END 2024-09-11 12:15 ==
LOC: M INFU 09:09
PROVIDERS: ATTEND Nurse Practitioner Family
DX: N39.0 Urinary tract infection, site not specified (principal)
CPT/HCPCS: 36569; 96365; C1751; J2184

== ENCOUNTER → 2024-09-11 | Outpatient (CLI) | payer OTHER, MEDICARE ==
[~2024-09-11] MED LIST changes: +SODIUM CHLORIDE 0.9% INJ 10 ML SYR IV PRN; +SODIUM CHLORIDE 0.9% INJ 10 ML SYR IV SCH
== END ==
LOC: M IRPRO 09:05
PROVIDERS: ATTEND Nurse Practitioner Family
DX: N39.0 Urinary tract infection, site not specified (principal)

== ENCOUNTER → 2024-10-15 | Outpatient (CLI) | payer MEDICARE | LOC: M RAD 15:49 | PROVIDERS: ATTEND Nurse Practitioner Family | DX: N39.0 Urinary tract infection, site not specified (principal) ==

== ENCOUNTER → 2024-11-28 | Outpatient (CLI) | payer MEDICARE | LOC: M WUC 14:04 | PROVIDERS: ATTEND Internal Medicine Pulmonary Disease | DX: J44.9 Chronic obstructive pulmonary disease, unspecified (principal) ==

== ENCOUNTER → 2025-06-09 | Outpatient (REF) | payer MEDICARE, OTHER ==
[~2025-06-09] MED LIST changes: +PREG-35 PO; -PREG100CA PO
== END ==
LOC: M SFHCWOUN 17:55
PROVIDERS: ATTEND Surgery
DX: L98.492 Non-pressure chronic ulcer of skin of other sites with fat layer exposed (principal)